=== PATIENT | female | born 1940 | race Caucasian/White ===

== ENCOUNTER 2016-09-08 15:48 | Outpatient (CLI) ==
[2016-09-08 16:13] LABS: BILIRUBIN,URINE Negative (NEGATIVE); KETONES,URINE Negative (NEGATIVE); LEUKOCYTE ESTERASE ,URINE Negative (NEGATIVE); NITRITE,URINE Negative (NEGATIVE); PH,URINE 6.5 (5-9); PROTEIN,URINE Negative (NEGATIVE); URINE, BLOOD Trace-intact (NEGATIVE)
[2016-09-08 16:16] LABS: ADD URINE MICROSCOPIC YES
== END 2016-09-08 15:49 | disposition home or self-care (01) ==
LOC: NONPT 15:48
PROVIDERS: ATTEND Family Medicine
DX: I10 Essential (primary) hypertension (principal); J15.9 Unspecified bacterial pneumonia; N39.0 Urinary tract infection, site not specified
CPT/HCPCS: 81001; 87086; 87186

== ENCOUNTER 2016-09-23 15:09 | Outpatient (CLI) ==
[2016-09-23 16:46] LABS: BILIRUBIN,URINE Negative (NEGATIVE); KETONES,URINE Negative (NEGATIVE); LEUKOCYTE ESTERASE ,URINE Negative (NEGATIVE); NITRITE,URINE Negative (NEGATIVE); PROTEIN,URINE Negative (NEGATIVE); URINE, BLOOD Negative (NEGATIVE)
[2016-09-23 16:47] LABS: ADD URINE MICROSCOPIC NO
== END 2016-09-23 15:10 | disposition home or self-care (01) ==
LOC: NONPT 15:09
PROVIDERS: ATTEND Family Medicine
DX: N39.0 Urinary tract infection, site not specified (principal)
CPT/HCPCS: 81001; 87086

== ENCOUNTER 2016-09-29 16:11 | Outpatient (CLI) ==
[2016-09-29 16:21] LABS: ADD URINE MICROSCOPIC NO; BILIRUBIN,URINE Negative (NEGATIVE); KETONES,URINE Negative (NEGATIVE); LEUKOCYTE ESTERASE ,URINE Negative (NEGATIVE); NITRITE,URINE Negative (NEGATIVE); PROTEIN,URINE Negative (NEGATIVE); URINE, BLOOD Negative (NEGATIVE)
== END 2016-09-29 16:12 | disposition home or self-care (01) ==
LOC: NONPT 16:11
PROVIDERS: ATTEND Family Medicine
DX: N39.0 Urinary tract infection, site not specified (principal); R41.0 Disorientation, unspecified
CPT/HCPCS: 81001; 87086

== ENCOUNTER 2017-10-26 10:10 | Outpatient (CLI) | END 2017-10-26 10:11 | disposition home or self-care (01) | LOC: NONPT 10:10 | PROVIDERS: ATTEND Family Medicine | DX: J18.9 Pneumonia, unspecified organism (principal); N39.0 Urinary tract infection, site not specified; I10 Essential (primary) hypertension | CPT/HCPCS: 80048; 85025 ==

== ENCOUNTER 2018-01-28 19:12 | Inpatient (IN) ==
[2018-01-28] MEDS ORDERED: SODIUM CHLORIDE 1,000 ML IV STA ×2 (19:20→20:33)
--- NOTE | 2018-01-28 19:53 | ED.PDOC ---
General ED Provider: Dr. MAYANK HARVEY-ER Chief Complaint: Fever Stated Complaint: she is running a fever and not eating Time Seen by Physician: 19:20 Mode of Arrival: Wheelchair Information Source: Patient, Family Exam Limitations: No limitations Nursing and Triage Documentation Reviewed and Agree: Yes Does patient meet sepsis criteria?: No System Inflammatory Response Syndrome: Not Applicable Sepsis Protocol: For patient's 13 years and over: Temp is 96.8 and below OR 101 and greater Pulse >90 BPM Resp >20/minute Acutely Altered Mental Status Are patient's symptoms suggestive of a new infection, such as: -Pneumonia -Skin, Soft Tissue -Endocarditis -UTI -Bone, Joint Infection -Implantable Device -Acute Abdominal Infection -Wound Infection -Meningitis -Blood Stream Catheter Infection -Unknown Miscellaneous Complaint Exam - Febrile Illness/Adult Complaint/Exam Onset/Duration: 2 days Symptoms Are: Still present Timing: Intermittent Highest Temperature Recorded: 102 Initial Severity: Mild Current Severity: Moderate Aggravating: Reports: None Alleviating: Reports: None Associated Signs and Symptoms: Reports: Chills. Denies: Headache, Fluid intake , Short of air, Cough, Sore throat, Nausea, Vomiting Related History: Reports: Similar episode Current Antibiotic Use: No Related Surgical History: None Specific Findings: Absent: Meningeal signs, Diaphoresis, Joint swelling, Erythema, Cellulitis, Lymphadenopathy, Petechiae, CVA tenderness Differential Diagnoses: Bacteremia, Pyelonephritis Quality Indicator For Non-Traumatic Chest Pain/Syncope: EKG Performed Review of Systems - Review Of Systems Constitutional: Reports: Chills, Fever, Weakness Eyes: Reports: No symptoms Ears, Nose, Mouth, Throat: Reports: No symptoms Respiratory: Reports: No symptoms Cardiac: Reports: No symptoms GI: Reports: No symptoms : Reports: No symptoms Musculoskeletal: Reports: No symptoms Skin: Reports: No symptoms Neurological: Reports: No symptoms Endocrine: Reports: No symptoms Hematologic/Lymphatic: Reports: No symptoms All Other Systems: Reviewed and Negative Past Medical History - Past Medical History Previously Healthy: No Endocrine: Reports: Unknown Cardiovascular: Reports: Unknown Respiratory: Reports: Unknown Hematological: Reports: Unknown Gastrointestinal: Reports: Unknown Genitourinary: Reports: Unknown Neuro/Psych: Reports: Unknown Musculoskeletal: Reports: Unknown Cancer: Reports: Unknown Last Menstrual Period: na - Surgical History General Surgical History: Reports: Unknown - Family History Family History: Reports: Unknown - Social History Smoking Status: Former smoker Hx Substance Use: No Alcohol Screening: None - Immunizations Tetanus Shot up to Date: No (unknown) Physical Exam - Physical Exam Appearance: Well-appearing Eyes: RALPH ENT: Ears normal, Nose normal, Oropharynx normal Neck: Supple Respiratory: Airway patent, Breath sounds clear, Breath sounds equal, Respirations nonlabored Cardiovascular: RRR, Pulses normal, No rub, No murmur GI/: Soft, Nontender, No masses, Bowel sounds normal, No Organomegaly Musculoskeletal: Normal strength, ROM intact, No edema, No calf tenderness Skin: Warm, Dry, Normal color Neurological: Sensation intact, Motor intact, Reflexes intact, Cranial nerves intact, Alert, Oriented Psychiatric: Affect appropriate, Mood appropriate Interpretation - Radiology Interpretation Radiology Interpretation By: Radiologist Radiology Results: Positive Exam Interpreted: CT Scan - EKG Interpretation Time of EKG #1: 20:40 Rate: Tachy Rhythm: Sinus Ectopy: None [place]: NL ST Segment: Normal Physician Notification - Case Discussed Physician Notified: dr cerda Time of Notification: 20:40 Critical Care Note - Critical Care Note Total Time (mins): 0 Course - Course Hematology/Chemistry: 01/28/18 19:41 01/28/18 19:41 Orders, Labs, Meds: Lab Review 01/28/18 01/28/18 01/28/18 19:19 19:40 19:41 WBC 16.75 H RBC 4.51 Hgb 12.7 Hct 40.0 MCV 88.7 MCH 28.2 MCHC 31.8 RDW Coeff of Yosvany 18.8 H Plt Count 177 Immature Gran % (Auto) 0.5 Neut % (Auto) 89.1 Lymph % (Auto) 2.7 L [place] % (Auto) 7.5 Eos % (Auto) 0.0 Baso % (Auto) 0.2 Immature Gran # (Auto) 0.1 Neut # (Auto) 14.9 H Lymph # (Auto) 0.5 L [place] # (Auto) 1.3 Eos # (Auto) 0.0 Baso # (Auto) 0.0 Puncture Site Right radial O2 Saturation 89.0 L ABG pH 7.503 H* ABG pCO2 26.8 L ABG pO2 50.0 L* ABG HCO3 21.0 L ABG Total CO2 22 ABG Base Excess -2 Russell Test + FiO2 % 21.0 Sodium Potassium Chloride Carbon Dioxide Anion Gap BUN Creatinine Estimated GFR (MDRD) BUN/Creatinine Ratio Glucose Lactic Acid Calcium Total Bilirubin AST ALT Alkaline Phosphatase Total Protein Albumin Globulin Albumin/Globulin Ratio Procalcitonin Urine Color Yellow Urine Clarity Clear Urine pH 5.5 Ur Specific [place] 1.025 Urine Protein 2+ Urine Glucose (UA) Negative Urine Ketones 1+ Urine Blood Trace-lysed Urine Nitrite Negative Urine Bilirubin 1+ Urine Urobilinogen 0.2 Ur Leukocyte Esterase Negative Urine Microscopic WBC 0-2 Ur Squamous Epith Cells 2-5 Amorphous Sediment 2+ Urine Bacteria 2+ 01/28/18 01/28/18 01/28/18 19:41 19:41 19:41 WBC RBC Hgb Hct MCV MCH MCHC RDW Coeff of Yosvany Plt Count Immature Gran % (Auto) Neut % (Auto) Lymph % (Auto) [place] % (Auto) Eos % (Auto) Baso % (Auto) Immature Gran # (Auto) Neut # (Auto) Lymph # (Auto) [place] # (Auto) Eos # (Auto) Baso # (Auto) Puncture Site O2 Saturation ABG pH ABG pCO2 ABG pO2 ABG HCO3 ABG Total CO2 ABG Base Excess Russell Test FiO2 % Sodium 137 Potassium 3.6 Chloride 102 Carbon Dioxide 21 L Anion Gap 17.6 BUN 14 Creatinine 0.74 Estimated GFR (MDRD) 76.00 BUN/Creatinine Ratio 18.91 Glucose 135 H Lactic Acid 18.5 Calcium 9.3 Total Bilirubin 0.8 AST 21 ALT 14 Alkaline Phosphatase 98 Total Protein 7.4 Albumin 2.9 L Globulin 4.5 Albumin/Globulin Ratio 0.64 Procalcitonin 0.90 Urine Color Urine Clarity Urine pH Ur Specific [place] Urine Protein Urine Glucose (UA) Urine Ketones Urine Blood Urine Nitrite Urine Bilirubin Urine Urobilinogen Ur Leukocyte Esterase Urine Microscopic WBC Ur Squamous Epith Cells Amorphous Sediment Urine Bacteria Orders Category Date Time Status ABG DRAW REQUEST Stat CARDIO 01/28/18 19:19 Completed EKG-(ED ONLY) Stat CARDIO 01/28/18 19:19 Completed IV [ED IV/MEDIPORT/POWERPORT] .ONCE EMERGENCY 01/28/18 19:20 Active ABG Stat LAB 01/28/18 19:19 Completed BLOOD CULTURE (ED ONLY) Stat LAB 01/28/18 19:41 Received CBC W/ AUTO DIFF Stat LAB 01/28/18 19:41 Completed COMPREHENSIVE METABOLIC PANEL Stat LAB 01/28/18 19:41 Completed LACTIC ACID Stat LAB 01/28/18 19:41 Completed PROCALCITONIN Stat LAB 01/28/18 19:41 Completed URINALYSIS C & S IF INDICATED Stat LAB 01/28/18 19:40 Completed URINE CULTURE Stat LAB 01/28/18 19:40 Received 0.9 % Sodium Chloride [Saline Flush] MEDS 01/28/18 19:20 Ordered 1 syr IVF PRN PRN Ceftriaxone Sodium [Rocephin] 1 gm MEDS 01/28/18 20:33 Active 0.9 % Sodium Chloride [Sodium Chloride] 50 ml IV ONCE Sodium Chloride 0.9% [Sodium Chloride] 1,000 ml MEDS 01/28/18 20:[address] ABD/PEL WO RENAL STONE PROT Stat RADS 01/28/18 19:[address] CHEST W/O CONTRAST Stat RADS 01/28/18 19:20 Completed Medications Generic Name Dose Route Start Last Admin Trade Name Freq PRN Reason Stop Dose Admin Sodium Chloride 1,000 mls @ 1,000 mls/hr 01/28/18 20:33 Sodium Chloride IV 01/28/18 21:32 BOLUS STA Ceftriaxone Sodium 1 gm/ 50 mls @ 75 mls/hr 01/28/18 20:33 Sodium Chloride IV 01/28/18 21:12 ONCE STA Sodium Chloride 1 syr 01/28/18 19:20 Saline Flush IVF PRN PRN To flush IV Vital Signs: Temp Pulse Resp BP Pulse Ox 01/28/18 20:31 117 H 26 H 126/76 96 01/28/18 19:51 129 H 17 118/71 96 01/28/18 19:17 102.6 F H 140 H 32 H 132/90 90 L Departure - Departure Time of Disposition: 20:40 Disposition: ADMITTED INPATIENT Discharge Problem: Acute respiratory failure Qualifiers: Respiratory failure complication: hypoxia Qualified Code(s): J96.01 - Acute respiratory failure with hypoxia Pneumonia Qualifiers: Pneumonia type: due to unspecified organism Laterality: right Lung location: lower lobe of lung Qualified Code(s): J18.1 - Lobar pneumonia, unspecified organism Instructions: Community Acquired Pneumonia (ED) Condition: Good Pt referred to PMD for follow-up: Yes IPMP verified?: No Allergies/Adverse Reactions: Allergies apraclonidine [From Iopidine] Adverse Reaction (Verified 01/28/18 19:27) Disposition Discussed With: Patient, Family
[2018-01-28] MEDS ORDERED: ROCEPHIN 1 GM in SODIUM CHLORIDE 50 ML IV STA (20:33)
--- NOTE | 2018-01-28 20:33 | CT ---
EXAM: CT abdomen and pelvis without contrast HISTORY: Diagnosed with urinary tract infection and rectal bleeding on Thursday, given antibiotics bu t hasn't been ingested. Increased weakness weakness, no appetite, fever, hallucinations TECHNIQUE: Multi-slice transaxial helical with coronal and sagittal reformed images COMPARISON: None FINDINGS: There is consolidation in the right lower lobe and right middle lobe. The heart size is no rmal. A trace right pleural effusion is suggested. The left pleural fluid is detected. No pericardi al effusion. The hepatic attenuation is normal relative to the spleen. The gallbladder is present without biliary dilatation. The pancreas and adrenal glands are grossly normal. Calcified granulomas are detected otherwise normal spleen. The kidneys have normal size attenuation. The ureters have normal caliber. The nonopacified bladder is normal. There are no adnexal lesions. The intestines have normal caliber without evidence of ob struction or acute inflammation. The bony aorta is atherosclerotic. No lymphadenopathy or ascites a re appreciated. The bones are free of suspicious osteolytic or osteoblastic lesions. A mild chronic compression fract ure is noted at the anterior aspect of L2. IMPRESSION: 1. Pneumonia, right middle lobe and right lower lobe a trace right pleural effusion. 2. Nonobstructive intestinal gas pattern. 3. Normal renal collecting systems. 4. No biliary dilatation.
--- NOTE | 2018-01-28 20:37 | CT ---
Exam: CT of the chest without intravenous contrast. Comparison: None available. Reason for exam: Fever. FINDINGS: Patchy airspace opacities with ground-glass are seen throughout the right lung with a deve loping consolidations in the left hilar region and right lower lobe. No pneumothorax or pleural effusion. The heart is not enlarged. Atherosclerotic disease is seen wit hin the aorta and distal arterial vasculature. There are prominent appearing mediastinal lymph nodes. Image interpretation is limited by the lack o f intravenous contrast administration. Degenerative disease is seen in the thoracic spine. Atherosclerotic disease is seen within the aorta and distal arterial vasculature. Impression: 1. Patchy airspace opacities with ground-glass likely multi focal pneumonia. Cannot rule out underly ing neoplasia. Follow-up imaging is recommended to document resolution. 2. Prominent appearing mediastinal lymph nodes can be seen with reactivity, infection, and neoplasia . Follow-up imaging is recommended.
[2018-01-28] MEDS ORDERED: SOLU-MEDROL 40 MG IVP SCH (21:00)
[2018-01-28] MEDS ORDERED: ROCEPHIN ONE (21:18)
[2018-01-28 22:07] VITALS: BMI 22.7
[2018-01-28] MEDS: XOPENEX 1.25 MG NEB SCH (23:06)
[2018-01-28] MEDS: DOXY-100 100 MG in SODIUM CHLORIDE 100 ML IV SCH (23:35)
[2018-01-29] MEDS: XOPENEX 1.25 MG NEB SCH ×3 (04:54→18:07)
[2018-01-29] MEDS ORDERED: ANTIVERT PO PRN ×2 (08:04→14:33)
[2018-01-29] MEDS ORDERED: ULTRAM PO PRN ×3 (08:04→15:00)
[2018-01-29] MEDS ORDERED: TYLENOL PO PRN (08:07)
[2018-01-29] MEDS ORDERED: NON-FORMULARY MEDICATION (Methocarbamol [Methocarbamol] 750 MG) PO SCH (09:00)
[2018-01-29] MEDS: DOXY-100 100 MG in SODIUM CHLORIDE 100 ML IV SCH ×2 (09:14→20:14)
[2018-01-29] MEDS: NYSTOP POWDER TP SCH ×2 (09:14→20:14)
[2018-01-29] MEDS: SODIUM CHLORIDE 1,000 ML IV SCH (09:14)
[2018-01-29] MEDS: XANAX PO SCH ×2 (09:15→20:17)
[2018-01-29] MEDS: SOLU-MEDROL 125 MG IVP SCH ×2 (09:15→20:27)
[2018-01-29] MEDS: LOVENOX SUBCUT SCH (09:16)
[2018-01-29] MEDS: ROBAXIN PO SCH ×2 (14:48→20:15)
--- NOTE | 2018-01-29 14:52 | RS.PTINEVL ---
Subjective - Patient information Date of Evaluation: 01/29/18 Date of Arrival on Unit: 01/28/18 Admitted From:: Home Diagnosis: acute resp failure, pneumonia Usual Living Arrangement: with , son and daughter in law Home Environment: House, Stairs (few), Rail Medical History: Hypertension, COPD, Arthritis Medical History Comments:: anemia, poor vision(legally blind), scoliosis, rectal bleeding, h/o L sciatica LATEX ALLERGY?: No Medications: see chart Subjective Information/ Patient Comments:: pt states that she is anxious to get marika. - Level of function Abilities prior to this admission: pt had assist with bathing prior to admit, pt amb with rwx in home independently Current Level of Function: Dependent Current Equipment Used at Home: walker, bedside commode Interventions - Objective Patient Orientation: Person, Place, Time Current Interventions: IV's, Oxygen, Telemetry Range of Motion - ROM Right Upper Extremity AROM: WFL's Left Upper Extremity AROM: WFL's Right Lower Extremity AROM: WFL's Left Lower Extremity AROM: WFL's Muscle Strength - Muscle Strength Right Upper Extremity Strength: Mild Weakness (BUE grossly 4-/5) Left Upper Extremity Strength: Mild Weakness Right Lower Extremity Strength: Mild Weakness (hip flex 3+/5, knee flex/ext 4-/5 , ankle DF/PF 4-/5) Left Lower Extremity Strength: Mild Weakness (hip flex 3+/5, knee flex/ext 4-/5 , ankle DF/PF 4-/5) Sensation - Sensation Right Upper Extremity Sensation: Intact/Normal Left Upper Extremity Sensation: Intact/Normal Right Lower Extremity Sensation: Intact/Normal Left Lower Extremity Sensation: Intact/Normal Palpation Palpation Findings: None/Normal Balance - Sitting Balance and Reactions Static Sitting Balance: Fair Dynamic Sitting Balance: Poor Sitting Equilibrium Reactions: Delayed Left, Delayed Right Sitting Protective Reactions: Delayed Left, Delayed Right - Standing Balance and Reactions Static Standing Balance: Poor Dynamic Standing Balance: Poor Standing Equilibrium Reactions: Delayed Left, Delayed Right Standing Protective Reactions: Delayed Left, Delayed Right Functional Mobility - Bed Mobility Rolling R/L: Mod Assist, 2 person assist Scooting: Mod Assist, 2 person assist Supine to Sit: Mod Assist, 2 person assist Sit to Supine: Mod Assist, 2 person assist - Transfers Sit to Stand: Mod Assist, 2 person assist Stand Pivot Transfers: Mod Assist, 2 person assist Comments:: stand pivot bed to [facility] - Safety Awareness Safety Awareness: Fair (pt with poor vision) EMA INDEX SCORE: n/a Ambulation - Ambulation Assistive Device Used: Rolling Walker Orthotic/Prosthetic Device: No Distance: 2 steps Assistance needed with Ambulation: Mod Assist, 2 person assist Gait Deviations: Forward posture, Short stride Factors Affecting Ambulation: Decreased Balance, Weakness, Decreased Safety Treatment time - Time with patient Length of Evaluation: 26 Total treatment time: 26 Patient Education - Education Patient Education: Activity Modification, Education of Plan of Care Teaching Recipient: Patient Teaching Methods: Discussion (discussion regarding POC as well as safety with transfers) Assessment - Assessment Problem List:: Decreased level of function, Requires training/education, Decreased safety/Risk of falls, Weakness Rehab Potential: Good Further Therapy Indicated?: Yes Candidate for Swing Bed for Therapy Services?: Will reassess pt candidate for swing bed at a later time depending upon pt ability to tolerate PT. Evaluation Complexity: HISTORY: Medium (acute resp failure, htn, copd, ddd), EXAM OF BODY SYSTEMS: Medium (pain, strength, gait ,transfers), CLINICAL PRESENTATION: Medium (evolving), CLINICAL DECISION MAKING: Medium Short Term Goals GOAL #1: pt demonstrate rolling with bedrails independently, scooting in bed CGA Goal to be met by: 02/02/18 GOAL #2: pt transfer sup to/from sit to/from stand min to CGA Goal to be met by: 02/02/18 GOAL #3: pt amb 25ft with rwx with min x 1 with improved posture Goal to be met by: 02/02/18 GOAL #4: Improved BLE strength 4 to 4+/5 Goal to be met by: 02/02/18 Endoscope Technician Goals GOAL #1: pt demonstrate independence with positioning in bed Goal to be met by: 02/04/18 GOAL #2: pt transfer sup to/from sit to/from stand CGA Goal to be met by: 02/04/18 GOAL #3: pt amb with rwx 50ft with no LOB with improved posture Goal to be met by: 02/04/18 Plan Plan of Care: Therapeutic EX, Therapeutic Activity Other:: gait training Frequency of Treatment: 1-2 X day, as tolerated Duration of Treatment: 6 days Anticipated Discharge Destination: Home Treatment Diagnosis (ICD 10 Codes): R26.2 difficulty walking. R26.81 balance impaired. M62.81 general weakness Has the Physician been added for Co-signature?: Yes
--- NOTE | 2018-01-29 15:05 | PN ---
DATE OF SERVICE: 01/28/18 SUBJECTIVE: The patient hospital through the emergency room by Dr. Charan Vega with complaint of cough, congestion. The patient was treated through the office a few days ago with antibiotics. Her condition didn't improve. The patient's chest x-ray show pneumonia. WBC is 16,000. The patient has bilateral wheeze and evidence of CHF. ASSESSMENT: 1. Pneumonia PLAN: 1. The patient is going to be treated with IV antibiotics, steroids and NEBS treatment CONDITION: Stable. TIME SPENT: More than 30 minutes. Plan and coordination of the patient's care discussed in the presence of nurse. JUN
--- NOTE | 2018-01-29 15:07 | PN ---
DATE OF SERVICE: 01/29/18 SUBJECTIVE: The patient was hospitalized with pneumonia. The patient's condition has improved. She is on antibiotics and steroids. She was drowsy this morning. The patient was seen and examined with Nurse Practitioner. PLAN: 1. Continue antibiotics and steroids and NEBS CONDITION: Stable TIME SPENT: More than 30 minutes. Plan and coordination of the patient's care discussed in the presence of nurse. JUN
--- NOTE | 2018-01-29 16:16 | RS.OTINEVL ---
Subjective - Patient information Date of Evaluation: 01/29/18 Date of Arrival on Unit: 01/28/18 Admitted From:: Home Usual Living Arrangement: with , son and daughter in law Living Arrangement Comments: Pt lives at home with her and her son and [id number]. The [id number] helps her. 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 Pt is legally blind. Pt does not go up or down stairs unless assisted. Pt requires assistance with bathing, dressing, and ambulation. Current Level of Function: Partially Dependent Current Equipment Used at Home: walker, bedside commode Pain Assessment - Pain Pain Score: 0 Interventions - Objective Patient Orientation: Person, Place Current Interventions: IV's, Oxygen, Telemetry Observation: Pt is wearing her glasses and is legally blind. Pt uses a rolling walker for transfers. Pt is moderate assistance of 2 to transfer to [facility]. Interventions - ROM Right Upper Extremity AROM: WFL's Left Upper Extremity AROM: WFL's - Strength Right Upper Extremity Strength: Mild Weakness Left Upper Extremity Strength: Mild Weakness - Sensation Right Upper Extremity Sensation: Intact/Normal Left Upper Extremity Sensation: Intact/Normal Balance - Sitting Balance Static Sitting Balance: Fair Dynamic Sitting Balance: Fair - Standing Balance Static Standing Balance: Poor Dynamic Standing Balance: Poor - Comments Balance Assessment Comments: Poor ADL Skills - Self Feeding Self Feeding: Min Assist - Grooming Grooming: Mod Assist - Dressing Dressing UE: Mod Assist Dressing LE: Mod Assist - Toilet Management Toileting Management: Mod Assist Functional Mobility - Bed Mobility Rolling R/L: Independent Scooting: Independent Supine to Sit: Independent, CGA Sit to Supine: CGA - Transfers Sit to Stand: Mod Assist Stand to Sit: Mod Assist Stand Pivot Transfers: Mod Assist, 2 person assist - Ambulation Weight Bearing Status: FWB Assistive Device Used: Rolling Walker Assistance needed with Ambulation: Mod Assist, 2 person assist - Safety Awareness Safety Awareness: Fair EMA INDEX SCORE: . Additional Treatment Performed - Time with patient Length of Evaluation: 19 Total treatment time: 19 Activities Patient Interests:: Visiting/Socializing, Listening to Music Patient Education Patient Education: Education of diagnosis, Home Exercise Program, Activity Modification, Education of Plan of Care Teaching Recipient: Patient, Family Teaching Methods: Discussion, Demonstration Assessment Problem List:: Decreased level of function, Requires training/education, Decreased safety/Risk of falls, Weakness Rehab Potential: Good Further Therapy Indicated?: Yes Evaluation Complexity: HISTORY: Medium, EXAM OF BODY SYSTEMS: Medium, CLINICAL DECISION MAKING: Medium Short Term Goals - Goals GOAL 1: Pt to tolerate dyn. std. bal. for 10 minutes to increase safety. Goal to be met by: 02/04/18 GOAL 2: Pt to increase strength of the RUE to 4-/5/ Goal to be met by: 02/03/18 GOAL 3: Pt to complete toilet transfer with RW to minimal assistance. Goal to be met by: 02/05/18 Security Patrol Driver Goals GOAL 1: Pt to tolerate dyn. std. bal. for 15 minutes to increase safety. Goal to be met by: 02/08/18 GOAL 2: Pt to increase strength of the RUE to 4+/5/ Goal to be met by: 02/08/18 GOAL 3: Pt to complete toilet transfer with RW to CG assistance. Goal to be met by: 02/08/18 Plan Plan of Care: Therapeutic EX, Neuromuscular Re-Educ, Therapeutic Activity, Self- Care/Home Management Frequency of Treatment: 1-2 X day, as tolerated Duration of Treatment: 2 Weeks Anticipated Discharge Destination: Home Treatment Diagnosis (ICD 10 Codes): M62.81 muscle weakness, Z74.0 Reduced mobility, Z74.1 Need for assistance with personal care. Has the Physician been added for Co-signature?: Yes
[2018-01-29] MEDS: PROTONIX PO SCH (17:10)
[2018-01-29] MEDS ORDERED: SEROQUEL ONE (20:08)
[2018-01-29] MEDS: NAMENDA PO SCH (20:17)
[2018-01-29] MEDS: LEXAPRO PO SCH (20:17)
[2018-01-29] MEDS: SEROQUEL PO SCH (20:17)
[2018-01-29] MEDS ORDERED: HALDOL IM STA (20:45)
[2018-01-29] MEDS ORDERED: HALDOL ONE (20:47)
[2018-01-29] MEDS ORDERED: LEXAPRO PO SCH (21:00)
[2018-01-29] MEDS ORDERED: ROCEPHIN 1 GM in SODIUM CHLORIDE 50 ML IV SCH (21:00)
[2018-01-30] MEDS: XOPENEX 1.25 MG NEB SCH ×5 (00:23→23:50)
[2018-01-30] MEDS: LEXAPRO PO SCH ×2 (00:47→20:15)
[2018-01-30] MEDS: XANAX PO SCH ×3 (00:50→20:15)
[2018-01-30] MEDS: ROBAXIN PO SCH ×3 (00:56→20:15)
[2018-01-30] MEDS: NAMENDA PO SCH ×3 (00:56→20:15)
[2018-01-30] MEDS: SEROQUEL PO SCH ×2 (00:57→20:16)
[2018-01-30] MEDS: PROTONIX PO SCH ×2 (05:44→16:56)
[2018-01-30] MEDS ORDERED: HALDOL IM PRN (08:03)
[2018-01-30] MEDS: NYSTOP POWDER TP SCH ×2 (09:22→20:12)
[2018-01-30] MEDS: DOXYCYCLINE HYCLATE PO SCH ×2 (09:22→20:16)
[2018-01-30] MEDS: K-DUR PO SCH ×4 (09:22→20:16)
[2018-01-30] MEDS: DECADRON 4 MG/ML SDV IM SCH (09:22)
[2018-01-30] MEDS: LOVENOX SUBCUT SCH (09:24)
[2018-01-30] MEDS ORDERED: HALDOL ONE (09:25)
[2018-01-30] MEDS: SODIUM CHLORIDE 1,000 ML IV SCH (09:30)
[2018-01-30] MEDS: LIDOCAINE HCL 1% SDV IM SCH (20:13)
[2018-01-30] MEDS: ROCEPHIN IM SCH (20:14)
[2018-01-31] MEDS: XOPENEX 1.25 MG NEB SCH ×3 (05:05→17:52)
[2018-01-31] MEDS: PROTONIX PO SCH ×2 (06:09→16:25)
[2018-01-31] MEDS: K-DUR PO SCH ×4 (08:50→20:53)
[2018-01-31] MEDS: ROBAXIN PO SCH ×2 (08:51→20:53)
[2018-01-31] MEDS: NAMENDA PO SCH ×2 (08:51→20:53)
[2018-01-31] MEDS: XANAX PO SCH ×2 (08:51→20:56)
[2018-01-31] MEDS: DOXYCYCLINE HYCLATE PO SCH ×2 (08:51→20:53)
[2018-01-31] MEDS: NYSTOP POWDER TP SCH ×2 (08:52→20:54)
[2018-01-31] MEDS: DECADRON 4 MG/ML SDV IM SCH ×2 (08:52→08:53)
[2018-01-31] MEDS: LOVENOX SUBCUT SCH (08:53)
[2018-01-31] MEDS: COZAAR PO SCH (15:30)
[2018-01-31] MEDS: ROCEPHIN IM SCH (20:52)
[2018-01-31] MEDS: LIDOCAINE HCL 1% SDV IM SCH (20:52)
[2018-01-31] MEDS: LEXAPRO PO SCH (20:53)
[2018-01-31] MEDS: SEROQUEL PO SCH (20:56)
[2018-02-01] MEDS: XOPENEX 1.25 MG NEB SCH ×5 (00:03→23:44)
[2018-02-01] MEDS: PROTONIX PO SCH ×2 (06:17→17:57)
[2018-02-01] MEDS ORDERED: ROBAXIN PO PRN (08:03)
--- NOTE | 2018-02-01 08:40 | PCM.PROG ---
Attending Provider: ATTENDING PROVIDER: Dr. MADELIN SOTELO This patient is seen with Elsa Bee, Nurse Practitioner. DATE OF SERVICE: 02/01/18 SUBJECTIVE: This 77 year old WHITE/ F was hospitalized 01/28/18. The patient is lying in bed resting comfortably. The patient has had some confusion which is normal for her; however, she has apparently refused labs for the past two days. I have asked this morning and she has agreed. We need to reevaluate her potassium level. She is otherwise doing fairly well eating 25 to 50% of her meals. REVIEW OF SYSTEMS: CONSTITUTIONAL: Positive for weakness. No night sweats. No malaise, lethargy. No fever or chills. HEENT: Eyes: No visual changes. No eye pain. No eye discharge. ENT: No runny nose. No epistaxis. No sinus pain. No odynophagia. No congestion. RESPIRATORY: Cough. No congestion. No hemoptysis. No shortness of breath. CARDIOVASCULAR: No angina symptoms. No CHF symptoms. No atypical chest pain for CAD. No palpitations. No orthopnea.. GASTROINTESTINAL: No abdominal pain. No nausea or vomiting. No diarrhea or constipation. No hematemesis. No hematochezia. GENITOURINARY: No urgency. No frequency. No dysuria. No hematuria. No obstructive symptoms. No discharge. No pain. No significant abnormal bleeding. MUSCULOSKELETAL: No musculoskeletal pain; no joint swelling. NEUROLOGICAL: Awake, alert, confused. No headache. No neck pain. No syncope. No seizures. No dizziness. PSYCHIATRIC: Not anxious. No depression. No suicidal thoughts. No homicidal thoughts. SKIN: No rash. No lesions. No wounds. ENDOCRINE: No unexplained weight loss. No weight gain. HEMATOLOGIC/LYMPHATIC: No anemia. No purpura. No petechiae. No prolonged or excessive bleeding. No palpable lymph nodes. PHYSICAL EXAMINATION: GENERAL: The patient is awake, alert and oriented to person only, lying in bed in no distress. VITAL SIGNS: Temperature 97.8 F, Pulse 86, Respiratory Rate 16, BP 134/72, Pulse Ox 93% HEENT: Head normocephalic, atraumatic. Eyes: Extraocular muscles are intact. Pupils are equal, round and reactive to light and accommodation. Ears: No lesions. Nose appeared normal. Throat: No exudate or erythema. NECK: Supple. No JVD, no carotid bruit. No lymphadenopathy or thyromegaly. LUNGS: Diminished breath sounds bilaterally. Clear to auscultation. Percussion note normal. Chest symmetrical. HEART: S1, S2, no S3. No murmurs. No cyanosis or clubbing. No ascites. Pulses: Dorsalis pedis and posterior tibial pulses +1 to +2 both sides. ABDOMEN: Soft. Non-tender. Bowel sounds active. No CVA tenderness. No mass felt. EXTREMITIES: No edema. Full range of motion of all extremities, equal. NEUROLOGIC: No focal deficit. Cranial nerves II through XII are grossly intact. No headache, no double vision or headache. SKIN: Not dry. Intact. Turgor-normal. LYMPHATIC: No palpable lymph nodes/no lymphedema. MUSCULOSKELETAL: Normal joints with no swelling. Muscle tone is normal. LAB REVIEW: 01/30/18 08:00 01/30/18 08:00 ASSESSMENT: 1. Right middle and lower lobe pneumonia 2. Acute respiratory failure resolved 3. Hypokalemia 4. Dementia with hallucinations 5. Anxiety 6. History of anemia 7. History of GI bleed 8. Legally blind 9. Hypertension PLAN: 1. Repeat chest x-ray 2. CBC, CMP today 3. D.C Decadron 4, Prednisone 10 mg b.i.d. 5. Robaxin p.r.n. Plan and coordination of the patient's care discussed in the presence of Vacuum Applicator Operator and nurse. CONDITION: Stable SCRIBED BY: ROSSY MARTIN Straddle Bug scribed while in presence of service performed by Dr. Sotelo/Elsa Bee APRN on 02/01/18 ([id number])
--- NOTE | 2018-02-01 08:58 | PCM.PROG ---
Attending Provider: ATTENDING PROVIDER: Dr. MADELIN SOTELO This patient is seen with Elsa Bee, Nurse Practitioner. DATE OF SERVICE: 01/29/18 SUBJECTIVE: This 77 year old WHITE/ F was hospitalized 01/28/18. The patient is lying in bed resting comfortably. She came to ER with acute respiratory failure. CT shows right middle lobe pneumonia. Fever up to 102 through the night. REVIEW OF SYSTEMS: CONSTITUTIONAL: Positive for fever and fatigue. No night sweats. No malaise, lethargy. HEENT: Eyes: No visual changes. No eye pain. No eye discharge. ENT: No runny nose. No epistaxis. No sinus pain. No odynophagia. No congestion. RESPIRATORY: No cough, no congestion. No hemoptysis. No shortness of breath. CARDIOVASCULAR: No angina symptoms. No CHF symptoms. No atypical chest pain for CAD. No palpitations. No orthopnea.. GASTROINTESTINAL: No abdominal pain. No nausea or vomiting. No diarrhea or constipation. No hematemesis. No hematochezia. GENITOURINARY: No urgency. No frequency. No dysuria. No hematuria. No obstructive symptoms. No discharge. No pain. No significant abnormal bleeding. MUSCULOSKELETAL: No musculoskeletal pain; no joint swelling. NEUROLOGICAL: Awake, alert, oriented to time, place and person. No headache. No neck pain. No syncope. No seizures. No dizziness. PSYCHIATRIC: Not anxious. No depression. No suicidal thoughts. No homicidal thoughts. SKIN: No rash. No lesions. No wounds. ENDOCRINE: No unexplained weight loss. No weight gain. HEMATOLOGIC/LYMPHATIC: No anemia. No purpura. No petechiae. No prolonged or excessive bleeding. No palpable lymph nodes. PHYSICAL EXAMINATION: GENERAL: The patient is awake, alert and oriented, lying in bed in no distress. VITAL SIGNS: Temperature 98.0 F, Pulse 97, Respiratory Rate 16, BP 117/65, Pulse Ox 95% HEENT: Head normocephalic, atraumatic. Eyes: Extraocular muscles are intact. Pupils are equal, round and reactive to light and accommodation. Ears: No lesions. Nose appeared normal. Throat: No exudate or erythema. NECK: Supple. No JVD, no carotid bruit. No lymphadenopathy or thyromegaly. LUNGS: Severely diminished breath sounds on the right. Clear to auscultation. Percussion note normal. Chest symmetrical. HEART: S1, S2, no S3. No murmurs. No cyanosis or clubbing. No ascites. Pulses: Dorsalis pedis and posterior tibial pulses +1 to +2 both sides. ABDOMEN: Soft. Non-tender. Bowel sounds active. No CVA tenderness. No mass felt. EXTREMITIES: No edema. Full range of motion of all extremities, equal. NEUROLOGIC: No focal deficit. Cranial nerves II through XII are grossly intact. No headache, no double vision or headache. SKIN: Not dry. Intact. Turgor-normal. LYMPHATIC: No palpable lymph nodes/no lymphedema. MUSCULOSKELETAL: Normal joints with no swelling. Muscle tone is normal. LAB REVIEW: 01/29/18 05:00 01/29/18 05:00 01/29/18 05:00: Sodium 141, Potassium 3.8, Chloride 108 H, Carbon Dioxide 23, Anion Gap 13.8, BUN 12, Creatinine 0.69, Estimated GFR (MDRD) 82.00, BUN/ Creatinine Ratio 17.39, Glucose 184 H, Calcium 8.9, Total Bilirubin 0.4, AST 18 , ALT 11 L, Alkaline Phosphatase 94, Total Protein 6.6, Albumin 2.6 L, Globulin 4.0, Albumin/Globulin Ratio 0.65 01/29/18 05:00: WBC 13.65 H, RBC 4.24, Hgb 11.7 L, Hct 37.8, MCV 89.2, MCH 27.6 , MCHC 31.0 L, RDW Coeff of Yosvany 19.1 H, Plt Count 176, Immature Gran % (Auto) 0.8, Neut % (Auto) 86.6, Lymph % (Auto) 8.4 L, Holmes % (Auto) 4.0, Eos % (Auto) 0.0, Baso % (Auto) 0.2, Immature Gran # (Auto) 0.1, Neut # (Auto) 11.8 H, Lymph # (Auto) 1.1, Holmes # (Auto) 0.5, Eos # (Auto) 0.0, Baso # (Auto) 0.0 01/28/18 19:41: Procalcitonin 0.90 01/28/18 19:41: Lactic Acid 18.5 01/28/18 19:41: Sodium 137, Potassium 3.6, Chloride 102, Carbon Dioxide 21 L, Anion Gap 17.6, BUN 14, Creatinine 0.74, Estimated GFR (MDRD) 76.00, BUN/ Creatinine Ratio 18.91, Glucose 135 H, Calcium 9.3, Total Bilirubin 0.8, AST 21 , ALT 14, Alkaline Phosphatase 98, Total Protein 7.4, Albumin 2.9 L, Globulin 4.5, Albumin/Globulin Ratio 0.64 01/28/18 19:41: WBC 16.75 H, RBC 4.51, Hgb 12.7, Hct 40.0, MCV 88.7, MCH 28.2, MCHC 31.8, RDW Coeff of Yosvany 18.8 H, Plt Count 177, Immature Gran % (Auto) 0.5, Neut % (Auto) 89.1, Lymph % (Auto) 2.7 L, Holmes % (Auto) 7.5, Eos % (Auto) 0.0, Baso % (Auto) 0.2, Immature Gran # (Auto) 0.1, Neut # (Auto) 14.9 H, Lymph # ( Auto) 0.5 L, Holmes # (Auto) 1.3, Eos # (Auto) 0.0, Baso # (Auto) 0.0 01/28/18 19:40: Urine Color Yellow, Urine Clarity Clear, Urine pH 5.5, Ur Specific [place] 1.025, Urine Protein 2+, Urine Glucose (UA) Negative, Urine Ketones 1+, Urine Blood Trace-lysed, Urine Nitrite Negative, Urine Bilirubin 1+ , Urine Urobilinogen 0.2, Ur Leukocyte Esterase Negative, Urine Microscopic WBC 0-2, Ur Squamous Epith Cells 2-5, Amorphous Sediment 2+, Urine Bacteria 2+ 01/28/18 19:19: Puncture Site Right radial, O2 Saturation 89.0 L, ABG pH 7.503 H *, ABG pCO2 26.8 L, ABG pO2 50.0 L*, ABG HCO3 21.0 L, ABG Total CO2 22, ABG Base Excess -2, Russell Test +, FiO2 % 21.0 ASSESSMENT: 1. Right middle and lower lobe pneumonia 2. Acute respiratory failure improving 3. Dementia with hallucinations 4. Anxiety 5. History of anemia 6. History of GI bleed 7. Legally blind 8. Hypertension PLAN: 1. Resume all home meds except Norvasc and Zestril 2. Xanax 0.25 mg b.i.d. p.r.n. 3. Tylenol p.r.n for fever 4. Continue IV antibiotics and fluids 5. Increase Solu-Medrol 100 mg IV q.12hr Plan and coordination of the patient's care discussed in the presence of Statistical Assistant and nurse. CONDITION: Stable SCRIBED BY: ROSSY MARTIN Sales Development Manager scribed while in presence of service performed by Dr. Sotelo/Elsa Bee APRN on 01/29/18 ([id number])
[2018-02-01] MEDS: DOXYCYCLINE HYCLATE PO SCH ×2 (09:48→20:25)
[2018-02-01] MEDS: COZAAR PO SCH (09:48)
[2018-02-01] MEDS: PREDNISONE PO SCH ×2 (09:48→17:57)
[2018-02-01] MEDS: K-DUR PO SCH ×4 (09:48→20:26)
[2018-02-01] MEDS: NAMENDA PO SCH ×2 (09:48→20:26)
--- NOTE | 2018-02-01 09:51 | HP ---
DATE OF SERVICE: 01/29/18 HISTORY OF PRESENT ILLNESS: This is a 77-year-old white female who was brought to the emergency room last night with cough and shortness of breath. She had been seen in our office earlier in the week on the , was having no respiratory problems. This was for rectal bleeding due to hemorrhoids. PAST MEDICAL HISTORY: Anemia Hypertension Generalized muscle weakness Anxiety Depression History of GI bleed External hemorrhoids Dementia with history of hallucinations Osteoarthritis Legally blind PAST SURGICAL HISTORY: No surgical history to speak of. REVIEW OF SYSTEMS: CONSTITUTIONAL: No night sweats. No fatigue, malaise, lethargy. No fever or chills. HEENT: Eyes: No visual changes. No eye pain. No eye discharge. ENT: No runny nose. No epistaxis. No sinus pain. No sore throat. No odynophagia. No ear pain. No congestion. RESPIRATORY: Positive for cough and shortness of breath. No hemoptysis. CARDIOVASCULAR: No angina symptoms. No CHF symptoms. No atypical chest pain for CAD. No palpitations. No PND. No orthopnea. GASTROINTESTINAL: No abdominal pain. No nausea or vomiting. No diarrhea or constipation. No hematemesis. No hematochezia. GENITOURINARY: No urgency. No frequency. No dysuria. No hematuria. No obstructive symptoms. No discharge. No pain. No significant abnormal bleeding. MUSCULOSKELETAL: No musculoskeletal pain. No joint swelling. No arthritis. NEUROLOGICAL: No headache. No neck pain. No syncope. No seizures. No dizziness. PSYCHIATRIC: Not anxious. No depression. No suicidal thoughts. No homicidal thoughts. SKIN: No rash. No lesions. No wounds. ENDOCRINE: No unexplained weight loss. No weight gain. HEMATOLOGIC/LYMPHATIC: No anemia. No purpura. No petechiae. No prolonged or excessive bleeding. No palpable lymph nodes. PERSONAL/FAMILY/SOCIAL HISTORY: She lives with son and [id number] as well as her . MEDICATIONS: Tramadol 50 mg p.o. b.i.d. p.r.n. Methocarbamol 750 mg p.o. b.i.d. Meclizine 25 mg p.o. t.i.d. p.r.n. Zestril 20 mg p.o. b.i.d. Norvasc 5 mg p.o. daily Lexapro 10 mg p.o. bedtime Quetiapine Fumarate 25 mg p.o. bedtime Protonix 40 mg p.o. b.i.d. Namenda 10 mg p.o. b.i.d. Cyanocobalamin (Vitamin B12) 1000 mcg IM monthly ALLERGIES: APRACLONIDINE PHYSICAL EXAMINATION: VITAL SIGNS: Temperature 99, heart rate 97, respirations 16, BP 117/65, pulse ox 95% on 2L. HEENT: Head normocephalic, atraumatic. Eyes: Extraocular muscles are intact. Pupils are equal, round and reactive to light and accommodation. Ears: No lesions. Nose appeared normal. Throat: No exudate or erythema. NECK: Supple. No JVD, no carotid bruit. No lymphadenopathy or thyromegaly. LUNGS: Diminished breath sounds, more diminished on the right. No respiratory distress. Percussion note normal. Chest symmetrical. HEART: S1, S2, no S3. No murmurs. No cyanosis or clubbing. No ascites. Pulses: Dorsalis pedis and posterior tibial pulses +1 to +2 bilaterally. ABDOMEN: Soft. Nontender. Bowel sounds active. No CVA tenderness. No mass felt. EXTREMITIES: No edema. Full range of motion of all extremities, equal. NEUROLOGIC: No focal deficit. Cranial nerves II through XII are grossly intact. No headache, no double vision or headache. SKIN: Not dry. Intact. Turgor - normal. LYMPHATIC: No palpable lymph nodes/no lymphedema. MUSCULOSKELETAL: Normal joints with no swelling. Muscle tone is normal. Initial ABGs on room air: pH 7.503, pc02 26.8, p02 50, base excess negative 2, bicarb 21, TC02 22, 02 sat 89%. Sodium 137, potassium 3.6, c02 21, BUN 14, creatinine 0.74, total protein 7.4. Lactic acid 18.5. Urine trace blood, 1+ ketones, 1+ bili, nitrite negative, 2+ bacteria. Chest x-ray shows right middle and lower lobe pneumonia. ASSESSMENT: 1. RIGHT MIDDLE AND LOWER LOBE PNEUMONIA 2. SHORTNESS OF BREATH 3. ANEMIA 4. DEMENTIA WITH HALLUCINATIONS 5. HYPERTENSION 6. GENERALIZED MUSCLE WEAKNESS 7. ANXIETY/DEPRESSION 8. HISTORY OF GI BLEED 9. EXTERNAL HEMORRHOIDS 10. OSTEOARTHRITIS PLAN: 1. We will admit the patient. 2. Routine telemetry orders. 3. CBC, CMP daily. 4. Tylenol every four hours as needed for fever. 5. 02 at 1 to 2L as needed. 6. NS at 75 cc/hr. 7. Xopenex q.6hr scheduled. 8. She is on Rocephin 1 gm IV daily along with Doxycycline 100 mg IV q.12hr. 9. Solu-Medrol 80 mg IV q.8hr. 10. Xanax 0.25 mg b.i.d. p.r.n. 11. Continue all home medications including Seroquel. 12. Again, she does have a history of hallucinations. Fall precautions to continue. 13. Will follow closely. TIME SPENT: More than 70 minutes. MTDD
[2018-02-01] MEDS: LOVENOX SUBCUT SCH (09:52)
[2018-02-01] MEDS: NYSTOP POWDER TP SCH ×2 (09:53→20:26)
--- NOTE | 2018-02-01 09:53 | DI ---
EXAM: Chest one view, frontal view only. HISTORY: Pneumonia. COMPARISON: 01/28/2018. FINDINGS: Patchy bilateral consolidation, greater on the right, again noted. No new opacities are s een. No pleural effusion or pneumothorax detected. Heart is enlarged. Degenerative changes seen in the spine and shoulders. IMPRESSION: Stable right greater than left pneumonia. Continued follow-up is recommended to ensure resolution.
[2018-02-01] MEDS: XANAX PO SCH ×2 (09:54→20:26)
--- NOTE | 2018-02-01 09:59 | PN ---
DATE OF SERVICE: 01/30/18 SUBJECTIVE: The patient was hospitalized with acute respiratory failure. The patient's condition seems to be improving respiratory gonzalez but she has dementia. She is very restless. The patient will be given Haldol 1 mg q.8 as needed. The patient' s respiratory status is improved. His oxygen saturation is 99% on 2L. PHYSICAL EXAMINATION: VITAL SIGNS: Temperature 97.5, pulse 90/min, respiratory rate 20, BP 158/88. HEENT: Head normocephalic, atraumatic. Eyes: Extraocular muscles are intact. Pupils are equal, round and reactive to light and accommodation. Ears: No lesions. Nose appeared normal. Throat: No exudate or erythema. NECK: Supple. No JVD, no carotid bruit. No lymphadenopathy or thyromegaly. LUNGS: Decreased breath sounds with mild wheeze. Good air entry. Percussion note normal. Chest symmetrical. HEART: S1, S2, no S3. No murmurs. No cyanosis or clubbing. No ascites. Pulses: Dorsalis pedis and posterior tibial pulses +1 to +2 both sides. ABDOMEN: Soft. Nontender. Bowel sounds active. No CVA tenderness. No mass felt. EXTREMITIES: No edema. Full range of motion of all extremities, equal. NEUROLOGIC: No focal deficit. Cranial nerves II through XII are grossly intact. No headache, no double vision or headache. SKIN: Not dry. Intact. Turgor - normal. LYMPHATIC: No palpable lymph nodes/no lymphedema. MUSCULOSKELETAL: Normal joints with no swelling. Muscle tone is normal. LABS: Hemoglobin 11, hematocrit 37, WBC 13,000, normal differential. Creatinine 0.6, BUN 12, potassium 3.8. ASSESSMENT: 1. ACUTE RESPIRATORY FAILURE 2. ACUTE BRONCHITIS WITH PNEUMONITIS 3. DEMENTIA 4. ANEMIA PLAN: 1. Continue antibiotics, steroids, nebs. 2. Haldol to be given for dementia. CONDITION: Stable. PROGNOSIS: Guarded. TIME SPENT: More than 30 minutes. Plan and coordination of the patient's care discussed in the presence of nurse. JUN
--- NOTE | 2018-02-01 13:52 | PN ---
DATE OF SERVICE: 01/31/18 SUBJECTIVE: The patient was hospitalized with pneumonia. The patient's mental status has improved. She is oriented to person and place, she recognized me. REVIEW OF SYSTEMS: CONSTITUTIONAL: No night sweats. No fatigue, malaise, lethargy. No fever or chills. HEENT: Eyes: No visual changes. No eye pain. No eye discharge. ENT: No runny nose. No epistaxis. No sinus pain. No sore throat. No odynophagia. No congestion. RESPIRATORY: No cough, no congestion. No hemoptysis. No shortness of breath. CARDIOVASCULAR: No angina symptoms. No CHF symptoms. No atypical chest pain for CAD. No palpitations. No orthopnea. GASTROINTESTINAL: No abdominal pain. No nausea or vomiting. No diarrhea or constipation. No hematemesis. No hematochezia. Poor appetite. GENITOURINARY: No urgency. No frequency. No dysuria. No hematuria. No obstructive symptoms. No discharge. No pain. No significant abnormal bleeding. MUSCULOSKELETAL: No musculoskeletal pain; no joint swelling. NEUROLOGICAL: No headache. No neck pain. No syncope. No seizures. No dizziness. PSYCHIATRIC: Not anxious. No depression. No suicidal thoughts. No homicidal thoughts. SKIN: No rash. No lesions. No wounds. ENDOCRINE: No unexplained weight loss. No weight gain. HEMATOLOGIC/LYMPHATIC: No anemia. No purpura. No petechiae. No prolonged or excessive bleeding. No palpable lymph nodes. PHYSICAL EXAMINATION: GENERAL: The patient is oriented to person. HEENT: Head normocephalic, atraumatic. Eyes: Extraocular muscles are intact. Pupils are equal, round and reactive to light and accommodation. Ears: No lesions. Nose appeared normal. Throat: No exudate or erythema. NECK: Supple. No JVD, no carotid bruit. No lymphadenopathy or thyromegaly. LUNGS: Decreased breath sounds with mild wheeze. Clear to auscultation. Percussion note normal. Chest symmetrical. HEART: S1, S2, no S3. No murmurs. No cyanosis or clubbing. No ascites. Pulses: Dorsalis pedis and posterior tibial pulses +1 to +2 both sides. ABDOMEN: Soft. Nontender. Bowel sounds active. No CVA tenderness. No mass felt. EXTREMITIES: No edema. Full range of motion of all extremities, equal. NEUROLOGIC: No focal deficit. Cranial nerves II through XII are grossly intact. No headache, no double vision or headache. SKIN: Not dry. Intact. Turgor - normal. LYMPHATIC: No palpable lymph nodes/no lymphedema. MUSCULOSKELETAL: Normal joints with no swelling. Muscle tone is normal. ASSESSMENT: 1. The patient had mild hypertension, will start Cozaar 2. The patient had Hypokalemia, refused blood draw. Explained to her that we need to have blood checked. Potassium was 2.9. Yesterday she was given K-Dur 20meq four times a day 3. Hydration status has improved PLAN: 1. Continue antibiotics and steroids. CONDITION: Stable. TIME SPENT: More than 30 minutes. Plan and coordination of the patient's care discussed in the presence of nurse. JUN
[2018-02-01] MEDS: ROCEPHIN IM SCH (20:25)
[2018-02-01] MEDS: LIDOCAINE HCL 1% SDV IM SCH (20:25)
[2018-02-01] MEDS: SEROQUEL PO SCH (20:26)
[2018-02-01] MEDS: LEXAPRO PO SCH (20:26)
[2018-02-02] MEDS: XOPENEX 1.25 MG NEB SCH ×4 (05:07→23:07)
[2018-02-02] MEDS: PROTONIX PO SCH ×2 (05:33→17:46)
[2018-02-02] MEDS: PREDNISONE PO SCH ×2 (08:55→17:46)
[2018-02-02] MEDS: NAMENDA PO SCH ×2 (08:56→20:07)
[2018-02-02] MEDS: XANAX PO SCH ×2 (08:56→20:08)
[2018-02-02] MEDS: ZITHROMAX PO SCH (08:56)
[2018-02-02] MEDS: NYSTOP POWDER TP SCH ×2 (08:57→20:08)
[2018-02-02] MEDS: COZAAR PO SCH (08:57)
--- NOTE | 2018-02-02 08:59 | PCM.PROG ---
Attending Provider: ATTENDING PROVIDER: Dr. MADELIN SOTELO This patient is seen with Elsa Bee, Nurse Practitioner. DATE OF SERVICE: 02/02/18 SUBJECTIVE: This 77 year old WHITE/ F was hospitalized 01/28/18. The patient is lying in bed, resting comfortably. Repeat chest x-ray yesterday showed stable pneumonia with not much improvement. Will add Zithromax today. The patient is not walking very well alone, now two person assist and is working with PT. REVIEW OF SYSTEMS: CONSTITUTIONAL: Weakness. No night sweats. No fatigue, malaise, lethargy. No fever or chills. HEENT: Eyes: No visual changes. No eye pain. No eye discharge. ENT: No runny nose. No epistaxis. No sinus pain. No odynophagia. No congestion. RESPIRATORY: Cough. No congestion. No hemoptysis. No shortness of breath. CARDIOVASCULAR: No angina symptoms. No CHF symptoms. No atypical chest pain for CAD. No palpitations. No orthopnea.. GASTROINTESTINAL: No abdominal pain. No nausea or vomiting. No diarrhea or constipation. No hematemesis. No hematochezia. GENITOURINARY: No urgency. No frequency. No dysuria. No hematuria. No obstructive symptoms. No discharge. No pain. No significant abnormal bleeding. MUSCULOSKELETAL: No musculoskeletal pain; no joint swelling. NEUROLOGICAL: Confusion. No headache. No neck pain. No syncope. No seizures. No dizziness. PSYCHIATRIC: Not anxious. No depression. No suicidal thoughts. No homicidal thoughts. SKIN: No rash. No lesions. No wounds. ENDOCRINE: No unexplained weight loss. No weight gain. HEMATOLOGIC/LYMPHATIC: No anemia. No purpura. No petechiae. No prolonged or excessive bleeding. No palpable lymph nodes. PHYSICAL EXAMINATION: GENERAL: The patient is oriented to person only, lying in bed in no distress. VITAL SIGNS: Temperature 97.8 F, Pulse 81, Respiratory Rate 12, BP 134/79, Pulse Ox 96% HEENT: Head normocephalic, atraumatic. Eyes: Extraocular muscles are intact. Pupils are equal, round and reactive to light and accommodation. Ears: No lesions. Nose appeared normal. Throat: No exudate or erythema. NECK: Supple. No JVD, no carotid bruit. No lymphadenopathy or thyromegaly. LUNGS: Diminished breath sounds. Clear to auscultation. Percussion note normal. Chest symmetrical. HEART: S1, S2, no S3. No murmurs. No cyanosis or clubbing. No ascites. Pulses: Dorsalis pedis and posterior tibial pulses +1 to +2 both sides. ABDOMEN: Soft. Non-tender. Bowel sounds active. No CVA tenderness. No mass felt. EXTREMITIES: No edema. Full range of motion of all extremities, equal. NEUROLOGIC: No focal deficit. Cranial nerves II through XII are grossly intact. No headache, no double vision or headache. SKIN: Not dry. Intact. Turgor-normal. LYMPHATIC: No palpable lymph nodes/no lymphedema. MUSCULOSKELETAL: Normal joints with no swelling. Muscle tone is normal. LAB REVIEW: 02/01/18 08:10 02/01/18 08:10 02/01/18 08:10: Sodium 144, Potassium 4.7, Chloride 109 H, Carbon Dioxide 27, Anion Gap 12.7, BUN 16, Creatinine 0.72, Estimated GFR (MDRD) 78.00, BUN/ Creatinine Ratio 22.22, Glucose 128 H, Calcium 8.9, Total Bilirubin 0.3, AST 20 , ALT 14, Alkaline Phosphatase 77, Total Protein 6.1, Albumin 2.5 L, Globulin 3.6, Albumin/Globulin Ratio 0.69 02/01/18 08:10: WBC 10.32 H, RBC 4.43, Hgb 12.3, Hct 39.7, MCV 89.6, MCH 27.8, MCHC 31.0 L, RDW Coeff of Yosvany 19.0 H, Plt Count 258, Neutrophils % (Manual) 85.0 H, Band Neutrophils % 1.0, Lymphocytes % (Manual) 2.0 L, Monocytes % ( Manual) 8.0, Reactive Lymphocytes 4.0, Anisocytosis Not present ASSESSMENT: 1. Right middle and lower lobe pneumonia 2. Acute respiratory failure resolved 3. Hypokalemia, resolved 4. Dementia with hallucinations 5. Anxiety 6. History of anemia 7. History of GI bleed 8. Legally blind 9. Hypertension PLAN: 1. Decrease Potassium 20 mEq daily 2. Zithromax 500 mg p.o. times three days 3. Repeat UA 4. Chest x-ray tomorrow Plan and coordination of the patient's care discussed in the presence of Director Of Business Services and nurse. CONDITION: Stable SCRIBED BY: ROSSY MARTIN Concrete Paving Supervisor scribed while in presence of service performed by Dr. Sotelo/Elsa Bee APRN on 02/02/18 ([id number])
[2018-02-02] MEDS: LOVENOX SUBCUT SCH (09:02)
--- NOTE | 2018-02-02 14:25 | PN ---
DATE OF SERVICE: 02/01/18 SUBJECTIVE: The patient was seen and examined with Nurse Practitioner. The patient's condition has improved and strongly advised have the patient's electrolytes done. Yesterday ordered the electrolytes but nobody informed me that they were not done. The patient has been on 80meq Potassium daily but dementia seems to be under control. Her bronchitis seems to be under control. CONDITION: Stable. TIME SPENT: More than 30 minutes. Plan and coordination of the patient's care discussed in the presence of nurse. JUN
--- NOTE | 2018-02-02 14:52 | PN ---
DATE OF SERVICE: 02/02/18 SUBJECTIVE: The patient is walking with the help on physical therapy, she is getting strength back. Appetite has been improving. Pneumonia seems to be better. The patient was seen and examined with Nurse Practitioner. Continue with the same treatment. CONDITION: Stable. TIME SPENT: More than 30 minutes. Plan and coordination of the patient's care discussed in the presence of nurse. JUN
[2018-02-02] MEDS: SEROQUEL PO SCH (20:07)
[2018-02-02] MEDS: LIDOCAINE HCL 1% SDV IM SCH (20:08)
[2018-02-02] MEDS: ROCEPHIN IM SCH (20:08)
[2018-02-02] MEDS: LEXAPRO PO SCH (20:08)
[2018-02-03] MEDS: XOPENEX 1.25 MG NEB SCH ×2 (05:32→11:11)
[2018-02-03] MEDS: PROTONIX PO SCH (05:37)
[2018-02-03] MEDS ORDERED: K-DUR PO SCH (08:00)
[2018-02-03] MEDS ORDERED: COREG PO SCH (08:30)
--- NOTE | 2018-02-03 08:53 | PCM.PROG ---
Attending Provider: ATTENDING PROVIDER: Dr. MADELIN SOTELO DATE OF SERVICE: 02/03/18 SUBJECTIVE: This 77 year old WHITE/ F was hospitalized 01/28/18 with acute respiratory failure. The patient's condition improved. She seems to be oriented times three. The patient's daughter is unable to take care of her at home so the patient has agreed to go to custodial. She has been to custodial before. REVIEW OF SYSTEMS: CONSTITUTIONAL: No night sweats. No fatigue, malaise, lethargy. No fever or chills. HEENT: Eyes: No visual changes. No eye pain. No eye discharge. ENT: No runny nose. No epistaxis. No sinus pain. No odynophagia. No congestion. RESPIRATORY: No cough, no congestion. No hemoptysis. No shortness of breath. CARDIOVASCULAR: No angina symptoms. No CHF symptoms. No atypical chest pain for CAD. No palpitations. No orthopnea.. GASTROINTESTINAL: No abdominal pain. No nausea or vomiting. No diarrhea or constipation. No hematemesis. No hematochezia. GENITOURINARY: No urgency. No frequency. No dysuria. No hematuria. No obstructive symptoms. No discharge. No pain. No significant abnormal bleeding. MUSCULOSKELETAL: No musculoskeletal pain; no joint swelling. NEUROLOGICAL: Awake, alert, oriented to time, place and person. No headache. No neck pain. No syncope. No seizures. No dizziness. PSYCHIATRIC: Not anxious. No depression. No suicidal thoughts. No homicidal thoughts. SKIN: No rash. No lesions. No wounds. ENDOCRINE: No unexplained weight loss. No weight gain. HEMATOLOGIC/LYMPHATIC: No anemia. No purpura. No petechiae. No prolonged or excessive bleeding. No palpable lymph nodes. PHYSICAL EXAMINATION: GENERAL: The patient is awake, alert and oriented, lying in bed in no distress. VITAL SIGNS: Temperature 98.1 F, Pulse 81, Respiratory Rate 12, BP 128/76, Pulse Ox 94% HEENT: Head normocephalic, atraumatic. Eyes: Extraocular muscles are intact. Pupils are equal, round and reactive to light and accommodation. Ears: No lesions. Nose appeared normal. Throat: No exudate or erythema. NECK: Supple. No JVD, no carotid bruit. No lymphadenopathy or thyromegaly. LUNGS: Decreased breath sounds. Clear to auscultation. Percussion note normal. Chest symmetrical. HEART: S1, S2, no S3. No murmurs. No cyanosis or clubbing. No ascites. Pulses: Dorsalis pedis and posterior tibial pulses +1 to +2 both sides. ABDOMEN: Soft. Non-tender. Bowel sounds active. No CVA tenderness. No mass felt. EXTREMITIES: No edema. Full range of motion of all extremities, equal. NEUROLOGIC: No focal deficit. Cranial nerves II through XII are grossly intact. No headache, no double vision or headache. SKIN: Warm and dry. Intact. Turgor-normal. LYMPHATIC: No palpable lymph nodes/no lymphedema. MUSCULOSKELETAL: Normal joints with no swelling. Muscle tone is normal. LAB REVIEW: 02/03/18 06:25 02/03/18 06:25 02/03/18 06:25: Sodium 140, Potassium 4.8, Chloride 105, Carbon Dioxide 26, Anion Gap 13.8, BUN 16, Creatinine 0.72, Estimated GFR (MDRD) 78.00, BUN/ Creatinine Ratio 22.22, Glucose 135 H, Calcium 8.6, Total Bilirubin 0.2, AST 15 , ALT 13, Alkaline Phosphatase 75, Total Protein 6.0, Albumin 2.4 L, Globulin 3.6, Albumin/Globulin Ratio 0.67 02/03/18 06:25: WBC 9.26, RBC 4.35, Hgb 12.2, Hct 39.1, MCV 89.9, MCH 28.0, MCHC 31.2 L, RDW Coeff of Yosvany 19.4 H, Plt Count 291, Neutrophils % (Manual) 84.0 H, Lymphocytes % (Manual) 10.0, Monocytes % (Manual) 5.0, Reactive Lymphocytes 1.0, Plt Morphology Comment Normal, Anisocytosis Not present, RBC Morph Comment Normal 02/02/18 15:35: Sodium 140, Potassium 4.9, Chloride 104, Carbon Dioxide 27, Anion Gap 13.9, BUN 14, Creatinine 0.82, Estimated GFR (MDRD) 67.00, BUN/ Creatinine Ratio 17.07, Glucose 178 H, Calcium 8.9, Total Bilirubin 0.3, AST 18 , ALT 15, Alkaline Phosphatase 89, Total Protein 6.5, Albumin 2.6 L, Globulin 3.9, Albumin/Globulin Ratio 0.67 02/02/18 15:35: WBC 13.33 H, RBC 4.62, Hgb 13.1, Hct 41.3, MCV 89.4, MCH 28.4, MCHC 31.7 L, RDW Coeff of Yosvany 19.6 H, Plt Count 296, Immature Gran % (Auto) 1.6 , Neut % (Auto) 85.6, Lymph % (Auto) 8.3 L, Archuleta % (Auto) 4.2, Eos % (Auto) 0.0 , Baso % (Auto) 0.3, Immature Gran # (Auto) 0.2, Neut # (Auto) 11.4 H, Lymph # ( Auto) 1.1, Archuleta # (Auto) 0.6, Eos # (Auto) 0.0, Baso # (Auto) 0.0 ASSESSMENT: 1. RESPIRATORY FAILURE, RESOLVED 2. PNEUMONIA, CLINICALLY RESOLVED 3. HYPERTENSION, UNDER CONTROL 4. DEMENTIA, THE PATIENT REQUIRED HALDOL 1 MG Q.8 P.R.N. ON SEROQUEL AND SEVERAL OTHER MEDICATIONS. PLAN: 1. Discharge to the custodial today. 2. Continue PT/OT. 3. Discharged on Zithromax, Keflex and steroids. 4. D/C Amlodipine and put on Coreg. 5. Echo showed LV contractility. Plan and coordination of the patient's care discussed in the presence of Load Manager and nurse. CONDITION: Stable SCRIBED BY: Sola HECTORist scribed while in presence of service performed by Dr. MADELIN SOTELO on 02/03/18 ([id number])
[2018-02-03] MEDS: XANAX PO SCH (08:56)
[2018-02-03] MEDS: PREDNISONE PO SCH (08:57)
[2018-02-03] MEDS: ZITHROMAX PO SCH (08:57)
[2018-02-03] MEDS: NAMENDA PO SCH (08:58)
[2018-02-03] MEDS: NYSTOP POWDER TP SCH (08:59)
[2018-02-03] MEDS: LOVENOX SUBCUT SCH (09:00)
[2018-02-03] MEDS ORDERED: COZAAR PO SCH (09:00)
[2018-02-03 09:37] VITALS: BP 108/61; TEMP 97.9
--- NOTE | 2018-02-03 10:12 | CM.DICTOOL ---
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 ANXIETY HALLUCINATIONS DEMENTIA BLINDNESS EYE SURGERY FORMER SMOKER LAST VITALS Temp Pulse Resp BP Pulse Ox 98.1 F 81 12 128/76 94 L 02/03/18 05:17 02/03/18 05:17 02/03/18 05:17 02/03/18 05:17 02/03/18 05:17 TAKE THESE MEDICATIONS AT THE SENIOR CARE Acetaminophen (Tylenol) 650 mg PO Q4H PRN PRN Reason: Fever > 102 Alprazolam (Xanax) 0.25 mg PO BID PRN ANXIETY/AGITATION Last Admin: 02/02/18 20:08 Dose: 0.25 mg Azithromycin (Zithromax) 250 mg PO DAILY [facility] X 3 DAYS Begin: 02/04/18 09:01 Last Admin: 02/02/18 08:56 Dose: 500 mg Carvedilol (Coreg) 6.25 mg PO BIDWM [facility] Cephalexin (Keflex) 500 mg PO BID x3 DAYS Escitalopram Oxalate (Lexapro) 10 mg PO BEDTIME [facility] Last Admin: 02/02/18 20:08 Dose: 10 mg Losartan Potassium (Cozaar) 25 mg PO DAILY AZUCENA Meclizine HCl (Antivert) 25 mg PO TID PRN PRN Reason: DIZZINESS Memantine (Namenda) 10 mg PO BID [facility] Last Admin: 02/02/18 20:07 Dose: 10 mg Methocarbamol (Robaxin) 750 mg PO BID PRN PRN Reason: Analgesia Nystatin (Nystop Powder) 1 applic TP BID [facility] Last Admin: 02/02/18 20:08 Dose: 1 applic Pantoprazole Sodium (Protonix) 40 mg PO BIDAC [facility] Last Admin: 02/03/18 05:37 Dose: Not Given Prednisone (Prednisone) 10 mg PO BIDWM x3 DAYS [facility] Last Admin: 02/02/18 17:46 Dose: 10 mg Quetiapine Fumarate (Seroquel) 25 mg PO BEDTIME [facility] Last Admin: 02/02/18 20:07 Dose: 25 mg Tramadol HCl (Ultram) 50 mg PO BID PRN PRN Reason: Pain ALLERGIES apraclonidine [From Iopidine] Adverse Reaction (Verified 01/28/18 19:27) NEW PRESCRIPTIONS: NEW MEDICATIONS AND CHANGES Alprazolam [Xanax] 0.25 mg PO BID PRN #60 tablet 02/03/18 Azithromycin [Zithromax] 250 mg PO DAILY #3 tablet 02/03/18 Cephalexin [Keflex] 500 mg PO BID #6 capsule 02/03/18 Losartan Potassium [Cozaar] 25 mg PO DAILY #30 tablet 02/03/18 Methocarbamol [Robaxin-750] 750 mg PO BID PRN #60 tablet 02/03/18 Prednisone 10 mg PO BIDWM #6 tablet 02/03/18 Nystatin Powder Topically BID to affected areas SMOKING: FORMER SMOKER NONE NOW LAB REVIEW: 02/03/18 06:25 02/03/18 06:25 02/03/18 08:10: Urine Color Yellow, Urine Clarity Clear, Urine pH 6.0, Ur Specific Harwood 1.020, Urine Protein Negative, Urine Glucose (UA) Negative, Urine Ketones Negative, Urine Blood Negative, Urine Nitrite Negative, Urine Bilirubin Negative, Urine Urobilinogen 0.2, Ur Leukocyte Esterase Negative 02/03/18 07:55: Hemoglobin A1c 5.5 02/03/18 06:25: Sodium 140, Potassium 4.8, Chloride 105, Carbon Dioxide 26, Anion Gap 13.8, BUN 16, Creatinine 0.72, Estimated GFR (MDRD) 78.00, BUN/ Creatinine Ratio 22.22, Glucose 135 H, Calcium 8.6, Total Bilirubin 0.2, AST 15 , ALT 13, Alkaline Phosphatase 75, Total Protein 6.0, Albumin 2.4 L, Globulin 3.6, Albumin/Globulin Ratio 0.67 02/03/18 06:25: WBC 9.26, RBC 4.35, Hgb 12.2, Hct 39.1, MCV 89.9, MCH 28.0, MCHC 31.2 L, RDW Coeff of Yosvany 19.4 H, Plt Count 291, Neutrophils % (Manual) 84.0 H, Lymphocytes % (Manual) 10.0, Monocytes % (Manual) 5.0, Reactive Lymphocytes 1.0, Plt Morphology Comment Normal, Anisocytosis Not present, RBC Morph Comment Normal 02/02/18 15:35: Sodium 140, Potassium 4.9, Chloride 104, Carbon Dioxide 27, Anion Gap 13.9, BUN 14, Creatinine 0.82, Estimated GFR (MDRD) 67.00, BUN/ Creatinine Ratio 17.07, Glucose 178 H, Calcium 8.9, Total Bilirubin 0.3, AST 18 , ALT 15, Alkaline Phosphatase 89, Total Protein 6.5, Albumin 2.6 L, Globulin 3.9, Albumin/Globulin Ratio 0.67 02/02/18 15:35: WBC 13.33 H, RBC 4.62, Hgb 13.1, Hct 41.3, MCV 89.4, MCH 28.4, MCHC 31.7 L, RDW Coeff of Yosvany 19.6 H, Plt Count 296, Immature Gran % (Auto) 1.6 , Neut % (Auto) 85.6, Lymph % (Auto) 8.3 L, Hutchinson % (Auto) 4.2, Eos % (Auto) 0.0 , Baso % (Auto) 0.3, Immature Gran # (Auto) 0.2, Neut # (Auto) 11.4 H, Lymph # ( Auto) 1.1, Hutchinson # (Auto) 0.6, Eos # (Auto) 0.0, Baso # (Auto) 0.0 PLAN: DISCHARGE TO [facility] TODAY, 02/03/18 DR. SOTELO/MAYO GUNN, MITA, WILL FOLLOW THE PATIENT IN APPROX 1 WEEK DURING USUAL SENIOR CARE ROUNDS RESUME YOUR HOME MEDICATIONS AT THE SENIOR CARE PER LIST PROVIDED BY THE NURSING STAFF DO NOT RESUME THE AMLODIPINE BESYLATE (NORVASC) DO NOT RESUME THE LISINOPRIL (ZESTRIL) METHOCARBAMOL (ROBAXIN) HAS BEEN CHANGED TO 750 MG PO BID PRN NEW MEDICATIONS ZITHROMAX 250 MG PO DAILY X3 DAYS ONLY, BEGIN 02/04/18 KELFEX 500 MG PO BID X3 DAYS ONLY PREDNISONE 10 MG PO BID WITH FOOD X3 DAYS ONLY ALPRAZOLAM (XANAX) 0.25 MG PO BID PRN ANXIETY/AGITATION COZAAR 25 MG PO DAILY COREG 5.25 MG PO BID NYSTATIN POWDER TOPICALLY BID BENEATH BILATERAL BREASTS ACTIVITY PATIENT MAY PARTICIPATE IN SENIOR CARE ACTIVITY PROGRAM TOLERATED PT/OT/SPEECH PLEASE EVALUATE AND TREAT INDICATED LABS CBC WITH DIFF AND CMP IN ONE WEEK VS DAILY (MEDICATION CHANGES, HISTORY OF HYPERTENSION) SUMMARY THE PATIENT IS ALERT AND ORIENTED TO PERSON. SHE IS ABLE TO COMMUNICATE HER WANTS AND NEEDS WITHOUT DIFFICULTY. SHE REQUIRES HEAVY ASSISTANCE X2 PERSONS FOR TRANSFERRING AND WALKING. SHE HAS BEEN ABLE TO AMBULATE ONLY A FEW STEPS DURING THIS HOSPITALIZATION AND WOULD BENEFIT FROM PHYSICAL AND OCCUPATIONAL SERVICES AT THE SENIOR CARE. SHE CURRENTLY RESIDES AT HOME WITH HER SON AND [id number]. HER DAUGHTER RESIDES VERY CLOSE BY AND ASSISTS WITH NEEDS SHE IS ABLE. MS. LINCOLN HAS A ROLLING WALKER AND BEDSIDE COMMODE AT HOME. SHE HAS NOT BEEN UTILIZING HOME HEALTH OR HOMEMAKING SERVICES RECENTLY. SHE AND HER FAMILY HAVE DECIDED ON SENIOR CARE PLACEMENT FOLLOWING DISCHARGE HERE. THE FAMILY FEELS THEY ARE NO LONGER ABLE TO PROVIDE THE LEVEL OF CARE IN THE HOME THE PATIENT NOW REQUIRES. [facility] REPOR[facility] MS. LINCOLN'S DON SCORE IS STILL ACTIVE THROUGH 02/04/18, AND REPEAT SENIOR CARE SCREENING WILL NOT BE NECESSARY AT THIS TIME. [facility] HAS ACCEPTED THIS PATIENT FOR ADMISSION. THE SKIN TURGOR IS DRY AND WITH REDUCED ELASTICITY. HOWEVER, THERE ARE NO DECUBITUS ULCERS PRESENT AT DISCHARGE. SHE HAS EXCORIATION BENEATH BOTH BREASTS THAT HAVE BEEN TREATED WITH NYSTATIN TOPICAL POWDER. THIS TREATMENT WILL BE CARRIED ON AT THE SENIOR CARE UNTIL HEALED. HYDRATION AND NUTRITIONAL STATUS ARE GOOD. THE PATIENT IS ABLE TO FEED HERSELF BUT REQUIRES SET-UP ASSISTANCE DUE TO HER POOR VISION. WE WILL FOLLOW THIS PATIENT AT THE SENIOR CARE IN ONE WEEK DURING USUAL SENIOR CARE ROUNDS. CURRENT CODE STATUS FULL CODE MADELIN SOTELO M.D.
--- NOTE | 2018-02-04 08:25 | DI ---
EXAM: Chest one view, frontal view only. HISTORY: Chest congestion. COMPARISON: 02/01/2018. FINDINGS: Heart size is normal. There is no vascular congestion. Patchy consolidation in the right mid to lower lung which is stable. Focal left perihilar opacity is suggested as well. Left diaphra gm is elevated. No pleural effusion or pneumothorax seen. Degenerative changes present in the spine and shoulders. Since the previous examination, there has been no significant interval change. IMPRESSION: Stable bilateral consolidation, greater on the right. Continued follow-up is recommended.
--- NOTE | 2018-02-04 09:00 | DS ---
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 ANXIETY HALLUCINATIONS DEMENTIA BLINDNESS EYE SURGERY FORMER SMOKER LAST VITALS: Temp Pulse Resp BP Pulse Ox 98.1 F 81 12 128/76 94 L TAKE THESE MEDICATIONS AT THE SNF: Acetaminophen (Tylenol) 650 mg PO Q4H PRN Alprazolam (Xanax) 0.25 mg PO BID PRN ANXIETY/AGITATION Azithromycin (Zithromax) 250 mg PO DAILY AZUCENA X 3 DAYS Carvedilol (Coreg) 6.25 mg PO BIDWM AZUCENA Cephalexin (Keflex) 500 mg PO BID x3 DAYS Escitalopram Oxalate (Lexapro) 10 mg PO BEDTIME AZUCENA Losartan Potassium (Cozaar) 25 mg PO DAILY AZUCENA Meclizine HCl (Antivert) 25 mg PO TID PRN Memantine (Namenda) 10 mg PO BID AZUCENA Methocarbamol (Robaxin) 750 mg PO BID PRN Nystatin (Nystop Powder) 1 applic TP BID AZUCENA Pantoprazole Sodium (Protonix) 40 mg PO BIDAC AZUCENA Prednisone (Prednisone) 10 mg PO BIDWM x3 DAYS AZUCENA Quetiapine Fumarate (Seroquel) 25 mg PO BEDTIME AZUCENA Tramadol HCl (Ultram) 50 mg PO BID PRN ALLERGIES: apraclonidine [From Iopidine] Adverse Reaction (Verified 01/28/18 19:27) NEW PRESCRIPTIONS: NEW MEDICATIONS AND CHANGES Alprazolam [Xanax] 0.25 mg PO BID PRN #60 tablet 02/03/18 Azithromycin [Zithromax] 250 mg PO DAILY #3 tablet 02/03/18 Cephalexin [Keflex] 500 mg PO BID #6 capsule 02/03/18 Losartan Potassium [Cozaar] 25 mg PO DAILY #30 tablet 02/03/18 Methocarbamol [Robaxin-750] 750 mg PO BID PRN #60 tablet 02/03/18 Prednisone 10 mg PO BIDWM #6 tablet 02/03/18 Nystatin Powder Topically BID to affected areas SMOKING: FORMER SMOKER NONE NOW PLAN: DISCHARGE TO [facility] TODAY, 02/03/18 DR. SOTELO/MAYO GUNN, TECHNICAL TESTING ENGINEER, WILL FOLLOW THE PATIENT IN APPROX 1 WEEK DURING USUAL SNF ROUNDS RESUME YOUR HOME MEDICATIONS AT THE SNF PER LIST PROVIDED BY THE NURSING STAFF DO NOT RESUME THE AMLODIPINE BESYLATE (NORVASC) DO NOT RESUME THE LISINOPRIL (ZESTRIL) METHOCARBAMOL (ROBAXIN) HAS BEEN CHANGED TO 750 MG PO BID PRN ACTIVITY: PATIENT MAY PARTICIPATE IN SNF ACTIVITY PROGRAM TOLERATED PT/OT/SPEECH PLEASE EVALUATE AND TREAT INDICATED LABS: CBC WITH DIFF AND CMP IN ONE WEEK VS: DAILY (MEDICATION CHANGES, HISTORY OF HYPERTENSION) HOSPITAL COURSE: 77 year old white female was hospitalized with acute respiratory failure and pneumonitis. The patient during the stay in the hospital was treated with Zithromax and Rocephin. The patient's condition improved slowly but remarkably. The patient underwent dementia which is more like a hospital psychosis along with her history of dementia made it worse with the change in place, surroundings and her sickness. The patient improved remarkably. She was able to walk with help with the walker. Also she was oriented to time, place and person at the time of discharged. Her medication changes were made. Her blood pressure she was discharged on Cozaar 25mg along with Coreg 6.25 twice a day. She was also given Zithromax and Keflex for three days along with steroids. The patient' s daughter expressed concerns because daughter is not able to take care of herself and not able to take care of the patient who is her mother. Recommended the patient go to the correction. The patient accepted it. The patient has been to the correction. The patient was discharged to the correction in stable condition. Vitals were stable. Creatinine 0.8, BUN 14, potassium 4.9, hgb 13, hct 41 and A1c pending. The patient had undergone echocardiogram which showed LV contractility was normal, normal LV ejection fraction and in fact hyperdynamic heart. CONDITION: Stable. TIME SPENT: More than 60 minutes. MTDD
--- NOTE | 2018-02-04 09:05 | PN ---
01/28/18: Level 5 01/29/18: Intermediate 01/30/18: Intermediate 01/31/18: Intermediate 02/01/18: Intermediate 02/02/18: Intermediate 02/03/18: D as in discharge MTDD
--- NOTE | 2018-02-05 12:29 | ECHO2D ---
Date of Exam: 02/02/18 Ordering Physician: DR. MADELIN SOTELO Room #: 112 Reason for Echo: ENLARGED HEART PER CHEST XRAY, WEAKNESS M-Mode Normal Adult Results LV Dimensions Normal Adult Results AoV Opening excursions >1.6 >1.6 LVEDD-base- 3.5-5.8 NORMAL Ao root dimensions 2.0-3.7 3.2 LVESD-base- 3.1-4.6 L. Atrium dimensions 1.9-3.8 4.0 Post. Wall thickness 0.8-1.1 1.0 IV septum (thickness) 0.7-1.2 1.0 Post. Wall excursion 0.72-1.3 NORMAL Septal motion NORMAL Systolic motion R. Ventricular cavity 1.5-2.0 NORMAL LVEF 60% >60% Paradoxical septal wall motion NORMAL 2-D : 2-D M Mode Echocardiogram was performed using apical four chamber and left parasternal long and short axis views. Mitral, tricuspid and aortic valves appear to be normal. Contractility of the left ventricle seems to be normal, so is the cavity size. Left atrial cavity size and aortic root appear to be normal. There is no pericardial effusion. There is no thrombus noted in the left ventricular or left aortic cavity. No mitral valve prolapse noted. M-MODE: MV: NORMAL AV: NORMAL TV: NORMAL PV: CHAMBER SIZE: NORMAL WALL MOTION: NORMAL PERICARDIUM: NORMAL INTERPRETATION: 1. NORMAL 2 "D" "M" MODE ECHO MTDD
== END 2018-02-03 10:13 | disposition home or self-care (01) | DRG 195 ==
LOC: ED 19:12 → MEDSURG B 20:43 → OBSVTOIN 20:43
PROVIDERS: ADMIT Internal Medicine; ATTEND Internal Medicine
DX: J18.1 Lobar pneumonia, unspecified organism (principal); J44.9 Chronic obstructive pulmonary disease, unspecified; R53.1 Weakness; R06.02 Shortness of breath; I10 Essential (primary) hypertension; D64.9 Anemia, unspecified; K21.9 Gastro-esophageal reflux disease without esophagitis; M19.90 Unspecified osteoarthritis, unspecified site; M51.36 Other intervertebral disc degeneration, lumbar region; M41.9 Scoliosis, unspecified; F03.90 Unspecified dementia, unspecified severity, without behavioral disturbance, psychotic disturbance, mood disturbance, and anxiety; F41.8 Other specified anxiety disorders
CPT/HCPCS: 36415; 74176; 80053; 81001; 82803; 83036; 83605; 84145; 85007; 85025; 87040; 87086; 93005; 93010; 94640; 96360; 99284

== ENCOUNTER 2018-03-09 06:55 | Day surgery (SDC) ==
[2018-03-09] MEDS ORDERED: LIDOCAINE 1% 20 ML MDV ID STA (07:36)
[2018-03-09] MEDS ORDERED: DIPRIVAN 20 ML VIAL IVP ONE (08:24)
[2018-03-09] MEDS ORDERED: EPHEDRINE SULFATE ONE (08:24)
[2018-03-09 16:02] VITALS: BP 127/78; TEMP 98.6
--- NOTE | 2018-03-10 09:23 | OP ---
INDICATIONS FOR PROCEDURE: 77-year-old female presents for colonoscopy investigation and bright red blood per rectum. She has not had a colonoscopy in over 10 years. MEDICATIONS: SEE ANESTHESIA NOTES. PROCEDURE: COLONOSCOPY, SNARE POLYPECTOMY, HONG INK INJECTION, SALINE INJECTION, ENDOCLIP THERAPY. REPORT: The risks, benefits, alternatives and limitations were discussed in detail with the patient. Informed consent was obtained. After adequate sedation was achieved, a digital rectal exam revealed good tone, no masses. The colonoscope was introduced into the rectum and advanced under direct visual guidance to the cecum. The cecum was identified by the appendiceal orifice and IC valve. I then slowly withdrew the scope in a circumferential manner examining the mucosa quite carefully. I looked on the proximal and distal side of folds and flexures as best as possible. I was able to retroflex the scope in the right colon and left colon to increase visualization. In the proximal ascending colon there was a large sessile polyp with a raised center. This was close to 2 cm in size. It was just outside the cecum. I performed a saline lift then I performed piecemeal polypectomy of the polyp. All polyp tissue was retrieved and removed that could be visualized. I then closed the polypectomy site using four endoclips. In the distal ascending colon there were two polyps, one was about 7 mm in size and appeared to be slightly different tissue specimen than the one next to it. The one next to it was about 1.5 cm in size. I removed the first smaller polyp and this was labeled distal ascending colon polyp. It was removed by snare technique. I then removed the larger 1.5 semi sessile polyp. This polypectomy site was closed using two endoclips. It was removed by snare technique. Withdrawing the scope further in the mid proximal transverse colon I encountered two polyps. One was about 12 mm in size. It was labeled transverse colon polyp #1. It was removed by piecemeal technique using a snare. This polyp was successfully completely removed and retrieved. The second polyp in the mid proximal transverse colon area was close to 2.5 cm in size. With the scope as straight as possible, I had this at 65 cm. I injected saline underneath the polyp and I was able to get a good saline lift. I then used a hexagonal snare. I was able to remove 1/3 of the polyp posteriorly. After removing this polyp, the polyp did roll to where it is now facing away from the colonoscope, i.e. I could no longer see it. The motility of the colon moved it out of visualization's way. At this point, I did not feel comfortable attempting to remove any more of the polyp. I therefore elected to inject Hong Ink to bi the area. The area is about 2 cm proximal and through the polyp site and two areas approximately 1.5 to 2 cm distal to the polyp site were successfully marked with Hong Ink injection. Withdrawing the scope further revealed a polyp in the mid sigmoid. This was about 6 mm semi sessile in size. This was removed by snare technique. It was not retrieved. There was multiple small mouth diverticula scattered throughout the sigmoid. On retroflex view of the anal canal there was 1+ internal hemorrhoids. The prep was good. The withdrawal time as 44 minutes. The patient tolerated the procedure well with stable vital signs and pulse oximetry throughout. IMPRESSION: 1. FIVE (5) POLYPS REMOVED FROM THE COLON ABOVE. 2. ONE (1) POLYP ONLY PARTIALLY REMOVED IN THE TRANSVERSE COLON ABOVE. 3. SIGMOID DIVERTICULOSIS. 4. 1+ INTERNAL HEMORRHOIDS. RECOMMENDATIONS: 1. Await colon polyp pathology. 2. I am going to have her followup in the office with me in about two weeks to discuss pathology and the findings again. Will talk about the option of surgical resection of the larger polyp which is repeat colonoscopy as additional attempt of polypectomy vs no further intervention given her advanced age and health. 3. She will be instructed of what symptoms and signs to watch for post polypectomy complications and she will be given phone numbers and instructions what to do if she should develop such. ADDENDUM: Not mentioned in the report, she did have two small cecal AVMs. CC: DR. ASHLEIGH BARAHONA
== END 2018-03-09 10:15 | disposition home or self-care (01) ==
LOC: SURG 06:55
PROVIDERS: ATTEND Internal Medicine Gastroenterology
DX: K62.5 Hemorrhage of anus and rectum (principal); D12.2 Benign neoplasm of ascending colon; D12.3 Benign neoplasm of transverse colon; K57.90 Diverticulosis of intestine, part unspecified, without perforation or abscess without bleeding; K64.0 First degree hemorrhoids

== ENCOUNTER 2019-12-27 15:21 | Inpatient (IN) ==
[2019-12-27 15:57] VITALS: BMI 22.4
[2019-12-27] MEDS ORDERED: ATROPINE SULFATE PFS IVP PRN (16:16)
[2019-12-27] MEDS ORDERED: TYLENOL PO PRN (16:16)
[2019-12-27] MEDS ORDERED: NITROSTAT SL PRN (16:16)
[2019-12-27 17:15] LABS: HEMATOCRIT 46.9 % (37.0-47.0)
[2019-12-27] MEDS: XANAX PO PRN (18:33)
[2019-12-27] MEDS: ROCEPHIN 1 GM/50 ML D5W 1 GM/50 ML BAG IV SCH (18:39)
[2019-12-27] MEDS: SODIUM CHLORIDE 1,000 ML IV SCH (18:40)
--- NOTE | 2019-12-27 19:09 | CT ---
EXAM: CT chest, abdomen, and pelvis before and after administration of IV contrast. Delayed phase pamela ging was also performed. HISTORY: Shortness of breath, abdominal pain, appendectomy, pneumonia COMPARISON: 01/28/2018. FINDINGS: Chest: The heart is normal in size. Moderate calcified plaques are seen within the thoracic aorta as well a s the coronary arteries. Small amount of fluid in the superior pericardial recess is seen. Small sc attered mediastinal lymph nodes are seen measuring less than 10 millimeters in short axis. The thyro id appears small in size. No axillary adenopathy is seen. The bones are diffusely demineralized. A dvanced degenerative changes of the bilateral shoulder girdles are seen. Advanced multilevel thoraci c disc disease is seen. There is grade 1 anterior listhesis of T11 on T12. Moderate emphysematous c hanges of the lungs are seen. Multi focal bilateral patchy airspace opacities and small consolidatio ns are seen, worst in the right upper lobe, left upper lobe, and the right middle lobe. No evidence of pleural effusion is seen. Airway thickening is seen. Enhancing nodule in the lateral left breast is seen measuring 13 x 12 mm in size as seen on axial image 39. Abdomen/Pelvis: The gallbladder and the spleen are normal in size. The pancreas is atrophic. The bilateral adrenal glands appear grossly unremarkable. No hydronephrosis or renal calculus is seen. No intrahepatic bi liary ductal dilation is seen. The bowel is not dilated. Urinary bladder appears unremarkable. The uterus appears grossly unremarkable. No pelvic free fluid is seen. Multiple diverticuli are seen w ithin the colon. Prominent stool throughout the colon is seen. The appendix is not identified. Hea vy atherosclerosis of the abdominal aorta is seen. A high-grade stenosis of the abdominal aorta is s een at the level of the renal arteries as seen on axial image 114. Moderate to high-grade stenosis i s suggested at the superior mesenteric artery origin. The celiac axis appears grossly patent without flow-limiting stenosis. No retroperitoneal adenopathy is seen. Compression deformity of L3 appears unchanged. Severe lumbar spondylosis is seen. Grade 1 retrolisthesis of L3-L4 and L4-L5 is again s een. IMPRESSION: 1. Multi focal bilateral patchy airspace opacities and consolidation compatible with pneumonia. Rec ommend follow-up CT chest in two - 3 months to demonstrate resolution. 2. Moderate pulmonary emphysema. 3. No acute intra-abdominal findings. 4. Colonic diverticulosis. 5. High-grade stenosis of the abdominal aorta at the level of the renal arteries. 6. Atherosclerosis including coronary disease. 7. 13 mm enhancing nodule in the left breast concerning for malignancy. Recommend diagnostic mammog brooke. Unexpected finding. 8. Moderate to high-grade stenosis suggested at the superior mesenteric artery origin. 9. Prominent colonic stool. Correlate with constipation. 10. Numerous additional chronic/senescent findings as detailed above.
[2019-12-27] MEDS: VISTARIL INJ IM PRN (20:52)
[2019-12-28 05:15] LABS: HEMATOCRIT 45.2 % (37.0-47.0)
[2019-12-28] MEDS: VISTARIL INJ IM PRN ×3 (05:46→21:31)
[2019-12-28] MEDS: ROCEPHIN 1 GM/50 ML D5W 1 GM/50 ML BAG IV SCH (08:39)
[2019-12-28] MEDS: SOLU-CORTEF 100 MG IVP SCH ×2 (08:39→21:30)
[2019-12-28] MEDS: ASPIRIN EC PO SCH (08:40)
[2019-12-28] MEDS: MULTIVITAMIN TABLET PO SCH (08:40)
[2019-12-28] MEDS ORDERED: COZAAR PO SCH (09:00)
[2019-12-28] MEDS: SODIUM CHLORIDE 1,000 ML IV SCH (10:13)
[2019-12-28] MEDS: RIVASTIGMINE TP SCH (10:58)
--- NOTE | 2019-12-28 10:58 | HP ---
DATE OF SERVICE: 12/27/2019 REASON FOR HOSPITALIZATION/HISTORY OF PRESENT ILLNESS: [facility] ER on 12/18- diagnosis fatigue, weakness and pneumonia. She was given Augmentin and Azithromycin. Also complains abdominal pain, intermittent diarrhea. No signs or symptoms CHF/CAD. PAST MEDICAL HISTORY/PAST SURGICAL HISTORY: Anemia Hypertension Generalized muscle weakness Anxiety Depression History of GI bleed External hemorrhoids Dementia with history of hallucinations Osteoarthritis Legally blind REVIEW OF SYSTEMS: CONSTITUTIONAL: No fever, Fatigue. HEENT: No sinus drainage, no sore throat. RESPIRATORY: Cough Yellow sputum, no congestion. CARDIOVASCULAR: No atypical chest pain for coronary artery disease. No angina, CHF symptoms, palpitations. Shortness of breath. GASTROINTESTINAL: Abdominal pain, diarrhea. No GERD. GENITOURINARY: No hematuria, no prostatism, no polyuria. ACCOUNT DEVELOPMENT EXECUTIVE: No blackout, no dizziness, no headache, no double vision. GAIT: Wheelchair. MUSCULOSKELETAL: Osteoarthritis pain, no joint swelling. ENDOCRINE: No weight loss, no weight gain. SKIN: Not dry, no rash. PSYCHIATRIC: Not anxious, no depression, no suicidal thoughts, no homicidal thoughts. Insomnia. SOCIAL HISTORY: Marital Status: . Alcohol Usage: No. Tobacco Usage: Quit. MEDICATIONS: Amlodipine 5mg daily Esatalopran 10mg PO daily Lisinopril 20mg PO daily Meclizine 25mg TID PRN Memantine 10mg BID Methocarbamol 750mg BID Protonix 40mg BID Seroquel 25mg HS Tramadol 50mg BID Vitamin B12 monthly Losartan 25mg PO daily Coreg 6.25mg BID Xanax 0.25mg PRN daily BID Pravachol 20mg PO daily MVT one daily Exelon 4.6 times 30 days then 9.5mg ALLERGIES: NSAIDS-Hemorrhage 06/30 Eye GTT (Iovadine) PHYSICAL EXAMINATION: V/S: Pulse 88, Blood pressure 138/70, temperature 97.5, Oxygen saturation 95%. GENERAL APPEARANCE: Oriented to person. HEENT: Normal. NECK: No JVP, no bruits. RESPIRATORY: Coarse with bill expiratory wheezing right worse than left. CARDIOVASCULAR: S1, S2, no S3, no murmur. No cyanosis, clubbing. No ascites. GI/ABDOMEN: No tenderness. Bowel sounds are active. EXTREMITIES: edema, pulses +1, equal. ACCOUNT DEVELOPMENT EXECUTIVE: Deep tendon reflexes, sensory, motor and gait all normal. RECTAL: 08/18 Dr. Torres /PELVIC: Refused all. ASSESSMENT: 1. Shortness of breath 2. Generalized weakness 3. Abdominal pain 4. [facility]-12/18 Fatigue, weakness, Pneumonia. 5. Dementia 6. Skin tags 7. Recurrent pneumonia 8. Internal hemorrhoids 9. 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 Admit PUI- STAT COVID-19 swab 2. Routine telemetry- no Cardiac markers 3. CBC, CMP now and daily 4. ABG on Room air x1 5. U/A 6. CT chest, Abdomen and pelvis with and without 7. Regular diet 8. Normal saline IV at 75ml/hr 9. O2 at 1-2 liters nasal cannula PRN 10.Continue home medications 11.Rocephin 1 gram IV daily 12.Solu-Cortef 100mg IV Q 12- start tomorrow 12/27 TIME SPENT: More than 70 minutes. MTDD
[2019-12-28] MEDS: XANAX PO PRN ×2 (13:15→21:30)
[2019-12-29 05:57] LABS: HEMATOCRIT 45.7 % (37.0-47.0)
[2019-12-29] MEDS: COZAAR PO SCH ×2 (08:39→20:33)
[2019-12-29] MEDS: MULTIVITAMIN TABLET PO SCH (08:40)
[2019-12-29] MEDS: ASPIRIN EC PO SCH (08:40)
[2019-12-29] MEDS: XANAX PO PRN (08:40)
[2019-12-29] MEDS: ZITHROMAX PO SCH (08:40)
--- NOTE | 2019-12-29 09:22 | PCM.PROG ---
Attending Provider: ATTENDING PROVIDER: Dr. MADELIN SOTELO This patient is seen with Elba Jones, Nurse Practitioner. DATE OF SERVICE: 12/29/19 SUBJECTIVE: This 79 year old /WHITE F was hospitalized 12/27/19. The patient has been somewhat anxious. Appetite is fairly well. COVID-[address] of chest had numerous findings. REVIEW OF SYSTEMS: CONSTITUTIONAL: No night sweats. No fatigue, malaise, lethargy. No fever or chills. HEENT: Eyes: No visual changes. No eye pain. No eye discharge. ENT: No runny nose. No epistaxis. No sinus pain. No odynophagia. No congestion. RESPIRATORY: Cough. No congestion. No hemoptysis. No shortness of breath. CARDIOVASCULAR: No angina symptoms. No CHF symptoms. No atypical chest pain for CAD. No palpitations. No orthopnea.. GASTROINTESTINAL: No abdominal pain. No nausea or vomiting. No diarrhea or constipation. No hematemesis. No hematochezia. GENITOURINARY: No urgency. No frequency. No dysuria. No hematuria. No ob structive symptoms. No discharge. No pain. No significant abnormal bleeding. MUSCULOSKELETAL: No musculoskeletal pain; no joint swelling. NEUROLOGICAL: Confusion. No headache. No neck pain. No syncope. No seizures. No dizziness. PSYCHIATRIC: Anxiety. No depression. No suicidal thoughts. No homicidal thoughts. SKIN: No rash. No lesions. No wounds. ENDOCRINE: No unexplained weight loss. No weight gain. HEMATOLOGIC/LYMPHATIC: No anemia. No purpura. No petechiae. No prolonged or excessive bleeding. No palpable lymph nodes. PHYSICAL EXAMINATION: GENERAL: The patient is awake, oriented to person only, lying/sitting in bed in no distress. VITAL SIGNS: Temperature 97.8 F, Pulse 86, Respiratory Rate 19, BP 168/84, Pulse Ox 97% HEENT: Head normocephalic, atraumatic. Eyes: Extraocular muscles are intact. Pupils are equal, round and reactive to light and accommodation. Ears: No lesions. Nose appeared normal. Throat: No exudate or erythema. NECK: Supple. No JVD, no carotid bruit. No lymphadenopathy or thyromegaly. LUNGS: Diminished breath sounds. Bilateral expiratory wheeze. Percussion note normal. Chest symmetrical. HEART: S1, S2, no S3. No murmurs. No cyanosis or clubbing. No ascites. Pulses: Dorsalis pedis and posterior tibial pulses +1 to +2 both sides. ABDOMEN: Soft. Non-tender. Bowel sounds active. No CVA tenderness. No mass felt. EXTREMITIES: No edema. Full range of motion of all extremities, equal. NEUROLOGIC: No focal deficit. Cranial nerves II through XII are grossly intact. No headache, no double vision or headache. SKIN: Not dry. Intact. Turgor-normal. LYMPHATIC: No palpable lymph nodes/no lymphedema. MUSCULOSKELETAL: Normal joints with no swelling. Muscle tone is normal. LAB REVIEW: 12/29/19 05:43 12/29/19 05:43 12/29/19 05:43: Sodium 143.8, Potassium 3.68, Chloride 106.2, Carbon Dioxide 30.0, Anion Gap 11.28, BUN 16.7, Creatinine 0.65, Estimated GFR (MDRD) 87.00, BUN/Creatinine Ratio 25.69, Glucose 119.1 H, Calcium 9.24, Total Bilirubin 0.48, AST 32.6, ALT 21.6, Alkaline Phosphatase 82.3, Total Protein 7.16, Albumin 4.10, Globulin 3.06, Albumin/Globulin Ratio 1.33 12/29/19 05:43: WBC 8.56, RBC 4.63, Hgb 15.4, Hct 45.7, MCV 98.7, MCH 33.3 H, MCHC 33.7, RDW Coeff of Yosvany 13.0, Plt Count 183, Immature Gran % (Auto) 0.4, Neut % (Auto) 86.0 H, Lymph % (Auto) 9.1 L, Starke % (Auto) 4.4, Eos % (Auto) 0.0, Baso % (Auto) 0.1, Neut # (Auto) 7.4 H, Lymph # (Auto) 0.8, Starke # (Auto) 0.4, Eos # (Auto) 0.0, Baso # (Auto) 0.0, Immature Gran # (Auto) 0.0 ASSESSMENT: Please see below. 1. Bilateral pneumonia. 2. COPD. 3. Left breast nodule, new finding. 4. Stenosis of the mesenteric artery. 5. Anxiety. 6. Dementia. PLAN: 1. Covid 19 test pending. 2. Will discuss with Radiology diagnostic mammogram. 3. Increase Losartan 50 mg b.i.d. 4. Increase Losartan to b.i.d. 5. Zithromax 500 mg p.o. daily times three days. 6. Xanax 0.25 b.i.d. Plan and coordination of the patient's care discussed in the presence of Tube Roller and nurse. CONDITION: Stable SCRIBED BY: ROSSY MARTIN Supervisor Coffee scribed while in presence of service performed by Dr. Sotelo/Elba Jones APRN on 12/29/19 (1931)
[2019-12-29] MEDS: ROCEPHIN 1 GM/50 ML D5W 1 GM/50 ML BAG IV SCH (10:00)
[2019-12-29] MEDS: RIVASTIGMINE TP SCH (10:00)
[2019-12-29] MEDS: SODIUM CHLORIDE 1,000 ML IV SCH ×2 (10:59→11:01)
[2019-12-29] MEDS: SOLU-CORTEF 100 MG IVP SCH ×2 (11:28→20:44)
[2019-12-29] MEDS: XANAX PO SCH (20:33)
[2019-12-29] MEDS ORDERED: PRAVACHOL PO SCH (21:00)
[2019-12-30 05:28] VITALS: TEMP 97.9
[2019-12-30 05:45] LABS: HEMATOCRIT 44.3 % (37.0-47.0)
[2019-12-30] MEDS: ASPIRIN EC PO SCH (09:14)
[2019-12-30] MEDS: XANAX PO SCH (09:14)
[2019-12-30] MEDS: ZITHROMAX PO SCH (09:14)
[2019-12-30] MEDS: COZAAR PO SCH (09:14)
[2019-12-30] MEDS: MULTIVITAMIN TABLET PO SCH (09:14)
[2019-12-30] MEDS: ROCEPHIN 1 GM/50 ML D5W 1 GM/50 ML BAG IV SCH (09:38)
[2019-12-30] MEDS: SOLU-CORTEF 100 MG IVP SCH (09:38)
[2019-12-30 10:49] VITALS: BP 120/65
--- NOTE | 2019-12-30 11:11 | US ---
EXAM: Carotid ultrasound HISTORY: Weakness, hypertension COMPARISON: None TECHNIQUE: Carotid ultrasound was performed using Duplex imaging with wheat scale, color, and Doppler imaging performed. FINDINGS: Right carotid: There is atherosclerotic plaque in the common carotid and bulb/internal carotid arter y with the visual estimate of narrowing in the proximal internal carotid artery moderate or severe.. Peak systolic velocity measurement in the right internal carotid artery is 1.16 meters per second. End-diastolic velocity measurement in the right internal carotid artery is 0.17 meters per second. R ight internal to common carotid artery peak systolic velocity ratio is 1.5. Flow in the right verteb ral artery is antegrade. Left carotid: There is atherosclerotic plaque in the common carotid and bulb/internal carotid artery . Peak systolic velocity measurement in the left internal carotid artery is 0.75 meters per second. End-diastolic velocity measurement in the left internal carotid artery is 0.24 meters per second. L eft internal to common carotid artery peak systolic velocity ratio measures 1.6. Flow in the left ve rtebral artery is antegrade. IMPRESSION: 1. Right internal carotid: Peak systolic velocity corresponds with mild (less than 50%) stenosis; ho wever, the visual estimate of narrowing may be moderate or severe. Recommend correlation with CT ang iography neck 2. Left internal carotid: Peak systolic velocity corresponds with mild (less than 50%) stenosis.
[2019-12-30] MEDS: RIVASTIGMINE TP SCH (11:49)
--- NOTE | 2019-12-30 13:38 | PN ---
DATE OF SERVICE: 12/28/19 SUBJECTIVE: 79-year-old white female hospitalized with shortness of breath, generalized weakness, abdominal pain. The patient practically has no abdominal pain. She is still feeling weak but no shortness of breath. REVIEW OF SYSTEMS: CONSTITUTIONAL: Weakness. No night sweats. No fatigue, malaise, lethargy. No fever or chills. HEENT: Eyes: No visual changes. No eye pain. No eye discharge. ENT: No runny nose. No epistaxis. No sinus pain. No sore throat. No odynophagia. No congestion. RESPIRATORY: No cough, no congestion. No hemoptysis. No shortness of breath. CARDIOVASCULAR: No angina symptoms. No CHF symptoms. No atypical chest pain for CAD. No palpitations. No PND. No orthopnea. GASTROINTESTINAL: Appetite seems to have improved. No abdominal pain. No nausea or vomiting. No diarrhea or constipation. No hematemesis. No hematochezia. GENITOURINARY: No urgency. No frequency. No dysuria. No hematuria. No obstructive symptoms. No discharge. No pain. No significant abnormal bleeding. MUSCULOSKELETAL: No musculoskeletal pain; no joint swelling. NEUROLOGICAL: No headache. No neck pain. No syncope. No seizures. No dizziness. PSYCHIATRIC: Not anxious. No depression. No suicidal thoughts. No homicidal thoughts. SKIN: No rash. No lesions. No wounds. ENDOCRINE: No unexplained weight loss. No weight gain. HEMATOLOGIC/LYMPHATIC: No anemia. No purpura. No petechiae. No prolonged or excessive bleeding. No palpable lymph nodes. PHYSICAL EXAMINATION: VITAL SIGNS: Temperature 97, pulse 70, respiratory rate 20, BP 166/84, pulse ox 97%. HEENT: Head normocephalic, atraumatic. Eyes: Extraocular muscles are intact. Pupils are equal, round and reactive to light and accommodation. Ears: No lesions. Nose appeared normal. Throat: No exudate or erythema. NECK: Supple. No JVD, no carotid bruit. No lymphadenopathy or thyromegaly. LUNGS: Decreased breath sounds but clear to auscultation. Percussion note normal. Chest symmetrical. HEART: S1, S2, no S3. No murmurs. No cyanosis or clubbing. No ascites. Pulses: Dorsalis pedis and posterior tibial pulses +1 to +2 bilaterally. ABDOMEN: Soft. Nontender. Bowel sounds active. No CVA tenderness. No mass felt. EXTREMITIES: No edema. Full range of motion of all extremities, equal. NEUROLOGIC: No focal deficit. Cranial nerves II through XII are grossly intact. No headache, no double vision or headache. SKIN: Not dry. Intact. Turgor - normal. LYMPHATIC: No palpable lymph nodes/no lymphedema. MUSCULOSKELETAL: Normal joints with no swelling. Muscle tone is normal. LABS: The patient's Covid test is pending. Hemoglobin 15, hematocrit 45, WBC 8,800, normal differential. Creatinine 0.6, BUN 11, potassium 4. ASSESSMENT/PLAN: 1. Continue Covid precautions. 2. 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 Discussed all of this with the daughter. 3. The patient's present condition is stable with generalized severe atherosclerosis with multiple other medical problems with dementia. The patient's chest x-ray shows infiltrate, possibility of pneumonia but the patient clinically doesn't have it. She has the same type of finding for the x- ray that was done at [facility]. TIME SPENT: More than 30 minutes. Plan and coordination of the patient's care discussed in the presence of nurse. JUN
--- NOTE | 2019-12-30 13:42 | PN ---
DATE OF SERVICE: 12/29/19 SUBJECTIVE: The patient's Covid is still pending. The patient's other conditions are stable. The patient's abdominal pain could be from abdominal angina from having moderate to severe mesenteric artery stenosis. The patient has aortic stenosis just above the bifurcation of renal arteries. The patient's blood pressure is high. She is being put on Losartan. The patient was seen and examined with the nurse practitioner. Condition is otherwise stable. TIME SPENT: More than 30 minutes. Plan and coordination of the patient's care discussed in the presence of nurse. JUN
--- NOTE | 2019-12-30 14:44 | CM.DICTOOL ---
ADMISSION: 12/27/19 15:21 FINAL DIAGNOSIS: BILATERAL PNEUMONIA COPD LEFT BREAST NODULE, NEW FINDING STENOSIS OF MESENTERIC ARTERY, ABDOMINAL PAIN FROM ABDOMINAL ANEURYSM ( HIGH GRADE MESENTERIC ARTERY STENOSIS) HIGH GRADE ABDOMINAL AORTIC OCCLUSION ABOVE ORIGIN OF RENAL ARTERY DEMENTIA WITH BEHAVIORAL DISORDER CAD - BY CT OF CHEST HX: [facility]- 12/19/2019 FATIGUE,WEAKNESS,PNEUMONIA LEGALLY BLIND ANEMIA DEMENTIA SKIN TAGS RECURRENT PNEUMONIA HYPERTENSION INTERNAL HEMORRHOIDS GENERALIZED MUSCLE WEAKNESS ANXIETY/DEPRESSION OSTEOARTHRITIS LEGALLY BLIND GLAUCOMA CONGENITAL CATARACTS GI HEMORRHAGE 2011, TOO MANY ASA HALLUCINATIONS LAST VITALS Temp Pulse Resp BP Pulse Ox 97.9 F 78 16 120/65 97 12/30/19 05:27 12/30/19 10:00 12/30/19 10:00 12/30/19 10:00 12/30/19 10:00 TAKE THESE MEDICATIONS AT HOME Alprazolam (Xanax) 0.25 mg PO BID [facility] -- ( CHANGE) Last Admin: 12/30/19 09:14 Dose: 0.25 mg Documented by: Azithromycin (Zithromax) 500 mg PO DAILY [facility] - ( NEW) LAST DOSE 12/31/2019 Stop: 01/01/20 08:59 Last Admin: 12/30/19 09:14 Dose: 500 mg Documented by: Multivitamins (Multivitamin Tablet) 1 tab PO DAILY [facility] Last Admin: 12/30/19 09:14 Dose: 1 tab Documented by: Non-Formulary Medication (Rivastigmine [Exelon]) 1 patch TP 1100 [facility] Last Admin: 12/30/19 11:49 Dose: 1 patch Documented by: Pravastatin Sodium (Pravachol) 40 mg PO BEDTIME [facility] Last Admin: 12/29/19 20:33 Dose: 40 mg Documented by: LOSARTAN 50 MG PO BID CYANOCOBALAMIN ( VITAMIN B - 12 ) 1000 MCG IM MONTHLY NORVASC 5 MG PO AT BEDTIME -- (NEW) ALLERGIES apraclonidine [From Iopidine] Adverse Reaction (Verified 03/09/18 07:38) Discontinued Medications NONE NEW PRESCRIPTIONS: AZITHROMYCIN 500 MG PO DAILY X 1 DAY ON 12/31/2019 NORVASC 5 MG PO AT BEDTIME PRAVACHOL 40 MG PO DAILY LORSARTAN 50 MG PO BID -( CHANGED ) SMOKING: NON- APPLICABLE DISEASE SPECIFIC EDUCATION: BREAST NODULE PNEUMONIA ARTERY STENOSIS ANXIETY DEMENTIA COVID - 19 LAB REVIEW: 12/30/19 05:30 12/30/19 05:30 12/30/19 05:30: WBC 6.13, RBC 4.40, Hgb 14.4, Hct 44.3, MCV 100.7 H, MCH 32.7 H, MCHC 32.5, RDW Coeff of Yosvany 13.2, Plt Count 175, Immature Gran % (Auto) 0.2, Neut % (Auto) 63.9, Lymph % (Auto) 24.1, Rice % (Auto) 9.1, Eos % (Auto) 2.0, Baso % (Auto) 0.7, Neut # (Auto) 3.9, Lymph # (Auto) 1.5, Rice # (Auto) 0.6, Eos # (Auto) 0.1, Baso # (Auto) 0.0, Immature Gran # (Auto) 0.0 12/30/19 05:30: Sodium 140.0, Potassium 3.93, Chloride 105.0, Carbon Dioxide 34.3 H, Anion Gap 4.63, BUN 21.0 H, Creatinine 0.74, Estimated GFR (MDRD) 75.00, BUN/Creatinine Ratio 28.37, Glucose 85.5, Calcium 8.97, Total Bilirubin 0.63, AST 30.3, ALT 18.8, Alkaline Phosphatase 67.3, Total Protein 6.23 L, Albumin 3.54, Globulin 2.69, Albumin/Globulin Ratio 1.31, Triglycerides 100.8, Lisset sterol 166.0, LDL Cholesterol, Calc 82, VLDL Cholesterol 20, HDL Cholesterol 63.9, Cholesterol/HDL Ratio 2.6 L 12/30/19 05:30: Hemoglobin A1c 5.58 PLAN: DISCHARGE TO [facility] TODAY, THURSDAY, JANUARY 02, 2020 ACTIVITY : USED A ROLLING WALKER AT HOME. UP ASSIST OF ONE. LEGALLY BLIND. PT AND OT EVAL AND TREAT DIET: REGULAR LABS : TAKE TO [facility]; THURSDAY CBC AND CMP AND THEN EVERY 3 MONTHS TSH, FREE T4 , A1C AND LIPID PANEL EVERY 6 MONTHS MD FOLLOW UP : DR SOTELO/ERWIN JONES APRN/MAYO GUNN APRN WILL SEE ON ROUNDS. MONITORING: V/S PER FACILITY PROTICAL OXYGEN 2 L/M PER N/C PRN TO KEEP PULSE OX > 92 DECREASED VISUAL ACUITY AND CONFUSION PRECAUTIONS CODE STATUS: DO NOT INTUBATE MRS [facility] BEEN ALERT AND ORIENTED TO SELF ONLY WITH INTERMITTENT UNDERSTANDING AND VERBALIZATIONS RELATED TO OTHER DETAILS. NO REPORTS OF SOA. FORGETFUL AND TRIES TO GET UP ON OWN WITHOUT ASSISTANCE AT TIMES. ANXIOUS AT TIMES. NO COUGH OR SOA REPORTED OR NOTED. SKIN INTACT. CONTINENT OF BOWEL AND BLADDER. LAST BM 12/29. USES A PAD/BRIEFS FOR SOME LEAKAGE. IS UP WITH ASSIST OF ONE. USES A ROLLING WALKER AT HOME. NUTRITIONAL AND FLUID INTAKE GOOD. FEEDS SELF WITH MEAL SET UP. REFUSED DIAGNOSTIC MAMMOGRAM TODAY. SHE VERBALIZES UNDERSTANDING OF DISCHARGING TO [facility]. MD MAYO TONG,MITA JONES APRN
--- NOTE | 2020-01-04 10:09 | DS ---
DATE OF SERVICE: 12/30/19 FINAL DIAGNOSIS: 1. BILATERAL PNEUMONIA 2. COPD 3. LEFT BREAST NODULE, NEW FINDING 4. 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 HIGH GRADE ABDOMINAL AORTIC OCCLUSION ABOVE ORIGIN OF RENAL ARTERY 6. DEMENTIA WITH BEHAVIORAL DISORDER 7. CAD - BY CT OF CHEST HX: 8. [facility] ER- 12/19/2019 FATIGUE,WEAKNESS,PNEUMONIA 9. LEGALLY BLIND 10. ANEMIA 11. DEMENTIA 12. SKIN TAGS 13. RECURRENT PNEUMONIA 14. HYPERTENSION 15. INTERNAL HEMORRHOIDS 16. GENERALIZED MUSCLE WEAKNESS 17. ANXIETY/DEPRESSION 18. OSTEOARTHRITIS 19. LEGALLY BLIND 20. 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 GI HEMORRHAGE 2011, TOO MANY ASA 23. HALLUCINATIONS LAST VITALS Temp Pulse Resp BP Pulse Ox 97.9 F 78 16 120/65 97 12/30/19 05:27 12/30/19 10:00 12/30/19 10:00 12/30/19 10:00 12/30/19 10:00 DISCHARGE INSTRUCTIONS: 1. DISCHARGE TO [facility] TODAY, THURSDAY, JANUARY 02, 2020. 2. MD FOLLOW UP: DR SOTELO/ERWIN JONES,SORTING LIVESTOCK WORKER/[employer]O GUNN APRN WILL SEE ON ROUNDS. 3. LABS: TAKE TO [facility]; THURSDAY CBC AND CMP AND THEN EVERY 3 MONTHS TSH, FREE T4, A1C AND LIPID PANEL EVERY 6 MONTHS 4. MONITORING: V/S PER FACILITY PROTICAL,OXYGEN 2 L/M PER N/C PRN TO KEEP PULSE OX > 92, DECREASED VISUAL ACUITY AND CONFUSION PRECAUTIONS 5. CODE STATUS: DO NOT INTUBATE MEDICATIONS AT DISCHARGE: Alprazolam (Xanax) 0.25 mg PO BID [facility] -- (CHANGE) Last Admin: 12/30/19 09:14 Dose: 0.25 mg Documented by: Azithromycin (Zithromax) 500 mg PO DAILY [facility] - ( NEW) LAST DOSE 12/31/2019 Stop: 01/01/20 08:59 Last Admin: 12/30/19 09:14 Dose: 500 mg Documented by: Multivitamins (Multivitamin Tablet) 1 tab PO DAILY AZUCENA Last Admin: 12/30/19 09:14 Dose: 1 tab Documented by: Non-Formulary Medication (Rivastigmine ) 1 patch TP 1100 AZUCENA Last Admin: 12/30/19 11:49 Dose: 1 patch Documented by: Pravastatin Sodium (Pravachol) 40 mg PO BEDTIME AZUCENA Last Admin: 12/29/19 20:33 Dose: 40 mg Documented by: LOSARTAN 50 MG PO BID CYANOCOBALAMIN ( VITAMIN B - 12 ) 1000 MCG IM MONTHLY NORVASC 5 MG PO AT BEDTIME -- (NEW) NEW PRESCRIPTIONS: AZITHROMYCIN 500 MG PO DAILY X 1 DAY ON 12/31/2019 NORVASC 5 MG PO AT BEDTIME PRAVACHOL 40 MG PO DAILY LOSARTAN 50 MG PO BID -( CHANGED ) DISCONTINUED MEDICATIONS: NONE DIET INSTRUCTIONS: REGULAR ACTIVITY: USED A ROLLING WALKER AT HOME. UP ASSIST OF ONE. LEGALLY BLIND. PT AND OT EVAL AND TREAT SMOKING: NON- APPLICABLE DISEASE SPECIFIC EDUCATION: BREAST NODULE PNEUMONIA ARTERY STENOSIS ANXIETY DEMENTIA COVID - 19 HOSPITAL COURSE: The patient was seen on 12/27/19 in the office with complaints of being weak. She also was diagnosed to have pneumonia on 12/19/19 at [facility]. She was given antibiotics. Daughter was with the patient. She was given Augmentin and Azithromycin. Azithromycin was continued. She also had abdominal pain for which she underwent workup with CT scan which showed moderate to severe mesenteric artery stenosis with high grade stenosis abdominal aorta at the level of renal arteries. Coronary artery disease was also noted. There was generalized atherosclerosis, moderate pulmonary emphysema was seen. The patient incidental finding was 13 mm enhancing nodule on the left concerning malignancy for which she underwent diagnostic mammogram. All these findings were explained to the patient. Today she was oriented to time, place and person. She has history of dementia. She is legally blind. She agreed to go to the senior living. Her cardiovascular status was stable. The patient's blood pressure was borderline high throughout the stay in the hospital. Her Cozaar was increased to 50 twice a day. At time of discharge, the patient's hemoglobin was 14.4 with hematocrit 44, WBC 6,000 with normal differential. Creatinine 0.7, BUN 21, potassium 3.9. The patient doesn't want any further studies done as far as vascular problems are concerned with abdominal aortic area high grade lesion in the mesenteric area. Carotid scan showed less than 50% carotid artery stenosis. The patient had hospitalization at [facility] on 05/31/19. At that time she was hospitalized with altered mental status with acute encephalopathy with pneumonia and later on Alzheimer's with behavioral disturbances with small vessel cerebrovascular disease. The patient's daughter has been made aware of all these findings. Further workup on breast finding will be done as an outpatient. She will get Azithromycin 500 mg daily for three doses. Her abdominal pain likely is from abdominal angina from high grade lesion of the mesenteric artery. The patient is DNR. Considering the patient's history of dementia and multiple comorbidities, her prognosis is poor. She is not a surgical candidate for any procedures. TIME SPENT: More than 60 minutes. MTDD
--- NOTE | 2020-01-04 10:12 | PN ---
BILLING 12/27/19 ADMISSION DAY LEVEL 5 12/28/19 INTERMEDIATE 12/29/19 INTERMEDIATE 12/30/19 DISCHARGE MTDD
--- NOTE | 2020-01-04 10:21 | PN ---
DATE OF SERVICE: 12/30/19 DISCHARGE NOTE SUBJECTIVE: The patient is doing well. She is willing to go to the detention. She understands that the daughter hasn't been able to take care of her because she is working. The patient says she has poor vision, makes it very difficult for her to take care of herself. Abdominal pain is under control. I explained to her that it is very likely that it is from blocked arteries in the abdomen. That is the mesenteric artery. She doesn't want any further workup for peripheral arterial disease, abdominal aortic blockage. The patient is going to have a diagnostic mammogram before discharge. TIME SPENT: More than 30 minutes. Plan and coordination of the patient's care discussed in the presence of nurse. JUN
== END 2019-12-30 15:00 | DRG 204 ==
LOC: SCU 15:21
PROVIDERS: ADMIT Internal Medicine; ATTEND Internal Medicine

== ENCOUNTER 2020-10-08 17:27 | Inpatient (IN) ==
[2020-10-08] MEDS ORDERED: ATROPINE SULFATE PFS IVP PRN (18:11)
[2020-10-08] MEDS ORDERED: NITROSTAT SL PRN (18:11)
[2020-10-08 18:17] VITALS: BMI 23.2
[2020-10-08 18:26] LABS: BASOPHILS % (AUTO) 0.5 % (0.0-3.0); EOSINOPHILS # (AUTO) 0.2 K/ul (0.0-0.7); EOSINOPHILS % (AUTO) 3.6 % (0.0-7.0); HEMATOCRIT 42.3 % (37.0-47.0); HEMOGLOBIN 14.6 g/dl (12.0-16.0); IMMATURE GRANULOCYTE % (AUTO) 0.2 % (0.0-5.0); LYMPHOCYTES # (AUTO) 1.2 K/uL (0.60-3.4); LYMPHOCYTES % (AUTO) 20.4 (10.0-50.0); MEAN CORPUSCULAR HEMOGLOBIN 34.2 pg (27.0-31.0); MEAN CORPUSCULAR HGB CONC 34.5 (31.8-35.4); MEAN CORPUSCULAR VOLUME 99.1 fl (81.0-99.0); MONOCYTES # (AUTO) 0.6 K/uL (0.4-2.0); MONOCYTES % (AUTO) 9.8 (0-10); NEUTROPHILS # (AUTO) 3.8 K/ul (2.0-6.9); NEUTROPHILS % (AUTO) 65.5 % (42.2-75.2); PLATELET COUNT 172 10^3/uL (140-440); RED BLOOD COUNT 4.27 10^6/ul (4.20-5.40); WHITE BLOOD COUNT 5.79 K/ul (4.6-10.2)
[2020-10-08] MEDS ORDERED: IMODIUM PO PRN (18:26)
[2020-10-08 18:39] LABS: ALANINE AMINOTRANSFERASE 15.3 U/L (0-35); ALBUMIN 3.72 g/dL (3.5-5.0); ALKALINE PHOSPHATASE 62.7 U/L (53-141); ASPARTATE AMINO TRANSFERASE 27.4 U/L (14-36); BILIRUBIN,TOTAL 0.55 mg/dL (0.2-1.3); BLOOD UREA NITROGEN 13.9 mg/dL (7-17); CALCIUM 9.04 mg/dL (8.4-10.2); CARBON DIOXIDE 30.9 mmol/L (22-30.0); CHLORIDE 102.8 mmol/L (98-107); CREATININE 0.88 mg/dL (0.60-1.30); GLUCOSE 99.2 mg/dL (74-106); POTASSIUM 3.92 mmol/L (3.5-5.1); SODIUM 138.8 mmol/L (134.5-145); TOTAL PROTEIN 6.65 g/dL (6.3-8.2)
--- NOTE | 2020-10-08 19:01 | DI ---
Exam: Chest one-view History: Chronic obstructive pulmonary disease FINDINGS: Normal cardiomediastinal contours. Normal pulmonary vasculature. The lungs are hyperexpa nded. Elevated left hemidiaphragm. Left upper lobe nodule stable from 07/17/2020. There is a focal reticular infiltrate in the right upper lobe likely present on CT 07/17/2020. Focal reticular opaci ty in the right lung base possibly new. Senescent changes of the chest wall. Impression: Bilateral upper lobe reticular scar like opacities stable from 07/17/2020. New focal reticular opaci ty in the right base. Correlate for pneumonitis. Follow-up recommended.
[2020-10-08 19:37] LABS: BILIRUBIN,URINE Negative (NEGATIVE); CLARITY,URINE Clear (CLEAR); COLOR,URINE Yellow (YELLOW); GLUCOSE, URINE (UA) Negative (NEGATIVE); KETONES,URINE Negative (NEGATIVE); LEUKOCYTE ESTERASE ,URINE Negative (NEGATIVE); NITRITE,URINE Negative (NEGATIVE); PROTEIN,URINE Negative (NEGATIVE); URINE, BLOOD Negative (NEGATIVE); UROBILINOGEN,URINE 0.2 (0.2)
[2020-10-08] MEDS: XANAX PO SCH (20:29)
[2020-10-08] MEDS: SODIUM CHLORIDE 1,000 ML IV SCH (20:30)
[2020-10-08] MEDS ORDERED: SEROQUEL PO SCH (21:00)
[2020-10-09] MEDS: TYLENOL PO PRN (04:08)
[2020-10-09 06:12] LABS: BASOPHILS % (AUTO) 0.7 % (0.0-3.0); EOSINOPHILS # (AUTO) 0.3 K/ul (0.0-0.7); EOSINOPHILS % (AUTO) 5.9 % (0.0-7.0); HEMATOCRIT 43.3 % (37.0-47.0); HEMOGLOBIN 14.7 g/dl (12.0-16.0); IMMATURE GRANULOCYTE % (AUTO) 0.2 % (0.0-5.0); LYMPHOCYTES # (AUTO) 0.9 K/uL (0.60-3.4); LYMPHOCYTES % (AUTO) 21.7 (10.0-50.0); MEAN CORPUSCULAR HEMOGLOBIN 33.9 pg (27.0-31.0); MEAN CORPUSCULAR HGB CONC 33.9 (31.8-35.4); MONOCYTES # (AUTO) 0.5 K/uL (0.4-2.0); MONOCYTES % (AUTO) 10.6 (0-10); NEUTROPHILS # (AUTO) 2.6 K/ul (2.0-6.9); NEUTROPHILS % (AUTO) 60.9 % (42.2-75.2); PLATELET COUNT 163 10^3/uL (140-440); RDW COEFFICIENT OF VARIATION 12.9 % (11.6-14.8); RED BLOOD COUNT 4.33 10^6/ul (4.20-5.40); WHITE BLOOD COUNT 4.23 K/ul (4.6-10.2)
[2020-10-09 06:24] LABS: ALANINE AMINOTRANSFERASE 15.9 U/L (0-35); ALBUMIN 3.53 g/dL (3.5-5.0); ALKALINE PHOSPHATASE 61.4 U/L (53-141); BILIRUBIN,TOTAL 0.7 mg/dL (0.2-1.3); BLOOD UREA NITROGEN 16.2 mg/dL (7-17); CALCIUM 8.67 mg/dL (8.4-10.2); CARBON DIOXIDE 32.2 mmol/L (22-30.0); CHLORIDE 104.9 mmol/L (98-107); CREATININE 0.68 mg/dL (0.60-1.30); GLUCOSE 87.6 mg/dL (74-106); POTASSIUM 4.25 mmol/L (3.5-5.1); SODIUM 140.1 mmol/L (134.5-145); TOTAL PROTEIN 6.42 g/dL (6.3-8.2)
[2020-10-09] MEDS ORDERED: SYMBICORT 80-4.5 MCG INHALER IH SCH (09:00)
--- NOTE | 2020-10-09 09:04 | PCM.PROG ---
Attending Provider: ATTENDING PROVIDER: Dr. MADELIN SOTELO This patient is seen with Elsa Bee, Nurse Practitioner. DATE OF SERVICE: 10/09/20 SUBJECTIVE: This 80 year old /WHITE F was hospitalized 10/08/20. The patient is resting comfortably. The patient had increase in confusion in the night and pulled out IV and took off clothes. She is more alert this morning and has slight cough. REVIEW OF SYSTEMS: CONSTITUTIONAL: No night sweats. No fatigue, malaise, lethargy. No fever or chills. Weakness. HEENT: Eyes: No visual changes. No eye pain. No eye discharge. ENT: No runny nose. No epistaxis. No sinus pain. No odynophagia. No congestion. RESPIRATORY: Cough, no congestion. No hemoptysis. No shortness of breath. CARDIOVASCULAR: No angina symptoms. No CHF symptoms. No atypical chest pain for CAD. No palpitations. No orthopnea.. GASTROINTESTINAL: No abdominal pain. No nausea or vomiting. No diarrhea or constipation. No hematemesis. No hematochezia. GENITOURINARY: No urgency. No frequency. No dysuria. No hematuria. No obstructive symptoms. No discharge. No pain. No significant abnormal bleeding. MUSCULOSKELETAL: No musculoskeletal pain; no joint swelling. NEUROLOGICAL: Awake, alert, with intermittent confusion. No headache. No neck pain. No syncope. No seizures. No dizziness. PSYCHIATRIC: Not anxious. No depression. No suicidal thoughts. No homicidal thoughts. SKIN: No rash. No lesions. No wounds. ENDOCRINE: No unexplained weight loss. No weight gain. HEMATOLOGIC/LYMPHATIC: No anemia. No purpura. No petechiae. No prolonged or excessive bleeding. No palpable lymph nodes. PHYSICAL EXAMINATION: GENERAL: The patient is awake, alert and oriented, lying in bed in no distress. VITAL SIGNS: Temperature 97.5 F, Pulse 65, Respiratory Rate 18, BP 159/82, Pulse Ox 97% HEENT: Head normocephalic, atraumatic. Eyes: Extraocular muscles are intact. Pupils are equal, round and reactive to light and accommodation. Ears: No lesions. Nose appeared normal. Throat: No exudate or erythema. NECK: Supple. No JVD, no carotid bruit. No lymphadenopathy or thyromegaly. LUNGS: Diminished breath sounds with rhonchi on right. Clear to auscultation. Percussion note normal. Chest symmetrical. HEART: S1, S2, no S3. No murmurs. No cyanosis or clubbing. No ascites. Pulses: Dorsalis pedis and posterior tibial pulses +1 to +2 both sides. ABDOMEN: Soft. Non-tender. Bowel sounds active. No CVA tenderness. No mass felt. EXTREMITIES: No edema. Full range of motion of all extremities, equal. NEUROLOGIC: No focal deficit. Cranial nerves II through XII are grossly intact. No headache. No double vision. SKIN: Not dry. Intact. Turgor-normal. LYMPHATIC: No palpable lymph nodes/no lymphedema. MUSCULOSKELETAL: Normal joints with no swelling. Muscle tone is normal. LAB REVIEW: 10/09/20 05:21 10/09/20 05:21 10/09/20 05:21: Sodium 140.1, Potassium 4.25, Chloride 104.9, Carbon Dioxide 32.2 H, Anion Gap 7.25, BUN 16.2, Creatinine 0.68, Estimated GFR (MDRD) 83.00, BUN/Creatinine Ratio 23.82, Glucose 87.6, Calcium 8.67, Total Bilirubin 0.70, AST 31.0, ALT 15.9, Alkaline Phosphatase 61.4, Total Protein 6.42, Albumin 3.53, Globulin 2.89, Albumin/Globulin Ratio 1.22 10/09/20 05:21: WBC 4.23 L, RBC 4.33, Hgb 14.7, Hct 43.3, MCV 100.0 H, MCH 33.9 H, MCHC 33.9, RDW Coeff of Yosvany 12.9, Plt Count 163, Immature Gran % (Auto) 0.2, Neut % (Auto) 60.9, Lymph % (Auto) 21.7, Talbot % (Auto) 10.6 H, Eos % (Auto) 5.9, Baso % (Auto) 0.7, Neut # (Auto) 2.6, Lymph # (Auto) 0.9, Talbot # (Auto) 0.5, Eos # (Auto) 0.3, Baso # (Auto) 0.0, Immature Gran # (Auto) 0.0 10/08/20 19:20: Urine Color Yellow, Urine Clarity Clear, Urine pH 7.0, Ur Specific Mode 1.020, Urine Protein Negative, Urine Glucose (UA) Negative, Urine Ketones Negative, Urine Blood Negative, Urine Nitrite Negative, Urine Bilirubin Negative, Urine Urobilinogen 0.2, Ur Leukocyte Esterase Negative 10/08/20 18:20: Sodium 138.8, Potassium 3.92, Chloride 102.8, Carbon Dioxide 30.9 H, Anion Gap 9.02, BUN 13.9, Creatinine 0.88, Estimated GFR (MDRD) 62.00, BUN/Creatinine Ratio 15.79, Glucose 99.2, Calcium 9.04, Total Bilirubin 0.55, AST 27.4, ALT 15.3, Alkaline Phosphatase 62.7, Total Protein 6.65, Albumin 3.72, Globulin 2.93, Albumin/Globulin Ratio 1.26 10/08/20 18:20: WBC 5.79, RBC 4.27, Hgb 14.6, Hct 42.3, MCV 99.1 H, MCH 34.2 H, MCHC 34.5, RDW Coeff of Yosvany 13.0, Plt Count 172, Immature Gran % (Auto) 0.2, Neut % (Auto) 65.5, Lymph % (Auto) 20.4, Talbot % (Auto) 9.8, Eos % (Auto) 3.6, Baso % (Auto) 0.5, Neut # (Auto) 3.8, Lymph # (Auto) 1.2, Talbot # (Auto) 0.6, Eos # (Auto) 0.2, Baso # (Auto) 0.0, Immature Gran # (Auto) 0.0 ASSESSMENT: Please see below. 1. Acute pneumonitis 2. COPD 3. Worsening confusion 4. Underlined dementia PLAN: 1. Rocephin IV 1 gram 2. Zithromax 500mg PO daily for 3 days 3. Seroquel 50mg at night 4. 1cc Decadron IM daily 5. Albuterol two puffs TID with spacer 6. Symbicort two puffs BID with spacer. Plan and coordination of the patient's care discussed in the presence of Manager Assessment and nurse. SCRIBED BY: LOBITO DWYER Autopsy Assistant scribed while in presence of service performed by Dr. Sotelo/Elsa Bee APRN on 10/09/20 (0029)
[2020-10-09] MEDS: SYMBICORT 160-4.5 MCG INHALER IH SCH ×4 (09:27→19:55)
[2020-10-09] MEDS: ROCEPHIN 1 GM/50 ML D5W 1 GM/50 ML BAG IV SCH (09:28)
[2020-10-09] MEDS: ZITHROMAX PO SCH (09:28)
[2020-10-09] MEDS: XANAX PO SCH ×3 (09:28→20:30)
[2020-10-09] MEDS: MULTIVITAMIN TABLET PO SCH (09:28)
[2020-10-09] MEDS: SODIUM CHLORIDE 1,000 ML IV SCH (09:29)
[2020-10-09] MEDS: DECADRON IM SCH (09:29)
[2020-10-09] MEDS: COZAAR PO SCH (09:29)
[2020-10-09] MEDS: VENTOLIN HFA (PER PUFF-WITH SPACER) IH SCH ×3 (10:05→20:07)
--- NOTE | 2020-10-09 10:30 | HP ---
DATE OF SERVICE: 10/08/2020 REASON FOR HOSPITALIZATION/HISTORY OF PRESENT ILLNESS: Increased confusion with decreased urinary output. She is more forgetful and hallucinations at night. No signs or symptoms of CHF or CAD. PAST MEDICAL HISTORY: Legally blind ALBERTO IBS Depression Glaucoma COPD Osteoarthritis Confusion History of GI Bleed Anxiety PAST SURGICAL HISTORY: Cataract Appendix REVIEW OF SYSTEMS: CONSTITUTIONAL: No fever, Fatigue. HEENT: No sinus drainage, no sore throat. RESPIRATORY: No cough, no congestion. CARDIOVASCULAR: No atypical chest pain for coronary artery disease. No angina, CHF symptoms, palpitations or shortness of breath. GASTROINTESTINAL: No melena or abdominal pain. No GERD. GENITOURINARY: No hematuria, no prostatism, no polyuria. Decrease in output NUTRITION SPECIALIST: No blackout, no dizziness, no headache, no double vision. GAIT: Wheelchair. MUSCULOSKELETAL: Osteoarthritis pain, no joint swelling. ENDOCRINE: No weight loss, no weight gain. SKIN: Not dry, no rash. PSYCHIATRIC: Not anxious, no depression, no suicidal thoughts, no homicidal thoughts. SOCIAL HISTORY: Marital Status: . Alcohol Usage: No. Tobacco Usage: Quit. FAMILY HISTORY: Father Mother Brother 8 Sister 5 MEDICATIONS: Losartan 50mg Q daily Xanax 0.25mg TID MVI Q daily Exelon Patch 9.5mg discontinued Immodium BID PRN Seroquel 25mg QHS Namenda 10mg Q HS ALLERGIES: Lovadine PHYSICAL EXAMINATION: V/S: Pulse 81, blood pressure 140/80, temperature 97.1, oxygen saturation 97% GENERAL APPEARANCE: Oriented to person and place only. HEENT: Normal. NECK: No JVP, no bruits. RESPIRATORY: Decreased breath sounds. CARDIOVASCULAR: S1, S2, no S3, no murmur. No cyanosis, clubbing. No ascites. GI/ABDOMEN: No tenderness. Bowel sounds are active. EXTREMITIES: edema, pulses +1, equal. NUTRITION SPECIALIST: Deep tendon reflexes, sensory, motor and gait all normal. RECTAL: 02/27 Dr. Torres/PELVIC: Advised yearly, the patient refused all. ASSESSMENT: 1. Increased confusion 2. Dehydration 3. Generalized weakness. 4. History of lung nodule-Refuses further evaluation 5. Generalized weakness 6. Increased confusion 7. Diarrhea 8. Night terrors 9. 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 Admit 2. Routine telemetry orders- NO cardiac markers 3. CBC and CMP now and daily 4. Urine culture/U/A 5. Chest x-ray 6. Continue home medications 7. Normal saline IV at 75cc an hour 8. Regular diet 9. Fall precautions 10. Refuses chest CT or further evaluation for abnormality or possible malignancy of chest/breast TIME SPENT: More than 70 minutes. MTDD
--- NOTE | 2020-10-09 11:25 | RS.PTINEVL ---
Subjective - Patient information Date of Evaluation: 10/09/20 Date of Arrival on Unit: 10/08/20 Admitted From:: Home Diagnosis: dehydration, weakness, confusion Usual Living Arrangement: lives with son Home Environment: House, Ramp Medical History Comments:: hypotension, scoliosis, legally blind LATEX ALLERGY?: No Medications: see chart Subjective Information/ Patient Comments:: pt states that she walks short distances in her home with RWX. pt states she is legally blind. - Level of function Prior to this admission, the patient could do the following:: Partially Dependent Ambulation Current Level of Function: Partially Dependent Current Equipment Used at Home: Wheelchair, rolling walker Pain Assessement - Location "back" Description: Throbbing, Aching Pain Behavior: Guarding, Facial Grimacing Pain Aggravating Factors: Standing, Walking Pain Alleviating Factors: Medication Interventions - Objective Patient Orientation: Person, Place, Situation Current Interventions: IV's, Telemetry Observation: pt with scoliosis, increased thoracic kyphosis, rounded shlds. Range of Motion - ROM Right Upper Extremity AROM: WFL's Left Upper Extremity AROM: WFL's Right Lower Extremity AROM: WFL's Left Lower Extremity AROM: WFL's Muscle Strength - Muscle Strength Right Upper Extremity Strength: Mild Weakness Left Upper Extremity Strength: Mild Weakness (grossly 4-/5) Right Lower Extremity Strength: Mild Weakness (hip flex 3+/5, knee flex/ext 4- /5, ankle DF/PF 4-/5) Left Lower Extremity Strength: Mild Weakness (hip flex 3+/5, knee flex/ext 4-/5, ankle DF/PF 4-/5) Sensation - Sensation Right Upper Extremity Sensation: Intact/Normal Left Upper Extremity Sensation: Intact/Normal Right Lower Extremity Sensation: Intact/Normal Left Lower Extremity Sensation: Intact/Normal Palpation Palpation Findings: Tenderness (tenderness to palpation of the spine) Balance - Sitting Balance and Reactions Static Sitting Balance: Fair Dynamic Sitting Balance: Poor Sitting Equilibrium Reactions: Delayed Left, Delayed Right Sitting Protective Reactions: Delayed Left, Delayed Right - Standing Balance and Reactions Static Standing Balance: Poor Dynamic Standing Balance: Poor Standing Equilibrium Reactions: Delayed Right Standing Protective Reactions: Delayed Left, Delayed Right Functional Mobility - Bed Mobility Sit to Supine: Mod Assist, 1 person assist - Transfers Sit to Stand: Min Assist, 2 person assist Stand to Sit: Min Assist, 2 person assist - Safety Awareness Safety Awareness: Fair EMA INDEX SCORE: n/a Ambulation - Ambulation Assistive Device Used: Rolling Walker Orthotic/Prosthetic Device: No Distance: 40ft Assistance needed with Ambulation: Min Assist, 2 person assist Gait Deviations: Forward posture, Short stride, Deviates from path Ambulation Comments: Due to vision deficits pt requires assist to guide rwx. Factors Affecting Ambulation: Decreased Balance, Pain, Weakness, Decreased Safety, Cognitive Status, Limited Endurance Treatment time - Time with patient Length of Evaluation: 21 Total treatment time: 29 Patient Education - Education Patient Education: Activity Modification, Education of Plan of Care Teaching Recipient: Patient Teaching Methods: Discussion Assessment - Assessment Problem List:: Decreased level of function, Requires training/education, Decreased safety/Risk of falls, Weakness, Pain limits previous level of function Rehab Potential: Good Further Therapy Indicated?: Yes Candidate for Swing Bed for Therapy Services?: pt plan is to go to [facility] after dc Evaluation Complexity: HISTORY: Medium, EXAM OF BODY SYSTEMS: Medium, CLINICAL PRESENTATION: Medium, CLINICAL DECISION MAKING: Medium Patient's Goal(s): pt goal is to go home. Short Term Goals GOAL #1: pt demonstrate rolling and scooting in bed with min x 1 Goal to be met by: 10/11/20 GOAL #2: pt transfer sup to/from sit min x 1 Goal to be met by: 10/11/20 GOAL #3: pt amb 50ft with rwx with min x 1 Goal to be met by: 10/11/20 GOAL #4: Improved BLE strength 4- to 4/5 Goal to be met by: 10/11/20 GOAL #5: Improve dyn sit balance fair + Goal to be met by: 10/11/20 Jail Goals GOAL #1: pt able to roll independently in bed and reposition self with bed rails Goal to be met by: 10/13/20 GOAL #2: pt transfer sup to/from sit to/from stand CGA Goal to be met by: 10/13/20 GOAL #3: pt amb with rwx 100ft with no LOB with improved posture CGA Goal to be met by: 10/13/20 Plan Plan of Care: Therapeutic EX, Therapeutic Activity Other:: gait training Frequency of Treatment: 1-2 X day, as tolerated Duration of Treatment: 5 days Anticipated Discharge Destination: [facility] Treatment Diagnosis (ICD 10 Codes): gait difficulty R 26.2. balance impaired R 26.81. weakness M 62.81. fall risk Has the Physician been added for Co-signature?: Yes
[2020-10-09] MEDS ORDERED: XANAX PO STA (17:03)
[2020-10-09] MEDS: NAMENDA PO SCH (17:25)
[2020-10-09] MEDS: SEROQUEL PO SCH (20:31)
[2020-10-10] MEDS: SYMBICORT 160-4.5 MCG INHALER IH SCH ×3 (04:40→21:14)
[2020-10-10] MEDS: VENTOLIN HFA (PER PUFF-WITH SPACER) IH SCH ×4 (04:45→21:01)
[2020-10-10 05:16] LABS: BASOPHILS % (AUTO) 0.4 % (0.0-3.0); EOSINOPHILS # (AUTO) 0.1 K/ul (0.0-0.7); EOSINOPHILS % (AUTO) 0.9 % (0.0-7.0); HEMATOCRIT 41.7 % (37.0-47.0); HEMOGLOBIN 14.1 g/dl (12.0-16.0); IMMATURE GRANULOCYTE % (AUTO) 0.3 % (0.0-5.0); LYMPHOCYTES # (AUTO) 1.1 K/uL (0.60-3.4); LYMPHOCYTES % (AUTO) 15.9 (10.0-50.0); MEAN CORPUSCULAR HEMOGLOBIN 33.1 pg (27.0-31.0); MEAN CORPUSCULAR HGB CONC 33.8 (31.8-35.4); MEAN CORPUSCULAR VOLUME 97.9 fl (81.0-99.0); MONOCYTES # (AUTO) 0.7 K/uL (0.4-2.0); MONOCYTES % (AUTO) 9.8 (0-10); NEUTROPHILS # (AUTO) 5.1 K/ul (2.0-6.9); NEUTROPHILS % (AUTO) 72.7 % (42.2-75.2); PLATELET COUNT 163 10^3/uL (140-440); RDW COEFFICIENT OF VARIATION 12.9 % (11.6-14.8); RED BLOOD COUNT 4.26 10^6/ul (4.20-5.40); WHITE BLOOD COUNT 6.94 K/ul (4.6-10.2)
[2020-10-10 05:29] LABS: ALANINE AMINOTRANSFERASE 16.6 U/L (0-35); ALBUMIN 3.67 g/dL (3.5-5.0); ALKALINE PHOSPHATASE 61.7 U/L (53-141); ASPARTATE AMINO TRANSFERASE 30.4 U/L (14-36); BILIRUBIN,TOTAL 0.54 mg/dL (0.2-1.3); BLOOD UREA NITROGEN 16.6 mg/dL (7-17); CALCIUM 9.06 mg/dL (8.4-10.2); CARBON DIOXIDE 28.6 mmol/L (22-30.0); CREATININE 0.68 mg/dL (0.60-1.30); GLUCOSE 98.3 mg/dL (74-106); POTASSIUM 4.08 mmol/L (3.5-5.1); SODIUM 139.2 mmol/L (134.5-145); TOTAL PROTEIN 6.46 g/dL (6.3-8.2)
[2020-10-10] MEDS: SODIUM CHLORIDE 1,000 ML IV SCH ×2 (07:14→13:17)
[2020-10-10] MEDS: COZAAR PO SCH (08:43)
[2020-10-10] MEDS: ROCEPHIN 1 GM/50 ML D5W 1 GM/50 ML BAG IV SCH (08:44)
[2020-10-10] MEDS: MULTIVITAMIN TABLET PO SCH (08:44)
[2020-10-10] MEDS: DECADRON IM SCH (08:44)
[2020-10-10] MEDS: XANAX PO SCH ×3 (08:44→20:39)
[2020-10-10] MEDS: ZITHROMAX PO SCH (08:44)
--- NOTE | 2020-10-10 13:31 | RS.OTINEVL ---
Subjective - Patient information Date of Evaluation: 10/10/20 Date of Arrival on Unit: 10/08/20 Admitted From:: Home Diagnosis: Increased confusion, dehydration, Gen. Weakness PRECAUTIONS: patient is legally blind Usual Living Arrangement: With Others Living Arrangement Comments: Pt lives at home with her son Home Environment: House, Ramp Medical History: Hypertension, COPD, Arthritis Medical History Comments:: hypotension, scoliosis, legally blind, confusion, glaucoma, hallucinations, behavioral disturbances, L3 compression deformity, CAD, Congenital cataracts LATEX ALLERGY?: No Medications: see chart Subjective Information/ Patient Comments:: "I have a hard time chasing my food when I eat." - Level of function Prior to this admission, the patient could do the following:: Partially Dependent Ambulation Abilities prior to this admission: Pt living with her son. Pt is able to eat with setup. Pt requires assist for dressing and ambulation. Current Level of Function: Partially Dependent Current Equipment Used at Home: Wheelchair, rolling walker Interventions - Objective Patient Orientation: Person, Place Current Interventions: IV's Observation: Telemetry was lying on the bed. Pt had an IV in her RUE. Pt sitting in a chair. Pt had the telephone reproduction technician laying on the bed beside the telephone. Pt moving BUE in all planes. OT discussing with patient how to make her self feeding easier for her. Interventions - ROM Right Upper Extremity AROM: Slight limitation Left Upper Extremity AROM: Slight limitation - Strength Right Upper Extremity Strength: Mild Weakness Left Upper Extremity Strength: Mild Weakness - Sensation Right Upper Extremity Sensation: Intact/Normal Left Upper Extremity Sensation: Intact/Normal Balance - Sitting Balance Static Sitting Balance: Fair Dynamic Sitting Balance: Fair - Standing Balance Static Standing Balance: Poor Dynamic Standing Balance: Poor ADL Skills - Self Feeding Self Feeding: Set Up Only - Grooming Grooming: Min Assist - Bathing Bathing UE: Min Assist Bathing LE: Min Assist - Dressing Dressing UE: Min Assist Dressing LE: Min Assist - Toilet Management Toileting Management: Mod Assist Functional Mobility EMA INDEX SCORE: . Additional Treatment Performed - Time with patient Length of Evaluation: 20 Total treatment time: 25 Activities Do you enjoy playing games?: No Would you be interested in leaving your room for activities?: No Would you enjoy group activities?: No Do you have difficulty with your vision?: Yes (legally blind) Patient Interests:: Watching Television, Visiting/Socializing Comments:: Pt listens to the television Patient Education Patient Education: Education of Plan of Care Teaching Recipient: Patient Teaching Methods: Discussion Assessment Problem List:: Decreased level of function, Requires training/education, Decreased safety/Risk of falls Rehab Potential: Fair Further Therapy Indicated?: Yes Candidate for Swing Bed for Therapy Services?: No. SNF is more appropriate. Evaluation Complexity: HISTORY: Medium, EXAM OF BODY SYSTEMS: Medium, CLINICAL DECISION MAKING: Medium Patient's Goal(s): To be able to feed herself better. Short Term Goals - Goals GOAL 1: No STG's at this time. Laboratory Engineer Goals GOAL 1: No goals at this time. Plan Other:: OT evaluation only to modify her plate and utensils for feed Duration of Treatment: Eval only Anticipated Discharge Destination: [facility] Facility Treatment Diagnosis (ICD 10 Codes): Z74.1 Need for assistance with personal care. Has the Physician been added for Co-signature?: Yes
[2020-10-10] MEDS: NAMENDA PO SCH (16:43)
[2020-10-10] MEDS: NORVASC PO SCH ×3 (20:39→22:24)
[2020-10-10] MEDS: SEROQUEL PO SCH ×2 (20:39→22:24)
[2020-10-11 05:10] LABS: BASOPHILS % (AUTO) 0.2 % (0.0-3.0); EOSINOPHILS % (AUTO) 0.3 % (0.0-7.0); HEMOGLOBIN 15.9 g/dl (12.0-16.0); IMMATURE GRANULOCYTE % (AUTO) 0.2 % (0.0-5.0); LYMPHOCYTES # (AUTO) 1.4 K/uL (0.60-3.4); LYMPHOCYTES % (AUTO) 15.9 (10.0-50.0); MEAN CORPUSCULAR HEMOGLOBIN 33.3 pg (27.0-31.0); MEAN CORPUSCULAR HGB CONC 33.8 (31.8-35.4); MEAN CORPUSCULAR VOLUME 98.5 fl (81.0-99.0); MONOCYTES # (AUTO) 0.7 K/uL (0.4-2.0); MONOCYTES % (AUTO) 7.8 (0-10); NEUTROPHILS # (AUTO) 6.6 K/ul (2.0-6.9); NEUTROPHILS % (AUTO) 75.6 % (42.2-75.2); PLATELET COUNT 201 10^3/uL (140-440); RDW COEFFICIENT OF VARIATION 12.7 % (11.6-14.8); RED BLOOD COUNT 4.77 10^6/ul (4.20-5.40)
[2020-10-11 05:19] LABS: ALANINE AMINOTRANSFERASE 21.1 U/L (0-35); ALBUMIN 4.34 g/dL (3.5-5.0); ALKALINE PHOSPHATASE 78.4 U/L (53-141); ASPARTATE AMINO TRANSFERASE 35.2 U/L (14-36); BILIRUBIN,TOTAL 0.52 mg/dL (0.2-1.3); BLOOD UREA NITROGEN 21.6 mg/dL (7-17); CALCIUM 9.53 mg/dL (8.4-10.2); CARBON DIOXIDE 29.7 mmol/L (22-30.0); CHLORIDE 104.5 mmol/L (98-107); CREATININE 0.64 mg/dL (0.60-1.30); GLUCOSE 97.7 mg/dL (74-106); POTASSIUM 4.23 mmol/L (3.5-5.1); SODIUM 140.8 mmol/L (134.5-145); TOTAL PROTEIN 7.6 g/dL (6.3-8.2)
[2020-10-11] MEDS: VENTOLIN HFA (PER PUFF-WITH SPACER) IH SCH ×2 (05:50→10:05)
[2020-10-11 06:12] VITALS: BP 167/81; TEMP 97.8
[2020-10-11] MEDS: TYLENOL PO PRN (07:21)
--- NOTE | 2020-10-11 08:18 | PCM.PROG ---
Attending Provider: ATTENDING PROVIDER: Dr. MADELIN SOTELO This patient is seen with Elsa Bee, Nurse Practitioner. DATE OF SERVICE: 10/11/20 SUBJECTIVE: This 80 year old /WHITE F was hospitalized 10/08/20. The patient is resting comfortably. She is ready for discharge today. The family and the patient had decided [facility] would be best. REVIEW OF SYSTEMS: CONSTITUTIONAL: No night sweats. No fatigue, malaise, lethargy. No fever or chills. Weakness. HEENT: Eyes: No visual changes. No eye pain. No eye discharge. ENT: No runny nose. No epistaxis. No sinus pain. No odynophagia. No congestion. RESPIRATORY: No cough, no congestion. No hemoptysis. No shortness of breath. CARDIOVASCULAR: No angina symptoms. No CHF symptoms. No atypical chest pain for CAD. No palpitations. No orthopnea.. GASTROINTESTINAL: No abdominal pain. No nausea or vomiting. No diarrhea or const ipation. No hematemesis. No hematochezia. GENITOURINARY: No urgency. No frequency. No dysuria. No hematuria. No obstructive symptoms. No discharge. No pain. No significant abnormal bleeding. MUSCULOSKELETAL: No musculoskeletal pain; no joint swelling. NEUROLOGICAL: Awake, alert, intermittent confusion. No headache. No neck pain. No syncope. No seizures. No dizziness. PSYCHIATRIC: Not anxious. No depression. No suicidal thoughts. No homicidal thoughts. SKIN: No rash. No lesions. No wounds. ENDOCRINE: No unexplained weight loss. No weight gain. HEMATOLOGIC/LYMPHATIC: No anemia. No purpura. No petechiae. No prolonged or excessive bleeding. No palpable lymph nodes. PHYSICAL EXAMINATION: GENERAL: The patient is awake, alert and oriented to person and place, lying in bed in no distress. VITAL SIGNS: Temperature 97.8 F, Pulse 74, Respiratory Rate 20, BP 167/81, P ulse Ox 98% HEENT: Head normocephalic, atraumatic. Eyes: Extraocular muscles are intact. Pupils are equal, round and reactive to light and accommodation. Ears: No lesions. Nose appeared normal. Throat: No exudate or erythema. NECK: Supple. No JVD, no carotid bruit. No lymphadenopathy or thyromegaly. LUNGS: Diminished breath sounds. Clear to auscultation. Percussion note normal. Chest symmetrical. HEART: S1, S2, no S3. No murmurs. No cyanosis or clubbing. No ascites. Pulses: Dorsalis pedis and posterior tibial pulses +1 to +2 both sides. ABDOMEN: Soft. Non-tender. Bowel sounds active. No CVA tenderness. No mass felt. EXTREMITIES: No edema. Full range of motion of all extremities, equal. NEUROLOGIC: No focal deficit. Cranial nerves II through XII are grossly intact. No headache. No double vision. SKIN: Not dry. Intact. Turgor-normal. LYMPHATIC: No palpable lymph nodes/no lymphedema. MUSCULOSKELETAL: Normal joints with no swelling. Muscle tone is normal. LAB REVIEW: 10/11/20 05:02 10/11/20 05:02 10/11/20 05:02: Sodium 140.8, Potassium 4.23, Chloride 104.5, Carbon Dioxide 29.7, Anion Gap 10.83, BUN 21.6 H, Creatinine 0.64, Estimated GFR (MDRD) 89.00, BUN/Creatinine Ratio 33.75, Glucose 97.7, Calcium 9.53, Total Bilirubin 0.52, AST 35.2, ALT 21.1, Alkaline Phosphatase 78.4, Total Protein 7.60, Albumin 4.34, Globulin 3.26, Albumin/Globulin Ratio 1.33 10/11/20 05:02: WBC 8.70, RBC 4.77, Hgb 15.9, Hct 47.0, MCV 98.5, MCH 33.3 H, MCHC 33.8, RDW Coeff of Yosvany 12.7, Plt Count 201, Immature Gran % (Auto) 0.2, Neut % (Auto) 75.6 H, Lymph % (Auto) 15.9, [place] % (Auto) 7.8, Eos % (Auto) 0.3, Baso % (Auto) 0.2, Neut # (Auto) 6.6, Lymph # (Auto) 1.4, [place] # (Auto) 0.7, Eos # (Auto) 0.0, Baso # (Auto) 0.0, Immature Gran # (Auto) 0.0 ASSESSMENT: Please see below. 1. Acute pneumonitis 2. Dementia with behavioral disturbances 3. Generalized weakness PLAN: 1. Discharge MN today 2. Keflex 500mg TID for 7 days 3. Prednisone 10mg BID for 5 days. Plan and coordination of the patient's care discussed in the presence of [employer] and nurse. SCRIBED BY: Armando KRISHNAN scribed while in presence of service performed by Dr. Sotelo/Elsa Bee APRN on 10/11/20 ([id number])
[2020-10-11] MEDS: ZITHROMAX PO SCH (08:49)
[2020-10-11] MEDS: XANAX PO SCH (08:49)
[2020-10-11] MEDS: DECADRON IM SCH (08:49)
[2020-10-11] MEDS: MULTIVITAMIN TABLET PO SCH (08:49)
[2020-10-11] MEDS: COZAAR PO SCH (08:49)
[2020-10-11] MEDS: ROCEPHIN 1 GM/50 ML D5W 1 GM/50 ML BAG IV SCH (08:50)
[2020-10-11] MEDS: SYMBICORT 160-4.5 MCG INHALER IH SCH (10:05)
--- NOTE | 2020-10-11 10:07 | PN ---
DATE OF SERVICE: 10/08/20 - ADMIT NOTE SUBJECTIVE: The patient was hospitalized directly because of the patient's overall feeling of general health with possibility of cough, congestion and pneumonitis. The patient is going to be on antibiotics. She also has dementia and very bad eyesight. The family, especially the daughter is thinking about putting her in the [facility]. The patient is going to have EKG and labs along with IV antibiotics. Condition is stable. History and Physical/planning was done by nurse practitioner. TIME SPENT: More than 30 minutes. Plan and coordination of the patient's care discussed in the presence of nurse. JUN
--- NOTE | 2020-10-11 10:20 | PN ---
DATE OF SERVICE: 10/09/20 SUBJECTIVE: The patient was seen today 10/09/20 with nurse practitioner. The patient's condition is stable. She recognizes my voice and said "doctor". She is confused, she was talking about her daughter, Paz somewhere around here and she would want to see her. The patient has less coughing, less crepitations at the base. The patient is practically afebrile. Appetite is not up to par. She looks emaciated and the eyesight is poor. The patient would be better served in the [facility]. TIME SPENT: More than 30 minutes. Plan and coordination of the patient's care discussed in the presence of nurse. JUN
--- NOTE | 2020-10-11 10:30 | PN ---
DATE OF SERVICE: 10/10/20 SUBJECTIVE: This 80-year-old white female was hospitalized with increased confusion, dehydration, cough and congestion, possible pneumonitis. The patient today looks a lot better. Her hydration status has improved. She is alert. She says that she of late has been feeling better. Appetite has improved tremendously. The patient is alert. REVIEW OF SYSTEMS: CONSTITUTIONAL: No night sweats. No fatigue, malaise, lethargy. No fever or chills. HEENT: Eyes: No visual changes. No eye pain. No eye discharge. ENT: No runny nose. No epistaxis. No sinus pain. No sore throat. No odynophagia. No congestion. RESPIRATORY: No cough, no congestion. No hemoptysis. No shortness of breath. CARDIOVASCULAR: No angina symptoms. No CHF symptoms. No atypical chest pain for CAD. No palpitations. No PND. No orthopnea. GASTROINTESTINAL: Appetite has improved. No abdominal pain. No nausea or vomiting. No diarrhea or constipation. No hematemesis. No hematochezia. GENITOURINARY: No urgency. No frequency. No dysuria. No hematuria. No obstructive symptoms. No discharge. No pain. No significant abnormal bleeding. MUSCULOSKELETAL: No musculoskeletal pain; no joint swelling. NEUROLOGICAL: No headache. No neck pain. No syncope. No seizures. No dizziness. PSYCHIATRIC: Not anxious. No depression. No suicidal thoughts. No homicidal thoughts. SKIN: No rash. No lesions. No wounds. ENDOCRINE: No unexplained weight loss. No weight gain. HEMATOLOGIC/LYMPHATIC: No anemia. No purpura. No petechiae. No prolonged or excessive bleeding. No palpable lymph nodes. PHYSICAL EXAMINATION: GENERAL: The patient is alert. VITAL SIGNS: Temperature 97.9, pulse 69, respiratory rate 16, BP 158/78, pulse ox 99%. HEENT: Head normocephalic, atraumatic. Eyes: Extraocular muscles are intact. PERRLA. Ears: No lesions. Nose appeared normal. Throat: No exudate or erythema. NECK: Supple. No JVD, no carotid bruit. No lymphadenopathy or thyromegaly. LUNGS: Decreased breath sounds. Clear to auscultation. Percussion note normal. Chest symmetrical. HEART: S1, S2, no S3. No murmurs. No cyanosis or clubbing. No ascites. Pulses: Dorsalis pedis and posterior tibial pulses +1 to +2 bilaterally. ABDOMEN: Soft. Nontender. Bowel sounds active. No CVA tenderness. No mass felt. EXTREMITIES: No edema. Full range of motion of all extremities, equal. NEUROLOGIC: No focal deficit. Cranial nerves II through XII are grossly intact. No headache. The patient has poor vision. SKIN: Not dry. Intact. Turgor - normal. LYMPHATIC: No palpable lymph nodes/no lymphedema. MUSCULOSKELETAL: Normal joints with no swelling. Muscle tone is normal. LABS: Hemoglobin 14, hematocrit 41, WBC 6,900, normal differential. Creatinine 0.6, BUN 16, potassium 4. ASSESSMENT/PLAN: 1. Dehydration seems to have resolved. 2. Confusion seems to be a lot better. The patient is more alert. 3. Bronchitis seems to be resolving with IV antibiotics and steroids. 4. Appetite has improved. She had eggs, machado and gravy which is what she ate this morning for her breakfast. 5. The patient had Amlodipine 5 mg at night for hypertension. CONDITION: Stable. TIME SPENT: More than 30 minutes. Plan and coordination of the patient's care discussed in the presence of nurse. JUN
--- NOTE | 2020-10-11 10:48 | CM.DICTOOL ---
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 DEMENTIA WITH BEHAVIORAL DISTURBANCES COPD WITH HISTORY OF STABLE LUNG NODULE 2018 COMPRESSION DEFORM L3 CONGENITAL CATARACTS GI HEMORRHAGE CAD - BY CT OF CHEST HAS HAD # 1 COVID VACCINE DUE FOR # 2 COVID VACCINE 10/28/2020 WITH S7HD MODERNA SURGICAL HISTORY: CATARACT APENDECTOMY LAST VITALS Temp Pulse Resp BP Pulse Ox 97.8 F 74 20 167/81 H 98 10/11/20 05:49 10/11/20 05:49 10/11/20 05:49 10/11/20 05:49 10/11/20 05:49 TAKE THESE MEDICATIONS AT HOME Acetaminophen (Acetaminophen 325 Mg Tablet) 650 mg PO Q4H PRN -- ( NEW) PRN Reason: Headache Last Admin: 10/11/20 07:21 Dose: 650 mg Documented by: Albuterol Sulfate (Albuterol Sulfate (Ventolin Hfa) 18 Gm 1 Puff With Spacer) 2 puff IH RTQID [facility] -- (NEW) Last Admin: 10/11/20 05:50 Dose: 2 puff Documented by: Alprazolam (Alprazolam 0.25 Mg Tablet) 0.25 mg PO TID [facility] Last Admin: 10/11/20 08:49 Dose: 0.25 mg Documented by: Amlodipine Besylate (Amlodipine Besylate 5 Mg Tablet) 5 mg PO BEDTIME [facility] -- (NEW) Last Admin: 10/10/20 22:24 Dose: Not Given Documented by: Budesonide/Formoterol Fumarate (Budesonide/Formoterol Fumarate 160/4.5 Mcg Inhaler) 2 puff IH 1000,2000 [facility] -- ( NEW) Last Admin: 10/10/20 21:14 Dose: Not Given Documented by: Loperamide HCl (Loperamide Hcl 2 Mg Tablet) 2 mg PO BID PRN PRN Reason: Diarrhea Losartan Potassium (Losartan Potassium 25 Mg Tablet) 100 mg PO DAILY [facility] Last Admin: 10/11/20 08:49 Dose: 100 mg Documented by: Memantine (Memantine Hcl 10 Mg Tablet) 10 mg PO QPM [facility] Last Admin: 10/10/20 16:43 Dose: 10 mg Documented by: Multivitamins (Multivitamin 1 Tab) 1 tab PO DAILY [facility] Last Admin: 10/11/20 08:49 Dose: 1 tab Documented by: Quetiapine Fumarate (Quetiapine Fumarate 25 Mg Tablet) 50 mg PO BEDTIME [facility] -- ( CHANGED) Last Admin: 10/10/20 22:24 Dose: Not Given Documented by: KEFLEX 500 MG PO TID X 7 DAYS, START 10/12/2020 -- ( NEW) PREDNISONE 10 MG PO BID X 5 DAYS, START 10/12/2020 -- (NEW) ALLERGIES apraclonidine [From Iopidine] Adverse Reaction (Verified 07/17/20 08:41) DISCONTINUED MEDICATIONS Quetiapine Fumarate( SEROQUEL) 25 mg PO BEDTIME [facility] ( CHANGED) NEW PRESCRIPTIONS: Acetaminophen( TYLENOL) 650 mg PO Q4H PRN Albuterol Sulfate( PRO-AIR) HFA 18 Gm 2 Puff (With Spacer) QID [facility] Amlodipine Besylate ( NORVASC ) 5 mg PO BEDTIME [facility] Budesonide/Formoterol Fumarate 160/4.5 ( SYMBICORT ) Mcg Inhaler 2 puff ( WITH SPACER) BID [facility] Quetiapine Fumarate ( SEROQUEL) 50 mg PO BEDTIME [facility] -- ( CHANGED) KEFLEX 500 MG PO TID X 7 DAYS, START 10/12/2020 PREDNISONE 10 MG PO BID X 5 DAYS, START 10/12/2020 SMOKING: N/A DISEASE SPECIFIC EDUCATION: PNEUMONITIS FALL RISK DECREASED VISUAL ACUITY PRECAUTIONS COVID 19 HYPERTENSION LAB REVIEW: 10/11/20 05:02 10/11/20 05:02 10/11/20 05:02: Sodium 140.8, Potassium 4.23, Chloride 104.5, Carbon Dioxide 29.7, Anion Gap 10.83, BUN 21.6 H, Creatinine 0.64, Estimated GFR (MDRD) 89.00, BUN/Creatinine Ratio 33.75, Glucose 97.7, Calcium 9.53, Total Bilirubin 0.52, AST 35.2, ALT 21.1, Alkaline Phosphatase 78.4, Total Protein 7.60, Albumin 4.34, Globulin 3.26, Albumin/Globulin Ratio 1.33 10/11/20 05:02: WBC 8.70, RBC 4.77, Hgb 15.9, Hct 47.0, MCV 98.5, MCH 33.3 H, MCHC 33.8, RDW Coeff of Yosvany 12.7, Plt Count 201, Immature Gran % (Auto) 0.2, Neut % (Auto) 75.6 H, Lymph % (Auto) 15.9, [place] % (Auto) 7.8, Eos % (Auto) 0.3, Baso % (Auto) 0.2, Neut # (Auto) 6.6, Lymph # (Auto) 1.4, [place] # (Auto) 0.7, Eos # (Auto) 0.0, Baso # (Auto) 0.0, Immature Gran # (Auto) 0.0 PLAN: DISCHARGE: 10/11/2020 TO [facility] ACTIVITY: UP WITH WALKER WITH ASSISTANCE. FALL PRECAUTIONS. DECREASED VISUAL A CUITY PRECAUTIONS PT AND OT EVAL AND TREAT ( SHE IS LEGALLY BLIND) DIET: REGULAR WITH A DIVIDED PLATE. BOOST PLUS OR COMPARABLE , 0900 AND 1500 ( BETWEEN MEALS) POLICE COMMISSIONER CONSULT MD FOLLOW UP: DR. SOTELO/ MAYO GUNN APRN/ ERWIN JONES APRN TO SEE ON FACILITY ROUNDS CODE STATUS: DO NOT RESUSCITATE LABS : CBC AND CMP ON THURSDAY. THEN EVERY 3 MONTHS. LIPIDS,TSH, FREE T4 AND A1C EVERY 6 MONTHS VITAL SIGNS: EVERY SHIFT X 3 DAYS THEN B/P DAILY. VITALS WEEKLY. WEIGH WEEKLY X 4 WEEKS THEN MONTHLY HAS HAD # 1 COVID VACCINE DUE FOR # 2 COVID VACCINE 10/28/2020 WITH S7HD MODERNA MRS LINCOLN IS ALERT AND ORIENTED X 4 WITH PERIODS OF FORGETFULNESS, CONFUSION AND HALLUCINATIONS. SHE HAS BEEN ABLE TO FUNCTION ON ROOM AIR. SKIN IS WARM AND DRY AND INTACT. SHE GETS UP WITH A WALKER AND ASSIST OF FOR SHORT WALKS. DUE TO BEING LEGALLY BLIND SHE CANNOT AMBULATE LONG DISTANCES ALONE. SHE HAS BEEN REFUSING THERAPY AT TIMES. SHE USES A DIVIDED PLATE, FEEDS SELF WITH SET UP. AVERAGE OF 75% WITH MEALS AND 1500 -2000 ML DAILY FLUID INTAKE. SHE HAS SOME DRIBBLING OF URINE AND IS CONTINENT OF BOWELS. SHE PREFERS TO US THE BS. LAST BM 10/09/2020. SHE HAS BEEN LIVING WITH A FAMILY MEMBER WITH INCREASING DIFFICU LTIES WITH FAMILY MANAGING DUE TO CONFUSION AND HALLUCINATIONS. WITH THIS EPISODE OF ILLNESS, THESE THINGS HAVE ESCALATED. DISCHARGING TO [facility] AND [facility]. MD MAYO TONG APRN ALYCE HANNAN, APRN
--- NOTE | 2020-10-12 08:26 | PN ---
DATE OF SERVICE: 10/11/2020 SUBJECTIVE: The patient was seen and examined with the Nurse Practitioner. The patient's condition is stable. Her bronchitis has resolved, blood pressure is under control. She is going to be discharged to [facility] Home. Daughter is agreeable. TIME SPENT: More than 30 minutes. Plan and coordination of the patient's care discussed in the presence of nurse. JUN
--- NOTE | 2020-10-12 09:23 | DS ---
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 MD FOLLOW UP: DR. SOTELO/ MAYO GUNN APRN/ ERWIN JONES APRN TO SEE ON FACILITY ROUNDS. CODE STATUS: DO NOT RESUSCITATE. LABS : CBC AND CMP ON THURSDAY. THEN EVERY 3 MONTHS. LIPIDS,TSH, FREE T4 AND A1C EVERY 6 MONTHS. VITAL SIGNS: EVERY SHIFT X 3 DAYS THEN B/P DAILY. VITALS WEEKLY. WEIGH WEEKLY X 4 WEEKS THEN MONTHLY. HAS HAD # 1 COVID VACCINE DUE FOR # 2 COVID VACCINE 10/28/2020 WITH S7HD MODERNA. TAKE THESE MEDICATIONS AT HOME: Acetaminophen (Acetaminophen 325 Mg Tablet) 650 mg PO Q4H PRN -- ( NEW) PRN Reason: Headache Last Admin: 10/11/20 07:21 Dose: 650 mg Documented by: Albuterol Sulfate (Albuterol Sulfate (Ventolin Hfa) 18 Gm 1 Puff With Spacer) 2 puff IH RTQID [facility] -- (NEW) Last Admin: 10/11/20 05:50 Dose: 2 puff Documented by: Alprazolam (Alprazolam 0.25 Mg Tablet) 0.25 mg PO TID [facility] Last Admin: 10/11/20 08:49 Dose: 0.25 mg Documented by: Amlodipine Besylate (Amlodipine Besylate 5 Mg Tablet) 5 mg PO BEDTIME [facility] -- (NEW) Last Admin: 03/31/21 22:24 Dose: Not Given Documented by: Budesonide/Formoterol Fumarate (Budesonide/Formoterol Fumarate 160/4.5 Mcg Inhaler) 2 puff IH 1000,1999 [facility] -- ( NEW) Last Admin: 10/10/20 21:14 Dose: Not Given Documented by: Loperamide HCl (Loperamide Hcl 2 Mg Tablet) 2 mg PO BID PRN PRN Reason: Diarrhea Losartan Potassium (Losartan Potassium 25 Mg Tablet) 100 mg PO DAILY [facility] Last Admin: 10/11/20 08:49 Dose: 100 mg Documented by: Memantine (Memantine Hcl 10 Mg Tablet) 10 mg PO QPM [facility] Last Admin: 10/10/20 16:43 Dose: 10 mg Documented by: Multivitamins (Multivitamin 1 Tab) 1 tab PO DAILY [facility] Last Admin: 10/11/20 08:49 Dose: 1 tab Documented by: Quetiapine Fumarate (Quetiapine Fumarate 25 Mg Tablet) 50 mg PO BEDTIME [facility] -- ( CHANGED) Last Admin: 10/10/20 22:24 Dose: Not Given Documented by: KEFLEX 500 MG PO TID X 7 DAYS, START 10/12/2020 -- ( NEW) PREDNISONE 10 MG PO BID X 5 DAYS, START 10/12/2020 -- (NEW) ALLERGIES: apraclonidine [From Iopidine] Adverse Reaction (Verified 07/17/20 08:41) DISCONTINUED MEDICATIONS: Quetiapine Fumarate( SEROQUEL) 25 mg PO BEDTIME [facility] ( CHANGED) NEW PRESCRIPTIONS: Acetaminophen( TYLENOL) 650 mg PO Q4H PRN Albuterol Sulfate( PRO-AIR) HFA 18 Gm 2 Puff (With Spacer) QID [facility] Amlodipine Besylate ( NORVASC ) 5 mg PO BEDTIME [facility] Budesonide/Formoterol Fumarate 160/4.5 ( SYMBICORT ) Mcg Inhaler 2 puff ( WITH SPACER) BID [facility] Quetiapine Fumarate ( SEROQUEL) 50 mg PO BEDTIME [facility] -- ( CHANGED) KEFLEX 500 MG PO TID X 7 DAYS, START 10/12/2020 PREDNISONE 10 MG PO BID X 5 DAYS, START 10/12/2020 SMOKING: N/A DISEASE SPECIFIC EDUCATION: PNEUMONITIS FALL RISK DECREASED VISUAL ACUITY PRECAUTIONS COVID 19 HYPERTENSION LAB REVIEW: 10/11/20 05:02 10/11/20 05:10/11/20 05:02: Sodium 140.8, Potassium 4.23, Chloride 104.5, Carbon Dioxide 29.7, Anion Gap 10.83, BUN 21.6 H, Creatinine 0.64, Estimated GFR (MDRD) 89.00, BUN/Creatinine Ratio 33.75, Glucose 97.7, Calcium 9.53, Total Bilirubin 0.52, AST 35.2, ALT 21.1, Alkaline Phosphatase 78.4, Total Protein 7.60, Albumin 4.34, Globulin 3.26, Albumin/Globulin Ratio 1.33 10/11/20 05:02: WBC 8.70, RBC 4.77, Hgb 15.9, Hct 47.0, MCV 98.5, MCH 33.3 H, MCHC 33.8, RDW Coeff of Yosvany 12.7, Plt Count 201, Immature Gran % (Auto) 0.2, Neut % (Auto) 75.6 H, Lymph % (Auto) 15.9, [place] % (Auto) 7.8, Eos % (Auto) 0.3, Baso % (Auto) 0.2, Neut # (Auto) 6.6, Lymph # (Auto) 1.4, [place] # (Auto) 0.7, Eos # (Auto) 0.0, Baso # (Auto) 0.0, Immature Gran # (Auto) 0.0 ACTIVITY: UP WITH WALKER WITH ASSISTANCE. FALL PRECAUTIONS. DECREASED VISUAL ACUITY PRECAUTIONS PT AND OT EVAL AND TREAT ( SHE IS LEGALLY BLIND) DIET: REGULAR WITH A DIVIDED PLATE. BOOST PLUS OR COMPARABLE , 0900 AND 1500 ( BETWEEN MEALS) SOCIAL MEDIA CONTENT MANAGER CONSULT HOSPITAL COURSE: This is an 80 year old white female who presented to our office with increasing confusion. Daughter stated that she had not been drinking as much. She also had some cough with mild shortness of breath. She has an underline history of dementia with some hallucinations but the daughter felt like this had been worsening over the past several days. She was admitted and placed on IV fluids normal saline at 75cc an hour. U/A was normal. Chest x-ray showed acute pneumonitis. She was started on Rocephin 1 gram IV daily along with Zithromax 500mg PO daily for 3 days. She did have some hallucinations while she was here, pulled out her IV, took off her night gown and was very suspicious of staff. This occurred mostly in the evening. We did increase her Seroquel. She was taking 25mg at bedtime and we increased to 50mg at bedtime. We also placed her on Decadron 4mg IV daily. Blood pressure was a little bit elevated during hospitalization. Dr. Sotelo added Norvasc 5mg to be given at night. Today on day of discharge kidney function is back to normal. WBC is normal at 8.7, BUN 21, creatinine 0.6. She is not short of breath. Last night did tell and took her medications. She did not have any hallucinations only slight confusion. Cough seems to have improved. She is planning to be discharged to [facility]. The daughter feels that she is unable to care for her at home at this time. She will go for generalized weakness, PT/OT. We will send her on Keflex 500mg TID for the next 5 days along with Prednisone 10mg BID for the next 5 days. She is to have a repeat CBC and CMP in Thursday along with CBC and CMP, TSH, T4 every 3 months. Lipids every 6 months. We also added Symbicort and Albuterol inhalers during hospital stay. We will continue these at the intermediate. Her other medications will be continued as well.We will followup at the intermediate. She is discharged in stable condition. TIME SPENT: More than 60 minutes. MTDD
== END 2020-10-11 13:40 | DRG 641 ==
LOC: MEDSURG A 17:27
PROVIDERS: ADMIT Internal Medicine; ATTEND Internal Medicine

== ENCOUNTER 2021-10-24 14:38 | Inpatient (IN) ==
--- NOTE | 2021-10-24 15:49 | ED.PDOC ---
General ED Provider: Dr. ANTHONY LANDON MD Chief Complaint: Respiratory Complaint Stated Complaint: NH pt w/ dementia, recently treated for pneumonia and uti is here for follow up testing to course developer efficacy of treatment. No vomiting, no fever, nonambulating, copd, blind, no recent injury, speech fluent, NH reports increased confusion Time Seen by Provider: 10/24/21 15:42 Mode of Arrival: Ambulance Information Source: Patient, Family, Retirement and EMT Primary Care Provider: MADELIN COVARRUBIAS Nursing and Triage Documentation Reviewed and Agree: Yes Does patient meet sepsis criteria?: No System Inflammatory Response Syndrome: Not Applicable Sepsis Protocol: For patient's 13 years and over: Temp is 96.8 and below OR 101 and greater Pulse >90 BPM Resp >20/minute Acutely Altered Mental Status Are patient's symptoms suggestive of a new infection, such as: -Pneumonia -Skin, Soft Tissue -Endocarditis -UTI -Bone, Joint Infection -Implantable Device -Acute Abdominal Infection -Wound Infection -Meningitis -Blood Stream Catheter Infection -Unknown Review of Systems Review Of Systems Constitutional: Denies Fever Eyes: Reports Other (blind) Ears, Nose, Mouth, Throat: Denies Throat pain Respiratory: Denies Short of air Cardiac: Denies Chest pain GI: Denies Abdominal pain or Vomiting : Denies Frequency Musculoskeletal: Denies Back pain or Neck pain Skin: Denies Rash or Cyanosis Neurological: Denies Headache All Other Systems: Other [facility] Medical History (Updated 10/24/21 @ 18:33 by ANTHONY LANDON MD) Alzheimer disease Anxiety Atherosclerotic cardiovascular disease CAD (coronary artery disease) Cataracts, both eyes COPD (chronic obstructive pulmonary disease) COVID-19 Dementia Depression ALBERTO (generalized anxiety disorder) Generalized weakness GI bleed Glaucoma Hx of solitary pulmonary nodule Hypertension IBS (irritable bowel syndrome) Legally blind Night terror Osteoarthritis Parkinson disease Pneumonia Reduced mobility UTI (urinary tract infection) Family History (Updated 10/09/21 @ 16:57 by SONY GONZALES RN) FATHER Cancer of bone BROTHER Acute AR BROTHER Hypertension Cardiac disorder SISTER Cardiac disorder Social History Smoking and tobacco status: Former smoker Surgical History History of appendectomy Female Reproductive History Menstrual Hx Hysterectomy: No Hx Tubal Ligation: No Physical Exam Physical Exam Appearance: Reports No pain distress Ill-appearing: None Pain Distress: None Eyes: Reports Not Examined ENT: Reports Oropharynx normal Neck: Supple Respiratory: Reports Airway patent, Breath sounds clear and Breath sounds equal Cardiovascular: Reports RRR GI/: Reports Soft and Nontender Musculoskeletal: Reports No edema Skin: Reports Warm and Dry Neurological: Reports Alert Psychiatric: Reports Affect appropriate Interpretation Radiology Interpretation Radiology Interpretation By: Radiologist Exam Interpreted: CXR Xray Comments: stable bilateral infil Radiology Interpretation By: Radiologist Exam Interpreted: CT Scan Xray Comments: no brain bleed on head ct EKG Interpretation Time of EKG #1: 18:30 Rate: Normal Rhythm: Sinus Interpretation: no stemi Critical Care Note Critical Care Note Total Critical Care Time (mins): 0 Course Course Hematology/Chemistry: 10/24/21 17:16 10/24/21 17:16 Orders, Labs, Meds: Lab Review 10/24/21 10/24/21 10/24/21 16:30 17:09 17:16 WBC 5.55 RBC 4.10 L Hgb 13.1 Hct 40.7 MCV 99.3 H MCH 32.0 H MCHC 32.2 RDW Coeff of Yosvany 15.1 H Plt Count 174 Immature Gran % (Auto) 0.2 Neut % (Auto) 80.1 H Lymph % (Auto) 9.4 L [place] % (Auto) 9.9 Eos % (Auto) 0.2 Baso % (Auto) 0.2 Neut # (Auto) 4.5 Lymph # (Auto) 0.5 L [place] # (Auto) 0.6 Eos # (Auto) 0.0 Baso # (Auto) 0.0 Immature Gran # (Auto) 0.0 Sodium Potassium Chloride Carbon Dioxide Anion Gap BUN Creatinine Estimated GFR (MDRD) BUN/Creatinine Ratio Glucose Lactic Acid Calcium Total Bilirubin AST ALT Alkaline Phosphatase Troponin I Total Protein Albumin Globulin Albumin/Globulin Ratio Urine Color Yellow Urine Clarity Clear Urine pH 5.0 Ur Specific [place] <=1.005 Urine Protein Negative Urine Glucose (UA) Negative Urine Ketones Negative Urine Blood Negative Urine Nitrite Negative Urine Bilirubin Negative Urine Urobilinogen 0.2 Ur Leukocyte Esterase Negative Influ A Molecular Assay Positive by naat H Influ B Molecular Assay Negative by naat 10/24/21 10/24/21 17:16 17:16 WBC RBC Hgb Hct MCV MCH MCHC RDW Coeff of Yosvany Plt Count Immature Gran % (Auto) Neut % (Auto) Lymph % (Auto) [place] % (Auto) Eos % (Auto) Baso % (Auto) Neut # (Auto) Lymph # (Auto) [place] # (Auto) Eos # (Auto) Baso # (Auto) Immature Gran # (Auto) Sodium 139.2 Potassium 3.98 Chloride 103.4 Carbon Dioxide 31.0 H Anion Gap 8.78 BUN 16.7 Creatinine 0.71 Estimated GFR (MDRD) 79.00 BUN/Creatinine Ratio 23.52 Glucose 87.6 Lactic Acid 0.62 L Calcium 8.13 L Total Bilirubin 0.44 AST 29.5 ALT 15.4 Alkaline Phosphatase 84.2 Troponin I < 0.012 Total Protein 6.49 Albumin 3.56 Globulin 2.93 Albumin/Globulin Ratio 1.21 Urine Color Urine Clarity Urine pH Ur Specific [place] Urine Protein Urine Glucose (UA) Urine Ketones Urine Blood Urine Nitrite Urine Bilirubin Urine Urobilinogen Ur Leukocyte Esterase Influ A Molecular Assay Influ B Molecular Assay Orders Category Date Time Status ABG DRAW REQUEST Stat CARDIO 10/24/21 18:27 Ordered EKG-(ED ONLY) Stat CARDIO 10/24/21 16:42 Completed ABG COOX Stat LAB 10/24/21 18:28 Ordered BLOOD CULTURE Stat LAB 10/24/21 17:16 Received CBC W/ AUTO DIFF Stat LAB 10/24/21 17:16 Completed CMP [COMPREHENSIVE METABOLIC PANEL] Stat LAB 10/24/21 17:16 Completed FLU A & B MOLECULAR [FLU A/B MOLECULAR] Stat LAB 10/24/21 16:30 Completed LACTIC ACID Stat LAB 10/24/21 17:16 Completed RESPIRATORY PANEL 2.1 (PCR) Stat LAB 10/24/21 17:26 Received TROPONIN I Stat LAB 10/24/21 17:16 Completed URINALYSIS C & S IF INDICATED Stat LAB 10/24/21 17:09 Completed Piperacillin Sodium/Tazobactam [Zosyn 3.375 gm] 3.375 MEDS 10/24/21 16:42 Discontinued gm 0.9 % Sodium Chloride [Sodium Chloride] 50 ml IV ONCE CHEST, 1V AP ONLY Stat RADS 10/24/21 15:[address] HEAD W/O CONTRAST Stat RADS 10/24/21 16:42 Completed Medications Discontinued Medications Generic Name Dose Route Start Last Admin Trade Name Freq PRN Reason Stop Dose Admin Piperacillin Sod/Tazobactam 50 mls @ 50 mls/hr 10/24/21 16:42 Sod 3.375 gm/ Sodium Chloride IV 10/24/21 17:41 ONCE ONE Vital Signs: Temp Pulse Resp BP Pulse Ox 10/24/21 14:49 97.2 F L 77 20 132/67 94 L Discharge Plan Discharge Patient Disposition: ADMITTED INPATIENT Discharge Problem: Pneumonia, Influenza A Prescriptions: No Action memantine [Namenda] 10 mg Tablet 10 mg PO Q12HR 0RF alprazolam [Xanax] 0.25 mg tablet 0.25 mg PO BEDTIME 0RF acetaminophen [Tylenol] 325 mg Tablet 650 mg PO Q4HR PRN (Reason: Pain) Qty: 60 5RF Rx Instructions: DO NOT TAKE MORE THAN 4000 MG IN A 24 HOUR PERIOD amlodipine [Norvasc] 5 mg Tablet 5 mg PO BEDTIME Qty: 30 5RF polyethylene glycol 3350 [Miralax] 17 gram Powder In Packet 17 g PO DAILY 0RF quetiapine 100 mg tablet 100 mg PO 1300,2100 0RF Rx Instructions: AFTERNOON AND EVENING alprazolam 0.5 mg tablet 0.5 mg PO 1200 0RF Rx Instructions: AFTERNOON magnesium hydroxide [Milk of Magnesia] 400 mg/5 mL Suspension 30 ml PO DAILY PRN (Reason: Constipation) 0RF Rx Instructions: IF NO BM FOR 3 DAYS bisacodyl 10 mg Suppository 10 mg [place] DAILY PRN (Reason: Constipation) 0RF quetiapine [Seroquel] 50 mg Tablet 50 mg PO QAM 0RF rivastigmine 4.6 mg/24 hour patch 24 hour 1 patch topical DAILY 0RF Breo Ellipta 100-25 mcg/dose blister with device 1 inh INHALATION DAILY 0RF mupirocin calcium 2 % Cream 1 applic TOPICAL DAILY 0RF Rx Instructions: Apply to coccyx wound every day shift albuterol sulfate [ProAir HFA] 90 mcg/actuation HFA aerosol inhaler 2 puff INHALATION Q12HR 0RF Rx Instructions: WITH SPACER budesonide-formoterol [Symbicort] 80-4.5 mcg/actuation Hfa Aerosol Inhaler 2 puff inhalation BID 0RF ED Provider: ANTHONY LANDON Condition: Stable Physician Progress Note: []full inpatient tele admit d/w Dr Covarrubias for influenza and stable pneumonia, pt on zosyn, abg and covid test pending, care to Dr Matson at 19:00
--- NOTE | 2021-10-24 16:27 | DI ---
EXAM: Chest one view, frontal view only. HISTORY: Cough. COMPARISON: 10/09/2021. FINDINGS: Heart size normal. Bilateral areas of consolidation appear similar to the prior examinati on. There is no frankly new opacity, large pleural effusion or pneumothorax. Elevated left diaphrag m. Gaseous distension of the colon under left diaphragm is stable. Degenerative changes in the shou lders. Since the prior study, findings are unchanged. IMPRESSION: Stable bilateral pneumonia. Close follow-up recommended.
[2021-10-24] MEDS ORDERED: ZOSYN 3.375 GM 3.375 GM in SODIUM CHLORIDE 50 ML IV ONE (16:42)
[2021-10-24 17:01] LABS: MOLECULAR FLU A POSITIVE BY NAAT (NEGATIVE); MOLECULAR FLU B NEGATIVE BY NAAT (NEGATIVE)
[2021-10-24 17:18] LABS: BILIRUBIN,URINE Negative (NEGATIVE); CLARITY,URINE Clear (CLEAR); COLOR,URINE Yellow (YELLOW); GLUCOSE, URINE (UA) Negative (NEGATIVE); KETONES,URINE Negative (NEGATIVE); LEUKOCYTE ESTERASE ,URINE Negative (NEGATIVE); NITRITE,URINE Negative (NEGATIVE); PROTEIN,URINE Negative (NEGATIVE); URINE, BLOOD Negative (NEGATIVE); UROBILINOGEN,URINE 0.2 (0.2)
--- NOTE | 2021-10-24 17:19 | CT ---
EXAM: CT head without contrast HISTORY: The altered mental status COMPARISON: CT head 07/02/2021 and 10/27/2020 TECHNIQUE: Serial axial images of the brain were obtained from the skull base to the vertex without IV contrast. FINDINGS: The ventricles, cisterns and sulci demonstrate moderate generalized volume loss and promin ent ventricles. The wheat-white matter junction is maintained. There is scattered low attenuation in the periventricular white matter.No midline shift or mass is identified. There is no abnormal intra or extra-axial fluid collection. The paranasal sinuses and mastoid air cells are clear. The osseou s calvarium is intact. IMPRESSION: 1. No acute intracranial abnormality or hemorrhage. 2. Moderate generalized volume loss and scattered low attenuation throughout the periventricular whi te matter, unchanged from prior examination suggestive of microangiopathy. All CT scans are performed using dose optimization techniques as appropriate to the performed exam an d include at least one of the following: Automated exposure control, adjustment of the mA and/or kV according t o size, and the use of iterative reconstruction technique.
[2021-10-24 17:33] LABS: BASOPHILS % (AUTO) 0.2 % (0.0-3.0); EOSINOPHILS % (AUTO) 0.2 % (0.0-7.0); HEMATOCRIT 40.7 % (37.0-47.0); HEMOGLOBIN 13.1 g/dl (12.0-16.0); IMMATURE GRANULOCYTE % (AUTO) 0.2 % (0.0-5.0); LYMPHOCYTES # (AUTO) 0.5 K/uL (0.60-3.4); LYMPHOCYTES % (AUTO) 9.4 (10.0-50.0); MEAN CORPUSCULAR HGB CONC 32.2 (31.8-35.4); MEAN CORPUSCULAR VOLUME 99.3 fl (81.0-99.0); MONOCYTES # (AUTO) 0.6 K/uL (0.4-2.0); MONOCYTES % (AUTO) 9.9 (0-10); NEUTROPHILS # (AUTO) 4.5 K/ul (2.0-6.9); NEUTROPHILS % (AUTO) 80.1 % (42.2-75.2); PLATELET COUNT 174 10^3/uL (140-440); RDW COEFFICIENT OF VARIATION 15.1 % (11.6-14.8); WHITE BLOOD COUNT 5.55 K/ul (4.6-10.2)
[2021-10-24 17:46] LABS: ALANINE AMINOTRANSFERASE 15.4 U/L (0-35); ALBUMIN 3.56 g/dL (3.5-5.0); ALKALINE PHOSPHATASE 84.2 U/L (53-141); ASPARTATE AMINO TRANSFERASE 29.5 U/L (14-36); BILIRUBIN,TOTAL 0.44 mg/dL (0.2-1.3); BLOOD UREA NITROGEN 16.7 mg/dL (7-17); CALCIUM 8.13 mg/dL (8.4-10.2); CHLORIDE 103.4 mmol/L (98-107); CREATININE 0.71 mg/dL (0.60-1.30); GLUCOSE 87.6 mg/dL (74-106); POTASSIUM 3.98 mmol/L (3.5-5.1); SODIUM 139.2 mmol/L (134.5-145); TOTAL PROTEIN 6.49 g/dL (6.3-8.2)
[2021-10-24 17:51] LABS: BORDETELLA PARAPERTUSSIS (PCR) NOT DETECTED (NOT DETECT); BORDETELLA PERTUSSIS (PCR) NOT DETECTED (NOT DETECT); CHLAMYDIA PNEUMONIAE (PCR) NOT DETECTED (NOT DETECT); CORONAVIRUS 229E (PCR) NOT DETECTED (NOT DETECT); CORONAVIRUS HKU1 (PCR) NOT DETECTED (NOT DETECT); CORONAVIRUS NL63 (PCR) NOT DETECTED (NOT DETECT); CORONAVIRUS OC43 (PCR) NOT DETECTED (NOT DETECT); HUMAN METAPNEUMOVIRUS (PCR) NOT DETECTED (NOT DETECT); HUMAN RHINOVIRUS/ENTEROV (PCR) NOT DETECTED (NOT DETECT); INFLUENZA B (PCR) NOT DETECTED (NOT DETECT); MYCOPLASMA PNEUMONIAE (PCR) NOT DETECTED (NOT DETECT); PARAINFLUENZA VIRUS 1 (PCR) NOT DETECTED (NOT DETECT); PARAINFLUENZA VIRUS 2 (PCR) NOT DETECTED (NOT DETECT); PARAINFLUENZA VIRUS 3 (PCR) NOT DETECTED (NOT DETECT); PARAINFLUENZA VIRUS 4 (PCR) NOT DETECTED (NOT DETECT); RESPIRATORY SYNCYTIAL V (PCR) NOT DETECTED (NOT DETECT); SARS_COV_2 (PCR) NOT DETECTED (NOT DETECT)
[2021-10-24 17:57] LABS: TROPONIN I < 0.012 ng/ml (0.0000-0.120)
[2021-10-24] MEDS ORDERED: TYLENOL PO PRN ×2 (18:33→21:16)
[2021-10-24 18:38] LABS: ADENOVIRUS (PCR) NOT DETECTED (NOT DETECT); INFLUENZA A H3 (PCR) DETECTED (NOT DETECT)
[2021-10-24 19:41] LABS: BEecf 3.1 (-2.0-3.0); COHb 1.8 (0.5-1.5); HCO3 27.9 (21-28); MetHb 0.8 (0-1.5); TCO2 29.3 (19-24)
[2021-10-24 19:43] LABS: ABG O2 HGB 84.7 % (95-100); tHb 12.8 g/dl (11.7-17.4)
[2021-10-24] MEDS: SODIUM CHLORIDE 1,000 ML IV SCH (20:20)
[2021-10-24 20:29] VITALS: BMI 21.7
[2021-10-24] MEDS ORDERED: DULCOLAX RC PRN (21:16)
[2021-10-24] MEDS ORDERED: MILK OF MAGNESIA PO PRN (21:16)
[2021-10-24] MEDS: SEROQUEL PO SCH (22:29)
[2021-10-24] MEDS: XANAX PO SCH (22:29)
[2021-10-24] MEDS: NAMENDA PO SCH (22:29)
[2021-10-24] MEDS: ZOSYN 3.375 GM 3.375 GM in SODIUM CHLORIDE 50 ML IV SCH (23:45)
[2021-10-24] MEDS: SYMBICORT 80-4.5 MCG INHALER IH SCH (23:45)
[2021-10-25] MEDS: VENTOLIN HFA (PER PUFF-WITH SPACER) IH SCH ×2 (05:05→18:34)
[2021-10-25] MEDS: ZOSYN 3.375 GM 3.375 GM in SODIUM CHLORIDE 50 ML IV SCH ×3 (05:55→17:40)
[2021-10-25] MEDS ORDERED: VENTOLIN HFA (PER PUFF-WITH SPACER) IH SCH (09:00)
[2021-10-25] MEDS ORDERED: MUPIROCIN CALCIUM 2% TP SCH (09:00)
[2021-10-25 09:06] LABS: BASOPHILS % (AUTO) 0.4 % (0.0-3.0); EOSINOPHILS % (AUTO) 0.2 % (0.0-7.0); HEMATOCRIT 38.6 % (37.0-47.0); HEMOGLOBIN 12.1 g/dl (12.0-16.0); IMMATURE GRANULOCYTE % (AUTO) 0.4 % (0.0-5.0); LYMPHOCYTES # (AUTO) 0.4 K/uL (0.60-3.4); LYMPHOCYTES % (AUTO) 8.7 (10.0-50.0); MEAN CORPUSCULAR HEMOGLOBIN 31.5 pg (27.0-31.0); MEAN CORPUSCULAR HGB CONC 31.3 (31.8-35.4); MEAN CORPUSCULAR VOLUME 100.5 fl (81.0-99.0); MONOCYTES # (AUTO) 0.4 K/uL (0.4-2.0); MONOCYTES % (AUTO) 8.5 (0-10); NEUTROPHILS # (AUTO) 4.1 K/ul (2.0-6.9); NEUTROPHILS % (AUTO) 81.8 % (42.2-75.2); PLATELET COUNT 167 10^3/uL (140-440); RDW COEFFICIENT OF VARIATION 14.8 % (11.6-14.8); RED BLOOD COUNT 3.84 10^6/ul (4.20-5.40); WHITE BLOOD COUNT 5.04 K/ul (4.6-10.2)
[2021-10-25 09:18] LABS: ALANINE AMINOTRANSFERASE 14.4 U/L (0-35); ALBUMIN 3.1 g/dL (3.5-5.0); ALKALINE PHOSPHATASE 80.8 U/L (53-141); ASPARTATE AMINO TRANSFERASE 37.2 U/L (14-36); BILIRUBIN,TOTAL 0.53 mg/dL (0.2-1.3); BLOOD UREA NITROGEN 11.1 mg/dL (7-17); CALCIUM 7.79 mg/dL (8.4-10.2); CARBON DIOXIDE 25.1 mmol/L (22-30.0); CHLORIDE 110.7 mmol/L (98-107); CREATININE 0.63 mg/dL (0.60-1.30); GLUCOSE 102.6 mg/dL (74-106); POTASSIUM 3.83 mmol/L (3.5-5.1); SODIUM 142.4 mmol/L (134.5-145); TOTAL PROTEIN 5.94 g/dL (6.3-8.2)
[2021-10-25] MEDS: SYMBICORT 80-4.5 MCG INHALER IH SCH ×2 (09:19→20:49)
[2021-10-25] MEDS: BACTROBAN TP SCH (09:19)
[2021-10-25] MEDS: SEROQUEL PO SCH ×3 (09:19→20:47)
[2021-10-25] MEDS: LOVENOX SUBCUT SCH (09:20)
[2021-10-25] MEDS: MIRALAX PO SCH (09:20)
[2021-10-25] MEDS: DECADRON IM SCH (09:20)
[2021-10-25] MEDS: NAMENDA PO SCH ×2 (09:20→20:47)
[2021-10-25] MEDS: TAMIFLU PO SCH ×2 (09:20→20:47)
[2021-10-25] MEDS: SODIUM CHLORIDE 1,000 ML IV SCH (10:10)
[2021-10-25] MEDS: XANAX PO SCH ×2 (12:04→20:47)
[2021-10-25] MEDS: RIVASTIGMINE TP SCH (14:18)
[2021-10-25] MEDS ORDERED: NORVASC PO SCH (21:00)
[2021-10-26] MEDS: ZOSYN 3.375 GM 3.375 GM in SODIUM CHLORIDE 50 ML IV SCH ×6 (00:04→23:55)
[2021-10-26] MEDS: SODIUM CHLORIDE 1,000 ML IV SCH ×2 (02:28→20:03)
[2021-10-26] MEDS: VENTOLIN HFA (PER PUFF-WITH SPACER) IH SCH ×2 (05:12→17:29)
[2021-10-26 05:31] LABS: HEMATOCRIT 37.1 % (37.0-47.0); HEMOGLOBIN 11.9 g/dl (12.0-16.0); MEAN CORPUSCULAR HEMOGLOBIN 31.7 pg (27.0-31.0); MEAN CORPUSCULAR HGB CONC 32.1 (31.8-35.4); MEAN CORPUSCULAR VOLUME 98.9 fl (81.0-99.0); PLATELET COUNT 148 10^3/uL (140-440); RDW COEFFICIENT OF VARIATION 14.6 % (11.6-14.8); RED BLOOD COUNT 3.75 10^6/ul (4.20-5.40)
[2021-10-26 05:38] LABS: ALANINE AMINOTRANSFERASE 11.7 U/L (0-35); ALBUMIN 3.01 g/dL (3.5-5.0); ALKALINE PHOSPHATASE 74.1 U/L (53-141); ASPARTATE AMINO TRANSFERASE 25.1 U/L (14-36); BILIRUBIN,TOTAL 0.38 mg/dL (0.2-1.3); BLOOD UREA NITROGEN 10.1 mg/dL (7-17); CALCIUM 7.75 mg/dL (8.4-10.2); CARBON DIOXIDE 25.4 mmol/L (22-30.0); CHLORIDE 112.1 mmol/L (98-107); CREATININE 0.61 mg/dL (0.60-1.30); GLUCOSE 108.2 mg/dL (74-106); POTASSIUM 4.03 mmol/L (3.5-5.1); SODIUM 142.3 mmol/L (134.5-145); TOTAL PROTEIN 5.84 g/dL (6.3-8.2)
[2021-10-26 05:46] LABS: WHITE BLOOD COUNT 2.02 K/ul (4.6-10.2)
[2021-10-26 05:47] LABS: ANISOCYTOSIS NOT PRESENT (NOT PRESENT)
[2021-10-26] MEDS: MIRALAX PO SCH (09:13)
[2021-10-26] MEDS: SYMBICORT 80-4.5 MCG INHALER IH SCH ×2 (09:13→21:15)
[2021-10-26] MEDS: BACTROBAN TP SCH (09:13)
[2021-10-26] MEDS: TAMIFLU PO SCH ×2 (09:13→21:07)
[2021-10-26] MEDS: SEROQUEL PO SCH ×3 (09:13→21:07)
[2021-10-26] MEDS: NAMENDA PO SCH ×2 (09:14→21:07)
[2021-10-26] MEDS: DECADRON IM SCH (09:14)
[2021-10-26] MEDS: RIVASTIGMINE TP SCH (09:14)
[2021-10-26] MEDS: LOVENOX SUBCUT SCH (09:15)
[2021-10-26] MEDS: XANAX PO SCH ×2 (12:34→21:07)
[2021-10-27] MEDS: VENTOLIN HFA (PER PUFF-WITH SPACER) IH SCH ×2 (04:52→17:27)
[2021-10-27] MEDS: ZOSYN 3.375 GM 3.375 GM in SODIUM CHLORIDE 50 ML IV SCH (05:35)
[2021-10-27 05:59] LABS: HEMATOCRIT 38.7 % (37.0-47.0); HEMOGLOBIN 12.4 g/dl (12.0-16.0); IMMATURE GRANULOCYTE % (AUTO) 0.3 % (0.0-5.0); LYMPHOCYTES % (AUTO) 28.7 (10.0-50.0); MEAN CORPUSCULAR HEMOGLOBIN 31.2 pg (27.0-31.0); MEAN CORPUSCULAR VOLUME 97.5 fl (81.0-99.0); MONOCYTES # (AUTO) 0.3 K/uL (0.4-2.0); MONOCYTES % (AUTO) 8.8 (0-10); NEUTROPHILS # (AUTO) 2.2 K/ul (2.0-6.9); NEUTROPHILS % (AUTO) 62.2 % (42.2-75.2); PLATELET COUNT 156 10^3/uL (140-440); RDW COEFFICIENT OF VARIATION 14.3 % (11.6-14.8); RED BLOOD COUNT 3.97 10^6/ul (4.20-5.40); WHITE BLOOD COUNT 3.52 K/ul (4.6-10.2)
[2021-10-27 06:10] LABS: ALANINE AMINOTRANSFERASE 11.9 U/L (0-35); ALBUMIN 3.22 g/dL (3.5-5.0); ALKALINE PHOSPHATASE 72.6 U/L (53-141); ASPARTATE AMINO TRANSFERASE 28.2 U/L (14-36); BILIRUBIN,TOTAL 0.52 mg/dL (0.2-1.3); BLOOD UREA NITROGEN 11.3 mg/dL (7-17); CALCIUM 8.08 mg/dL (8.4-10.2); CARBON DIOXIDE 27.1 mmol/L (22-30.0); CHLORIDE 114.4 mmol/L (98-107); CREATININE 0.62 mg/dL (0.60-1.30); GLUCOSE 90.9 mg/dL (74-106); POTASSIUM 3.67 mmol/L (3.5-5.1); SODIUM 145.2 mmol/L (134.5-145); TOTAL PROTEIN 6.07 g/dL (6.3-8.2)
[2021-10-27] MEDS: TAMIFLU PO SCH ×2 (08:49→20:10)
[2021-10-27] MEDS: DECADRON IM SCH (08:49)
[2021-10-27] MEDS: SEROQUEL PO SCH ×3 (08:49→20:10)
[2021-10-27] MEDS: NAMENDA PO SCH ×2 (08:49→20:10)
[2021-10-27] MEDS: SYMBICORT 80-4.5 MCG INHALER IH SCH ×2 (08:50→20:09)
[2021-10-27] MEDS: MIRALAX PO SCH (08:51)
[2021-10-27] MEDS: LOVENOX SUBCUT SCH (08:51)
[2021-10-27] MEDS: BACTROBAN TP SCH (08:51)
[2021-10-27] MEDS: RIVASTIGMINE TP SCH (08:51)
[2021-10-27] MEDS: XANAX PO SCH ×2 (12:53→20:10)
[2021-10-27] MEDS: SODIUM CHLORIDE 1,000 ML IV SCH (13:16)
[2021-10-27] MEDS: DOXYCYCLINE HYCLATE PO SCH (20:10)
[2021-10-28] MEDS: VENTOLIN HFA (PER PUFF-WITH SPACER) IH SCH ×2 (04:35→18:55)
[2021-10-28 04:45] LABS: BASOPHILS % (AUTO) 0.3 % (0.0-3.0); HEMATOCRIT 40.9 % (37.0-47.0); IMMATURE GRANULOCYTE % (AUTO) 0.3 % (0.0-5.0); LYMPHOCYTES # (AUTO) 1.2 K/uL (0.60-3.4); LYMPHOCYTES % (AUTO) 31.2 (10.0-50.0); MEAN CORPUSCULAR HEMOGLOBIN 31.3 pg (27.0-31.0); MEAN CORPUSCULAR HGB CONC 31.8 (31.8-35.4); MEAN CORPUSCULAR VOLUME 98.6 fl (81.0-99.0); MONOCYTES # (AUTO) 0.5 K/uL (0.4-2.0); MONOCYTES % (AUTO) 11.7 (0-10); NEUTROPHILS # (AUTO) 2.2 K/ul (2.0-6.9); NEUTROPHILS % (AUTO) 56.5 % (42.2-75.2); PLATELET COUNT 152 10^3/uL (140-440); RDW COEFFICIENT OF VARIATION 14.4 % (11.6-14.8); RED BLOOD COUNT 4.15 10^6/ul (4.20-5.40); WHITE BLOOD COUNT 3.85 K/ul (4.6-10.2)
[2021-10-28 04:58] LABS: ALBUMIN 3.38 g/dL (3.5-5.0); ALKALINE PHOSPHATASE 74.1 U/L (53-141); ASPARTATE AMINO TRANSFERASE 30.9 U/L (14-36); BILIRUBIN,TOTAL 0.41 mg/dL (0.2-1.3); BLOOD UREA NITROGEN 13.6 mg/dL (7-17); CALCIUM 8.42 mg/dL (8.4-10.2); CARBON DIOXIDE 33.6 mmol/L (22-30.0); CHLORIDE 109.5 mmol/L (98-107); CREATININE 0.72 mg/dL (0.60-1.30); GLUCOSE 88.3 mg/dL (74-106); POTASSIUM 3.92 mmol/L (3.5-5.1); SODIUM 144.8 mmol/L (134.5-145); TOTAL PROTEIN 6.41 g/dL (6.3-8.2)
--- NOTE | 2021-10-28 08:48 | PCM.PROG ---
Attending Provider: ATTENDING PROVIDER: Dr. MADELIN SOTELO This patient is seen with Elsa Bee, Nurse Practitioner. DATE OF SERVICE: 10/28/21 SUBJECTIVE: This 81 year old /WHITE F was hospitalized 10/24/21. The patient is resting comfortably. Oxygen saturation is 94% on room air. She has refused telemetry and refused IV. She is taking PO medications. She had a low grade fever last night but non this AM. REVIEW OF SYSTEMS: CONSTITUTIONAL: No night sweats. Fatigue. Fever. Weakness. HEENT: Eyes: No visual changes. No eye pain. No eye discharge. ENT: No runny nose. No epistaxis. No sinus pain. No odynophagia. No congestion. RESPIRATORY: Cough, no congestion. No hemoptysis. No shortness of breath. CARDIOVASCULAR: No angina symptoms. No CHF symptoms. No atypical chest pain for CAD. No palpitations. No orthopnea.. GASTROINTESTINAL: No abdominal pain. No nausea or vomiting. No diarrhea or constipation. No hematemesis. No hematochezia. GENITOURINARY: No urgency. No frequency. No dysuria. No hematuria. No obstructive symptoms. No discharge. No pain. No significant abnormal bleeding. MUSCULOSKELETAL: No musculoskeletal pain; no joint swelling. NEUROLOGICAL: Awake, alert, oriented to time, place and person. No headache. No neck pain. No syncope. No seizures. No dizziness. PSYCHIATRIC: Not anxious. No depression. No suicidal thoughts. No homicidal thoughts. SKIN: No rash. No lesions. No wounds. ENDOCRINE: No unexplained weight loss. No weight gain. HEMATOLOGIC/LYMPHATIC: No anemia. No purpura. No petechiae. No prolonged or excessive bleeding. No palpable lymph nodes. PHYSICAL EXAMINATION: GENERAL: The patient is awake, alert and oriented to person only, lying in bed in no distress. VITAL SIGNS: Temperature 97.8 F, Pulse 71, Respiratory Rate 14, BP 148/74, Pulse Ox 94% HEENT: Head normocephalic, atraumatic. Eyes: Extraocular muscles are intact. Pupils are equal, round and reactive to light and accommodation. Ears: No lesions. Nose appeared normal. Throat: No exudate or erythema. NECK: Supple. No JVD, no carotid bruit. No lymphadenopathy or thyromegaly. LUNGS: Diminished breath sounds. Clear to auscultation. Percussion note normal. Chest symmetrical. HEART: S1, S2, no S3. No murmurs. No cyanosis or clubbing. No ascites. Pulses: Dorsalis pedis and posterior tibial pulses +1 to +2 both sides. ABDOMEN: Soft. Non-tender. Bowel sounds active. No CVA tenderness. No mass felt. EXTREMITIES: No edema. Full range of motion of all extremities, equal. NEUROLOGIC: No focal deficit. Cranial nerves II through XII are grossly intact. No headache. No double vision. SKIN: Not dry. Intact. Turgor-normal. LYMPHATIC: No palpable lymph nodes/no lymphedema. MUSCULOSKELETAL: Normal joints with no swelling. Muscle tone is normal. LAB REVIEW: 10/28/21 04:41 10/28/21 04:41 10/28/21 04:41: Sodium 144.8, Potassium 3.92, Chloride 109.5 H, Carbon Dioxide 33.6 H, Anion Gap 5.62, BUN 13.6, Creatinine 0.72, Estimated GFR (MDRD) 77.00, BUN/Creatinine Ratio 18.88, Glucose 88.3, Calcium 8.42, Total Bilirubin 0.41, AST 30.9, ALT 14.0, Alkaline Phosphatase 74.1, Total Protein 6.41, Albumin 3.38 L, Globulin 3.03, Albumin/Globulin Ratio 1.11 10/28/21 04:41: WBC 3.85 L, RBC 4.15 L, Hgb 13.0, Hct 40.9, MCV 98.6, MCH 31.3 H , MCHC 31.8, RDW Coeff of Yosvany 14.4, Plt Count 152, Immature Gran % (Auto) 0.3, Neut % (Auto) 56.5, Lymph % (Auto) 31.2, [place] % (Auto) 11.7 H, Eos % (Auto) 0.0, Baso % (Auto) 0.3, Neut # (Auto) 2.2, Lymph # (Auto) 1.2, [place] # (Auto) 0.5, Eos # (Auto) 0.0, Baso # (Auto) 0.0, Immature Gran # (Auto) 0.0 ASSESSMENT: Please see below. 1. Influenza A 2. Bilateral pneumonia 3. Dementia with behavioral disturbances 4. Hypertension PLAN: 1. Restart Norvasc 2. Anticipate possible discharge tomorrow Plan and coordination of the patient's care discussed in the presence of Autocad Draftsman and nurse. SCRIBED BY: LOBITO DWYER Lan Administrator scribed while in presence of service performed by Dr. Sotelo/Elsa Bee APRN on 10/28/21 (0165)
[2021-10-28] MEDS: MIRALAX PO SCH (09:06)
[2021-10-28] MEDS: DOXYCYCLINE HYCLATE PO SCH ×2 (09:08→20:07)
[2021-10-28] MEDS: NAMENDA PO SCH ×2 (09:08→20:07)
[2021-10-28] MEDS: PREDNISONE PO SCH (09:09)
[2021-10-28] MEDS: TAMIFLU PO SCH ×2 (09:09→20:07)
[2021-10-28] MEDS: SEROQUEL PO SCH ×3 (09:09→20:07)
[2021-10-28] MEDS: RIVASTIGMINE TP SCH (09:10)
[2021-10-28] MEDS: LOVENOX SUBCUT SCH (09:13)
[2021-10-28] MEDS: SYMBICORT 80-4.5 MCG INHALER IH SCH ×2 (09:13→20:07)
[2021-10-28] MEDS: XANAX PO SCH ×2 (12:05→20:07)
[2021-10-29] MEDS: VENTOLIN HFA (PER PUFF-WITH SPACER) IH SCH (05:05)
[2021-10-29 05:14] VITALS: BP 133/65; TEMP 97.5
[2021-10-29 05:25] LABS: BASOPHILS % (AUTO) 0.3 % (0.0-3.0); HEMATOCRIT 41.5 % (37.0-47.0); HEMOGLOBIN 13.2 g/dl (12.0-16.0); IMMATURE GRANULOCYTE % (AUTO) 0.5 % (0.0-5.0); LYMPHOCYTES # (AUTO) 0.8 K/uL (0.60-3.4); LYMPHOCYTES % (AUTO) 20.6 (10.0-50.0); MEAN CORPUSCULAR HEMOGLOBIN 31.1 pg (27.0-31.0); MEAN CORPUSCULAR HGB CONC 31.8 (31.8-35.4); MEAN CORPUSCULAR VOLUME 97.9 fl (81.0-99.0); MONOCYTES # (AUTO) 0.4 K/uL (0.4-2.0); MONOCYTES % (AUTO) 9.9 (0-10); NEUTROPHILS # (AUTO) 2.7 K/ul (2.0-6.9); NEUTROPHILS % (AUTO) 68.7 % (42.2-75.2); PLATELET COUNT 180 10^3/uL (140-440); RDW COEFFICIENT OF VARIATION 14.6 % (11.6-14.8); RED BLOOD COUNT 4.24 10^6/ul (4.20-5.40); WHITE BLOOD COUNT 3.93 K/ul (4.6-10.2)
[2021-10-29 05:36] LABS: ALANINE AMINOTRANSFERASE 27.5 U/L (0-35); ALBUMIN 3.38 g/dL (3.5-5.0); ALKALINE PHOSPHATASE 77.4 U/L (53-141); ASPARTATE AMINO TRANSFERASE 51.1 U/L (14-36); BILIRUBIN,TOTAL 0.41 mg/dL (0.2-1.3); BLOOD UREA NITROGEN 16.8 mg/dL (7-17); CALCIUM 8.55 mg/dL (8.4-10.2); CARBON DIOXIDE 31.5 mmol/L (22-30.0); CHLORIDE 107.5 mmol/L (98-107); CREATININE 0.79 mg/dL (0.60-1.30); GLUCOSE 101.7 mg/dL (74-106); POTASSIUM 4.21 mmol/L (3.5-5.1); SODIUM 140.6 mmol/L (134.5-145); TOTAL PROTEIN 6.38 g/dL (6.3-8.2)
--- NOTE | 2021-10-29 09:14 | PCM.PROG ---
Attending Provider: ATTENDING PROVIDER: Dr. MADELIN SOTELO This patient is seen with Elsa Bee, Nurse Practitioner. DATE OF SERVICE: 10/29/21 SUBJECTIVE: This 81 year old /WHITE F was hospitalized 10/24/21. The patient had no fever. Been eating moderately well. Pleasantly confused. Ready to go back to halfway. REVIEW OF SYSTEMS: CONSTITUTIONAL: No night sweats. Fatigue. No fever or chills. HEENT: Eyes: No visual changes. No eye pain. No eye discharge. ENT: No runny nose. No epistaxis. No sinus pain. No odynophagia. No congestion. RESPIRATORY: No cough, no congestion. No hemoptysis. No shortness of breath. CARDIOVASCULAR: No angina symptoms. No CHF symptoms. No atypical chest pain for CAD. No palpitations. No orthopnea.. GASTROINTESTINAL: No abdominal pain. No nausea or vomiting. No diarrhea or constipation. No hematemesis. No hematochezia. GENITOURINARY: No urgency. No frequency. No dysuria. No hematuria. No obstructive symptoms. No discharge. No pain. No significant abnormal bleeding. MUSCULOSKELETAL: No musculoskeletal pain; no joint swelling. NEUROLOGICAL: Awake, alert, oriented to time, place and person. No headache. No neck pain. No syncope. No seizures. No dizziness. PSYCHIATRIC: Not anxious. No depression. No suicidal thoughts. No homicidal thoughts. SKIN: No rash. No lesions. No wounds. ENDOCRINE: No unexplained weight loss. No weight gain. HEMATOLOGIC/LYMPHATIC: No anemia. No purpura. No petechiae. No prolonged or excessive bleeding. No palpable lymph nodes. PHYSICAL EXAMINATION: GENERAL: The patient is awake, alert and not oriented, lying in bed in no distress. VITAL SIGNS: Temperature 97.5 F, Pulse 69, Respiratory Rate 16, BP 133/65, Pulse Ox 93% HEENT: Head normocephalic, atraumatic. Eyes: Extraocular muscles are intact. Pupils are equal, round and reactive to light and accommodation. Ears: No lesions. Nose appeared normal. Throat: No exudate or erythema. NECK: Supple. No JVD, no carotid bruit. No lymphadenopathy or thyromegaly. LUNGS: Diminished breath sounds. Clear to auscultation. Percussion note normal. Chest symmetrical. HEART: S1, S2, no S3. No murmurs. No cyanosis or clubbing. No ascites. Pulses: Dorsalis pedis and posterior tibial pulses +1 to +2 both sides. ABDOMEN: Soft. Non-tender. Bowel sounds active. No CVA tenderness. No mass felt. EXTREMITIES: No edema. Full range of motion of all extremities, equal. NEUROLOGIC: No focal deficit. Cranial nerves II through XII are grossly intact. No headache. No double vision. SKIN: Not dry. Intact. Turgor-normal. LYMPHATIC: No palpable lymph nodes/no lymphedema. MUSCULOSKELETAL: Normal joints with no swelling. Muscle tone is normal. LAB REVIEW: 10/29/21 04:44 10/29/21 04:44 10/29/21 04:44: Sodium 140.6, Potassium 4.21, Chloride 107.5 H, Carbon Dioxide 31.5 H, Anion Gap 5.81, BUN 16.8, Creatinine 0.79, Estimated GFR (MDRD) 70.00, BUN/Creatinine Ratio 21.26, Glucose 101.7, Calcium 8.55, Total Bilirubin 0.41, AST 51.1 H, ALT 27.5, Alkaline Phosphatase 77.4, Total Protein 6.38, Albumin 3.38 L, Globulin 3.00, Albumin/Globulin Ratio 1.12 10/29/21 04:44: WBC 3.93 L, RBC 4.24, Hgb 13.2, Hct 41.5, MCV 97.9, MCH 31.1 H, MCHC 31.8, RDW Coeff of Yosvany 14.6, Plt Count 180, Immature Gran % (Auto) 0.5, Neut % (Auto) 68.7, Lymph % (Auto) 20.6, [place] % (Auto) 9.9, Eos % (Auto) 0.0, Baso % (Auto) 0.3, Neut # (Auto) 2.7, Lymph # (Auto) 0.8, [place] # (Auto) 0.4, Eos # (Auto) 0.0, Baso # (Auto) 0.0, Immature Gran # (Auto) 0.0 ASSESSMENT: Please see below. 1. Influenza A 2. Bilateral pneumonia 3. Dehydration, resolved 4. Dementia with behavioral disturbances 5. Hypertension PLAN: 1. Discharge to [facility] 2. CBC and CMP in one week 3. Doxycycline 100mg BID times 5 days 4. Prednisone 20mg daily for 5 days 5. Continue Symbicort 6. We will followup on halfway rounds. Plan and coordination of the patient's care discussed in the presence of Weapons Electrical Engineering Officer and nurse. SCRIBED BY: Sola KRISHNANist scribed while in presence of service performed by Dr. Sotelo/Elsa Bee APRN on 10/29/21 (0800)
--- NOTE | 2021-10-29 09:17 | DS ---
DATE OF SERVICE: 10/29/21 FINAL DIAGNOSIS: 1. Influenza A 2. Bilateral pneumonia 3. Dehydration, resolved 4. Dementia with behavioral disturbances 5. Hypertension DISCHARGE INSTRUCTIONS: Discharge back to [facility] today by Dr. Covarrubias/Elsa Bee NP. Followup with Dr. Covarrubias/Elsa Bee NP to followup on [facility] rounds. CBC and CMP in one week. CODE STATUS: DNR. MEDICATIONS AT DISCHARGE: Namenda 10mg PO Q 12 hours Xanax 0.25mg PO bedtime Norvasc 5mg PO bedtime Tylenol 650mg PO Q 4 hours Miralax 17gram PO daily Alprazolam 0.5mg PO 120 Quetiapine 100mg PO 1300,2100 Rivastigmine 1 patch topical daily Seroquel 50mg PO QAM Milk of magnesia 30ml PO daily PRN Bisacodyl 10mg ID daily PRN Breo Ellipta one inhalation daily Mupirocin one application topical daily ProAir HFA 2 puff inhalation Q 12 hours Symbicort 2 puff inhalation BID NEW PRESCRIPTIONS: DOXYCYCLINE 100MG PO BID X5 DAYS PREDNISONE 20MG PO DAILY FOR 5 DAYS DISCONTINUED MEDICATIONS: Tamiflu DIET INSTRUCTIONS: Regular diet, resume as prior ACTIVITY: May participate in activities. Use your walker/assistive devices. HOSPITAL COURSE: 81 year old female who has been recently hospitalized with bilateral pneumonia had declining status at the [facility] and brought back to the emergency room. She was found to have residual pneumonia along with positive influenza A. She had increased confusion. lethargy and dehydration. She was started on IV fluids, Tamiflu along with IV Doxycycline and steroids. Over the course of the past several days she has steadily improved, eating moderate well and no fevers for past 36 hours. Still confused which is her baseline but more alert. Labs are still normal. Will discharge back to the [facility] with O2 at 2 liters, Doxycycline 100mg BID for 5 days and Prednisone 20mg BID for 5 days. Repeat CBC and CMP in one week. we will follow in [facility] rounds. TIME SPENT: More than 60 minutes. JUN
[2021-10-29] MEDS: PREDNISONE PO SCH (09:31)
[2021-10-29] MEDS: DOXYCYCLINE HYCLATE PO SCH (09:31)
[2021-10-29] MEDS: SEROQUEL PO SCH (09:31)
[2021-10-29] MEDS: NAMENDA PO SCH (09:32)
[2021-10-29] MEDS: TAMIFLU PO SCH (09:32)
[2021-10-29] MEDS: SYMBICORT 80-4.5 MCG INHALER IH SCH (09:32)
[2021-10-29] MEDS: MIRALAX PO SCH (09:32)
[2021-10-29] MEDS: RIVASTIGMINE TP SCH (09:32)
[2021-10-29] MEDS: LOVENOX SUBCUT SCH (09:39)
[2021-10-29] MEDS: XANAX PO SCH (12:39)
--- NOTE | 2021-10-29 13:18 | PN ---
DATE OF SERVICE: 10/28/21 SUBJECTIVE: The patient was seen and examined with Nurse Practitioner. The patient's condition is the best it could get. A little confused but alert. Seems to be improving. Condition is improving. Influenza A seems to be resolving. TIME SPENT: More than 30 minutes. Plan and coordination of the patient's care discussed in the presence of nurse. JUN
--- NOTE | 2021-11-01 11:29 | PN ---
DATE OF SERVICE: 10/29/21 SUBJECTIVE: The patient was seen and examined with the Nurse Practitioner. The patient's condition has been improving some, still confused. Influenza A symptoms are under control. TIME SPENT: More than 30 minutes. Plan and coordination of the patient's care discussed in the presence of nurse. JUN
--- NOTE | 2021-11-01 11:48 | PN ---
DATE OF SERVICE: 10/24/21 SUBJECTIVE: The patient was brought to the emergency room from the retirement with change in the mental status. According to the ER physician it was difficult to evaluate her. Change in the mental status as the patient has been confused and demented. On further workup the patient has Influenza A positive and also x-ray showing possibility of pneumonitis. PO2 is 50 with normal CO2 and normal pH. The patient is going to be hospitalized with IV antibiotics and IV fluids and steroids. The patient may have pneumonitis, possibility of UTI also exists. The patient is going to be on Zosyn. Discussed with attending in the emergency room. The patient is a DNR. TIME SPENT: More than 30 minutes. Plan and coordination of the patient's care discussed in the presence of nurse. JUN
--- NOTE | 2021-11-01 11:56 | PN ---
DATE OF SERVICE: 10/25/21 SUBJECTIVE: 81 year old white female hospitalized with pneumonitis with Influenza A positive with change in the mental status and lethargy. She is more or less awake and answering questions, mumbling when asked. Practically not much appetite. On 2 liters of oxygen saturation 94%. REVIEW OF SYSTEMS: CONSTITUTIONAL: No night sweats. No fatigue, malaise, lethargy. No fever or chills. HEENT: Eyes: No visual changes. No eye pain. No eye discharge. ENT: No runny nose. No epistaxis. No sinus pain. No sore throat. No odynophagia. No congestion. RESPIRATORY: No cough, no congestion. No hemoptysis. No shortness of breath. Laying with difficulty breathing without any wheezing. CARDIOVASCULAR: No angina symptoms. No CHF symptoms. No atypical chest pain for CAD. No palpitations. No PND. No orthopnea. GASTROINTESTINAL: No abdominal pain. No nausea or vomiting. No diarrhea or constipation. No hematemesis. No hematochezia. GENITOURINARY: No urgency. No frequency. No dysuria. No hematuria. No obstructive symptoms. No discharge. No pain. No significant abnormal bleeding. MUSCULOSKELETAL: No musculoskeletal pain; no joint swelling. NEUROLOGICAL: No headache. No neck pain. No syncope. No seizures. No dizziness. PSYCHIATRIC: Not anxious. No depression. No suicidal thoughts. No homicidal thoughts. SKIN: No rash. No lesions. No wounds. ENDOCRINE: No unexplained weight loss. No weight gain. HEMATOLOGIC/LYMPHATIC: No anemia. No purpura. No petechiae. No prolonged or excessive bleeding. No palpable lymph nodes. PHYSICAL EXAMINATION: VITAL SIGNS: Temperature 98.5, pulse 77, respiratory rate 16, blood pressure 98/52 and pulse 94% on 2 liters. HEENT: Head normocephalic, atraumatic. Eyes: Extraocular muscles are intact. Pupils are equal, round and reactive to light and accommodation. Ears: No lesions. Nose appeared normal. Throat: No exudate or erythema. NECK: Supple. No JVD, no carotid bruit. No lymphadenopathy or thyromegaly. LUNGS: Decreased breath sounds but clear to auscultation. Percussion note normal. Chest symmetrical. HEART: S1, S2, no S3. No murmurs. No cyanosis or clubbing. No ascites. Pulses: Dorsalis pedis and posterior tibial pulses +1 to +2 bilaterally. ABDOMEN: Soft. Nontender. Bowel sounds active. No CVA tenderness. No mass felt. EXTREMITIES: No edema. Full range of motion of all extremities, equal. NEUROLOGIC: No focal deficit. Cranial nerves II through XII are grossly intact. No headache. No double vision. SKIN: Not dry. Intact. Turgor - normal. LYMPHATIC: No palpable lymph nodes/no lymphedema. MUSCULOSKELETAL: Normal joints with no swelling. Muscle tone is normal. LABS: Hgb 13, hct 40, WBC 5,500 normal differential, creatinine 0.7, BUN 16, potassium 3.9. ASSESSMENT: 1. Influenza A with dehydration 2. Pneumonitis PLAN: 1. Continue IV antibiotics 2. Continue Zosyn and steroids 3. Discontinue Amlodipine because of hypotension 4. Tamiflu to be started 30mg PO twice a day 5. Dexamethasone 4mg daily. 6. The patient is Influenza A positive, chest x-ray is unchanged from the one that was done from previous hospitalizations, 2-3 weeks ago. TIME SPENT: More than 30 minutes. Plan and coordination of the patient's care discussed in the presence of nurse. JUN
--- NOTE | 2021-11-05 11:38 | PN ---
DATE OF SERVICE: 10/26/21 SUBJECTIVE: 81 year old white female hospitalized with Influenza A and pneumonia. The patient's condition seems to have improved. She is awake, confused. She eat a little bit at at time but appetite has improved. REVIEW OF SYSTEMS: CONSTITUTIONAL: No night sweats. No fatigue, malaise, lethargy. No fever or chills. HEENT: Eyes: No visual changes. No eye pain. No eye discharge. ENT: No runny nose. No epistaxis. No sinus pain. No sore throat. No odynophagia. No congestion. RESPIRATORY: No cough, no congestion. No hemoptysis. No shortness of breath. CARDIOVASCULAR: No angina symptoms. No CHF symptoms. No atypical chest pain for CAD. No palpitations. No PND. No orthopnea. GASTROINTESTINAL: No abdominal pain. No nausea or vomiting. No diarrhea or constipation. No hematemesis. No hematochezia. GENITOURINARY: No urgency. No frequency. No dysuria. No hematuria. No obstructive symptoms. No discharge. No pain. No significant abnormal bleeding. MUSCULOSKELETAL: No musculoskeletal pain; no joint swelling. NEUROLOGICAL: No headache. No neck pain. No syncope. No seizures. No dizziness. PSYCHIATRIC: Not anxious. No depression. No suicidal thoughts. No homicidal thoughts. SKIN: No rash. No lesions. No wounds. ENDOCRINE: No unexplained weight loss. No weight gain. HEMATOLOGIC/LYMPHATIC: No anemia. No purpura. No petechiae. No prolonged or excessive bleeding. No palpable lymph nodes. PHYSICAL EXAMINATION: VITAL SIGNS: Temperature 97.3, pulse 60, respiratory rate 16, blood pressure 106/60 and pulse ox 95%. HEENT: Head normocephalic, atraumatic. Eyes: Extraocular muscles are intact. Pupils are equal, round and reactive to light and accommodation. Ears: No lesions. Nose appeared normal. Throat: No exudate or erythema. NECK: Supple. No JVD, no carotid bruit. No lymphadenopathy or thyromegaly. LUNGS: Decreased breath sounds but clear to auscultation. Percussion note normal. Chest symmetrical. HEART: S1, S2, no S3. No murmurs. No cyanosis or clubbing. No ascites. Pulses: Dorsalis pedis and posterior tibial pulses +1 to +2 bilaterally. ABDOMEN: Soft. Nontender. Bowel sounds active. No CVA tenderness. No mass felt. EXTREMITIES: No edema. Full range of motion of all extremities, equal. NEUROLOGIC: No focal deficit. Cranial nerves II through XII are grossly intact. No headache. No double vision. The patient is confused but alert. SKIN: Not dry. Intact. Turgor - normal. LYMPHATIC: No palpable lymph nodes/no lymphedema. MUSCULOSKELETAL: Normal joints with no swelling. Muscle tone is normal. LABS: Hgb 11.9, hct 37, WBC 2,000 normal differential, creatinine 0.6, BUN 10, potassium 4, glucose 108. SARS negative. ASSESSMENT: 1. Influenza A positive 2. Respiratory failure secondary to pneumonia 3. Dementia PLAN: 1. Continue Zosyn, Dexamethasone and inhalers CONDITION: Stable PROGNOSIS: Guarded The patient is DNR. TIME SPENT: More than 30 minutes. Plan and coordination of the patient's care discussed in the presence of nurse. JUN
== END 2021-10-29 13:43 | DRG 193 ==
LOC: ED 14:38 → MEDSURG A 19:53
PROVIDERS: ADMIT Internal Medicine; ATTEND Internal Medicine

== ENCOUNTER 2022-06-26 12:12 | Inpatient (IN) ==
[2022-06-26] MEDS ORDERED: SOLU-MEDROL 125 MG IVP ONE (12:20)
[2022-06-26] MEDS ORDERED: DUONEB NEB ONE (12:20)
[2022-06-26] MEDS ORDERED: SODIUM CHLORIDE 1,000 ML IV STA (12:20)
--- NOTE | 2022-06-26 12:25 | ED.PDOC ---
General ED Provider: Dr. ANTHONY LANDON MD Chief Complaint: Respiratory Complaint Stated Complaint: mild short of breath and dry cough off and on for a week, no fever, no injury, NH pt hx copd, nonambulatory, dementia, poor historian, htn Time Seen by Provider: 06/26/22 12:25 Primary Care Provider: MADELIN SOTELO MD Nursing and Triage Documentation Reviewed and Agree: Yes Does patient meet sepsis criteria?: No System Inflammatory Response Syndrome: Not Applicable Sepsis Protocol: For patient's 13 years and over: Temp is 96.8 and below OR 101 and greater Pulse >90 BPM Resp >20/minute Acutely Altered Mental Status Are patient's symptoms suggestive of a new infection, such as: -Pneumonia -Skin, Soft Tissue -Endocarditis -UTI -Bone, Joint Infection -Implantable Device -Acute Abdominal Infection -Wound Infection -Meningitis -Blood Stream Catheter Infection -Unknown Review of Systems Review Of Systems Constitutional: Reports Malaise Eyes: Denies Drainage Ears, Nose, Mouth, Throat: Denies Nose discharge Respiratory: Reports Cough, Short of air and Wheezing; Denies Stridor Cardiac: Denies Chest pain GI: Denies Abdominal pain or Vomiting : Denies Frequency Musculoskeletal: Reports Muscle pain Skin: Reports Dryness Neurological: Reports Cognitive dysfunction All Other Systems: Other [facility] Medical History (Updated 06/26/22 @ 13:50 by ANTHONY LANDON MD) Alzheimer disease Anxiety Atherosclerotic cardiovascular disease CAD (coronary artery disease) Cataracts, both eyes COPD (chronic obstructive pulmonary disease) COVID-19 Dementia Depression ALBERTO (generalized anxiety disorder) Generalized weakness GI bleed Glaucoma Hx of solitary pulmonary nodule Hypertension IBS (irritable bowel syndrome) Legally blind Night terror Osteoarthritis Parkinson disease Pneumonia Reduced mobility UTI (urinary tract infection) Family History FATHER Cancer of bone BROTHER Acute [place] BROTHER Hypertension Cardiac disorder SISTER Cardiac disorder Social History Smoking and tobacco status: Former smoker Surgical History History of appendectomy Female Reproductive History Menstrual Hx Hysterectomy: No Hx Tubal Ligation: No Physical Exam Physical Exam Appearance: Reports Ill-appearing Ill-appearing: Mild Pain Distress: None Eyes: Reports RALPH, EOMI and Conjunctiva clear ENT: Reports Dry mucosa Neck: Supple Respiratory: Reports Airway patent and Wheezes Cardiovascular: Reports RRR GI/: Reports Soft and Nontender Musculoskeletal: Denies Calf tenderness Skin: Reports Warm and Dry Neurological: Reports Alert Psychiatric: Reports Affect appropriate Interpretation Radiology Interpretation Radiology Interpretation By: Radiologist Exam Interpreted: CXR Xray Comments: bilateral infil EKG Interpretation Time of EKG #1: 13:48 Rate: Normal Rhythm: Sinus Interpretation: no stemi Critical Care Note Critical Care Note Total Critical Care Time (mins): 0 Course Course Hematology/Chemistry: 06/26/22 12:40 06/26/22 12:40 Orders, Labs, Meds: Lab Review 06/26/22 06/26/22 06/26/22 12:26 12:26 12:40 WBC 9.08 RBC 3.64 L Hgb 11.6 L Hct 37.3 MCV 102.5 H MCH 31.9 H MCHC 31.1 L RDW Coeff of Yosvany 14.0 Plt Count 174 Immature Gran % (Auto) 0.6 Neut % (Auto) 82.4 H Lymph % (Auto) 7.4 L Grand % (Auto) 9.1 Eos % (Auto) 0.2 Baso % (Auto) 0.3 Neut # (Auto) 7.5 H Lymph # (Auto) 0.7 Grand # (Auto) 0.8 Eos # (Auto) 0.0 Baso # (Auto) 0.0 Immature Gran # (Auto) 0.1 Puncture Site Base Excess O2 Saturation ABG pH ABG pCO2 ABG pO2 ABG HCO3 ABG Total CO2 Russell Test Hemoglobin Oxyhemoglobin Carboxyhemoglobin Total Hemoglobin O2 Delivery Device Oxygen Liter Flow Sodium Potassium Chloride Carbon Dioxide Anion Gap BUN Creatinine Estimated GFR (MDRD) BUN/Creatinine Ratio Glucose Lactic Acid Calcium Total Bilirubin AST ALT Alkaline Phosphatase Troponin I NT-Pro-B Natriuret Pep Total Protein Albumin Globulin Albumin/Globulin Ratio Influ A Molecular Assay Negative by naat Influ B Molecular Assay Negative by naat SARS CoV-2 RNA Rapid ELISEO Negative 06/26/22 06/26/22 06/26/22 12:40 12:40 12:44 WBC RBC Hgb Hct MCV MCH MCHC RDW Coeff of Yosvany Plt Count Immature Gran % (Auto) Neut % (Auto) Lymph % (Auto) [place] % (Auto) Eos % (Auto) Baso % (Auto) Neut # (Auto) Lymph # (Auto) Grand # (Auto) Eos # (Auto) Baso # (Auto) Immature Gran # (Auto) Puncture Site Rbrach Base Excess 7.6 H O2 Saturation 86.8 L ABG pH 7.43 ABG pCO2 48.0 H ABG pO2 51.0 L* ABG HCO3 31.9 H ABG Total CO2 33.4 H Russell Test + Hemoglobin 0.8 Oxyhemoglobin 85.9 L Carboxyhemoglobin 2.5 H Total Hemoglobin 12.3 O2 Delivery Device Cannula Oxygen Liter Flow 2.00 Sodium 145.4 H Potassium 3.11 L Chloride 107.3 H Carbon Dioxide 33.4 H Anion Gap 7.81 BUN 30.8 H Creatinine 0.63 Estimated GFR (MDRD) 90.00 BUN/Creatinine Ratio 48.88 Glucose 178.3 H Lactic Acid 0.97 Calcium 8.63 Total Bilirubin 0.49 AST 32.4 ALT 23.1 Alkaline Phosphatase 112.1 Troponin I < 0.012 NT-Pro-B Natriuret Pep 668.000 H Total Protein 6.95 Albumin 3.40 L Globulin 3.55 Albumin/Globulin Ratio 0.95 Influ A Molecular Assay Influ B Molecular Assay SARS CoV-2 RNA Rapid ELISEO Orders Category Date Time Status ABG DRAW REQUEST Stat CARDIO 06/26/22 12:20 Completed EKG-(ED ONLY) Stat CARDIO 06/26/22 12:20 Completed OXYGEN [ED APPLY O2] .ONCE EMERGENCY 06/26/22 12:20 Active ABG COOX Stat LAB 06/26/22 12:44 Completed BLOOD CULTURE Stat LAB 06/26/22 12:54 Received CBC W/ AUTO DIFF Stat LAB 06/26/22 12:40 Completed CMP [COMPREHENSIVE METABOLIC PANEL] Stat LAB 06/26/22 12:40 Completed LACTIC ACID Stat LAB 06/26/22 12:40 Completed MOLECULAR FLU A & B [FLU A/B MOLECULAR] Stat LAB 06/26/22 12:26 Completed NT-PROBNP Stat LAB 06/26/22 12:40 Completed SARS COV-2 RNA RAPID ELISEO Stat LAB 06/26/22 12:26 Completed TROPONIN I Stat LAB 06/26/22 12:40 Completed URINALYSIS C & S IF INDICATED Stat LAB 06/26/22 12:20 Uncollected Ipratropium/Albuterol Neb [Duoneb] MEDS 06/26/22 12:20 Discontinued 3 ml NEB ONCE ONE Levofloxacin/D5w [Levaquin 750 mg/150 ml D5w] MEDS 06/26/22 13:30 Active 750 mg in 150 ml IV DAILY Methylprednisolone Sod Succ/Pf [Solu-Medrol 125 mg] MEDS 06/26/22 12:20 Discontinued 125 mg IVP ONCE ONE Potassium Chloride [K-Dur] MEDS 06/26/22 13:23 Discontinued 40 meq PO ONCE ONE Sodium Chloride 0.9% [Sodium Chloride] 1,000 ml MEDS 06/26/22 12:20 Discontinued IV BOLUS CHEST, 1V AP ONLY Stat RADS 06/26/22 12:20 Completed Medications Generic Name Dose Route Start Last Admin Trade Name Freq PRN Reason Stop Dose Admin Levofloxacin/Dextrose 750 mg in 150 mls @ 100 mls/hr 06/26/22 13:30 06/26/22 13:35 Levaquin 750 Mg/150 Ml D5w IV 06/29/22 13:29 100 mls/hr DAILY AZUCENA Administration Discontinued Medications Generic Name Dose Route Start Last Admin Trade Name Freq PRN Reason Stop Dose Admin Albuterol/Ipratropium 3 ml 06/26/22 12:20 06/26/22 12:51 Ipratropium/Albuterol Vial.Neb NEB 06/26/22 12:21 3 ml ONCE ONE Administration Sodium Chloride 1,000 mls @ 1,000 mls/hr 06/26/22 12:20 06/26/22 12:43 Sodium Chloride IV 06/26/22 13:19 1,000 mls/hr BOLUS STA Administration Methylprednisolone Sodium Succinate 125 mg 06/26/22 12:20 06/26/22 12:42 Methylprednisolone Sod Succ/Pf 125 Mg/2 Ml Vial IVP 06/26/22 12:21 125 mg ONCE ONE Administration Potassium Chloride 40 meq 06/26/22 13:23 06/26/22 13:35 Potassium Chloride 20 Meq Tab PO 06/26/22 13:24 40 meq ONCE ONE Administration Vital Signs: Temp Pulse Resp BP Pulse Ox 06/26/22 12:26 99.8 F 78 20 127/53 L 92 L Discharge Plan Discharge Patient Disposition: ADMITTED INPATIENT Discharge Problem: Pneumonia, Hypoxia Prescriptions: No Action memantine [Namenda] 10 mg Tablet 10 mg PO Q12HR acetaminophen [Tylenol] 325 mg Tablet 650 mg PO Q4HR PRN (Reason: Pain) Qty: 60 5RF Rx Instructions: DO NOT TAKE MORE THAN 4000 MG IN A 24 HOUR PERIOD polyethylene glycol 3350 [Miralax] 17 gram Powder In Packet 17 g PO DAILY quetiapine 100 mg tablet 100 mg PO 1300,2100 Rx Instructions: AFTERNOON AND EVENING alprazolam 0.5 mg tablet 0.5 mg PO TID Rx Instructions: AFTERNOON magnesium hydroxide [Milk of Magnesia] 400 mg/5 mL Suspension 30 ml PO DAILY PRN (Reason: Constipation) Rx Instructions: IF NO BM FOR 3 DAYS bisacodyl 10 mg Suppository 10 mg MA DAILY PRN (Reason: Constipation) quetiapine [Seroquel] 50 mg Tablet 50 mg PO QAM rivastigmine 4.6 mg/24 hour patch 24 hour 1 patch topical DAILY fluticasone furoate-vilanterol [Breo Ellipta] 100-25 mcg/dose blister with device 1 inh INHALATION DAILY mupirocin calcium 2 % Cream 1 applic TOPICAL DAILY Rx Instructions: Apply to coccyx wound every day shift albuterol sulfate [ProAir HFA] 90 mcg/actuation HFA aerosol inhaler 2 puff INHALATION Q12HR Rx Instructions: WITH SPACER budesonide-formoterol [Symbicort] 80-4.5 mcg/actuation Hfa Aerosol Inhaler 2 puff inhalation BID 0RF amlodipine [Norvasc] 5 mg tablet 5 mg PO DAILY Did you review [place] DOOR PERSON?: Not Applicable ED Provider: ANTHONY LANDON Condition: Stable Physician Progress Note: []full admit to tele d/w Dr Sotelo
[2022-06-26 12:48] LABS: BASOPHILS % (AUTO) 0.3 % (0.0-3.0); EOSINOPHILS % (AUTO) 0.2 % (0.0-7.0); HEMATOCRIT 37.3 % (37.0-47.0); HEMOGLOBIN 11.6 g/dl (12.0-16.0); IMMATURE GRANULOCYTE # (AUTO) 0.1 (0.0-1.0); IMMATURE GRANULOCYTE % (AUTO) 0.6 % (0.0-5.0); LYMPHOCYTES # (AUTO) 0.7 K/uL (0.60-3.4); LYMPHOCYTES % (AUTO) 7.4 (10.0-50.0); MEAN CORPUSCULAR HEMOGLOBIN 31.9 pg (27.0-31.0); MEAN CORPUSCULAR HGB CONC 31.1 (31.8-35.4); MEAN CORPUSCULAR VOLUME 102.5 fl (81.0-99.0); MONOCYTES # (AUTO) 0.8 K/uL (0.4-2.0); MONOCYTES % (AUTO) 9.1 (0-10); NEUTROPHILS # (AUTO) 7.5 K/ul (2.0-6.9); NEUTROPHILS % (AUTO) 82.4 % (42.2-75.2); PLATELET COUNT 174 10^3/uL (140-440); RED BLOOD COUNT 3.64 10^6/ul (4.20-5.40); WHITE BLOOD COUNT 9.08 K/ul (4.6-10.2)
[2022-06-26 12:51] LABS: ABG O2 HGB 85.9 % (95-100); ABG PH 7.43 (7.35-7.45); BEecf 7.6 (-2.0-3.0); COHb 2.5 (0.5-1.5); HCO3 31.9 (21-28); MetHb 0.8 (0-1.5); TCO2 33.4 (19-24); sO2 86.8 % (94-98); tHb 12.3 g/dl (11.7-17.4)
--- NOTE | 2022-06-26 13:01 | DI ---
EXAM: Frontal view of the chest. HISTORY: Weakness. COMPARISON: Chest radiograph 10/24/2021. FINDINGS: Patchy multifocal consolidative opacities in both lungs. Asymmetric elevation left hemidiaphragm. Normal heart size. Atherosclerotic calcifications of the aorta. No visible pleural effusion or pneumothorax. Severe degenerative change of the shoulders bilaterally. Multilevel spondylosis. IMPRESSION: Bilateral opacities suspicious for multifocal pneumonia.
[2022-06-26 13:07] LABS: ALANINE AMINOTRANSFERASE 23.1 U/L (0-35); ALKALINE PHOSPHATASE 112.1 U/L (53-141); ASPARTATE AMINO TRANSFERASE 32.4 U/L (14-36); BILIRUBIN,TOTAL 0.49 mg/dL (0.2-1.3); BLOOD UREA NITROGEN 30.8 mg/dL (7-17); CALCIUM 8.63 mg/dL (8.4-10.2); CARBON DIOXIDE 33.4 mmol/L (22-30.0); CHLORIDE 107.3 mmol/L (98-107); CREATININE 0.63 mg/dL (0.60-1.30); GLUCOSE 178.3 mg/dL (74-106); POTASSIUM 3.11 mmol/L (3.5-5.1); SODIUM 145.4 mmol/L (134.5-145); TOTAL PROTEIN 6.95 g/dL (6.3-8.2)
[2022-06-26 13:19] LABS: TROPONIN I < 0.012 ng/ml (0.0000-0.120)
[2022-06-26] MEDS ORDERED: K-DUR PO ONE (13:23)
[2022-06-26 13:34] LABS: MOLECULAR FLU A NEGATIVE BY NAAT (NEGATIVE); MOLECULAR FLU B NEGATIVE BY NAAT (NEGATIVE); SARS COV-2 RNA RAPID NAAT NEGATIVE (NEGATIVE)
[2022-06-26] MEDS: LEVAQUIN 750 MG/150 ML D5W 750 MG/150 ML BAG IV SCH (13:35)
[2022-06-26] MEDS ORDERED: DUONEB NEB PRN (13:51)
[2022-06-26] MEDS ORDERED: TYLENOL PO PRN (13:51)
[2022-06-26 16:18] VITALS: BMI 19.9
[2022-06-26] MEDS ORDERED: DULCOLAX RC PRN (17:42)
[2022-06-26] MEDS ORDERED: MILK OF MAGNESIA PO PRN (17:42)
[2022-06-26] MEDS ORDERED: ATIVAN PO PRN (17:52)
[2022-06-26] MEDS: SODIUM CHLORIDE 1,000 ML IV SCH (18:15)
[2022-06-26] MEDS: DUONEB NEB SCH ×2 (18:18→23:08)
[2022-06-26] MEDS: SOLU-CORTEF 100 MG IVP SCH (20:25)
[2022-06-26] MEDS ORDERED: SOLU-MEDROL 125 MG IVP SCH (21:00)
[2022-06-26] MEDS: ZYPREXA PO SCH (21:23)
[2022-06-26] MEDS: SYMBICORT 80-4.5 MCG INHALER IH SCH (21:23)
[2022-06-26] MEDS: NAMENDA PO SCH (21:23)
[2022-06-27] MEDS: DUONEB NEB SCH ×4 (04:35→23:30)
[2022-06-27] MEDS: SOLU-CORTEF 100 MG IVP SCH ×2 (04:53→13:22)
[2022-06-27 05:14] LABS: BILIRUBIN,URINE Negative (NEGATIVE); CLARITY,URINE Slightly (CLEAR); COLOR,URINE Yellow (YELLOW); GLUCOSE, URINE (UA) Negative (NEGATIVE); KETONES,URINE Negative (NEGATIVE); LEUKOCYTE ESTERASE ,URINE Negative (NEGATIVE); NITRITE,URINE Negative (NEGATIVE); PROTEIN,URINE 1+ (NEGATIVE); URINE, BLOOD Negative (NEGATIVE)
[2022-06-27 05:22] LABS: MUCUS,URINE 1+ (NOT PRESENT)
[2022-06-27 05:35] LABS: BASOPHILS % (AUTO) 0.1 % (0.0-3.0); HEMATOCRIT 37.9 % (37.0-47.0); HEMOGLOBIN 11.6 g/dl (12.0-16.0); IMMATURE GRANULOCYTE % (AUTO) 0.6 % (0.0-5.0); LYMPHOCYTES # (AUTO) 0.5 K/uL (0.60-3.4); LYMPHOCYTES % (AUTO) 7.2 (10.0-50.0); MEAN CORPUSCULAR HEMOGLOBIN 31.3 pg (27.0-31.0); MEAN CORPUSCULAR HGB CONC 30.6 (31.8-35.4); MEAN CORPUSCULAR VOLUME 102.2 fl (81.0-99.0); MONOCYTES # (AUTO) 0.2 K/uL (0.4-2.0); MONOCYTES % (AUTO) 2.5 (0-10); NEUTROPHILS # (AUTO) 6.1 K/ul (2.0-6.9); NEUTROPHILS % (AUTO) 89.6 % (42.2-75.2); PLATELET COUNT 173 10^3/uL (140-440); RDW COEFFICIENT OF VARIATION 13.9 % (11.6-14.8); RED BLOOD COUNT 3.71 10^6/ul (4.20-5.40); WHITE BLOOD COUNT 6.78 K/ul (4.6-10.2)
[2022-06-27 05:50] LABS: ALANINE AMINOTRANSFERASE 21.3 U/L (0-35); ALBUMIN 3.3 g/dL (3.5-5.0); ALKALINE PHOSPHATASE 117.9 U/L (53-141); ASPARTATE AMINO TRANSFERASE 25.4 U/L (14-36); BILIRUBIN,TOTAL 0.42 mg/dL (0.2-1.3); BLOOD UREA NITROGEN 20.8 mg/dL (7-17); CALCIUM 8.33 mg/dL (8.4-10.2); CHLORIDE 114.3 mmol/L (98-107); CREATININE 0.5 mg/dL (0.60-1.30); GLUCOSE 152.6 mg/dL (74-106); POTASSIUM 3.86 mmol/L (3.5-5.1); SODIUM 144.8 mmol/L (134.5-145); TOTAL PROTEIN 6.73 g/dL (6.3-8.2)
[2022-06-27] MEDS: SODIUM CHLORIDE 1,000 ML IV SCH (05:57)
[2022-06-27] MEDS ORDERED: K-DUR PO SCH (08:30)
[2022-06-27] MEDS: NORVASC PO SCH (08:45)
[2022-06-27] MEDS: MIRALAX PO SCH (08:45)
[2022-06-27] MEDS: NAMENDA PO SCH ×2 (08:45→20:11)
[2022-06-27] MEDS: XANAX PO PRN ×2 (08:45→15:10)
[2022-06-27] MEDS: K-DUR PO SCH ×2 (08:46→16:44)
[2022-06-27] MEDS: SYMBICORT 80-4.5 MCG INHALER IH SCH ×2 (08:54→20:17)
[2022-06-27] MEDS: LEVAQUIN 750 MG/150 ML D5W 750 MG/150 ML BAG IV SCH (08:54)
[2022-06-27] MEDS ORDERED: LEVAQUIN 750 MG/150 ML D5W 750 MG/150 ML BAG IV SCH (09:00)
[2022-06-27] MEDS: SEROQUEL PO SCH (15:10)
[2022-06-27] MEDS: RIVASTIGMINE TARTRATE 1.5 MG PO SCH ×2 (17:59→22:22)
[2022-06-27] MEDS: ZYPREXA PO SCH (20:10)
[2022-06-28] MEDS: DUONEB NEB SCH ×4 (05:10→23:15)
[2022-06-28 05:14] LABS: BASOPHILS % (AUTO) 0.2 % (0.0-3.0); HEMOGLOBIN 11.1 g/dl (12.0-16.0); IMMATURE GRANULOCYTE # (AUTO) 0.1 (0.0-1.0); IMMATURE GRANULOCYTE % (AUTO) 1.2 % (0.0-5.0); LYMPHOCYTES # (AUTO) 0.5 K/uL (0.60-3.4); LYMPHOCYTES % (AUTO) 5.6 (10.0-50.0); MEAN CORPUSCULAR HEMOGLOBIN 31.5 pg (27.0-31.0); MEAN CORPUSCULAR HGB CONC 30.8 (31.8-35.4); MEAN CORPUSCULAR VOLUME 102.3 fl (81.0-99.0); MONOCYTES # (AUTO) 0.5 K/uL (0.4-2.0); MONOCYTES % (AUTO) 5.6 (0-10); NEUTROPHILS # (AUTO) 8.4 K/ul (2.0-6.9); NEUTROPHILS % (AUTO) 87.4 % (42.2-75.2); PLATELET COUNT 206 10^3/uL (140-440); RDW COEFFICIENT OF VARIATION 13.9 % (11.6-14.8); RED BLOOD COUNT 3.52 10^6/ul (4.20-5.40); WHITE BLOOD COUNT 9.64 K/ul (4.6-10.2)
[2022-06-28 05:28] LABS: ALANINE AMINOTRANSFERASE 19.3 U/L (0-35); ALBUMIN 3.09 g/dL (3.5-5.0); ALKALINE PHOSPHATASE 98.2 U/L (53-141); ASPARTATE AMINO TRANSFERASE 23.7 U/L (14-36); BILIRUBIN,TOTAL 0.26 mg/dL (0.2-1.3); BLOOD UREA NITROGEN 19.1 mg/dL (7-17); CALCIUM 8.5 mg/dL (8.4-10.2); CARBON DIOXIDE 32.2 mmol/L (22-30.0); CHLORIDE 113.1 mmol/L (98-107); CREATININE 0.78 mg/dL (0.60-1.30); GLUCOSE 133.9 mg/dL (74-106); POTASSIUM 3.82 mmol/L (3.5-5.1); SODIUM 148.2 mmol/L (134.5-145); TOTAL PROTEIN 6.41 g/dL (6.3-8.2)
[2022-06-28] MEDS: LEVAQUIN PO SCH (06:46)
[2022-06-28] MEDS: MIRALAX PO SCH (09:04)
[2022-06-28] MEDS: K-DUR PO SCH ×2 (09:04→17:25)
[2022-06-28] MEDS: NAMENDA PO SCH ×2 (09:05→20:01)
[2022-06-28] MEDS: SEROQUEL PO SCH (09:05)
[2022-06-28] MEDS: NORVASC PO SCH (09:05)
[2022-06-28] MEDS: RIVASTIGMINE TARTRATE 1.5 MG PO SCH ×2 (09:06→20:02)
[2022-06-28] MEDS: SYMBICORT 80-4.5 MCG INHALER IH SCH ×2 (09:06→20:25)
[2022-06-28] MEDS: DECADRON IM SCH (09:07)
[2022-06-28 16:03] LABS: ABG O2 HGB 92.8 % (95-100); BEecf 6.5 (-2.0-3.0); COHb 0.7 (0.5-1.5); HCO3 29.4 (21-28); MetHb 0.6 (0-1.5); TCO2 30.5 (19-24); sO2 93.2 % (94-98); tHb 12.6 g/dl (11.7-17.4)
[2022-06-28 16:16] LABS: ABG PH 7.52 (7.35-7.45)
[2022-06-28] MEDS: SODIUM CHLORIDE 1,000 ML IV SCH (18:18)
[2022-06-28] MEDS: XANAX PO PRN (20:01)
[2022-06-28] MEDS: ZYPREXA PO SCH (20:01)
[2022-06-29] MEDS: DUONEB NEB SCH ×4 (05:05→23:10)
[2022-06-29] MEDS: LEVAQUIN PO SCH (05:29)
[2022-06-29 05:34] LABS: BASOPHILS % (AUTO) 0.4 % (0.0-3.0); HEMATOCRIT 44.6 % (37.0-47.0); HEMOGLOBIN 13.7 g/dl (12.0-16.0); IMMATURE GRANULOCYTE # (AUTO) 0.1 (0.0-1.0); IMMATURE GRANULOCYTE % (AUTO) 1.2 % (0.0-5.0); LYMPHOCYTES % (AUTO) 10.4 (10.0-50.0); MEAN CORPUSCULAR HEMOGLOBIN 31.1 pg (27.0-31.0); MEAN CORPUSCULAR HGB CONC 30.7 (31.8-35.4); MEAN CORPUSCULAR VOLUME 101.4 fl (81.0-99.0); MONOCYTES # (AUTO) 0.7 K/uL (0.4-2.0); MONOCYTES % (AUTO) 7.7 (0-10); NEUTROPHILS # (AUTO) 7.5 K/ul (2.0-6.9); NEUTROPHILS % (AUTO) 80.3 % (42.2-75.2); PLATELET COUNT 268 10^3/uL (140-440); RDW COEFFICIENT OF VARIATION 13.8 % (11.6-14.8); WHITE BLOOD COUNT 9.33 K/ul (4.6-10.2)
[2022-06-29 05:47] LABS: ALANINE AMINOTRANSFERASE 26.4 U/L (0-35); ALBUMIN 3.66 g/dL (3.5-5.0); ALKALINE PHOSPHATASE 115.7 U/L (53-141); BILIRUBIN,TOTAL 0.44 mg/dL (0.2-1.3); BLOOD UREA NITROGEN 21.5 mg/dL (7-17); CALCIUM 8.67 mg/dL (8.4-10.2); CARBON DIOXIDE 32.8 mmol/L (22-30.0); CHLORIDE 104.1 mmol/L (98-107); CREATININE 0.77 mg/dL (0.60-1.30); GLUCOSE 87.6 mg/dL (74-106); POTASSIUM 3.57 mmol/L (3.5-5.1); SODIUM 143.3 mmol/L (134.5-145); TOTAL PROTEIN 7.21 g/dL (6.3-8.2)
[2022-06-29] MEDS: MIRALAX PO SCH (08:30)
[2022-06-29] MEDS: NORVASC PO SCH (08:30)
[2022-06-29] MEDS: K-DUR PO SCH ×2 (08:30→17:26)
[2022-06-29] MEDS: DECADRON IM SCH (08:30)
[2022-06-29] MEDS: SEROQUEL PO SCH (08:30)
[2022-06-29] MEDS: NAMENDA PO SCH ×2 (08:30→21:22)
[2022-06-29] MEDS: SYMBICORT 80-4.5 MCG INHALER IH SCH ×2 (08:31→21:22)
[2022-06-29] MEDS: RIVASTIGMINE TARTRATE 1.5 MG PO SCH ×2 (08:31→21:48)
[2022-06-29] MEDS: ZYPREXA PO SCH (21:23)
[2022-06-29] MEDS: XANAX PO PRN (21:23)
[2022-06-30] MEDS: DUONEB NEB SCH ×4 (04:45→23:00)
[2022-06-30 05:35] LABS: BASOPHILS % (AUTO) 0.2 % (0.0-3.0); HEMATOCRIT 39.4 % (37.0-47.0); HEMOGLOBIN 12.3 g/dl (12.0-16.0); IMMATURE GRANULOCYTE # (AUTO) 0.1 (0.0-1.0); IMMATURE GRANULOCYTE % (AUTO) 1.1 % (0.0-5.0); LYMPHOCYTES # (AUTO) 1.1 K/uL (0.60-3.4); LYMPHOCYTES % (AUTO) 13.8 (10.0-50.0); MEAN CORPUSCULAR HEMOGLOBIN 31.5 pg (27.0-31.0); MEAN CORPUSCULAR HGB CONC 31.2 (31.8-35.4); MONOCYTES # (AUTO) 0.7 K/uL (0.4-2.0); MONOCYTES % (AUTO) 8.4 (0-10); NEUTROPHILS # (AUTO) 6.3 K/ul (2.0-6.9); NEUTROPHILS % (AUTO) 76.5 % (42.2-75.2); PLATELET COUNT 231 10^3/uL (140-440); RDW COEFFICIENT OF VARIATION 14.1 % (11.6-14.8); WHITE BLOOD COUNT 8.18 K/ul (4.6-10.2)
[2022-06-30] MEDS: LEVAQUIN PO SCH (05:42)
[2022-06-30 05:53] LABS: ALBUMIN 2.97 g/dL (3.5-5.0); ALKALINE PHOSPHATASE 85.4 U/L (53-141); ASPARTATE AMINO TRANSFERASE 22.6 U/L (14-36); BILIRUBIN,TOTAL 0.39 mg/dL (0.2-1.3); BLOOD UREA NITROGEN 25.5 mg/dL (7-17); CALCIUM 8.24 mg/dL (8.4-10.2); CARBON DIOXIDE 33.7 mmol/L (22-30.0); CHLORIDE 107.5 mmol/L (98-107); CREATININE 0.75 mg/dL (0.60-1.30); GLUCOSE 89.1 mg/dL (74-106); POTASSIUM 4.55 mmol/L (3.5-5.1); SODIUM 142.2 mmol/L (134.5-145); TOTAL PROTEIN 6.11 g/dL (6.3-8.2)
[2022-06-30] MEDS: MIRALAX PO SCH (09:19)
[2022-06-30] MEDS: SEROQUEL PO SCH (09:20)
[2022-06-30] MEDS: PREDNISONE PO SCH (09:20)
[2022-06-30] MEDS: NAMENDA PO SCH ×2 (09:20→21:08)
[2022-06-30] MEDS: NORVASC PO SCH (09:20)
[2022-06-30] MEDS: RIVASTIGMINE TARTRATE 1.5 MG PO SCH ×2 (09:21→21:14)
[2022-06-30] MEDS: DIFLUCAN PO SCH (09:21)
[2022-06-30] MEDS: SYMBICORT 80-4.5 MCG INHALER IH SCH ×2 (09:21→21:09)
--- NOTE | 2022-06-30 09:56 | DI ---
EXAM: Frontal view of the chest. HISTORY: Cough. COMPARISON: Chest radiograph 06/26/2022. FINDINGS: Decreased patchy consolidative opacities in the lungs bilaterally. No pleural effusion or pneumothorax. Chronic coarsening of the lung markings appears unchanged. Normal heart size. Scattered atherosclerotic calcifications. Bones appear diffusely demineralized. Degenerative changes of the spine shoulders. IMPRESSION: Slightly decreased bilateral opacities suggesting improving pneumonia or pneumonitis.
--- NOTE | 2022-06-30 10:12 | PCM.PROG ---
Attending Provider: ATTENDING PROVIDER: Dr. MADELIN SOTELO MD This patient is seen with Elsa Bee, Nurse Practitioner. DATE OF SERVICE: 06/30/22 SUBJECTIVE: This 81 year old /WHITE F was hospitalized 06/26/22. has been resting comfortably. Finally slept through the night. Must be fed but eating moderately well. No fever. We will discontinue Decadron and start PO Prednisone today. [facility]ip[facility]. REVIEW OF SYSTEMS: CONSTITUTIONAL: No night sweats. Fatigue. No fever or chills. Weakness. HEENT: Eyes: No visual changes. No eye pain. No eye discharge. ENT: No runny nose. No epistaxis. No sinus pain. No odynophagia. No congestion. RESPIRATORY: Cough, no congestion. No hemoptysis. No shortness of breath. CARDIOVASCULAR: No angina symptoms. No CHF symptoms. No atypical chest pain for CAD. No palpitations. No orthopnea.. GASTROINTESTINAL: No abdominal pain. No nausea or vomiting. No diarrhea or constipation. No hematemesis. No hematochezia. GENITOURINARY: No urgency. No frequency. No dysuria. No hematuria. No obstructive symptoms. No discharge. No pain. No significant abnormal bleeding. MUSCULOSKELETAL: No musculoskeletal pain; no joint swelling. NEUROLOGICAL: Awake, alert, confusion. No headache. No neck pain. No syncope. No seizures. No dizziness. PSYCHIATRIC: Not anxious. No depression. No suicidal thoughts. No homicidal thoughts. SKIN: No rash. No lesions. No wounds. ENDOCRINE: No unexplained weight loss. No weight gain. HEMATOLOGIC/LYMPHATIC: No anemia. No purpura. No petechiae. No prolonged or excessive bleeding. No palpable lymph nodes. PHYSICAL EXAMINATION: GENERAL: The patient is awake, alert and not oriented, lying in bed in no distress. VITAL SIGNS: Temperature 96.6 F, Pulse 66, Respiratory Rate 16, BP 132/65, Pulse Ox 94% HEENT: Head normocephalic, atraumatic. Eyes: Extraocular muscles are intact. Pupils are equal, round and reactive to light and accommodation. Ears: No lesions. Nose appeared normal. Throat: No exudate or erythema. NECK: Supple. No JVD, no carotid bruit. No lymphadenopathy or thyromegaly. LUNGS: Diminished breath sounds. Clear to auscultation. Percussion note normal. Chest symmetrical. HEART: S1, S2, no S3. No murmurs. No cyanosis or clubbing. No ascites. Pulses: Dorsalis pedis and posterior tibial pulses +1 to +2 both sides. ABDOMEN: Soft. Non-tender. Bowel sounds active. No CVA tenderness. No mass fe lt. EXTREMITIES: No edema. Full range of motion of all extremities, equal. NEUROLOGIC: No focal deficit. Cranial nerves II through XII are grossly intact. No headache. No double vision. SKIN: Not dry. Intact. Turgor-normal. LYMPHATIC: No palpable lymph nodes/no lymphedema. MUSCULOSKELETAL: Normal joints with no swelling. Muscle tone is normal. LAB REVIEW: 06/30/22 04:50 06/30/22 04:50 06/30/22 04:50: Sodium 142.2, Potassium 4.55, Chloride 107.5 H, Carbon Dioxide 33.7 H, Anion Gap 5.55, BUN 25.5 H, Creatinine 0.75, Estimated GFR (MDRD) 74.00, BUN/Creatinine Ratio 34.00, Glucose 89.1, Calcium 8.24 L, Total Bilirubin 0.39, AST 22.6, ALT 18.0, Alkaline Phosphatase 85.4 D, Total Protein 6.11 L, Albumin 2.97 L, Globulin 3.14, Albumin/Globulin Ratio 0.94 06/30/22 04:50: WBC 8.18, RBC 3.90 L, Hgb 12.3, Hct 39.4, MCV 101.0 H, MCH 31.5 H, MCHC 31.2 L, RDW Coeff of Yosvany 14.1, Plt Count 231, Immature Gran % (Auto) 1.1, Neut % (Auto) 76.5 H, Lymph % (Auto) 13.8, [place] % (Auto) 8.4, Eos % (Auto) 0.0, Baso % (Auto) 0.2, Neut # (Auto) 6.3, Lymph # (Auto) 1.1, [place] # (Auto) 0.7, Eos # (Auto) 0.0, Baso # (Auto) 0.0, Immature Gran # (Auto) 0.1 ASSESSMENT: Please see below. 1. Bilateral pneumonia 2. Acute respiratory failure, resolved 3. COPD 4. Dementia with behavioral disturbances. PLAN: 1. Repeat chest x-ray 2. Discontinue Potassium 3. Discontinue Decadron 4. Prednisone 20mg daily 5. Anticipate discharge tomorrow. Plan and coordination of the patient's care discussed in the presence of [employer] and nurse. SCRIBED BY: Armando KRISHNAN scribed while in presence of service performed by Dr. Sotelo/Elsa Bee APRN on 06/30/22 ([id number])
[2022-06-30] MEDS: NYSTATIN ORAL SUSP PO SCH ×3 (13:00→21:09)
[2022-06-30] MEDS: XANAX PO PRN ×2 (14:35→21:08)
--- NOTE | 2022-06-30 16:20 | RS.SLPCNOT ---
Speech Case Note Date of Note: 06/30/22 Title: Speech consult Note: The SUMMER ASSOCIATE addressed the ST consult with RN. The RN reported that the pt is on safer and least restrictive diet at this time and no concerns with hydration/nutrition status with modified diet texture. The RN also reported the patient will return to LTC facility at time of d/c. SUMMER ASSOCIATE stated if ST is warranted a bedside evaluation will be ordered. Thank you for this consult.
[2022-06-30] MEDS: ZYPREXA PO SCH (21:08)
[2022-07-01 04:58] VITALS: BP 142/74; TEMP 98
[2022-07-01] MEDS: DUONEB NEB SCH ×2 (05:00→11:51)
[2022-07-01 05:26] LABS: BASOPHILS % (AUTO) 0.1 % (0.0-3.0); EOSINOPHILS % (AUTO) 0.1 % (0.0-7.0); HEMATOCRIT 38.7 % (37.0-47.0); HEMOGLOBIN 12.3 g/dl (12.0-16.0); IMMATURE GRANULOCYTE # (AUTO) 0.1 (0.0-1.0); IMMATURE GRANULOCYTE % (AUTO) 1.1 % (0.0-5.0); LYMPHOCYTES # (AUTO) 0.9 K/uL (0.60-3.4); LYMPHOCYTES % (AUTO) 9.6 (10.0-50.0); MEAN CORPUSCULAR HEMOGLOBIN 31.5 pg (27.0-31.0); MEAN CORPUSCULAR HGB CONC 31.8 (31.8-35.4); MEAN CORPUSCULAR VOLUME 99.2 fl (81.0-99.0); MONOCYTES # (AUTO) 0.5 K/uL (0.4-2.0); NEUTROPHILS # (AUTO) 7.4 K/ul (2.0-6.9); NEUTROPHILS % (AUTO) 83.1 % (42.2-75.2); PLATELET COUNT 228 10^3/uL (140-440); WHITE BLOOD COUNT 8.87 K/ul (4.6-10.2)
[2022-07-01] MEDS: NYSTATIN ORAL SUSP PO SCH ×2 (05:35→12:42)
[2022-07-01 05:42] LABS: ALANINE AMINOTRANSFERASE 16.5 U/L (0-35); ALBUMIN 3.04 g/dL (3.5-5.0); ALKALINE PHOSPHATASE 86.1 U/L (53-141); ASPARTATE AMINO TRANSFERASE 19.7 U/L (14-36); BILIRUBIN,TOTAL 0.36 mg/dL (0.2-1.3); BLOOD UREA NITROGEN 23.8 mg/dL (7-17); CALCIUM 8.19 mg/dL (8.4-10.2); CARBON DIOXIDE 34.6 mmol/L (22-30.0); CHLORIDE 105.4 mmol/L (98-107); CREATININE 0.64 mg/dL (0.60-1.30); GLUCOSE 103.5 mg/dL (74-106); POTASSIUM 4.02 mmol/L (3.5-5.1); SODIUM 140.6 mmol/L (134.5-145); TOTAL PROTEIN 6.17 g/dL (6.3-8.2)
[2022-07-01] MEDS ORDERED: LEVAQUIN PO ONE (08:01)
[2022-07-01] MEDS: NORVASC PO SCH (08:31)
[2022-07-01] MEDS: NAMENDA PO SCH (08:31)
[2022-07-01] MEDS: SEROQUEL PO SCH (08:31)
[2022-07-01] MEDS: DIFLUCAN PO SCH (08:31)
[2022-07-01] MEDS: PREDNISONE PO SCH (08:31)
[2022-07-01] MEDS: SYMBICORT 80-4.5 MCG INHALER IH SCH (08:32)
[2022-07-01] MEDS: RIVASTIGMINE TARTRATE 1.5 MG PO SCH (08:32)
[2022-07-01] MEDS: MIRALAX PO SCH (08:44)
--- NOTE | 2022-07-01 09:54 | PCM.PROG ---
Attending Provider: ATTENDING PROVIDER: Dr. MADELIN SOTELO MD This patient is seen with Elsa Bee, Nurse Practitioner. DATE OF SERVICE: 07/01/22 SUBJECTIVE: This 81 year old /WHITE F was hospitalized 06/26/22. Resting comfortably, has been eating moderately week, does require assistance with f eeding. Chest x-ray showed improvement yesterday. Will discharge back to assisted today. REVIEW OF SYSTEMS: CONSTITUTIONAL: No night sweats. Fatigue. No fever or chills. Weakness. HEENT: Eyes: No visual changes. No eye pain. No eye discharge. ENT: No runny nose. No epistaxis. No sinus pain. No odynophagia. No congestion. RESPIRATORY: Cough, no congestion. No hemoptysis. No shortness of breath. CARDIOVASCULAR: No angina symptoms. No CHF symptoms. No atypical chest pain for CAD. No palpitations. No orthopnea.. GASTROINTESTINAL: No abdominal pain. No nausea or vomiting. No diarrhea or constipation. No hematemesis. No hematochezia. GENITOURINARY: No urgency. No frequency. No dysuria. No hematuria. No obstructive symptoms. No discharge. No pain. No significant abnormal bleeding. MUSCULOSKELETAL: No musculoskeletal pain; no joint swelling. NEUROLOGICAL: Awake, alert, intermittent confusion. No headache. No neck pain. No syncope. No seizures. No dizziness. PSYCHIATRIC: Not anxious. No depression. No suicidal thoughts. No homicidal thoughts. SKIN: No rash. No lesions. No wounds. ENDOCRINE: No unexplained weight loss. No weight gain. HEMATOLOGIC/LYMPHATIC: No anemia. No purpura. No petechiae. No prolonged or excessive bleeding. No palpable lymph nodes. PHYSICAL EXAMINATION: GENERAL: The patient is awake, alert oriented to person, not place or time, lying in bed in no distress. VITAL SIGNS: Temperature 98 F, Pulse 66, Respiratory Rate 18, BP 142/74, Pulse Ox 94% HEENT: Head normocephalic, atraumatic. Eyes: Extraocular muscles are intact. Pupils are equal, round and reactive to light and accommodation. Ears: No le sions. Nose appeared normal. Throat: No exudate or erythema. NECK: Supple. No JVD, no carotid bruit. No lymphadenopathy or thyromegaly. LUNGS: Diminished breath sounds. Clear to auscultation. Percussion note normal. Chest symmetrical. HEART: S1, S2, no S3. No murmurs. No cyanosis or clubbing. No ascites. Pulses: Dorsalis pedis and posterior tibial pulses +1 to +2 both sides. ABDOMEN: Soft. Non-tender. Bowel sounds active. No CVA tenderness. No mass felt. EXTREMITIES: No edema. Full range of motion of all extremities, equal. NEUROLOGIC: No focal deficit. Cranial nerves II through XII are grossly intact. No headache. No double vision. SKIN: Not dry. Intact. Turgor-normal. LYMPHATIC: No palpable lymph nodes/no lymphedema. MUSCULOSKELETAL: Normal joints with no swelling. Muscle tone is normal. LAB REVIEW: 07/01/22 04:36 07/01/22 04:36 07/01/22 04:36: Sodium 140.6, Potassium 4.02, Chloride 105.4, Carbon Dioxide 34.6 H, Anion Gap 4.62, BUN 23.8 H, Creatinine 0.64, Estimated GFR (MDRD) 89.00, BUN/Creatinine Ratio 37.18, Glucose 103.5, Calcium 8.19 L, Total Bilirubin 0.36, AST 19.7, ALT 16.5, Alkaline Phosphatase 86.1, Total Protein 6.17 L, Albumin 3.04 L, Globulin 3.13, Albumin/Globulin Ratio 0.97 07/01/22 04:36: WBC 8.87, RBC 3.90 L, Hgb 12.3, Hct 38.7, MCV 99.2 H, MCH 31.5 H , MCHC 31.8, RDW Coeff of Yosvany 14.0, Plt Count 228, Immature Gran % (Auto) 1.1, Neut % (Auto) 83.1 H, Lymph % (Auto) 9.6 L, [place] % (Auto) 6.0, Eos % (Auto) 0.1, Baso % (Auto) 0.1, Neut # (Auto) 7.4 H, Lymph # (Auto) 0.9, [place] # (Auto) 0.5, Eos # (Auto) 0.0, Baso # (Auto) 0.0, Immature Gran # (Auto) 0.1 ASSESSMENT: Please see below. 1. Bilateral pneumonitis 2. Acute respiratory failure, resolved 3. Hypokalemia, resolved 4. Thrush, improving 5. COPD 6. Dementia with behavioral disturbances. PLAN: 1. Discharge back to the assisted 2. Levaquin 500mg daily for 5 days 3. Diflucan 150mg every other day for 3 more days 4. DUO NEBS TID AZUCENA. 5. Prednisone 20mg daily for 5 days 6. Nystatin swish and swallow WID for 2 weeks 7. Will follow in the assisted 8. CBC and CMP next week. Plan and coordination of the patient's care discussed in the presence of [employer] Officer and nurse. SCRIBED BY: Armando KRISHNAN scribed while in presence of service performed by Dr. Sotelo/Elsa Bee APRN on 07/01/22 ([id number])
--- NOTE | 2022-07-01 09:59 | DS ---
DATE OF SERVICE: 07/01/22 FINAL DIAGNOSIS: 1. Bilateral pneumonitis 2. Acute respiratory failure, resolved 3. Hypokalemia, resolved 4. Thrush, improving 5. COPD 6. Dementia with behavioral disturbances. DISCHARGE INSTRUCTIONS: Discharge back to [facility]. Fall precautions. CODE STATUS: DNR. Continue all medications prior. Dr. Covarrubias/Elsa Bee, P[employer] MECH[employer]IC APPRENTICE and Sarabjit Jones to follow on [facility] rounds. CBC and CMP in one week. Continue Wound Care Coccyx area cleansed with soap and water with Optifoam dressing daily. MEDICATIONS AT DISCHARGE: Namenda 10mg PO Q 12 hours Tylenol 650mg PO Q 4 hours PRN Miralax 17gram PO daily Seroquel 50mg PO QAM Milk of Magnesia 30ml PO daily PRN Bisacodyl 10mg PO AL daily PRN Symbicort 2 puff inhalation BID Zyprexa 2.5mg PO bedtime Rivastigmine 1.5mg PO BID Norvasc 5mg PO daily NEW PRESCRIPTIONS: Levofloxacin 500mg PO daily Prednisone 20mg PO daily Ipratropium Albuterol 3ml NEB Q 6 hours Diflucan 150mg PO every other day Nystatin 5ml PO ACHS Alprazolam 0.5mg PO TID PRN DISCONTINUED MEDICATIONS: Alprazolam 0.5mg PO TID ProAir HFA DIET INSTRUCTIONS: Minced and moist with boost supplement. ACTIVITY: Fall Precautions. may participate in activities as tolerated. HOSPITAL COURSE: 81 year old white female who presented to the [facility] from [facility] with shortness of breath and oxygen saturation down to 85%. ABG showed pO2 of 53 on 2 liters. Initiated on 4 liters. She has been weaned down to 3 liters and does note wear oxygen all the time. X-ray showed bilateral multifocal pneumonia. Blood cultures are negative. Started on IV Levaquin and IV Solu-Cortef and given NEBS four times daily. Each day slowly has improved. She is back to baseline. She does require assistance with feeding due to blindness and dementia. She is on multiple psychotropic medications due to dementia with behavioral disturbances. Behaviors have been controlled. Yesterday she showed signs of Thrush and was started on Diflucan and Nystatin, this is already improving. We started oral steroids. She is tolerating that well. We will discharge back to [facility] with Levaquin and Prednisone daily for 5 more days. She is to continue DUO NEBS for 2 weeks. We will follow her at the [facility]. TIME SPENT: More than 60 minutes. JUN
--- NOTE | 2022-07-01 14:31 | PN ---
DATE OF SERVICE: 06/28/22 SUBJECTIVE: 81 year old white female hospitalized with bilateral pneumonia with severe hypoxemia. The patient's condition seems to have improved some in a way of her oxygenation and her skin turgor. Hypokalemia has resolved. REVIEW OF SYSTEMS: CONSTITUTIONAL: No night sweats. Sleepy. No fever or chills. HEENT: Eyes: No visual changes. No eye pain. No eye discharge. ENT: No runny nose. No epistaxis. No sinus pain. No sore throat. No odynophagia. No congestion. RESPIRATORY: No cough, no congestion. No hemoptysis. No shortness of breath. CARDIOVASCULAR: No angina symptoms. No CHF symptoms. No atypical chest pain for CAD. No palpitations. No PND. No orthopnea. GASTROINTESTINAL: No abdominal pain. No nausea or vomiting. No diarrhea or constipation. No hematemesis. No hematochezia. GENITOURINARY: No urgency. No frequency. No dysuria. No hematuria. No obstructive symptoms. No discharge. No pain. No significant abnormal bleeding. MUSCULOSKELETAL: No musculoskeletal pain; no joint swelling. NEUROLOGICAL: No headache. No neck pain. No syncope. No seizures. No dizziness. The patient is confused. PSYCHIATRIC: Not anxious. No depression. No suicidal thoughts. No homicidal thoughts. SKIN: No rash. No lesions. No wounds. ENDOCRINE: No unexplained weight loss. No weight gain. HEMATOLOGIC/LYMPHATIC: No anemia. No purpura. No petechiae. No prolonged or excessive bleeding. No palpable lymph nodes. PHYSICAL EXAMINATION: VITAL SIGNS: Temperature 98.1, pulse 70, respiratory rate 16, blood pressure 120/65 and pulse ox 93% HEENT: Head normocephalic, atraumatic. Eyes: Extraocular muscles are intact. Pupils are equal, round and reactive to light and accommodation. Ears: No lesions. Nose appeared normal. Throat: No exudate or erythema. NECK: Supple. No JVD, no carotid bruit. No lymphadenopathy or thyromegaly. LUNGS: Decreased breath sounds with good air entry. Clear to auscultation. Percussion note normal. Chest symmetrical. HEART: S1, S2, no S3. No murmurs. No cyanosis or clubbing. No ascites. Pulses: Dorsalis pedis and posterior tibial pulses +1 to +2 bilaterally. ABDOMEN: Soft. Nontender. Bowel sounds active. No CVA tenderness. No mass felt. EXTREMITIES: No edema. Full range of motion of all extremities, equal. NEUROLOGIC: No focal deficit. Cranial nerves II through XII are grossly intact. No headache. No double vision. SKIN: Not dry. Intact. Turgor - normal. LYMPHATIC: No palpable lymph nodes/no lymphedema. MUSCULOSKELETAL: Normal joints with no swelling. Muscle tone is normal. LABS: Hgb 11.1, hct 36, WBC 9,600 normal differential, creatinine 0.7, BUN 19, potassium 3.8 ASSESSMENT: 1. Bilateral pneumonia seems to be improving slowly 2. Dementia 3. Hypokalemia seems to have resolved PLAN: 1. Continue antibiotics, steroids 2. Will have ABG done on 2 liters TIME SPENT: More than 30 minutes. Plan and coordination of the patient's care discussed in the presence of nurse. JUN
--- NOTE | 2022-07-02 08:11 | PN ---
DATE OF SERVICE: 06/29/22 SUBJECTIVE: 81 year old white female who is demented hospitalized with bilateral pneumonia, hypoxemia. The patient's condition seems to have improved. Her blood gases done yesterday showed pO2 of 60, pCO2 36, pH 7.52 with 93% on room air. REVIEW OF SYSTEMS: CONSTITUTIONAL: No night sweats. No fatigue, malaise, lethargy. No fever or chills. HEENT: Eyes: No visual changes. No eye pain. No eye discharge. ENT: No runny nose. No epistaxis. No sinus pain. No sore throat. No odynophagia. No congestion. RESPIRATORY: No cough, no congestion. No hemoptysis. No shortness of breath. CARDIOVASCULAR: No angina symptoms. No CHF symptoms. No atypical chest pain for CAD. No palpitations. No PND. No orthopnea. GASTROINTESTINAL: No abdominal pain. No nausea or vomiting. No diarrhea or constipation. No hematemesis. No hematochezia. oral intake not up to par. GENITOURINARY: No urgency. No frequency. No dysuria. No hematuria. No obstructive symptoms. No discharge. No pain. No significant abnormal bleeding. MUSCULOSKELETAL: No musculoskeletal pain; no joint swelling. NEUROLOGICAL: No headache. No neck pain. No syncope. No seizures. No dizziness. PSYCHIATRIC: Not anxious. No depression. No suicidal thoughts. No homicidal thoughts. SKIN: No rash. No lesions. No wounds. ENDOCRINE: No unexplained weight loss. No weight gain. HEMATOLOGIC/LYMPHATIC: No anemia. No purpura. No petechiae. No prolonged or excessive bleeding. No palpable lymph nodes. PHYSICAL EXAMINATION: VITAL SIGNS: Temperature 96.6, pulse 85, respiratory rate 18, blood pressure 152/77 and pulse ox 96% HEENT: Head normocephalic, atraumatic. Eyes: Extraocular muscles are intact. Pupils are equal, round and reactive to light and accommodation. Ears: No lesions. Nose appeared normal. Throat: No exudate or erythema. NECK: Supple. No JVD, no carotid bruit. No lymphadenopathy or thyromegaly. LUNGS: Decreased breath sounds but clear to auscultation. Percussion note normal. Chest symmetrical. HEART: S1, S2, no S3. No murmurs. No cyanosis or clubbing. No ascites. Pulses: Dorsalis pedis and posterior tibial pulses +1 to +2 bilaterally. ABDOMEN: Soft. Nontender. Bowel sounds active. No CVA tenderness. No mass felt. EXTREMITIES: No edema. Full range of motion of all extremities, equal. NEUROLOGIC: No focal deficit. Cranial nerves II through XII are grossly intact. No headache. No double vision. SKIN: Not dry. Intact. Turgor - normal. LYMPHATIC: No palpable lymph nodes/no lymphedema. MUSCULOSKELETAL: Normal joints with no swelling. Muscle tone is normal. LABS: Hgb 13.7, hct 44, WBC 9,300 normal differential, creatinine 0.7, BUN 21, potassium 3.5 ASSESSMENT: 1. Bilateral pneumonia seems to be resolving 2. Hypoxemia seems to be better, blood gasses good yesterday 3. Hypokalemia, borderline PLAN: 1. Continue the same treatment with antibiotics, NEBS, Dexamethasone 1cc daily 2. Continue Levofloxacin 500mg PO daily TIME SPENT: More than 30 minutes. Plan and coordination of the patient's care discussed in the presence of nurse. JUN
--- NOTE | 2022-07-02 10:02 | PN ---
DATE OF SERVICE: 06/30/22 SUBJECTIVE: The patient was seen with the Nurse Practitioner. The patient's condition is stable. The patient has dementia. Pneumonia seems to resolving. Oxygen saturation satisfactory. Prognosis is guarded. The patient's dementia is advanced. TIME SPENT: More than 30 minutes. Plan and coordination of the patient's care discussed in the presence of nurse. JUN
--- NOTE | 2022-07-02 10:37 | PN ---
DATE OF SERVICE: 07/01/22 SUBJECTIVE: The patient was seen and examined with the Nurse Practitioner. The patient's condition is stable. She has dementia. Pneumonia seems to have resolved. The [facility] The patient was seen and examined with the Nurse Practitioner. TIME SPENT: More than 30 minutes. Plan and coordination of the patient's care discussed in the presence of nurse. JUN
--- NOTE | 2022-07-02 10:38 | PN ---
ADMISSION DAY: LEVEL 5 REST OF THEM: INTERMEDIATE FINAL DAY: D IN DISCHARGE MTDD
--- NOTE | 2022-07-03 11:21 | PN ---
DATE OF SERVICE: 06/26/22 SUBJECTIVE: The patient was seen and examined after she was hospitalized with change in the mental status and weakness. The patient had hypoxemia with respiratory failure with bilateral pneumonia. Lung sounds were congested. The patient is going to be on double antibiotics like Doxycycline and Rocephin. She is going to be steroids, NEBS treatment, IV fluids. The patient will be on telemetry and routine telemetry orders. Daily CBC and CMP. Daughter was present at the time when I examined and after that she left. The patient is DNR. Condition stable for now. TIME SPENT: More than 30 minutes. Plan and coordination of the patient's care discussed in the presence of nurse. JUN
--- NOTE | 2022-07-03 14:47 | PN ---
DATE OF SERVICE: 06/27/22 SUBJECTIVE: 81 year old white female hospitalized with bilateral pneumonia, hypoxemia The patient's condition has improved. She is feeling somewhat better. She is still sleepy. REVIEW OF SYSTEMS: CONSTITUTIONAL: No night sweats. No fatigue, malaise, lethargy. No fever or chills. HEENT: Eyes: No visual changes. No eye pain. No eye discharge. ENT: No runny nose. No epistaxis. No sinus pain. No sore throat. No odynophagia. No congestion. RESPIRATORY: No cough, no congestion. No hemoptysis. No shortness of breath. CARDIOVASCULAR: No angina symptoms. No CHF symptoms. No atypical chest pain for CAD. No palpitations. No PND. No orthopnea. GASTROINTESTINAL: No abdominal pain. No nausea or vomiting. No diarrhea or constipation. No hematemesis. No hematochezia. GENITOURINARY: No urgency. No frequency. No dysuria. No hematuria. No obstructive symptoms. No discharge. No pain. No significant abnormal bleeding. MUSCULOSKELETAL: No musculoskeletal pain; no joint swelling. NEUROLOGICAL: No headache. No neck pain. No syncope. No seizures. No dizziness. PSYCHIATRIC: Not anxious. No depression. No suicidal thoughts. No homicidal thoughts. SKIN: No rash. No lesions. No wounds. ENDOCRINE: No unexplained weight loss. No weight gain. HEMATOLOGIC/LYMPHATIC: No anemia. No purpura. No petechiae. No prolonged or excessive bleeding. No palpable lymph nodes. PHYSICAL EXAMINATION: GENERAL: Cooperative. VITAL SIGNS: Temperature 96.5, pulse 80, respiratory rate 16, blood pressure 135/72, pulse ox 94% HEENT: Head normocephalic, atraumatic. Eyes: Extraocular muscles are intact. Pupils are equal, round and reactive to light and accommodation. Ears: No lesions. Nose appeared normal. Throat: No exudate or erythema. NECK: Supple. No JVD, no carotid bruit. No lymphadenopathy or thyromegaly. LUNGS: Decreased breath sounds. Percussion note normal. Chest symmetrical. HEART: S2, no S3. No murmurs. No cyanosis or clubbing. No ascites. Pulses: Dorsalis pedis and posterior tibial pulses +1 to +2 bilaterally. ABDOMEN: Soft. Nontender. Bowel sounds active. No CVA tenderness. No mass felt. EXTREMITIES: Trace edema. Full range of motion of all extremities, equal. NEUROLOGIC: No focal deficit. Cranial nerves II through XII are grossly intact. No headache. No double vision. SKIN: Not dry. Intact. Turgor - normal. LYMPHATIC: No palpable lymph nodes/no lymphedema. MUSCULOSKELETAL: Normal joints with no swelling. Muscle tone is normal. LABS: Hemoglobin 11.6, hematocrit 37, WBC 6,700, normal differential, BUN 20, potassium 3.8 ASSESSMENT: 1. Bilateral pneumonia with respiratory failure with hypoxemia 2. Hypokalemia seems to have resolved CONDITION; Stable TIME SPENT: More than 30 minutes. Plan and coordination of the patient's care discussed in the presence of nurse. JUN
--- NOTE | 2022-07-10 14:05 | HP ---
DATE OF SERVICE: 06/26/22 HISTORY OF PRESENT ILLNESS: This is an 81 year old white male who is a resident at [facility]. They called and stated that she had been short of breath with a dry cough off and on for a week. [facility] they stated that her oxygen saturation was found to be in the 80's. She was brought here for further evaluation. PAST MEDICAL HISTORY: Covid - September 2021 Alzheimer's dementia with behavioral disturbances History of hallucinations Anxiety Coronary artery disease Congenital cataracts of both eyes, she is legally blind COPD Recurrent pneumonia Depression Generalized weakness History of GI bleed Bilateral glaucoma History of pulmonary nodule Hypertension Polyarthritis Parkinson's disease Recurrent UTI's L3 compression deformity History of left breast nodule, refuses further evaluation Internal hemorrhoids PAST SURGICAL HISTORY: Appendectomy Bilateral cataract extraction REVIEW OF SYSTEMS: CONSTITUTIONAL: Generalized weakness. No night sweats. No fatigue, malaise, lethargy. No fever or chills. HEENT: Eyes: No visual changes. No eye pain. No eye discharge. ENT: No runny nose. No epistaxis. No sinus pain. No sore throat. No odynophagia. No ear pain. No congestion. RESPIRATORY: Cough, no congestion. No hemoptysis. Shortness of breath. CARDIOVASCULAR: No angina symptoms. No CHF symptoms. No atypical chest pain for CAD. No palpitations. No PND. No orthopnea. GASTROINTESTINAL: No abdominal pain. No nausea or vomiting. No diarrhea or constipation. No hematemesis. No hematochezia. GENITOURINARY: No urgency. No frequency. No dysuria. No hematuria. No obstructive symptoms. No discharge. No pain. No significant abnormal bleeding. MUSCULOSKELETAL: No musculoskeletal pain. No joint swelling. No arthritis. NEUROLOGICAL: No headache. No neck pain. No syncope. No seizures. No dizziness. PSYCHIATRIC: Confusion. Not anxious. No depression. No suicidal thoughts. No homicidal thoughts. SKIN: No rash. No lesions. No wounds. ENDOCRINE: No unexplained weight loss. No weight gain. HEMATOLOGIC/LYMPHATIC: No anemia. No purpura. No petechiae. No prolonged or excessive bleeding. No palpable lymph nodes. LABS: White count 9.08, hemoglobin 11.6, hematocrit 37.3, platelets 174, sodium 145, potassium 3.1, carbon dioxide 33.4, BUN 30, creatinine 0.63, glucose 178. Influenza A and B are negative. Covid is negative. ABG's on 2 liters - O2 sat 85, PH 7.43, PCO2 48, PO2 51, bicarb 31,9. Lactic acid 0.97. Troponin 0.012, NT proBNP 668. Chest x-ray on 06/26 shows bilateral opacities suspicious for multifocal pneumonia. PHYSICAL EXAMINATION: GENERAL: The patient is alert and not oriented to person or place. VITAL SIGNS: Temp 99.8, heart rate 78, respirations 20, blood pressure 127/53, pulse ox 92% on 3 liters HEENT: Head normocephalic, atraumatic. Eyes: Extraocular muscles are intact. Pupils are equal, round and reactive to light and accommodation. Ears: No lesions. Nose appeared normal. Throat: No exudate or erythema. NECK: Supple. No JVD, no carotid bruit. No lymphadenopathy or thyromegaly. LUNGS: Severely diminished breath sounds with bilateral rhonchi and bilateral expiratory wheezing. Chest symmetrical. HEART: S1, S2, no S3. No murmur. No cyanosis or clubbing. No ascites. Pulses: Dorsalis pedis and posterior tibial pulses +1 to +2 bilaterally. ABDOMEN: Soft. Nontender. Bowel sounds active. No CVA tenderness. No mass felt. EXTREMITIES: No leg edema. Full range of motion of all extremities, equal. NEUROLOGIC: No focal deficit. Cranial nerves II through XII are grossly intact. No headache, no double vision or headache. SKIN: Not dry. Intact. Turgor - normal. LYMPHATIC: No palpable lymph nodes/no lymphedema. MUSCULOSKELETAL: Normal joints with no swelling. Muscle tone is normal. ASSESSMENT: Acute respiratory failure Bilateral pneumonia Dementia with behavioral disturbances Hypokalemia Acute renal failure PLAN: 1. We will admit 2. Routine telemetry orders 3. CBC, CMP daily 4 . Increase oxygen to 3 liters and repeat ABG's in one hour on [address] of chest with and without 6. Start potassium 20 PO BID 7. UA, urine for culture and sensitivity 8. Blood cultures x2 9. ER started her on Levaquin 500 mg IV daily 10. Solu cortef 100 mg IV Q eight hours 11. Albuterol nebs TID scheduled 12. Regular diet 13. Patient requires assistance with all ADL's 14. Will follow closely 15. Speech evaluation TIME SPENT: More than 70 minutes. JUN
== END 2022-07-01 13:25 | DRG 193 ==
LOC: ED 12:12 → MEDSURG A 14:36
PROVIDERS: ADMIT Internal Medicine; ATTEND Internal Medicine
DX: J18.9 Pneumonia, unspecified organism; I10 Essential (primary) hypertension; E87.6 Hypokalemia; R06.02 Shortness of breath; N17.9 Acute kidney failure, unspecified; Z74.1 Need for assistance with personal care; F32.A Depression, unspecified; F03.911 Unspecified dementia, unspecified severity, with agitation; Z79.899 Other long term (current) drug therapy; Z51.81 Encounter for therapeutic drug level monitoring; B37.9 Candidiasis, unspecified; Z20.822 Contact with and (suspected) exposure to COVID-19; J96.21 Acute and chronic respiratory failure with hypoxia; I25.10 Atherosclerotic heart disease of native coronary artery without angina pectoris; R09.02 Hypoxemia; J44.1 Chronic obstructive pulmonary disease with (acute) exacerbation

== ENCOUNTER 2022-08-16 10:46 | Inpatient (IN) ==
[2022-08-16] MEDS ORDERED: SODIUM CHLORIDE 1,000 ML IV STA (10:51)
--- NOTE | 2022-08-16 10:55 | ED.PDOC ---
General ED Provider: Dr. ANTHONY LANDON MD Chief Complaint: Behavioral Complaint Stated Complaint: NH pt w/ episode of unresponsiveness today for a few minutes, no injury, hx htn, dementia, uses a WC, no fever, no emesis, poor historian, poc glucose 188, staff reports they feel she withdraws on purpose, hx dnr Time Seen by Provider: 08/16/22 10:49 Primary Care Provider: MADELIN SOTELO MD Nursing and Triage Documentation Reviewed and Agree: Yes Does patient meet sepsis criteria?: No System Inflammatory Response Syndrome: Not Applicable Sepsis Protocol: For patient's 13 years and over: Temp is 96.8 and below OR 101 and greater Pulse >90 BPM Resp >20/minute Acutely Altered Mental Status Are patient's symptoms suggestive of a new infection, such as: -Pneumonia -Skin, Soft Tissue -Endocarditis -UTI -Bone, Joint Infection -Implantable Device -Acute Abdominal Infection -Wound Infection -Meningitis -Blood Stream Catheter Infection -Unknown Review of Systems Review Of Systems Constitutional: Denies Fever Eyes: Denies Drainage Ears, Nose, Mouth, Throat: Denies Epistaxis Respiratory: Denies Short of air Cardiac: Denies Chest pain GI: Denies Abdomen distended Musculoskeletal: Denies Back pain Skin: Denies Cyanosis Neurological: Reports Cognitive dysfunction All Other Systems: Other [facility] Medical History (Updated 08/16/22 @ 13:20 by ANTHONY LANDON MD) Alzheimer disease Anxiety Atherosclerotic cardiovascular disease CAD (coronary artery disease) Cataracts, both eyes COPD (chronic obstructive pulmonary disease) COVID-19 Dementia Depression ALBERTO (generalized anxiety disorder) Generalized weakness GI bleed Glaucoma Hx of solitary pulmonary nodule Hypertension IBS (irritable bowel syndrome) Legally blind Night terror Osteoarthritis Parkinson disease Pneumonia Reduced mobility UTI (urinary tract infection) Family History FATHER Cancer of bone BROTHER Acute GA BROTHER Hypertension Cardiac disorder SISTER Cardiac disorder Social History (Updated 06/26/22 @ 15:56 by FEDE BENÍTEZ RN) Smoking and tobacco status: Former smoker Alcohol intake: former Substance use type: does not use Surgical History History of appendectomy Female Reproductive History Menstrual Hx Hysterectomy: No Hx Tubal Ligation: No Physical Exam Physical Exam Appearance: Reports No pain distress Ill-appearing: Mild Pain Distress: None Eyes: Reports RALPH, EOMI and Conjunctiva clear ENT: Reports Dry mucosa Neck: Supple Respiratory: Reports Airway patent, Breath sounds clear and Breath sounds equal Cardiovascular: Reports RRR GI/: Reports Soft and Nontender Musculoskeletal: Reports No edema Skin: Reports Warm and Dry Neurological: Reports Sensation intact and Other (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, uncoope rative) Psychiatric: Reports Depressed Interpretation Radiology Interpretation Radiology Interpretation By: Radiologist Radiology Results: No acute changes Exam Interpreted: CXR Radiology Interpretation By: Radiologist Exam Interpreted: CT Scan Xray Comments: no brain bleed EKG Interpretation Time of EKG #1: 13:18 Rate: Normal Rhythm: Sinus Interpretation: no stemi Critical Care Note Critical Care Note Total Critical Care Time (mins): 0 Course Course Hematology/Chemistry: 08/16/22 11:22 08/16/22 11:22 Orders, Labs, Meds: Lab Review 08/16/22 08/16/22 08/16/22 11:09 11:22 11:22 WBC 6.29 RBC 4.09 L Hgb 13.2 Hct 41.5 MCV 101.5 H MCH 32.3 H MCHC 31.8 RDW Coeff of Yosvany 14.6 Plt Count 180 Immature Gran % (Auto) 0.2 Neut % (Auto) 79.2 H Lymph % (Auto) 13.0 [place] % (Auto) 6.8 Eos % (Auto) 0.3 Baso % (Auto) 0.5 Neut # (Auto) 5.0 Lymph # (Auto) 0.8 [place] # (Auto) 0.4 Eos # (Auto) 0.0 Baso # (Auto) 0.0 Immature Gran # (Auto) 0.0 PT 9.9 INR 0.95 Sodium Potassium Chloride Carbon Dioxide Anion Gap BUN Creatinine Estimated GFR (MDRD) BUN/Creatinine Ratio Glucose Lactic Acid Calcium Total Bilirubin AST ALT Alkaline Phosphatase Troponin I Total Protein Albumin Globulin Albumin/Globulin Ratio Urine Color Urine Clarity Urine pH Ur Specific [place] Urine Protein Urine Glucose (UA) Urine Ketones Urine Blood Urine Nitrite Urine Bilirubin Urine Urobilinogen Ur Leukocyte Esterase Urine Microscopic WBC Ur Squamous Epith Cells Urine Bacteria SARS CoV-2 RNA Rapid ELISEO Negative 08/16/22 08/16/22 08/16/22 11:22 11:22 12:40 WBC RBC Hgb Hct MCV MCH MCHC RDW Coeff of Yosvany Plt Count Immature Gran % (Auto) Neut % (Auto) Lymph % (Auto) [place] % (Auto) Eos % (Auto) Baso % (Auto) Neut # (Auto) Lymph # (Auto) [place] # (Auto) Eos # (Auto) Baso # (Auto) Immature Gran # (Auto) PT INR Sodium 142.6 Potassium 3.93 Chloride 107.6 H Carbon Dioxide 32.8 H Anion Gap 6.13 BUN 20.2 H Creatinine 0.75 Estimated GFR (MDRD) 74.00 BUN/Creatinine Ratio 26.93 Glucose 107.1 H Lactic Acid 0.79 Calcium 8.62 Total Bilirubin 0.45 AST 33.6 ALT 26.6 Alkaline Phosphatase 85.4 Troponin I < 0.012 Total Protein 6.74 Albumin 3.89 Globulin 2.85 Albumin/Globulin Ratio 1.36 Urine Color Yellow Urine Clarity Turbid Urine pH 7.0 Ur Specific [place] 1.020 Urine Protein Negative Urine Glucose (UA) Negative Urine Ketones Negative Urine Blood Negative Urine Nitrite Positive H Urine Bilirubin Negative Urine Urobilinogen 0.2 Ur Leukocyte Esterase Trace H Urine Microscopic WBC 2-5 Ur Squamous Epith Cells Not present Urine Bacteria 3+ SARS CoV-2 RNA Rapid ELISEO Orders Category Date Time Status EKG-(ED ONLY) Stat CARDIO 08/16/22 10:49 Completed CBC W/ AUTO DIFF Stat LAB 08/16/22 11:22 Completed CMP [COMPREHENSIVE METABOLIC PANEL] Stat LAB 08/16/22 11:22 Completed LACTIC ACID Stat LAB 08/16/22 11:22 Completed PT WITH INR Stat LAB 08/16/22 11:22 Completed SARS COV-2 RNA RAPID ELISEO Stat LAB 08/16/22 11:09 Completed TROPONIN I Stat LAB 08/16/22 11:22 Completed URINALYSIS C & S IF INDICATED Stat LAB 08/16/22 12:40 Completed URINE CULTURE Stat LAB 08/16/22 12:40 Received Sodium Chloride 0.9% [Sodium Chloride] 1,000 ml MEDS 08/16/22 10:51 Discontinued IV BOLUS CHEST, 1V AP ONLY Stat RADS 08/16/22 10:[address] HEAD W/O CONTRAST Stat RADS 08/16/22 10:49 Completed Medications Discontinued Medications Generic Name Dose Route Start Last Admin Trade Name Freq PRN Reason Stop Dose Admin Sodium Chloride 1,000 mls @ 1,000 mls/hr 08/16/22 10:51 Sodium Chloride IV 08/16/22 11:50 BOLUS STA Vital Signs: Temp Pulse Resp BP Pulse Ox 08/16/22 10:49 98.2 F 75 20 167/73 H 99 Discharge Plan Discharge Patient Disposition: ADMITTED INPATIENT Discharge Problem: Syncope, Acute UTI Prescriptions: No Action memantine [Namenda] 10 mg Tablet 10 mg PO Q12HR acetaminophen [Tylenol] 325 mg Tablet 650 mg PO Q4HR PRN (Reason: Pain) Qty: 60 5RF Rx Instructions: DO NOT TAKE MORE THAN 4000 MG IN A 24 HOUR PERIOD polyethylene glycol 3350 [Miralax] 17 gram Powder In Packet 17 g PO DAILY magnesium hydroxide [Milk of Magnesia] 400 mg/5 mL Suspension 30 ml PO DAILY PRN (Reason: Constipation) Rx Instructions: IF NO BM FOR 3 DAYS bisacodyl 10 mg Suppository 10 mg MI DAILY PRN (Reason: Constipation) quetiapine [Seroquel] 50 mg Tablet 50 mg PO QAM budesonide-formoterol [Symbicort] 80-4.5 mcg/actuation Hfa Aerosol Inhaler 2 puff inhalation BID 0RF amlodipine [Norvasc] 5 mg tablet 5 mg PO DAILY rivastigmine tartrate 1.5 mg Capsule 1.5 mg PO BID olanzapine [Zyprexa] 2.5 mg Tablet 2.5 mg PO BEDTIME alprazolam 0.5 mg tablet 0.5 mg PO TID PRN (Reason: Anxiety) Qty: 90 0RF Rx Instructions: AFTERNOON levofloxacin 500 mg Tablet 500 mg PO DAILY Qty: 5 0RF prednisone 20 mg Tablet 20 mg PO DAILY Qty: 5 0RF fluconazole [Diflucan] 150 mg Tablet 150 mg PO EVERY OTHER DAY Qty: 3 0RF Rx Instructions: TAKE 150MG EVERY OTHER DAY. NEXT DOSE DUE 07/03/22, 07/05/22, 07/07/22. nystatin 100,000 unit/mL Suspension 5 ml PO ACHS Qty: 280 0RF Rx Instructions: TAKE 5ML BEFORE MEALS AND AT BEDTIME FOR 2 WEEKS. Did you review [place] ACOUSTICAL MATERIAL WORKER for ALL controlled substances?: Not Applicable ED Provider: ANTHONY LANDON Condition: Stable Physician Progress Note: []full admit tele d/w Dr Sotelo
--- NOTE | 2022-08-16 11:25 | CT ---
EXAM: CT head without contrast. HISTORY: Weakness. COMPARISON: 10/24/2021. TECHNIQUE: Multiple axial images of the brain were obtained from the skull base through the vertex w ithout intravenous contrast. Multiplanar reformats were provided. FINDINGS: There is no intracranial hemorrhage or extraaxial collection. The wheat-white differentiat ion is maintained without evidence for acute large vascular territory infarction. There are areas of periventricular and subcortical white matter low attenuation. The cortical sulci and cerebral ventr icles are symmetrically enlarged. The basal cisterns are well visualized. There is no hydrocephalus , mass effect, or midline shift. Mild mucosal thickening ethmoid sinuses and left frontal sinus. Ot herwise, the paranasal sinuses and mastoid air cells are clear. The calvarium is intact. Since the prior study, there has been no significant interval change. IMPRESSION: 1. No acute intracranial abnormality. 2. Chronic small vessel ischemic changes and atrophy. All CT scans are performed using dose optimization techniques as appropriate to the performed exam an d include at least one of the following: Automated exposure control, adjustment of the mA and/or kV according t o size, and the use of iterative reconstruction technique.
[2022-08-16 11:29] LABS: BASOPHILS % (AUTO) 0.5 % (0.0-3.0); EOSINOPHILS % (AUTO) 0.3 % (0.0-7.0); HEMATOCRIT 41.5 % (37.0-47.0); HEMOGLOBIN 13.2 g/dl (12.0-16.0); IMMATURE GRANULOCYTE % (AUTO) 0.2 % (0.0-5.0); LYMPHOCYTES # (AUTO) 0.8 K/uL (0.60-3.4); MEAN CORPUSCULAR HEMOGLOBIN 32.3 pg (27.0-31.0); MEAN CORPUSCULAR HGB CONC 31.8 (31.8-35.4); MEAN CORPUSCULAR VOLUME 101.5 fl (81.0-99.0); MONOCYTES # (AUTO) 0.4 K/uL (0.4-2.0); MONOCYTES % (AUTO) 6.8 (0-10); NEUTROPHILS % (AUTO) 79.2 % (42.2-75.2); PLATELET COUNT 180 10^3/uL (140-440); RDW COEFFICIENT OF VARIATION 14.6 % (11.6-14.8); RED BLOOD COUNT 4.09 10^6/ul (4.20-5.40); WHITE BLOOD COUNT 6.29 K/ul (4.6-10.2)
[2022-08-16 11:38] LABS: ALANINE AMINOTRANSFERASE 26.6 U/L (0-35); ALBUMIN 3.89 g/dL (3.5-5.0); ALKALINE PHOSPHATASE 85.4 U/L (53-141); ASPARTATE AMINO TRANSFERASE 33.6 U/L (14-36); BILIRUBIN,TOTAL 0.45 mg/dL (0.2-1.3); BLOOD UREA NITROGEN 20.2 mg/dL (7-17); CALCIUM 8.62 mg/dL (8.4-10.2); CARBON DIOXIDE 32.8 mmol/L (22-30.0); CHLORIDE 107.6 mmol/L (98-107); CREATININE 0.75 mg/dL (0.60-1.30); GLUCOSE 107.1 mg/dL (74-106); POTASSIUM 3.93 mmol/L (3.5-5.1); PROTHROMBIN TIME 9.9 SEC (9.3-11.0); SODIUM 142.6 mmol/L (134.5-145); TOTAL PROTEIN 6.74 g/dL (6.3-8.2)
--- NOTE | 2022-08-16 11:49 | DI ---
EXAM: Chest one view, frontal view only. HISTORY: Weakness. COMPARISON: Radiograph 06/30/2022. CT 12/27/2019 FINDINGS: Heart size normal. Stable consolidation in both upper lungs in the right lung base. Gene ral reticular prominence throughout both lungs. No new opacity, pleural effusion or pneumothorax. D egenerative changes in the spine and shoulders. Since prior study, findings are stable. IMPRESSION: Stable appearance of the chest.
[2022-08-16 11:50] LABS: TROPONIN I < 0.012 ng/ml (0.0000-0.120)
[2022-08-16 12:06] LABS: SARS COV-2 RNA RAPID NAAT NEGATIVE (NEGATIVE)
[2022-08-16 12:48] LABS: BILIRUBIN,URINE Negative (NEGATIVE); CLARITY,URINE Turbid (CLEAR); COLOR,URINE Yellow (YELLOW); GLUCOSE, URINE (UA) Negative (NEGATIVE); KETONES,URINE Negative (NEGATIVE); LEUKOCYTE ESTERASE ,URINE Trace (NEGATIVE); NITRITE,URINE Positive (NEGATIVE); PROTEIN,URINE Negative (NEGATIVE); URINE, BLOOD Negative (NEGATIVE); UROBILINOGEN,URINE 0.2 (0.2)
[2022-08-16 13:11] LABS: BACTERIA,URINE 3+ (NOT PRESENT); SQUAMOUS EPITHELIAL CELL,UR NOT PRESENT (0-5)
[2022-08-16] MEDS ORDERED: ROCEPHIN 1 GM/50 ML D5W 1 GM/50 ML BAG IV SCH (14:00)
[2022-08-16] MEDS: SODIUM CHLORIDE 1,000 ML IV SCH (14:04)
[2022-08-16 14:59] VITALS: BMI 19.8
[2022-08-16] MEDS ORDERED: ROCEPHIN 1 GM/50 ML D5W 1 GM/50 ML BAG IV ONE (15:08)
[2022-08-16] MEDS ORDERED: NYSTATIN ORAL SUSP PO SCH (17:00)
[2022-08-16] MEDS: SYMBICORT 80-4.5 MCG INHALER IH SCH (20:46)
[2022-08-16] MEDS: NAMENDA PO SCH (20:46)
[2022-08-16] MEDS: ZYPREXA PO SCH (20:46)
[2022-08-17] MEDS: SODIUM CHLORIDE 1,000 ML IV SCH (02:26)
[2022-08-17 03:40] LABS: BASOPHILS % (AUTO) 0.6 % (0.0-3.0); EOSINOPHILS # (AUTO) 0.1 K/ul (0.0-0.7); EOSINOPHILS % (AUTO) 1.5 % (0.0-7.0); HEMATOCRIT 39.3 % (37.0-47.0); HEMOGLOBIN 12.5 g/dl (12.0-16.0); IMMATURE GRANULOCYTE % (AUTO) 0.2 % (0.0-5.0); LYMPHOCYTES % (AUTO) 18.2 (10.0-50.0); MEAN CORPUSCULAR HEMOGLOBIN 32.4 pg (27.0-31.0); MEAN CORPUSCULAR HGB CONC 31.8 (31.8-35.4); MEAN CORPUSCULAR VOLUME 101.8 fl (81.0-99.0); MONOCYTES # (AUTO) 0.5 K/uL (0.4-2.0); MONOCYTES % (AUTO) 10.1 (0-10); NEUTROPHILS # (AUTO) 3.7 K/ul (2.0-6.9); NEUTROPHILS % (AUTO) 69.4 % (42.2-75.2); PLATELET COUNT 156 10^3/uL (140-440); RDW COEFFICIENT OF VARIATION 14.6 % (11.6-14.8); RED BLOOD COUNT 3.86 10^6/ul (4.20-5.40); WHITE BLOOD COUNT 5.27 K/ul (4.6-10.2)
[2022-08-17 03:53] LABS: ALANINE AMINOTRANSFERASE 23.2 U/L (0-35); ALBUMIN 3.46 g/dL (3.5-5.0); ALKALINE PHOSPHATASE 75.9 U/L (53-141); ASPARTATE AMINO TRANSFERASE 31.1 U/L (14-36); BILIRUBIN,TOTAL 0.49 mg/dL (0.2-1.3); BLOOD UREA NITROGEN 16.5 mg/dL (7-17); CALCIUM 8.31 mg/dL (8.4-10.2); CARBON DIOXIDE 29.3 mmol/L (22-30.0); CHLORIDE 109.8 mmol/L (98-107); GLUCOSE 88.4 mg/dL (74-106); POTASSIUM 3.94 mmol/L (3.5-5.1); SODIUM 141.2 mmol/L (134.5-145); TOTAL PROTEIN 6.25 g/dL (6.3-8.2)
[2022-08-17 04:05] LABS: TROPONIN I < 0.012 ng/ml (0.0000-0.120)
[2022-08-17] MEDS: TYLENOL PO PRN (06:55)
[2022-08-17] MEDS: MIRALAX PO SCH (08:49)
[2022-08-17] MEDS: NORVASC PO SCH (08:50)
[2022-08-17] MEDS: NAMENDA PO SCH ×2 (08:50→20:36)
[2022-08-17] MEDS: SEROQUEL PO SCH (08:50)
[2022-08-17] MEDS ORDERED: PREDNISONE PO SCH (09:00)
[2022-08-17] MEDS ORDERED: ROCEPHIN 1 GM/50 ML D5W 1 GM/50 ML BAG IV SCH (09:00)
[2022-08-17] MEDS: SYMBICORT 80-4.5 MCG INHALER IH SCH ×2 (09:49→20:41)
[2022-08-17] MEDS: XANAX PO PRN ×2 (12:03→20:36)
[2022-08-17] MEDS: ZYPREXA PO SCH (20:36)
[2022-08-18 05:22] LABS: BASOPHILS % (AUTO) 0.4 % (0.0-3.0); EOSINOPHILS # (AUTO) 0.1 K/ul (0.0-0.7); EOSINOPHILS % (AUTO) 1.7 % (0.0-7.0); HEMATOCRIT 40.8 % (37.0-47.0); HEMOGLOBIN 13.2 g/dl (12.0-16.0); IMMATURE GRANULOCYTE % (AUTO) 0.4 % (0.0-5.0); LYMPHOCYTES % (AUTO) 20.8 (10.0-50.0); MEAN CORPUSCULAR HEMOGLOBIN 32.4 pg (27.0-31.0); MEAN CORPUSCULAR HGB CONC 32.4 (31.8-35.4); MONOCYTES # (AUTO) 0.5 K/uL (0.4-2.0); MONOCYTES % (AUTO) 11.1 (0-10); NEUTROPHILS # (AUTO) 3.1 K/ul (2.0-6.9); NEUTROPHILS % (AUTO) 65.6 % (42.2-75.2); PLATELET COUNT 156 10^3/uL (140-440); RDW COEFFICIENT OF VARIATION 14.5 % (11.6-14.8); RED BLOOD COUNT 4.08 10^6/ul (4.20-5.40); WHITE BLOOD COUNT 4.77 K/ul (4.6-10.2)
[2022-08-18 05:42] LABS: ALANINE AMINOTRANSFERASE 20.6 U/L (0-35); ALBUMIN 3.66 g/dL (3.5-5.0); ALKALINE PHOSPHATASE 75.6 U/L (53-141); BILIRUBIN,TOTAL 0.37 mg/dL (0.2-1.3); BLOOD UREA NITROGEN 16.8 mg/dL (7-17); CALCIUM 8.68 mg/dL (8.4-10.2); CARBON DIOXIDE 31.3 mmol/L (22-30.0); CHLORIDE 108.6 mmol/L (98-107); CREATININE 0.63 mg/dL (0.60-1.30); GLUCOSE 90.7 mg/dL (74-106); POTASSIUM 4.06 mmol/L (3.5-5.1); SODIUM 141.9 mmol/L (134.5-145); TOTAL PROTEIN 6.49 g/dL (6.3-8.2)
[2022-08-18] MEDS ORDERED: DIFLUCAN PO SCH (09:00)
[2022-08-18] MEDS: MIRALAX PO SCH (09:03)
[2022-08-18] MEDS: ROCEPHIN 1 GM VIAL IM SCH (09:03)
[2022-08-18] MEDS: LIDOCAINE HCL 1% SDV IM SCH (09:03)
[2022-08-18] MEDS: NORVASC PO SCH (09:03)
[2022-08-18] MEDS: NAMENDA PO SCH ×2 (09:03→20:47)
[2022-08-18] MEDS: SEROQUEL PO SCH (09:03)
[2022-08-18] MEDS: SYMBICORT 80-4.5 MCG INHALER IH SCH ×2 (09:04→20:51)
--- NOTE | 2022-08-18 09:12 | PCM.PROG ---
Attending Provider: ATTENDING PROVIDER: Dr. MADELIN SOTELO MD This patient is seen with Elsa Bee, Nurse Practitioner. DATE OF SERVICE: 08/18/22 SUBJECTIVE: This 82 year old /WHITE F was hospitalized 08/16/22. The patient is eating well, no fever. Urine culture pending. White count with normal limits. Behavior has been controlled here. REVIEW OF SYSTEMS: CONSTITUTIONAL: No night sweats. No fatigue, malaise, lethargy. No fever or chills. HEENT: Eyes: No visual changes. No eye pain. No eye discharge. ENT: No runny nose. No epistaxis. No sinus pain. No odynophagia. No congestion. RESPIRATORY: No cough, no congestion. No hemoptysis. No shortness of breath. CARDIOVASCULAR: No angina symptoms. No CHF symptoms. No atypical chest pain for CAD. No palpitations. No orthopnea.. GASTROINTESTINAL: No abdominal pain. No nausea or vomiting. No diarrhea or constipation. No hematemesis. No hematochezia. GENITOURINARY: No urgency. No frequency. No dysuria. No hematuria. No obstructive symptoms. No discharge. No pain. No significant abnormal bleeding. MUSCULOSKELETAL: No musculoskeletal pain; no joint swelling. NEUROLOGICAL: Awake, alert, confusion. No headache. No neck pain. No syncope. No seizures. No dizziness. PSYCHIATRIC: Not anxious. No depression. No suicidal thoughts. No homicidal thoughts. SKIN: Wound noted on coccyx. No rash. No lesions. ENDOCRINE: No unexplained weight loss. No weight gain. HEMATOLOGIC/LYMPHATIC: No anemia. No purpura. No petechiae. No prolonged or excessive bleeding. No palpable lymph nodes. PHYSICAL EXAMINATION: GENERAL: The patient is awake, alert but not oriented, lying/sitting in bed in no distress. VITAL SIGNS: Temperature 96.9 F, Pulse 75, Respiratory Rate 18, BP 130/62, Pulse Ox 95% HEENT: Head normocephalic, atraumatic. Eyes: Extraocular muscles are intact. Pupils are equal, round and reactive to light and accommodation. Ears: No lesions. Nose appeared normal. Throat: No exudate or erythema. NECK: Supple. No JVD, no carotid bruit. No lymphadenopathy or thyromegaly. LUNGS: Diminished breath sounds. Clear to auscultation. Percussion note normal. Chest symmetrical. HEART: S1, S2, no S3. No murmurs. No cyanosis or clubbing. No ascites. Pulses: Dorsalis pedis and posterior tibial pulses +1 to +2 both sides. ABDOMEN: Soft. Non-tender. Bowel sounds active. No CVA tenderness. No mass felt. EXTREMITIES: No edema. Full range of motion of all extremities, equal. NEUROLOGIC: No focal deficit. Cranial nerves II through XII are grossly intact. No headache. No double vision. SKIN: Not dry. Intact. Turgor-normal. LYMPHATIC: No palpable lymph nodes/no lymphedema. MUSCULOSKELETAL: Normal joints with no swelling. Muscle tone is normal. LAB REVIEW: 08/18/22 04:58 08/18/22 04:58 08/18/22 04:58: Sodium 141.9, Potassium 4.06, Chloride 108.6 H, Carbon Dioxide 31.3 H, Anion Gap 6.06, BUN 16.8, Creatinine 0.63, Estimated GFR (MDRD) 90.00, BUN/Creatinine Ratio 26.66, Glucose 90.7, Calcium 8.68, Total Bilirubin 0.37, AST 28.0, ALT 20.6, Alkaline Phosphatase 75.6, Total Protein 6.49, Albumin 3.66, Globulin 2.83, Albumin/Globulin Ratio 1.29 08/18/22 04:58: WBC 4.77, RBC 4.08 L, Hgb 13.2, Hct 40.8, MCV 100.0 H, MCH 32.4 H, MCHC 32.4, RDW Coeff of Yosvany 14.5, Plt Count 156, Immature Gran % (Auto) 0.4, Neut % (Auto) 65.6, Lymph % (Auto) 20.8, [place] % (Auto) 11.1 H, Eos % (Auto) 1.7, Baso % (Auto) 0.4, Neut # (Auto) 3.1, Lymph # (Auto) 1.0, [place] # (Auto) 0.5, Eos # (Auto) 0.1, Baso # (Auto) 0.0, Immature Gran # (Auto) 0.0 ASSESSMENT: Please see below. 1. UTI culture pending. 2. Dementia with behavioral disturbance. 3. Stage 3 decubitus on coccyx. PLAN: 1. Continue Rocephin. Plan and coordination of the patient's care discussed in the presence of Home Care Consultant and nurse. TIME SPENT: 35 MINUTES CONDITION: STABLE SCRIBED BY: ROSSY MARTIN Information Director scribed while in presence of service performed by Dr. Sotelo/Elsa Bee APRN on 08/18/22 ([id number])
[2022-08-18] MEDS: XANAX PO PRN (12:38)
[2022-08-18] MEDS: TYLENOL PO PRN (20:47)
[2022-08-18] MEDS: ZYPREXA PO SCH (20:47)
[2022-08-18] MEDS: BACTROBAN TP SCH (20:47)
[2022-08-19 05:18] LABS: BASOPHILS % (AUTO) 0.9 % (0.0-3.0); EOSINOPHILS # (AUTO) 0.1 K/ul (0.0-0.7); EOSINOPHILS % (AUTO) 1.7 % (0.0-7.0); HEMATOCRIT 40.7 % (37.0-47.0); HEMOGLOBIN 13.2 g/dl (12.0-16.0); IMMATURE GRANULOCYTE % (AUTO) 0.2 % (0.0-5.0); LYMPHOCYTES # (AUTO) 1.2 K/uL (0.60-3.4); LYMPHOCYTES % (AUTO) 25.5 (10.0-50.0); MEAN CORPUSCULAR HEMOGLOBIN 32.5 pg (27.0-31.0); MEAN CORPUSCULAR HGB CONC 32.4 (31.8-35.4); MEAN CORPUSCULAR VOLUME 100.2 fl (81.0-99.0); MONOCYTES # (AUTO) 0.6 K/uL (0.4-2.0); MONOCYTES % (AUTO) 11.9 (0-10); NEUTROPHILS # (AUTO) 2.8 K/ul (2.0-6.9); NEUTROPHILS % (AUTO) 59.8 % (42.2-75.2); PLATELET COUNT 173 10^3/uL (140-440); RDW COEFFICIENT OF VARIATION 14.5 % (11.6-14.8); RED BLOOD COUNT 4.06 10^6/ul (4.20-5.40); WHITE BLOOD COUNT 4.62 K/ul (4.6-10.2)
[2022-08-19 05:52] LABS: ALANINE AMINOTRANSFERASE 17.9 U/L (0-35); ALBUMIN 3.57 g/dL (3.5-5.0); ALKALINE PHOSPHATASE 73.2 U/L (53-141); ASPARTATE AMINO TRANSFERASE 27.3 U/L (14-36); BILIRUBIN,TOTAL 0.49 mg/dL (0.2-1.3); BLOOD UREA NITROGEN 20.1 mg/dL (7-17); CALCIUM 8.29 mg/dL (8.4-10.2); CREATININE 0.64 mg/dL (0.60-1.30); GLUCOSE 91.5 mg/dL (74-106); POTASSIUM 4.23 mmol/L (3.5-5.1); SODIUM 141.8 mmol/L (134.5-145); TOTAL PROTEIN 6.4 g/dL (6.3-8.2)
[2022-08-19] MEDS: NORVASC PO SCH (08:47)
[2022-08-19] MEDS: NAMENDA PO SCH ×2 (08:48→20:14)
[2022-08-19] MEDS: SEROQUEL PO SCH (08:48)
[2022-08-19] MEDS: ROCEPHIN 1 GM VIAL IM SCH (08:48)
[2022-08-19] MEDS: LIDOCAINE HCL 1% SDV IM SCH (08:48)
[2022-08-19] MEDS: SYMBICORT 80-4.5 MCG INHALER IH SCH ×2 (08:49→20:14)
[2022-08-19] MEDS: BACTROBAN TP SCH ×2 (08:49→20:14)
--- NOTE | 2022-08-19 08:54 | PCM.PROG ---
Attending Provider: ATTENDING PROVIDER: Dr. MADELIN SOTELO MD This patient is seen with Elsa Bee, Nurse Practitioner. DATE OF SERVICE: 08/19/22 SUBJECTIVE: This 82 year old /WHITE F was hospitalized 08/16/22. The patient is resting comfortably. Urine culture is not back. Wound culture of coccyx shows colonization. The area does not look infected. She has been eating moderately well. No fever. REVIEW OF SYSTEMS: CONSTITUTIONAL: Weakness. No night sweats. No fatigue, malaise, lethargy. No fever or chills. HEENT: Eyes: No visual changes. No eye pain. No eye discharge. ENT: No runny nose. No epistaxis. No sinus pain. No odynophagia. No congestion. RESPIRATORY: No cough, no congestion. No hemoptysis. No shortness of breath. CARDIOVASCULAR: No angina symptoms. No CHF symptoms. No atypical chest pain for CAD. No palpitations. No orthopnea.. GASTROINTESTINAL: No abdominal pain. No nausea or vomiting. No diarrhea or constipation. No hematemesis. No hematochezia. GENITOURINARY: No urgency. No frequency. No dysuria. No hematuria. No obstructive symptoms. No discharge. No pain. No significant abnormal bleeding. MUSCULOSKELETAL: No musculoskeletal pain; no joint swelling. NEUROLOGICAL: Awake, alert, confusion. No headache. No neck pain. No syncope. No seizures. No dizziness. PSYCHIATRIC: Not anxious. No depression. No suicidal thoughts. No homicidal thoughts. SKIN: No rash. No lesions. No wounds. ENDOCRINE: No unexplained weight loss. No weight gain. HEMATOLOGIC/LYMPHATIC: No anemia. No purpura. No petechiae. No prolonged or excessive bleeding. No palpable lymph nodes. PHYSICAL EXAMINATION: GENERAL: The patient is awake, alert, not oriented, lying/sitting in bed in no distress. VITAL SIGNS: Temperature 96.9 F, Pulse 62, Respiratory Rate 16, BP 121/67, Pulse Ox 98% HEENT: Head normocephalic, atraumatic. Eyes: Extraocular muscles are intact. Pupils are equal, round and reactive to light and accommodation. Ears: No lesions. Nose appeared normal. Throat: No exudate or erythema. NECK: Supple. No JVD, no carotid bruit. No lymphadenopathy or thyromegaly. LUNGS: Diminished breath sounds. Clear to auscultation. Percussion note normal. Chest symmetrical. HEART: S1, S2, no S3. No murmurs. No cyanosis or clubbing. No ascites. Pulses: Dorsalis pedis and posterior tibial pulses +1 to +2 both sides. ABDOMEN: Soft. Non-tender. Bowel sounds active. No CVA tenderness. No mass felt. EXTREMITIES: No edema. Full range of motion of all extremities, equal. NEUROLOGIC: No focal deficit. Cranial nerves II through XII are grossly intact. No headache. No double vision. SKIN: Not dry. Intact. Turgor-normal. LYMPHATIC: No palpable lymph nodes/no lymphedema. MUSCULOSKELETAL: Normal joints with no swelling. Muscle tone is normal. LAB REVIEW: 08/19/22 04:45 08/19/22 04:45 08/19/22 04:45: Sodium 141.8, Potassium 4.23, Chloride 108.0 H, Carbon Dioxide 29.0, Anion Gap 9.03, BUN 20.1 H, Creatinine 0.64, Estimated GFR (MDRD) 88.00, BUN/Creatinine Ratio 31.40, Glucose 91.5, Calcium 8.29 L, Total Bilirubin 0.49, AST 27.3, ALT 17.9, Alkaline Phosphatase 73.2, Total Protein 6.40, Albumin 3.57, Globulin 2.83, Albumin/Globulin Ratio 1.26 08/19/22 04:45: WBC 4.62, RBC 4.06 L, Hgb 13.2, Hct 40.7, MCV 100.2 H, MCH 32.5 H, MCHC 32.4, RDW Coeff of Yosvany 14.5, Plt Count 173, Immature Gran % (Auto) 0.2, Neut % (Auto) 59.8, Lymph % (Auto) 25.5, [place] % (Auto) 11.9 H, Eos % (Auto) 1.7, Baso % (Auto) 0.9, Neut # (Auto) 2.8, Lymph # (Auto) 1.2, [place] # (Auto) 0.6, Eos # (Auto) 0.1, Baso # (Auto) 0.0, Immature Gran # (Auto) 0.0 08/18/22 04:58: Hemoglobin A1c 5.03 ASSESSMENT: Please see below. 1. UTI 2. Stage 3 decubitus on coccyx 3. Dementia with behavioral disturbances 4. Congenital cataracts PLAN: 1. Anticipate discharge on . 2. Continue Rocephin. Plan and coordination of the patient's care discussed in the presence of Hand Ironer and nurse. TIME SPENT: 35 MINUTES CONDITION: Stable SCRIBED BY: ROSSY MARTIN Jailer/Training Officer scribed while in presence of service performed by Dr. Sotelo/Elsa Bee APRN on 08/19/22 ([id number])
[2022-08-19] MEDS: MIRALAX PO SCH (10:16)
[2022-08-19] MEDS: XANAX PO PRN ×2 (12:29→20:13)
[2022-08-19] MEDS: ZYPREXA PO SCH (20:13)
[2022-08-20 05:09] LABS: BASOPHILS % (AUTO) 0.4 % (0.0-3.0); EOSINOPHILS # (AUTO) 0.1 K/ul (0.0-0.7); EOSINOPHILS % (AUTO) 1.5 % (0.0-7.0); HEMATOCRIT 40.8 % (37.0-47.0); HEMOGLOBIN 13.3 g/dl (12.0-16.0); IMMATURE GRANULOCYTE % (AUTO) 0.2 % (0.0-5.0); LYMPHOCYTES # (AUTO) 1.1 K/uL (0.60-3.4); LYMPHOCYTES % (AUTO) 23.5 (10.0-50.0); MEAN CORPUSCULAR HEMOGLOBIN 32.7 pg (27.0-31.0); MEAN CORPUSCULAR HGB CONC 32.6 (31.8-35.4); MEAN CORPUSCULAR VOLUME 100.2 fl (81.0-99.0); MONOCYTES # (AUTO) 0.6 K/uL (0.4-2.0); MONOCYTES % (AUTO) 13.1 (0-10); NEUTROPHILS # (AUTO) 2.8 K/ul (2.0-6.9); NEUTROPHILS % (AUTO) 61.3 % (42.2-75.2); PLATELET COUNT 176 10^3/uL (140-440); RDW COEFFICIENT OF VARIATION 14.4 % (11.6-14.8); RED BLOOD COUNT 4.07 10^6/ul (4.20-5.40); WHITE BLOOD COUNT 4.59 K/ul (4.6-10.2)
[2022-08-20 05:24] LABS: ALANINE AMINOTRANSFERASE 17.7 U/L (0-35); ALBUMIN 3.71 g/dL (3.5-5.0); ALKALINE PHOSPHATASE 72.9 U/L (53-141); ASPARTATE AMINO TRANSFERASE 27.8 U/L (14-36); BILIRUBIN,TOTAL 0.57 mg/dL (0.2-1.3); CALCIUM 8.45 mg/dL (8.4-10.2); CHLORIDE 106.6 mmol/L (98-107); CREATININE 0.63 mg/dL (0.60-1.30); GLUCOSE 83.3 mg/dL (74-106); POTASSIUM 3.97 mmol/L (3.5-5.1); SODIUM 140.2 mmol/L (134.5-145); TOTAL PROTEIN 6.55 g/dL (6.3-8.2)
[2022-08-20] MEDS: MIRALAX PO SCH (08:35)
[2022-08-20] MEDS: NORVASC PO SCH (08:38)
[2022-08-20] MEDS: SEROQUEL PO SCH (08:39)
[2022-08-20] MEDS: NAMENDA PO SCH ×2 (08:39→21:00)
[2022-08-20] MEDS: LIDOCAINE HCL 1% SDV IM SCH (08:44)
[2022-08-20] MEDS: ROCEPHIN 1 GM VIAL IM SCH (08:47)
[2022-08-20] MEDS: BACTROBAN TP SCH ×2 (08:57→21:02)
[2022-08-20] MEDS: SYMBICORT 80-4.5 MCG INHALER IH SCH ×2 (08:57→21:02)
[2022-08-20] MEDS ORDERED: DULCOLAX RC PRN (12:13)
--- NOTE | 2022-08-20 15:09 | PN ---
DATE OF SERVICE: 08/18/22 SUBJECTIVE: Patient was seen and examined with the nurse practitioner in the room. Her hydration status has improved. She seems to be under control. Her cardiovascular status is stable. REVIEW OF SYSTEMS: CONSTITUTIONAL: No night sweats. No fatigue, malaise, lethargy. No fever or chills. HEENT: Eyes: No visual changes. No eye pain. No eye discharge. ENT: No runny nose. No epistaxis. No sinus pain. No sore throat. No odynophagia. No congestion. RESPIRATORY: No cough, no congestion. No hemoptysis. No shortness of breath. CARDIOVASCULAR: No angina symptoms. No CHF symptoms. No atypical chest pain for CAD. No palpitations. No PND. No orthopnea. GASTROINTESTINAL: No abdominal pain. No nausea or vomiting. No diarrhea or constipation. No hematemesis. No hematochezia. GENITOURINARY: No urgency. No frequency. No dysuria. No hematuria. No obstructive symptoms. No discharge. No pain. No significant abnormal bleeding. MUSCULOSKELETAL: No musculoskeletal pain; no joint swelling. NEUROLOGICAL: No headache. No neck pain. No syncope. No seizures. No dizziness. PSYCHIATRIC: Not anxious. No depression. No suicidal thoughts. No homicidal thoughts. SKIN: No rash. No lesions. No wounds. ENDOCRINE: No unexplained weight loss. No weight gain. HEMATOLOGIC/LYMPHATIC: No anemia. No purpura. No petechiae. No prolonged or excessive bleeding. No palpable lymph nodes. PHYSICAL EXAMINATION: GENERAL: The patient is in no distress. HEENT: Head normocephalic, atraumatic. Eyes: Extraocular muscles are intact. Pupils are equal, round and reactive to light and accommodation. Ears: No lesions. Nose appeared normal. Throat: No exudate or erythema. NECK: Supple. No JVD, no carotid bruit. No lymphadenopathy or thyromegaly. LUNGS: Clear to auscultation. Percussion note normal. Chest symmetrical. HEART: S1, S2, no S3. No murmurs. No cyanosis or clubbing. No ascites. Pulses: Dorsalis pedis and posterior tibial pulses +1 to +2 bilaterally. ABDOMEN: Soft. Nontender. Bowel sounds active. No CVA tenderness. No mass felt. EXTREMITIES: No edema. Full range of motion of all extremities, equal. NEUROLOGIC: No focal deficit. Cranial nerves II through XII are grossly intact. No headache. No double vision. SKIN: Not dry. Intact. Turgor - normal. LYMPHATIC: No palpable lymph nodes/no lymphedema. MUSCULOSKELETAL: Normal joints with no swelling. Muscle tone is normal. TIME SPENT: More than 35 minutes. Plan and coordination of the patient's care discussed in the presence of nurse. JUN
[2022-08-20] MEDS: XANAX PO PRN (18:08)
[2022-08-20] MEDS: ZYPREXA PO SCH (21:00)
[2022-08-20] MEDS: TYLENOL PO PRN (21:00)
[2022-08-21 05:30] LABS: BASOPHILS % (AUTO) 0.4 % (0.0-3.0); EOSINOPHILS # (AUTO) 0.1 K/ul (0.0-0.7); EOSINOPHILS % (AUTO) 1.9 % (0.0-7.0); HEMATOCRIT 41.2 % (37.0-47.0); HEMOGLOBIN 13.2 g/dl (12.0-16.0); LYMPHOCYTES # (AUTO) 1.1 K/uL (0.60-3.4); LYMPHOCYTES % (AUTO) 23.7 (10.0-50.0); MEAN CORPUSCULAR HEMOGLOBIN 32.3 pg (27.0-31.0); MEAN CORPUSCULAR VOLUME 100.7 fl (81.0-99.0); MONOCYTES # (AUTO) 0.6 K/uL (0.4-2.0); MONOCYTES % (AUTO) 13.4 (0-10); NEUTROPHILS # (AUTO) 2.9 K/ul (2.0-6.9); NEUTROPHILS % (AUTO) 60.6 % (42.2-75.2); PLATELET COUNT 192 10^3/uL (140-440); RDW COEFFICIENT OF VARIATION 14.6 % (11.6-14.8); RED BLOOD COUNT 4.09 10^6/ul (4.20-5.40); WHITE BLOOD COUNT 4.76 K/ul (4.6-10.2)
[2022-08-21 05:47] LABS: ALANINE AMINOTRANSFERASE 16.4 U/L (0-35); ALBUMIN 3.62 g/dL (3.5-5.0); ALKALINE PHOSPHATASE 62.4 U/L (53-141); ASPARTATE AMINO TRANSFERASE 30.9 U/L (14-36); BILIRUBIN,TOTAL 0.47 mg/dL (0.2-1.3); BLOOD UREA NITROGEN 24.3 mg/dL (7-17); CALCIUM 8.72 mg/dL (8.4-10.2); CARBON DIOXIDE 31.2 mmol/L (22-30.0); CREATININE 0.6 mg/dL (0.60-1.30); GLUCOSE 83.6 mg/dL (74-106); POTASSIUM 4.31 mmol/L (3.5-5.1); SODIUM 142.2 mmol/L (134.5-145); TOTAL PROTEIN 6.51 g/dL (6.3-8.2)
[2022-08-21] MEDS: LIDOCAINE HCL 1% SDV IM SCH (08:09)
[2022-08-21] MEDS: SYMBICORT 80-4.5 MCG INHALER IH SCH ×2 (09:03→20:15)
[2022-08-21] MEDS: MIRALAX PO SCH (09:03)
[2022-08-21] MEDS: SEROQUEL PO SCH (09:04)
[2022-08-21] MEDS: BACTROBAN TP SCH (09:04)
[2022-08-21] MEDS: NORVASC PO SCH (09:04)
[2022-08-21] MEDS: NAMENDA PO SCH ×2 (09:04→20:14)
--- NOTE | 2022-08-21 09:56 | PCM.PROG ---
Attending Provider: ATTENDING PROVIDER: Dr. MADELIN SOTELO MD This patient is seen with Elsa Bee, Nurse Practitioner. DATE OF SERVICE: 08/21/22 SUBJECTIVE: This 82 year old /WHITE F was hospitalized 08/16/22. The patient is resting comfortably. UA grew staph likely a contaminant. She is afebrile and is eating well. She is ready to be discharged back to [facility] today. Will send back on Doxycycline. She had received Rocephin here. No other medication changes. REVIEW OF SYSTEMS: CONSTITUTIONAL: Weakness. No night sweats. No fatigue, malaise, lethargy. No fever or chills. HEENT: Eyes: No visual changes. No eye pain. No eye discharge. ENT: No runny nose. No epistaxis. No sinus pain. No odynophagia. No congestion. RESPIRATORY: No cough, no congestion. No hemoptysis. No shortness of breath. CARDIOVASCULAR: No angina symptoms. No CHF symptoms. No atypical chest pain for CAD. No palpitations. No orthopnea.. GASTROINTESTINAL: No abdominal pain. No nausea or vomiting. No diarrhea or constipation. No hematemesis. No hematochezia. GENITOURINARY: No urgency. No frequency. No dysuria. No hematuria. No obstructive symptoms. No discharge. No pain. No significant abnormal bleeding. MUSCULOSKELETAL: No musculoskeletal pain; no joint swelling. NEUROLOGICAL: Awake, alert, oriented, confusion. No headache. No neck pain. No syncope. No seizures. No dizziness. PSYCHIATRIC: Not anxious. No depression. No suicidal thoughts. No homicidal thoughts. SKIN: No rash. No lesions. No wounds. ENDOCRINE: No unexplained weight loss. No weight gain. HEMATOLOGIC/LYMPHATIC: No anemia. No purpura. No petechiae. No prolonged or excessive bleeding. No palpable lymph nodes. PHYSICAL EXAMINATION: GENERAL: The patient is awake, alert and oriented, lying/sitting in bed in no distress. VITAL SIGNS: Temperature 97.8 F, Pulse 74, Respiratory Rate 18, BP 112/67, Pulse Ox 95% HEENT: Head normocephalic, atraumatic. Eyes: Extraocular muscles are intact. Pupils are equal, round and reactive to light and accommodation. Ears: No lesions. Nose appeared normal. Throat: No exudate or erythema. NECK: Supple. No JVD, no carotid bruit. No lymphadenopathy or thyromegaly. LUNGS: Diminshed breath sounds. Clear to auscultation. Percussion note normal. Chest symmetrical. HEART: S1, S2, no S3. No murmurs. No cyanosis or clubbing. No ascites. Pulses: Dorsalis pedis and posterior tibial pulses +1 to +2 both sides. ABDOMEN: Soft. Non-tender. Bowel sounds active. No CVA tenderness. No mass felt. EXTREMITIES: No edema. Full range of motion of all extremities, equal. NEUROLOGIC: No focal deficit. Cranial nerves II through XII are grossly intact. No headache. No double vision. SKIN: Not dry. Intact. Turgor-normal. LYMPHATIC: No palpable lymph nodes/no lymphedema. MUSCULOSKELETAL: Normal joints with no swelling. Muscle tone is normal. LAB REVIEW: 08/21/22 04:55 08/21/22 04:55 08/21/22 04:55: Sodium 142.2, Potassium 4.31, Chloride 107.0, Carbon Dioxide 31.2 H, Anion Gap 8.31, BUN 24.3 H, Creatinine 0.60, Estimated GFR (MDRD) 95.00, BUN/Creatinine Ratio 40.50, Glucose 83.6, Calcium 8.72, Total Bilirubin 0.47, AST 30.9, ALT 16.4, Alkaline Phosphatase 62.4, Total Protein 6.51, Albumin 3.62, Globulin 2.89, Albumin/Globulin Ratio 1.25 08/21/22 04:55: WBC 4.76, RBC 4.09 L, Hgb 13.2, Hct 41.2, MCV 100.7 H, MCH 32.3 H, MCHC 32.0, RDW Coeff of Yosvany 14.6, Plt Count 192, Immature Gran % (Auto) 0.0, Neut % (Auto) 60.6, Lymph % (Auto) 23.7, [place] % (Auto) 13.4 H, Eos % (Auto) 1.9, Baso % (Auto) 0.4, Neut # (Auto) 2.9, Lymph # (Auto) 1.1, [place] # (Auto) 0.6, Eos # (Auto) 0.1, Baso # (Auto) 0.0, Immature Gran # (Auto) 0.0 ASSESSMENT: Please see below. 1. UTI 2. Generalized weakness 3. Dementia with behavioral disturbance 4. Hypertension PLAN: 1. Doxycycline 100 mg b.i.d. times 7 days. 2. No other medication changes. 3. Discharge today back to [facility] today. Plan and coordination of the patient's care discussed in the presence of Solderer Dipper and nurse. TIME SPENT: 35 MINUTES CONDITION: Stable SCRIBED BY: ROSSY MARTIN Monitoring Analyst scribed while in presence of service performed by Dr. Sotelo/Elsa Bee APRN on 08/21/22 (08)
--- NOTE | 2022-08-21 11:31 | DS ---
DATE OF SERVICE: 08/21/22 FINAL DIAGNOSIS: 1. UTI 2. GENERALIZED WEAKNESS 3. DEMENTIA WITH BEHAVIORAL DISTURBANCE 4. HYPERTENSION DISCHARGE INSTRUCTIONS: Followup appointment: The patient will be evaluated during detention rounds at [facility] one week following discharge. MEDICATIONS AT DISCHARGE: Acetaminophen (Tylenol) 325 mg, 650 mg p.o. q.4hr p.r.n. Albuterol Sulfate 90 mcg/actuation HFA aerosol inhaler two puff inh b.i.d. Alprazolam 0.5 mg p.o. t.i.d. p.r.n. Amlodipine (Norvasc) 5 mg p.o. daily Bisacodyl 10 mg AR daily p.r.n. Budesonide-Formoterol (Symbicort) 80-4.5 mcg/actuation Hfa aerosol inhaler two puff INH b.i.d. Magnesium Hydroxide (Milk of Magnesia) 400 mg/5 mL suspension Memantine (Namenda) 10 mg tablet Olanzapine (Zyprexa) 2.5 mg p.o. bedtime Polyethylene glycol 3350 (Miralax) 17 gm powder in packet, 17 gm p.o. daily Quetiapine (Seroquel) 50 mg p.o. q.a.m. Rivastigmine Tartrate 1.5 mg capsule 1.5 mg p.o. b.i.d. NEW PRESCRIPTIONS: Doxycycline 100 mg by mouth twice a day for 7 days (script provided in packet if needed) DIET INSTRUCTIONS: Resume normal diet. ACTIVITY: Resume activity as tolerated. Initiate fall prevention/fall precautions due to extreme fall risk. Resume wound care as ordered. SMOKING: N/A DISEASE SPECIFIC EDUCATION: Medications Diet Activity Fall precautions Wound Care HOSPITAL COURSE: 82-year-old /White female who was admitted through the Emergency Department after having a so-called syncopal episode at [facility]. The patient, in fact, did not have syncopal episode, was normal and complaining of being cold. She was admitted and found to be mildy dehydrated. She had a UTI and has been on antibiotics IV and IM. She has been given IV fluids. She significantly improved over past several days. Behavior has improved. She is eating well. Labs are stable. She will be discharged back to [facility] on Doxycycline 100 mg times 7 days. She will be followed on detention rounds. SCRIBED BY: ROSSY MARTIN Exhibit Display Representative scribed while in presence of service performed by Elsa Bee APRN on 08/21/22 (805) TIME SPENT: 70 minutes. JUN
[2022-08-21] MEDS: ZYPREXA PO SCH (20:14)
[2022-08-21] MEDS: XANAX PO PRN (20:14)
[2022-08-22 05:14] VITALS: BP 124/64; TEMP 96.6
[2022-08-22 05:49] LABS: BASOPHILS % (AUTO) 0.6 % (0.0-3.0); EOSINOPHILS # (AUTO) 0.1 K/ul (0.0-0.7); EOSINOPHILS % (AUTO) 1.9 % (0.0-7.0); HEMATOCRIT 40.9 % (37.0-47.0); HEMOGLOBIN 12.8 g/dl (12.0-16.0); IMMATURE GRANULOCYTE % (AUTO) 0.2 % (0.0-5.0); LYMPHOCYTES # (AUTO) 1.4 K/uL (0.60-3.4); LYMPHOCYTES % (AUTO) 28.8 (10.0-50.0); MEAN CORPUSCULAR HEMOGLOBIN 32.2 pg (27.0-31.0); MEAN CORPUSCULAR HGB CONC 31.3 (31.8-35.4); MEAN CORPUSCULAR VOLUME 102.8 fl (81.0-99.0); MONOCYTES # (AUTO) 0.6 K/uL (0.4-2.0); MONOCYTES % (AUTO) 11.6 (0-10); NEUTROPHILS # (AUTO) 2.7 K/ul (2.0-6.9); NEUTROPHILS % (AUTO) 56.9 % (42.2-75.2); PLATELET COUNT 168 10^3/uL (140-440); RDW COEFFICIENT OF VARIATION 14.4 % (11.6-14.8); RED BLOOD COUNT 3.98 10^6/ul (4.20-5.40); WHITE BLOOD COUNT 4.82 K/ul (4.6-10.2)
[2022-08-22 06:05] LABS: ALANINE AMINOTRANSFERASE 18.9 U/L (0-35); ALBUMIN 3.42 g/dL (3.5-5.0); ALKALINE PHOSPHATASE 75.5 U/L (53-141); ASPARTATE AMINO TRANSFERASE 29.5 U/L (14-36); BILIRUBIN,TOTAL 0.3 mg/dL (0.2-1.3); BLOOD UREA NITROGEN 20.1 mg/dL (7-17); CALCIUM 8.57 mg/dL (8.4-10.2); CARBON DIOXIDE 30.2 mmol/L (22-30.0); CHLORIDE 107.4 mmol/L (98-107); CREATININE 0.76 mg/dL (0.60-1.30); GLUCOSE 87.9 mg/dL (74-106); POTASSIUM 4.23 mmol/L (3.5-5.1); SODIUM 140.8 mmol/L (134.5-145); TOTAL PROTEIN 6.11 g/dL (6.3-8.2)
[2022-08-22] MEDS ORDERED: DOXYCYCLINE HYCLATE PO SCH (09:00)
[2022-08-22] MEDS: MIRALAX PO SCH (09:15)
[2022-08-22] MEDS: NAMENDA PO SCH (09:15)
[2022-08-22] MEDS: SEROQUEL PO SCH (09:16)
[2022-08-22] MEDS: NORVASC PO SCH (09:16)
[2022-08-22] MEDS: SYMBICORT 80-4.5 MCG INHALER IH SCH (09:18)
--- NOTE | 2022-08-22 10:43 | PCM.PROG ---
Attending Provider: ATTENDING PROVIDER: Dr. MADELIN SOTELO MD This patient is seen with Elsa Bee, Nurse Practitioner. DATE OF SERVICE: 08/22/22 SUBJECTIVE: This 82 year old /WHITE F was hospitalized 08/16/22. The patient is resting comfortably yesterday after a long discussion with daughter. There were some concerns regarding the care she is receiving at [facility]. The daughter was also concerned with the bacteria identified in the urine culture and she had also been told by the DON at 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 We ordered testing and did an exam and found no herpetic lesions and no visible vaginal drainage. We are trying to transfer the patient to [place]. REVIEW OF SYSTEMS: CONSTITUTIONAL: Weakness. No night sweats. No fatigue, malaise, lethargy. No fever or chills. HEENT: Eyes: No visual changes. No eye pain. No eye discharge. ENT: No runny nose. No epistaxis. No sinus pain. No odynophagia. No congestion. RESPIRATORY: No cough, no congestion. No hemoptysis. No shortness of breath. CARDIOVASCULAR: No angina symptoms. No CHF symptoms. No atypical chest pain for CAD. No palpitations. No orthopnea.. GASTROINTESTINAL: No abdominal pain. No nausea or vomiting. No diarrhea or constipation. No hematemesis. No hematochezia. GENITOURINARY: Incontinence. No urgency. No frequency. No dysuria. No hematuria. No obstructive symptoms. No discharge. No pain. No significant abnormal bleeding. MUSCULOSKELETAL: No musculoskeletal pain; no joint swelling. NEUROLOGICAL: Awake, alert, confusion. No headache. No neck pain. No syncope. No seizures. No dizziness. PSYCHIATRIC: Not anxious. No depression. No suicidal thoughts. No homicidal thoughts. SKIN: She does have 4 mm skin colored tags in her anal area. No vesicular lesions, no redness. No rash. No lesions. No wounds. ENDOCRINE: No unexplained weight loss. No weight gain. HEMATOLOGIC/LYMPHATIC: No anemia. No purpura. No petechiae. No prolonged or excessive bleeding. No palpable lymph nodes. PHYSICAL EXAMINATION: GENERAL: The patient is awake, alert and oriented, lying/sitting in bed in no distress. VITAL SIGNS: Temperature 96.6 F, Pulse 63, Respiratory Rate 18, BP 124/64, Pulse Ox 97% HEENT: Head normocephalic, atraumatic. Eyes: Extraocular muscles are intact. Pupils are equal, round and reactive to light and accommodation. Ears: No lesions. Nose appeared normal. Throat: No exudate or erythema. NECK: Supple. No JVD, no carotid bruit. No lymphadenopathy or thyromegaly. LUNGS: Diminished breath sounds. Clear to auscultation. Percussion note normal. Chest symmetrical. HEART: S1, S2, no S3. No murmurs. No cyanosis or clubbing. No ascites. Pulses: Dorsalis pedis and posterior tibial pulses +1 to +2 both sides. ABDOMEN: Soft. Non-tender. Bowel sounds active. No CVA tenderness. No mass felt. EXTREMITIES: No edema. Full range of motion of all extremities, equal. NEUROLOGIC: No focal deficit. Cranial nerves II through XII are grossly intact. No headache. No double vision. SKIN: Not dry. Intact. Turgor-normal. LYMPHATIC: No palpable lymph nodes/no lymphedema. MUSCULOSKELETAL: Normal joints with no swelling. Muscle tone is normal. LAB REVIEW: 08/22/22 04:46 08/22/22 04:46 08/22/22 04:46: Sodium 140.8, Potassium 4.23, Chloride 107.4 H, Carbon Dioxide 30.2 H, Anion Gap 7.43, BUN 20.1 H, Creatinine 0.76, Estimated GFR (MDRD) 73.00, BUN/Creatinine Ratio 26.44, Glucose 87.9, Calcium 8.57, Total Bilirubin 0.30, AST 29.5, ALT 18.9, Alkaline Phosphatase 75.5, Total Protein 6.11 L, Albumin 3.42 L, Globulin 2.69, Albumin/Globulin Ratio 1.27 08/22/22 04:46: WBC 4.82, RBC 3.98 L, Hgb 12.8, Hct 40.9, MCV 102.8 H, MCH 32.2 H, MCHC 31.3 L, RDW Coeff of Yosvany 14.4, Plt Count 168, Immature Gran % (Auto) 0.2, Neut % (Auto) 56.9, Lymph % (Auto) 28.8, [place] % (Auto) 11.6 H, Eos % (Auto) 1.9, Baso % (Auto) 0.6, Neut # (Auto) 2.7, Lymph # (Auto) 1.4, [place] # (Auto) 0.6, Eos # (Auto) 0.1, Baso # (Auto) 0.0, Immature Gran # (Auto) 0.0 08/21/22 04:55: HSV I IgG Ab 41.30 H, HSV II IgG <0.91 ASSESSMENT: Please see below. 1. UTI 2. DEMENTIA 3. DEHYDRATION - RESOLVED 4. 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 PLAN: 1. As a screening precaution, gonorrhea and Chlamydia was sent. 2. She is to continue Doxycycline 100 mg b.i.d. for UTI. 3. We are attempting to move her to [place]. Plan and coordination of the patient's care discussed in the presence of Drum Saw Operator and nurse. CONDITION: Stable TIME SPENT: 35 MINUTES SCRIBED BY: ROSSY MARTIN Head Insulation Board Saw Operator scribed while in presence of service performed by Elsa Bee APRN on 08/22/22 ([id number])
[2022-08-24 07:15] LABS: CHLAMYDIA TRACHOMATIS, NAA Negative (Negative); NEISSERIA GONORRHOEAE, NAA Negative (Negative)
--- NOTE | 2022-08-24 11:11 | PN ---
DATE OF SERVICE: 08/19/22 SUBJECTIVE: Patient was seen and examined with the nurse practitioner. Patient's UTI seems to be resolving and syncope likely from UTI, combination of dehydration and also stubbornness. She was asked questions and not answer. In any case, the patient's overall cardiovascular status is stable. Her mental status has improved. REVIEW OF SYSTEMS: CONSTITUTIONAL: No night sweats. No fatigue, malaise, lethargy. No fever or chills. HEENT: Eyes: No visual changes. No eye pain. No eye discharge. ENT: No runny nose. No epistaxis. No sinus pain. No sore throat. No odynophagia. No congestion. RESPIRATORY: No cough, no congestion. No hemoptysis. No shortness of breath. CARDIOVASCULAR: No angina symptoms. No CHF symptoms. No atypical chest pain for CAD. No palpitations. No PND. No orthopnea. GASTROINTESTINAL: No abdominal pain. No nausea or vomiting. No diarrhea or constipation. No hematemesis. No hematochezia. GENITOURINARY: No urgency. No frequency. No dysuria. No hematuria. No obstructive symptoms. No discharge. No pain. No significant abnormal bleeding. MUSCULOSKELETAL: No musculoskeletal pain; no joint swelling. NEUROLOGICAL: No headache. No neck pain. No syncope. No seizures. No dizziness. PSYCHIATRIC: Not anxious. No depression. No suicidal thoughts. No homicidal thoughts. SKIN: No rash. No lesions. No wounds. ENDOCRINE: No unexplained weight loss. No weight gain. HEMATOLOGIC/LYMPHATIC: No anemia. No purpura. No petechiae. No prolonged or excessive bleeding. No palpable lymph nodes. PHYSICAL EXAMINATION: GENERAL: The patient is in no distress. HEENT: Head normocephalic, atraumatic. Eyes: Extraocular muscles are intact. Pupils are equal, round and reactive to light and accommodation. Ears: No lesions. Nose appeared normal. Throat: No exudate or erythema. NECK: Supple. No JVD, no carotid bruit. No lymphadenopathy or thyromegaly. LUNGS: Clear to auscultation. Percussion note normal. Chest symmetrical. HEART: S1, S2, no S3. No murmurs. No cyanosis or clubbing. No ascites. Pulses: Dorsalis pedis and posterior tibial pulses +1 to +2 bilaterally. ABDOMEN: Soft. Nontender. Bowel sounds active. No CVA tenderness. No mass felt. EXTREMITIES: No edema. Full range of motion of all extremities, equal. NEUROLOGIC: No focal deficit. Cranial nerves II through XII are grossly intact. No headache. No double vision. SKIN: Not dry. Intact. Turgor - normal. LYMPHATIC: No palpable lymph nodes/no lymphedema. MUSCULOSKELETAL: Normal joints with no swelling. Muscle tone is normal. . TIME SPENT: More than 35 minutes. Plan and coordination of the patient's care discussed in the presence of nurse. JUN
--- NOTE | 2022-08-24 11:16 | PN ---
DATE OF SERVICE: 08/20/22 SUBJECTIVE: 82 year old white female hospitalized with UTI and syncopal episode. She had an unresponsive status which was very mild; she just refused to talk to the nursing staff at the [facility]. The patient was mildly dehydrated. REVIEW OF SYSTEMS: CONSTITUTIONAL: No night sweats. No fatigue, malaise, lethargy. No fever or chills. HEENT: Eyes: No visual changes. No eye pain. No eye discharge. ENT: No runny nose. No epistaxis. No sinus pain. No sore throat. No odynophagia. No congestion. RESPIRATORY: No cough, no congestion. No hemoptysis. No shortness of breath. CARDIOVASCULAR: No angina symptoms. No CHF symptoms. No atypical chest pain for CAD. No palpitations. No PND. No orthopnea. GASTROINTESTINAL: No abdominal pain. No nausea or vomiting. No diarrhea or constipation. No hematemesis. No hematochezia. GENITOURINARY: No urgency. No frequency. No dysuria. No hematuria. No obstructive symptoms. No discharge. No pain. No significant abnormal bleeding. MUSCULOSKELETAL: No musculoskeletal pain; no joint swelling. NEUROLOGICAL: No headache. No neck pain. No syncope. No seizures. No dizziness. PSYCHIATRIC: Not anxious. No depression. No suicidal thoughts. No homicidal thoughts. SKIN: No rash. No lesions. No wounds. ENDOCRINE: No unexplained weight loss. No weight gain. HEMATOLOGIC/LYMPHATIC: No anemia. No purpura. No petechiae. No prolonged or excessive bleeding. No palpable lymph nodes. PHYSICAL EXAMINATION: GENERAL: The patient is , lying/sitting in bed in no distress. VITAL SIGNS: Temperature 98, pulse 65, respiratory rate 16, blood pressure 118/70, pulse ox 98% on room air. HEENT: Head normocephalic, atraumatic. Eyes: Extraocular muscles are intact. Pupils are equal, round and reactive to light and accommodation. Ears: No lesions. Nose appeared normal. Throat: No exudate or erythema. NECK: Supple. No JVD, no carotid bruit. No lymphadenopathy or thyromegaly. LUNGS: Decreased breath sounds but clear. . Percussion note normal. Chest symmetrical. HEART: S1, S2, no S3. No murmurs. No cyanosis or clubbing. No ascites. Pulses: Dorsalis pedis and posterior tibial pulses +1 to +2 bilaterally. ABDOMEN: Soft. Nontender. Bowel sounds active. No CVA tenderness. No mass felt. EXTREMITIES: No edema. Full range of motion of all extremities, equal. NEUROLOGIC: No focal deficit. Cranial nerves II through XII are grossly intact. No headache. No double vision. SKIN: Not dry. Intact. Turgor - normal. LYMPHATIC: No palpable lymph nodes/no lymphedema. MUSCULOSKELETAL: Normal joints with no swelling. Muscle tone is normal. ASSESSMENT: 1. UTI, seems to be resolving 2. Dehydration, resolving 3. Patient's mental status has improved PLAN: 1. Continue antibiotics 2. Likely to be discharged tomorrow TIME SPENT: More than 35 minutes. Plan and coordination of the patient's care discussed in the presence of nurse. JUN
--- NOTE | 2022-08-24 11:30 | PN ---
DATE OF SERVICE: 08/22/22 SUBJECTIVE: Patient was seen and examined with the nurse practitioner. Patient's overall condition seems to have improved. Urine didn't grow any organisms. Overall mental status is the same. She seems to be alert. She is afebrile and appetite is stable. REVIEW OF SYSTEMS: CONSTITUTIONAL: No night sweats. No fatigue, malaise, lethargy. No fever or chills. HEENT: Eyes: No visual changes. No eye pain. No eye discharge. ENT: No runny nose. No epistaxis. No sinus pain. No sore throat. No odynophagia. No congestion. RESPIRATORY: No cough, no congestion. No hemoptysis. No shortness of breath. CARDIOVASCULAR: No angina symptoms. No CHF symptoms. No atypical chest pain for CAD. No palpitations. No PND. No orthopnea. GASTROINTESTINAL: No abdominal pain. No nausea or vomiting. No diarrhea or constipation. No hematemesis. No hematochezia. GENITOURINARY: No urgency. No frequency. No dysuria. No hematuria. No obstructive symptoms. No discharge. No pain. No significant abnormal bleeding. MUSCULOSKELETAL: No musculoskeletal pain; no joint swelling. NEUROLOGICAL: No headache. No neck pain. No syncope. No seizures. No dizziness. PSYCHIATRIC: Not anxious. No depression. No suicidal thoughts. No homicidal thoughts. SKIN: No rash. No lesions. No wounds. ENDOCRINE: No unexplained weight loss. No weight gain. HEMATOLOGIC/LYMPHATIC: No anemia. No purpura. No petechiae. No prolonged or excessive bleeding. No palpable lymph nodes. PHYSICAL EXAMINATION: GENERAL: The patient is in no distress. HEENT: Head normocephalic, atraumatic. Eyes: Extraocular muscles are intact. Pupils are equal, round and reactive to light and accommodation. Ears: No lesions. Nose appeared normal. Throat: No exudate or erythema. NECK: Supple. No JVD, no carotid bruit. No lymphadenopathy or thyromegaly. LUNGS: Clear to auscultation. Percussion note normal. Chest symmetrical. HEART: S1, S2, no S3. No murmurs. No cyanosis or clubbing. No ascites. Pulses: Dorsalis pedis and posterior tibial pulses +1 to +2 bilaterally. ABDOMEN: Soft. Nontender. Bowel sounds active. No CVA tenderness. No mass felt. EXTREMITIES: No edema. Full range of motion of all extremities, equal. NEUROLOGIC: No focal deficit. Cranial nerves II through XII are grossly intact. No headache. No double vision. SKIN: Not dry. Intact. Turgor - normal. LYMPHATIC: No palpable lymph nodes/no lymphedema. MUSCULOSKELETAL: Normal joints with no swelling. Muscle tone is normal. TIME SPENT: More than 35 minutes. Plan and coordination of the patient's care discussed in the presence of nurse. JUN
--- NOTE | 2022-08-25 06:30 | PN ---
DATE OF SERVICE: 08/21/22 SUBJECTIVE: The patient was examined with the nurse practitioner. The patient has staph growing from the urine that I think is a contaminent. I don't think that there are any symptoms. Wound cultures showed staph. The patient is incontinent of urine. Daughter has raised some issues which I had discussion with Elsa, Nurse Practitioner, and things have been taken care, satisfied the question raised by the daughter. TIME SPENT: More than 35 minutes. Plan and coordination of the patient's care discussed in the presence of nurse. JUN
== END 2022-08-22 15:15 | DRG 312 ==
LOC: ED 10:46 → MEDSURG A 13:28
PROVIDERS: ADMIT Internal Medicine; ATTEND Internal Medicine

== ENCOUNTER 2022-10-28 10:48 | Inpatient (IN) ==
[2022-10-28] MEDS ORDERED: DUONEB NEB STA (10:52)
[2022-10-28 11:07] LABS: ABG O2 HGB 95.5 % (95-100); ABG PH 7.46 (7.35-7.45); BEecf 8.2 (-2.0-3.0); COHb 1.6 (0.5-1.5); MetHb 0.8 (0-1.5); TCO2 33.4 (19-24); tHb 12.7 g/dl (11.7-17.4)
[2022-10-28 11:18] LABS: BASOPHILS % (AUTO) 0.2 % (0.0-3.0); EOSINOPHILS % (AUTO) 0.1 % (0.0-7.0); HEMATOCRIT 37.1 % (37.0-47.0); HEMOGLOBIN 11.7 g/dl (12.0-16.0); IMMATURE GRANULOCYTE % (AUTO) 0.4 % (0.0-5.0); LYMPHOCYTES # (AUTO) 0.6 K/uL (0.60-3.4); LYMPHOCYTES % (AUTO) 5.2 (10.0-50.0); MEAN CORPUSCULAR HEMOGLOBIN 31.2 pg (27.0-31.0); MEAN CORPUSCULAR HGB CONC 31.5 (31.8-35.4); MEAN CORPUSCULAR VOLUME 98.9 fl (81.0-99.0); MONOCYTES # (AUTO) 0.8 K/uL (0.4-2.0); NEUTROPHILS # (AUTO) 9.3 K/ul (2.0-6.9); NEUTROPHILS % (AUTO) 87.1 % (42.2-75.2); PLATELET COUNT 208 10^3/uL (140-440); RDW COEFFICIENT OF VARIATION 13.2 % (11.6-14.8); RED BLOOD COUNT 3.75 10^6/ul (4.20-5.40); WHITE BLOOD COUNT 10.69 K/ul (4.6-10.2)
--- NOTE | 2022-10-28 11:20 | DI ---
EXAM: CHEST ONE-VIEW HISTORY: Cough COMPARISON: AP chest from 08/16/2022 FINDINGS: The cardiomediastinal silhouette is normal. The pulmonary vasculature is normal. There a re diffuse infiltrates throughout the lungs. No pneumothoraces or pleural effusions. IMPRESSION: 1. Diffuse infiltrates.. .
[2022-10-28 11:34] LABS: ALANINE AMINOTRANSFERASE 17.8 U/L (0-35); ALBUMIN 3.42 g/dL (3.5-5.0); ALKALINE PHOSPHATASE 134.9 U/L (53-141); ASPARTATE AMINO TRANSFERASE 25.5 U/L (14-36); BILIRUBIN,TOTAL 0.51 mg/dL (0.2-1.3); BLOOD UREA NITROGEN 22.7 mg/dL (7-17); CALCIUM 9.05 mg/dL (8.4-10.2); CHLORIDE 110.2 mmol/L (98-107); CREATINE KINASE 214.4 U/L (30-135); CREATININE 0.57 mg/dL (0.60-1.30); GLUCOSE 123.6 mg/dL (74-106); POTASSIUM 3.83 mmol/L (3.5-5.1); SODIUM 146.3 mmol/L (134.5-145); TOTAL PROTEIN 6.87 g/dL (6.3-8.2)
[2022-10-28 11:45] LABS: TROPONIN I < 0.012 ng/ml (0.0000-0.120)
[2022-10-28] MEDS ORDERED: ZOSYN 3.375 GM 3.375 GM in SODIUM CHLORIDE 100ML 100 ML IV ONE (11:59)
--- NOTE | 2022-10-28 12:39 | ED.PDOC ---
General ED Provider: Dr. EVIE ANNA Chief Complaint: Shortness of Air Stated Complaint: Was noted to have decreased oxygen saturation at the alf and cough. Time Seen by Provider: 10/28/22 10:52 Information Source: Assisted and EMT Primary Care Provider: MADELIN SOTELO MD Nursing and Triage Documentation Reviewed and Agree: Yes Does patient meet sepsis criteria?: No System Inflammatory Response Syndrome: Not Applicable Sepsis Protocol: For patient's 13 years and over: Temp is 96.8 and below OR 101 and greater Pulse >90 BPM Resp >20/minute Acutely Altered Mental Status Are patient's symptoms suggestive of a new infection, such as: -Pneumonia -Skin, Soft Tissue -Endocarditis -UTI -Bone, Joint Infection -Implantable Device -Acute Abdominal Infection -Wound Infection -Meningitis -Blood Stream Catheter Infection -Unknown Review of Systems Review Of Systems Constitutional: Reports No symptoms Respiratory: Reports Cough and Short of air All Other Systems: Other (limited due to dementia ) PFSH Medical History Family History FATHER Cancer of bone BROTHER Acute CT BROTHER Hypertension Cardiac disorder SISTER Cardiac disorder Social History Smoking and tobacco status: Former smoker Alcohol intake: former Substance use type: does not use Surgical History Female Reproductive History Menstrual Hx Hysterectomy: No Hx Tubal Ligation: No Physical Exam Physical Exam Appearance: Reports Ill-appearing Ill-appearing: Mild Pain Distress: None Eyes: Reports Not Examined ENT: Reports Nose normal Neck: Not Examined Respiratory: Reports Rhonchi (diffuse ) Cardiovascular: Reports RRR, Pulses normal and No rub GI/: Reports Soft and Nontender Musculoskeletal: Reports ROM intact Skin: Reports Warm, Dry and Normal color Neurological: Reports Motor intact Psychiatric: Reports Anxious Interpretation Radiology Interpretation Radiology Interpretation By: Radiologist Radiology Results: Positive (Diffuse infiltrate ) Exam Interpreted: Portable CXR Maintenance Fitter Rate: Normal Rhythm: Sinus Ectopy: None EKG Interpretation Time of EKG #1: 10:44 Rate: Normal Rhythm: Sinus (with Av dissociation, ) Ectopy: PACs [place]: Left ST Segment: Normal Interpretation: possible lateral ischemia but poor quality of EKG Physician Notification Case Discussed Physician Notified: Dr Sotelo Time of Notification: 13:50 Critical Care Note Critical Care Note Total Critical Care Time (mins): 30 Course Course 10/28/22 11:13 10/28/22 11:13 Orders, Labs, Meds: Lab Review 10/28/22 10/28/22 10/28/22 11:03 11:13 12:20 WBC 10.69 H RBC 3.75 L Hgb 11.7 L Hct 37.1 MCV 98.9 MCH 31.2 H MCHC 31.5 L RDW Coeff of Yosvany 13.2 Plt Count 208 Immature Gran % (Auto) 0.4 Neut % (Auto) 87.1 H Lymph % (Auto) 5.2 L [place] % (Auto) 7.0 Eos % (Auto) 0.1 Baso % (Auto) 0.2 Neut # (Auto) 9.3 H Lymph # (Auto) 0.6 [place] # (Auto) 0.8 Eos # (Auto) 0.0 Baso # (Auto) 0.0 Immature Gran # (Auto) 0.0 Puncture Site Lbr Base Excess 8.2 H O2 Saturation 98.0 ABG pH 7.46 H ABG pCO2 45.0 ABG pO2 98.0 ABG HCO3 32.0 H ABG Total CO2 33.4 H Russell Test + Hemoglobin 0.8 Oxyhemoglobin 95.5 Carboxyhemoglobin 1.6 H Total Hemoglobin 12.7 O2 Delivery Device Msk Oxygen Liter Flow 6.00 Sodium 146.3 H Potassium 3.83 Chloride 110.2 H Carbon Dioxide 32.0 H Anion Gap 7.93 BUN 22.7 H Creatinine 0.57 L Estimated GFR (MDRD) 101.00 BUN/Creatinine Ratio 39.82 Glucose 123.6 H Lactic Acid 0.68 L Calcium 9.05 Total Bilirubin 0.51 AST 25.5 ALT 17.8 Alkaline Phosphatase 134.9 Total Creatine Kinase 214.4 H CK-MB (CK-2) 1.480 CK-MB (CK-2) % 0.6900 Troponin I < 0.012 Total Protein 6.87 Albumin 3.42 L Globulin 3.45 Albumin/Globulin Ratio 0.99 Procalcitonin 0.13 H SARS CoV-2 RNA Rapid ELISEO Negative Orders Category Date Time Status ABG DRAW REQUEST Stat CARDIO 10/28/22 10:53 Completed EKG-(ED ONLY) Stat CARDIO 10/28/22 10:52 Completed NEBULIZER TREATMENT Stat CARDIO 10/28/22 10:53 Completed ED IV/MEDIPORT/POWERPORT .ONCE EMERGENCY 10/28/22 10:52 Active ABG COOX Stat LAB 10/28/22 11:03 Completed BLOOD CULTURE (ED ONLY) Stat LAB 10/28/22 11:13 Received CBC W/ AUTO DIFF Stat LAB 10/28/22 11:13 Completed COMPREHENSIVE METABOLIC PANEL Stat LAB 10/28/22 11:13 Completed CREATINE KINASE Stat LAB 10/28/22 11:13 Completed LACTIC ACID Stat LAB 10/28/22 11:13 Completed PROCALCITONIN Stat LAB 10/28/22 11:13 Completed SARS COV-2 RNA RAPID ELISEO Stat LAB 10/28/22 12:20 Completed TROPONIN I Stat LAB 10/28/22 11:13 Completed 0.9 % Sodium Chloride [Saline Flush] MEDS 10/28/22 10:52 Active 1 syr IVF PRN PRN Ipratropium/Albuterol Neb [Duoneb] MEDS 10/28/22 10:52 Discontinued 3 ml NEB ONCE STA Piperacillin Sodium/Tazobactam [Zosyn 3.375 gm] 3.375 MEDS 10/28/22 11:59 Discontinued gm 0.9 % Sodium Chloride [Sodium Chloride 100Ml] 100 ml IV ONCE CHEST, 1V AP ONLY Stat RADS 10/28/22 10:52 Completed Medications Generic Name Dose Route Start Last Admin Trade Name Freq PRN Reason Stop Dose Admin Acetaminophen 650 mg 10/28/22 14:25 Acetaminophen 325 Mg Tablet PO Q4H PRN Fever and Mild Pain Acetaminophen 650 mg 10/28/22 19:55 Acetaminophen 325 Mg Tablet PO Q4HR PRN Mild Pain Hydrocodone Bitart/Acetaminophen 1 tab 10/28/22 19:55 Hydrocodone Bit/Acetaminophen 7.5/325 Mg Tablet PO Q4H PRN Pain Hydrocodone Bitart/Acetaminophen 1 tab 10/28/22 21:00 Hydrocodone Bit/Acetaminophen 7.5/325 Mg Tablet PO BID AZUCENA Albuterol/Ipratropium 3 ml 10/28/22 18:00 10/28/22 16:54 Ipratropium/Albuterol Vial.Neb NEB 3 ml RTQ4H AZUCENA Administration Alprazolam 0.5 mg 10/28/22 19:55 Alprazolam 0.5 Mg Tablet PO TID PRN anxiety Amlodipine Besylate 5 mg 10/29/22 09:00 Amlodipine Besylate 5 Mg Tablet PO DAILY [facility] Bisacodyl 10 mg 10/28/22 19:55 Bisacodyl 10 Mg Supp.Rect RC DAILY PRN Constipation Budesonide/Formoterol Fumarate 2 puff 10/28/22 21:00 Budesonide/Formoterol Fumarate 80/4.5 Mcg Hfa.Aer.Ad IH BID AZUCENA Docusate Sodium 100 mg 10/28/22 21:00 Docusate Sodium 100 Mg Capsule PO BID [facility] Enoxaparin Sodium 40 mg 10/29/22 09:00 Enoxaparin Sodium 40 Mg/0.4 Ml Syr SUBCUT DAILY [facility] Sodium Chloride 1,000 mls @ 125 mls/hr 10/28/22 14:30 10/28/22 14:55 Sodium Chloride IV 125 mls/hr .Q8H AZUCENA Administration VANCOMYCIN/WATER FOR INJ (PEG) 750 mg in 150 mls @ 150 mls/hr 10/28/22 15:00 10/28/22 15:14 Vancomycin 750 Mg/150 Ml Bag IV 10/31/22 14:59 150 mls/hr Q12HR AZUCENA Administration Meropenem/Sodium Chloride 1 gm in 50 mls @ 75 mls/hr 10/28/22 21:00 10/28/22 20:00 Merrem 1 Gm/50 Ml Nacl IV 10/31/22 20:59 75 mls/hr Q12HR AZUCENA Administration Magnesium Hydroxide 30 ml 10/28/22 19:55 Magnesium Hydroxide 30 Ml Cup PO DAILY PRN Constipation Memantine 10 mg 10/28/22 21:00 Memantine Hcl 10 Mg Tablet PO Q12HR [facility] Methylprednisolone Sodium Succinate 40 mg 10/28/22 21:00 Methylprednisolone Sod Succ/Pf 40 Mg/Ml Vial IVP Q8HR [facility] Non-Formulary Medication 1,000 mcg 10/29/22 09:00 Cyanocobalamin (Vitamin B-12) PO DAILY [facility] Non-Formulary Medication 1.5 mg 10/28/22 21:00 Rivastigmine Tartrate PO BID [facility] Olanzapine 2.5 mg 10/28/22 21:00 Olanzapine 2.5 Mg Tablet PO BEDTIME [facility] Ondansetron HCl 4 mg 10/28/22 14:25 Ondansetron Hcl/Pf 4 Mg/2 Ml Sdv IVP Q6H PRN Nausea / Vomiting Polyethylene Glycol 17 gm 10/29/22 09:00 Polyethylene Glycol 17 Gm Powd.Pack PO DAILY AZUCENA Quetiapine Fumarate 50 mg 10/29/22 09:00 Quetiapine Fumarate 25 Mg Tablet PO QAM AZUCENA Sodium Chloride 1 syr 10/28/22 10:52 0.9% Sodium Chloride 10 Ml Disp.Syrin IVF PRN PRN To flush IV Discontinued Medications Generic Name Dose Route Start Last Admin Trade Name Freq PRN Reason Stop Dose Admin Albuterol/Ipratropium 3 ml 10/28/22 10:52 10/28/22 11:19 Ipratropium/Albuterol Vial.Neb NEB 10/28/22 10:53 3 ml ONCE STA Administration Piperacillin Sod/Tazobactam 100 mls @ 100 mls/hr 10/28/22 11:59 10/28/22 12:58 Sod 3.375 gm/ Sodium Chloride IV 10/28/22 12:58 100 mls/hr ONCE ONE Administration Methylprednisolone Sodium Succinate 125 mg 10/28/22 14:19 10/28/22 14:24 Methylprednisolone Sod Succ/Pf 125 Mg/2 Ml Vial IVP 10/28/22 14:20 125 mg ONCE STA Administration Vital Signs: Temp Pulse Resp BP Pulse Ox 10/28/22 10:54 97.8 F 77 20 127/58 L 96 Discharge Plan Discharge Patient Disposition: ADMITTED INPATIENT Discharge Problem: Pneumonia Did you review [place] [employer] for ALL controlled substances?: Not Applicable ED Provider: EVIE ANNA Condition: Fair Physician Progress Note: []
[2022-10-28 13:07] LABS: SARS COV-2 RNA RAPID NAAT NEGATIVE (NEGATIVE)
[2022-10-28] MEDS ORDERED: VANCOMYCIN 1 GRAM/200 ML PREMIX 1 GM/200 ML BAG IV ONE (13:35)
[2022-10-28] MEDS ORDERED: SOLU-MEDROL 125 MG IVP STA (14:19)
[2022-10-28] MEDS ORDERED: TYLENOL PO PRN ×2 (14:25→19:55)
[2022-10-28] MEDS ORDERED: ZOFRAN 4 MG/2 ML IVP PRN (14:25)
[2022-10-28] MEDS: SODIUM CHLORIDE 1,000 ML IV SCH (14:55)
[2022-10-28 15:10] VITALS: BMI 17.6
[2022-10-28] MEDS: VANCOMYCIN 750 MG/150 ML BAG 750 MG/150 ML BAG IV SCH ×2 (15:14→22:23)
--- NOTE | 2022-10-28 15:44 | RS.SLPCNOT ---
Speech Case Note Date of Note: 10/28/22 Title: Swallow consult Note: RN reported pt was admitted with poor oral hygiene and risks for swallowing difficulty. GROUNDSKEEPING MAINTENANCE WORKER and RN discussed consult or evaluation this date. Per RN, pt is not alert for full evaluation at this time. Tomorrow this date, GROUNDSKEEPING MAINTENANCE WORKER will follow-up with nursing to determine if skilled SPT is needed. Please complete three oz water test or place on mildly thick-nectar liquids if pt is coughing or overt s/s of aspiration audible at the bedside. Thank you for this consult.
[2022-10-28] MEDS: DUONEB NEB SCH ×2 (16:54→22:15)
[2022-10-28] MEDS ORDERED: ZOSYN 3.375 GM 3.375 GM in SODIUM CHLORIDE 100ML 50 ML IV SCH (18:00)
[2022-10-28 18:41] LABS: BILIRUBIN,URINE Negative (NEGATIVE); CLARITY,URINE Clear (CLEAR); COLOR,URINE Yellow (YELLOW); GLUCOSE, URINE (UA) Negative (NEGATIVE); KETONES,URINE Negative (NEGATIVE); LEUKOCYTE ESTERASE ,URINE Negative (NEGATIVE); NITRITE,URINE Negative (NEGATIVE); PROTEIN,URINE Negative (NEGATIVE); URINE, BLOOD Negative (NEGATIVE); UROBILINOGEN,URINE 0.2 (0.2)
[2022-10-28] MEDS ORDERED: MILK OF MAGNESIA PO PRN (19:55)
[2022-10-28] MEDS ORDERED: DULCOLAX RC PRN (19:55)
[2022-10-28] MEDS ORDERED: MERREM 1 GM/50 ML NACL 1 GM/50 ML BAG IV SCH (21:00)
[2022-10-28] MEDS ORDERED: VANCOMYCIN VIAL (IF PREGNANT) 1 GM in SODIUM CHLORIDE 250 ML IV SCH (21:00)
[2022-10-28] MEDS: COLACE PO SCH (21:13)
[2022-10-28] MEDS: ZYPREXA PO SCH (21:16)
[2022-10-28] MEDS: NORCO 7.5-325 PO SCH (21:17)
[2022-10-28] MEDS: NAMENDA PO SCH (21:17)
[2022-10-28] MEDS: SYMBICORT 80-4.5 MCG INHALER IH SCH (21:26)
[2022-10-28] MEDS: XANAX PO PRN (21:46)
[2022-10-28] MEDS: SOLU-MEDROL 40 MG IVP SCH (21:59)
[2022-10-29] MEDS: DUONEB NEB SCH ×6 (01:30→21:09)
[2022-10-29] MEDS: SODIUM CHLORIDE 1,000 ML IV SCH ×3 (01:34→23:27)
[2022-10-29] MEDS: SOLU-MEDROL 40 MG IVP SCH ×3 (04:59→20:12)
[2022-10-29 05:11] LABS: BASOPHILS % (AUTO) 0.1 % (0.0-3.0); HEMATOCRIT 36.3 % (37.0-47.0); HEMOGLOBIN 11.3 g/dl (12.0-16.0); IMMATURE GRANULOCYTE % (AUTO) 0.4 % (0.0-5.0); LYMPHOCYTES # (AUTO) 0.3 K/uL (0.60-3.4); LYMPHOCYTES % (AUTO) 2.7 (10.0-50.0); MEAN CORPUSCULAR HEMOGLOBIN 31.4 pg (27.0-31.0); MEAN CORPUSCULAR HGB CONC 31.1 (31.8-35.4); MEAN CORPUSCULAR VOLUME 100.8 fl (81.0-99.0); MONOCYTES # (AUTO) 0.2 K/uL (0.4-2.0); MONOCYTES % (AUTO) 1.8 (0-10); NEUTROPHILS # (AUTO) 10.8 K/ul (2.0-6.9); PLATELET COUNT 192 10^3/uL (140-440); RDW COEFFICIENT OF VARIATION 13.2 % (11.6-14.8); WHITE BLOOD COUNT 11.34 K/ul (4.6-10.2)
[2022-10-29 05:27] LABS: ALBUMIN 3.1 g/dL (3.5-5.0); ALKALINE PHOSPHATASE 115.1 U/L (53-141); ASPARTATE AMINO TRANSFERASE 21.3 U/L (14-36); BILIRUBIN,TOTAL 0.33 mg/dL (0.2-1.3); BLOOD UREA NITROGEN 24.4 mg/dL (7-17); CALCIUM 8.35 mg/dL (8.4-10.2); CARBON DIOXIDE 28.3 mmol/L (22-30.0); CHLORIDE 114.5 mmol/L (98-107); CREATININE 0.56 mg/dL (0.60-1.30); GLUCOSE 149.9 mg/dL (74-106); POTASSIUM 3.65 mmol/L (3.5-5.1); SODIUM 147.9 mmol/L (134.5-145); TOTAL PROTEIN 6.46 g/dL (6.3-8.2)
[2022-10-29] MEDS: RIVASTIGMINE TARTRATE 1.5 MG PO SCH ×3 (07:30→20:13)
[2022-10-29] MEDS: MERREM 1 GM/50 ML NACL 1 GM/50 ML BAG IV SCH ×3 (08:57→23:27)
[2022-10-29] MEDS: VANCOMYCIN 750 MG/150 ML BAG 750 MG/150 ML BAG IV SCH ×2 (09:46→20:14)
[2022-10-29] MEDS: COLACE PO SCH ×2 (12:25→20:11)
[2022-10-29] MEDS: MIRALAX PO SCH (12:26)
[2022-10-29] MEDS: NAMENDA PO SCH ×2 (12:27→20:12)
[2022-10-29] MEDS: NORCO 7.5-325 PO SCH ×2 (12:27→20:12)
[2022-10-29] MEDS: NORVASC PO SCH (12:28)
[2022-10-29] MEDS: SEROQUEL PO SCH (12:29)
[2022-10-29] MEDS: SYMBICORT 80-4.5 MCG INHALER IH SCH ×2 (12:29→21:22)
[2022-10-29] MEDS: LOVENOX SUBCUT SCH (12:59)
[2022-10-29] MEDS: SANTYL TP SCH (16:29)
[2022-10-29] MEDS ORDERED: HALDOL IM STA (16:58)
[2022-10-29] MEDS: XANAX PO PRN (20:11)
[2022-10-29] MEDS: ZYPREXA PO SCH (20:12)
[2022-10-30] MEDS: DUONEB NEB SCH ×6 (02:00→20:58)
[2022-10-30] MEDS: SOLU-MEDROL 40 MG IVP SCH (04:20)
[2022-10-30] MEDS: MERREM 1 GM/50 ML NACL 1 GM/50 ML BAG IV SCH ×3 (04:26→20:55)
[2022-10-30 05:13] LABS: BASOPHILS % (AUTO) 0.1 % (0.0-3.0); HEMATOCRIT 34.6 % (37.0-47.0); IMMATURE GRANULOCYTE # (AUTO) 0.1 (0.0-1.0); IMMATURE GRANULOCYTE % (AUTO) 0.4 % (0.0-5.0); LYMPHOCYTES # (AUTO) 0.4 K/uL (0.60-3.4); LYMPHOCYTES % (AUTO) 3.5 (10.0-50.0); MEAN CORPUSCULAR HEMOGLOBIN 31.7 pg (27.0-31.0); MEAN CORPUSCULAR HGB CONC 31.8 (31.8-35.4); MEAN CORPUSCULAR VOLUME 99.7 fl (81.0-99.0); MONOCYTES # (AUTO) 0.3 K/uL (0.4-2.0); MONOCYTES % (AUTO) 2.8 (0-10); NEUTROPHILS # (AUTO) 10.5 K/ul (2.0-6.9); NEUTROPHILS % (AUTO) 93.2 % (42.2-75.2); PLATELET COUNT 214 10^3/uL (140-440); RDW COEFFICIENT OF VARIATION 13.2 % (11.6-14.8); RED BLOOD COUNT 3.47 10^6/ul (4.20-5.40); WHITE BLOOD COUNT 11.28 K/ul (4.6-10.2)
[2022-10-30 05:25] LABS: ALBUMIN 2.88 g/dL (3.5-5.0); ALKALINE PHOSPHATASE 108.6 U/L (53-141); ASPARTATE AMINO TRANSFERASE 20.1 U/L (14-36); BILIRUBIN,TOTAL 0.25 mg/dL (0.2-1.3); BLOOD UREA NITROGEN 25.4 mg/dL (7-17); CHLORIDE 117.6 mmol/L (98-107); CREATININE 0.59 mg/dL (0.60-1.30); GLUCOSE 140.6 mg/dL (74-106); POTASSIUM 3.33 mmol/L (3.5-5.1); SODIUM 148.6 mmol/L (134.5-145); TOTAL PROTEIN 6.14 g/dL (6.3-8.2)
[2022-10-30] MEDS ORDERED: SODIUM CHLORIDE 1,000 ML IV SCH (08:12)
[2022-10-30] MEDS ORDERED: POTASSIUM CHLORIDE 20 MEQ VIAL- ADDITIVE ONLY 20 MEQ in SODIUM CHLORIDE 1,000 ML IV SCH (08:17)
[2022-10-30] MEDS ORDERED: HALDOL IVP PRN (08:19)
[2022-10-30] MEDS: RIVASTIGMINE TARTRATE 1.5 MG PO SCH ×2 (09:00→22:59)
[2022-10-30] MEDS: NORVASC PO SCH (09:00)
[2022-10-30] MEDS: NORCO 7.5-325 PO SCH ×2 (09:00→22:59)
[2022-10-30] MEDS: COLACE PO SCH ×2 (09:00→22:57)
[2022-10-30] MEDS: NAMENDA PO SCH ×2 (09:00→22:58)
[2022-10-30] MEDS: SEROQUEL PO SCH (09:00)
[2022-10-30] MEDS: SYMBICORT 80-4.5 MCG INHALER IH SCH ×2 (09:00→23:00)
--- NOTE | 2022-10-30 09:12 | PCM.PROG ---
Attending Provider: ATTENDING PROVIDER: Dr. MADELIN SOTELO MD This patient is seen with Elsa Bee, Nurse Practitioner. DATE OF SERVICE: 10/30/22 SUBJECTIVE: This 82 year old /WHITE F was hospitalized 10/28/22. The patient is resting comfortably. She is uncooperative and combative when awake, confused as usual. She is still on 4L nasal cannula, not eating much. Wound vac should be changed today. REVIEW OF SYSTEMS: CONSTITUTIONAL: No night sweats. No fatigue, malaise, lethargy. No fever or chills. HEENT: Eyes: No visual changes. No eye pain. No eye discharge. ENT: No runny nose. No epistaxis. No sinus pain. No odynophagia. No congestion. RESPIRATORY: Cough, shortness of breath. No hemoptysis. CARDIOVASCULAR: No angina symptoms. No CHF symptoms. No atypical chest pain for CAD. No palpitations. No orthopnea.. GASTROINTESTINAL: No abdominal pain. No nausea or vomiting. No diarrhea or constipation. No hematemesis. No hematochezia. GENITOURINARY: No urgency. No frequency. No dysuria. No hematuria. No obstructive symptoms. No discharge. No pain. No significant abnormal bleeding. MUSCULOSKELETAL: No musculoskeletal pain; no joint swelling. NEUROLOGICAL: Awake, confused. No headache. No neck pain. No syncope. No seizures. No dizziness. PSYCHIATRIC: Agitated. No depression. No suicidal thoughts. No homicidal thoughts. SKIN: No rash. Decubitus on coccyx. ENDOCRINE: No unexplained weight loss. No weight gain. HEMATOLOGIC/LYMPHATIC: No anemia. No purpura. No petechiae. No prolonged or excessive bleeding. No palpable lymph nodes. PHYSICAL EXAMINATION: GENERAL: The patient is awake, alert but not oriented, lying/sitting in bed in no distress. VITAL SIGNS: Temperature 97.6 F, Pulse 78, Respiratory Rate 16, BP 115/65, Pulse Ox 98% HEENT: Head normocephalic, atraumatic. Eyes: Extraocular muscles are intact. Pupils are equal, round and reactive to light and accommodation. Ears: No lesions. Nose appeared normal. Throat: No exudate or erythema. NECK: Supple. No JVD, no carotid bruit. No lymphadenopathy or thyromegaly. LUNGS: Severely diminished breath sounds with rhonchi. Percussion note n ormal. Chest symmetrical. HEART: S1, S2, no S3. No murmurs. No cyanosis or clubbing. No ascites. Pulses: Dorsalis pedis and posterior tibial pulses +1 to +2 both sides. ABDOMEN: Soft. Non-tender. Bowel sounds active. No CVA tenderness. No mass felt. EXTREMITIES: No edema. Full range of motion of all extremities, equal. NEUROLOGIC: No focal deficit. Cranial nerves II through XII are grossly intact. No headache. No double vision. SKIN: Decubitus on coccyx, Stage 4. Not dry. Intact. Turgor-normal. LYMPHATIC: No palpable lymph nodes/no lymphedema. MUSCULOSKELETAL: Normal joints with no swelling. Muscle tone is normal. LAB REVIEW: 10/30/22 04:45 10/30/22 04:45 10/30/22 04:45: WBC 11.28 H, RBC 3.47 L, Hgb 11.0 L, Hct 34.6 L, MCV 99.7 H, MCH 31.7 H, MCHC 31.8, RDW Coeff of Yosvany 13.2, Plt Count 214, Immature Gran % (Auto) 0.4, Neut % (Auto) 93.2 H, Lymph % (Auto) 3.5 L, [place] % (Auto) 2.8, Eos % (Auto) 0.0, Baso % (Auto) 0.1, Neut # (Auto) 10.5 H, Lymph # (Auto) 0.4 L, [place] # (Auto) 0.3 L, Eos # (Auto) 0.0, Baso # (Auto) 0.0, Immature Gran # (Auto) 0.1, Sodium 148.6 H, Potassium 3.33 L, Chloride 117.6 H, Carbon Dioxide 30.0, Anion Gap 4.33, BUN 25.4 H, Creatinine 0.59 L, Estimated GFR (MDRD) 97.00, BUN/Creatinine Ratio 43.05, Glucose 140.6 H, Calcium 8.00 L, Total Bilirubin 0.25, AST 20.1, ALT 12.0, Alkaline Phosphatase 108.6, Total Protein 6.14 L, Albumin 2.88 L, Globulin 3.26, Albumin/Globulin Ratio 0.88 ASSESSMENT: Please see below. 1. Bilateral pneumonia. 2. Acute respiratory failure. 3. Hypokalemia. 4. Dementia with behavioral disturbances. 5. Decubitus ulcer on coccyx with Wound Vac. PLAN: 1. Decrease fluids to 75 mL. 2. Refusing p.o. medication. 3. 1 mg Haldol IV or q.8hr p.r.n. 4. Continue IV antibiotics. 5. Increase steroids to 80 mg q.8. 6. Continue Vancomycin. 7. Potassium 20 mEq in IV fluids. 8. Haldol .5 q.8 p.r.n. IM or IV. Plan and coordination of the patient's care discussed in the presence of Spinal Surgeon and nurse. CONDITION: Stable TIME SPENT: 35 MINUTES SCRIBED BY: Sola HECTORist scribed while in presence of service performed by Elsa Bee APRN on 10/30/22 ([id number])
[2022-10-30] MEDS: SODIUM CHLORIDE 0.9%-KCL 20 MEQ 1,000 ML IV SCH ×2 (09:13→23:59)
[2022-10-30] MEDS: LOVENOX SUBCUT SCH (09:41)
[2022-10-30] MEDS: VANCOMYCIN 750 MG/150 ML BAG 750 MG/150 ML BAG IV SCH ×2 (09:41→21:45)
[2022-10-30] MEDS: SODIUM CHLORIDE 1,000 ML IV SCH (10:26)
[2022-10-30] MEDS: SANTYL TP SCH (11:27)
[2022-10-30] MEDS: MIRALAX PO SCH (12:00)
[2022-10-30] MEDS: SOLU-MEDROL 125 MG IVP SCH ×2 (13:24→21:46)
[2022-10-30] MEDS: NORCO 7.5-325 PO PRN (18:00)
[2022-10-30] MEDS: ZYPREXA PO SCH (23:00)
[2022-10-31] MEDS: DUONEB NEB SCH ×5 (02:00→20:55)
[2022-10-31] MEDS: SOLU-MEDROL 125 MG IVP SCH ×3 (05:58→20:44)
[2022-10-31] MEDS: MERREM 1 GM/50 ML NACL 1 GM/50 ML BAG IV SCH ×3 (05:58→20:45)
--- NOTE | 2022-10-31 06:57 | HP ---
DATE OF SERVICE: 10/28/22 REASON FOR HOSPITALIZATION: Pneumonia HISTORY OF PRESENT ILLNESS: 82-year-old white female was in respiratory failure. Oxygen saturation less than 85%. She came to the emergency room where the patient was diagnosed to have pneumonia and was hospitalized. PAST MEDICAL/SURGICAL HISTORY: The patient is blind Dementia Hypertension Behavioral disorder Generalized osteoarthritis, severe contractures extremity Decubitus ulcer right trochanteric area where the patient has wound vac REVIEW OF SYSTEMS: (Unable to obtain because the patient is not answering any questions but doesn't seem to be in obvious distress). PERSONAL/FAMILY/SOCIAL HISTORY: The [facility] is a [facility]. She is DNR. Daughter is POA. She is living at home. Smoker. No alcohol abuse. The patient is on oxygen at the [facility]. She is a resident of the [facility]. She is practically blind. MEDICATIONS: Memantine Acetaminophen Bisacodyl Magnesium Hydroxide Polyethylene Glycol Seroquel Symbicort Amlodipine Zyprexa Albuterol Alprazolam Hydrocodone Naloxone Nasal [place] p.r.n. opiate overdose ALLERGIES: IODINE, ARICEPT, NARCOTICS PHYSICAL EXAMINATION: GENERAL: The patient is confused. Seems to be alert. VITAL SIGNS: Temperature 98.4, pulse 95, respiratory rate 20, blood pressure 128/74, pulse ox 99% on 4L. HEENT: Looks pale. Head normocephalic, atraumatic. Eyes: Extraocular muscles are intact. Pupils are equal, round and reactive to light and accommodation. Ears: No lesions. Nose appeared normal. Throat: No exudate or erythema. NECK: Supple. No JVD, no carotid bruit. No lymphadenopathy or thyromegaly. LUNGS: Mild expiratory wheeze. Decreased air entry bilaterally. Percussion note normal. Chest symmetrical. HEART: S1, S2, no S3. No murmur. No cyanosis or clubbing. No ascites. Pulses: Dorsalis pedis and posterior tibial pulses +1 to +2 bilaterally. ABDOMEN: Soft. Nontender. Bowel sounds active. No CVA tenderness. No mass felt. EXTREMITIES: Contracted but moving left upper extremity. Lower extremities are contracted and has flexion deformities. Wound vac present on the right trochanteric area. NEUROLOGIC: No focal deficit. Cranial nerves II through XII are grossly intact. No headache, no double vision or headache. SKIN: Dry. Intact. Turgor - normal. LYMPHATIC: No palpable lymph nodes/no lymphedema. MUSCULOSKELETAL: Normal joints with no swelling. Muscle tone is normal. LABS: Hemoglobin 11.7, hematocrit 37, WBC 10,000 with mild shift to the left. Creatinine 0.5, BUN 22. CK mildly elevated. MB fraction negative. Troponin negative. Procalcitonin 0.13 elevated. Potassium 3.8. ABGs p02 98, pc02 45, pH 7.46 with 98% saturation on 6L. ASSESSMENT: 1. Pneumonia with respiratory failure, hypoxemia. 2. Chronic lung disease. 3. Hypertension. 4. Blind both eyes. 5. Decubitus ulcer right trochanteric area. Wound vac. 6. 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 PLAN: 1. Admit the patient. 2. Routine telemetry orders. 3. No evidence of acute NV or ischemia. 4. Vancomycin and Merrem antibiotics to be used. 5. Continue nebs, continue inhalers. 6. Methylprednisolone 40 mg IV q.8. 7. Continue the rest of the medications including Seroquel and Zyprexa. 8. The patient is DNR. PROGNOSIS: GUARDED TIME SPENT: More than 75 minutes. MTDD
--- NOTE | 2022-10-31 07:04 | PN ---
DATE OF SERVICE: 10/29/22 SUBJECTIVE: 82-year-old white female hospitalized with pneumonia, respiratory failure. The patient's condition seems to be stablizing but she is still not answering any questions. She seems to be awake with some behavioral issues which I had prescribed Haldol later on. The patient doesn't seem to be in any distress. REVIEW OF SYSTEMS: CONSTITUTIONAL: No night sweats. No fatigue, malaise, lethargy. No fever or chills. HEENT: Eyes: No visual changes. No eye pain. No eye discharge. ENT: No runny nose. No epistaxis. No sinus pain. No sore throat. No odynophagia. No congestion. RESPIRATORY: No cough, no congestion. No hemoptysis. No shortness of breath. CARDIOVASCULAR: No angina symptoms. No CHF symptoms. No atypical chest pain for CAD. No palpitations. No PND. No orthopnea. GASTROINTESTINAL: No abdominal pain. No nausea or vomiting. No diarrhea or constipation. No hematemesis. No hematochezia. GENITOURINARY: No urgency. No frequency. No dysuria. No hematuria. No obstructive symptoms. No discharge. No pain. No significant abnormal bleeding. MUSCULOSKELETAL: No musculoskeletal pain; no joint swelling. NEUROLOGICAL: No headache. No neck pain. No syncope. No seizures. No dizziness. PSYCHIATRIC: Not anxious. No depression. No suicidal thoughts. No homicidal thoughts. SKIN: No rash. No lesions. No wounds. ENDOCRINE: No unexplained weight loss. No weight gain. HEMATOLOGIC/LYMPHATIC: No anemia. No purpura. No petechiae. No prolonged or excessive bleeding. No palpable lymph nodes. PHYSICAL EXAMINATION: VITAL SIGNS: Temperature 97.9, pulse 90, respiratory rate 18, blood pressure 114/63, pulse ox 99% on 2 to 3L. HEENT: Looks somewhat pale. Head normocephalic, atraumatic. Eyes: Extraocular muscles are intact. Pupils are equal, round and reactive to light and accommodation. Ears: No lesions. Nose appeared normal. Throat: No exudate or erythema. NECK: Supple. No JVD, no carotid bruit. No lymphadenopathy or thyromegaly. LUNGS: Decreased breath sounds, mild wheze. Air entry better. Percussion note normal. Chest symmetrical. HEART: S1, S2, no S3. No murmurs. No cyanosis or clubbing. No ascites. Pulses: Dorsalis pedis and posterior tibial pulses +1 to +2 bilaterally. ABDOMEN: Soft. Nontender. Bowel sounds active. No CVA tenderness. No mass felt. EXTREMITIES: No pedal edema. Contracted extremities both lower extremities. Upper extremity also has some flexion contractures but able to move the left upper extremity. NEUROLOGIC: No focal deficit. Cranial nerves II through XII are grossly intact. No headache. No double vision. SKIN: Dry. Intact. Turgor - normal. LYMPHATIC: No palpable lymph nodes/no lymphedema. MUSCULOSKELETAL: Normal joints with no swelling. Muscle tone is normal. LABS: Hemoglobin 11.3, hematocrit 36, WBC 11,000 with mild shift to the left. Creatinine 0.5, BUN 24, potassium 3.6. ASSESSMENT: 1. Pneumonia on antibiotics now, Vancomycin and Merrem. 2. Chronic lung disease with respiratory failure. 3. Hypertension. 4. Behavioral disorder with dementia. PLAN: 1. Continue antibiotics, steroids, nebs, oxygen supplement. 2. Continue to have wound care vac for right hip trochanteric decubitus ulcer. PROGNOSIS: Guarded. TIME SPENT: More than 35 minutes. Plan and coordination of the patient's care discussed in the presence of nurse. JUN
[2022-10-31] MEDS: NORCO 7.5-325 PO SCH ×2 (10:27→20:45)
[2022-10-31] MEDS: SEROQUEL PO SCH (10:28)
[2022-10-31] MEDS: COLACE PO SCH ×2 (10:29→20:44)
[2022-10-31] MEDS: MIRALAX PO SCH (10:30)
[2022-10-31] MEDS: NAMENDA PO SCH ×2 (10:31→20:44)
[2022-10-31] MEDS: NORVASC PO SCH (10:31)
[2022-10-31] MEDS: SYMBICORT 80-4.5 MCG INHALER IH SCH ×2 (10:33→20:46)
[2022-10-31] MEDS: SANTYL TP SCH (10:33)
[2022-10-31] MEDS: LOVENOX SUBCUT SCH (10:34)
[2022-10-31] MEDS: RIVASTIGMINE TARTRATE 1.5 MG PO SCH ×2 (10:40→20:45)
[2022-10-31] MEDS: VANCOMYCIN 750 MG/150 ML BAG 750 MG/150 ML BAG IV SCH ×2 (10:42→21:46)
[2022-10-31] MEDS: K-DUR PO SCH (12:26)
[2022-10-31] MEDS: ZYPREXA PO SCH (20:45)
[2022-10-31] MEDS: SODIUM CHLORIDE 0.9%-KCL 20 MEQ 1,000 ML IV SCH (23:00)
[2022-11-01] MEDS: DUONEB NEB SCH ×4 (04:52→20:35)
[2022-11-01] MEDS: SOLU-MEDROL 125 MG IVP SCH (05:14)
[2022-11-01] MEDS: MERREM 1 GM/50 ML NACL 1 GM/50 ML BAG IV SCH (05:15)
[2022-11-01] MEDS: NORCO 7.5-325 PO PRN (05:25)
[2022-11-01 06:35] LABS: ABG PH 7.55 (7.35-7.45); BEecf 6.5 (-2.0-3.0); HCO3 28.9 (21-28)
[2022-11-01 06:36] LABS: COHb 1.6 (0.5-1.5); MetHb 0.8 (0-1.5); TCO2 29.9 (19-24); sO2 94.3 % (94-98); tHb 12.6 g/dl (11.7-17.4)
[2022-11-01 06:37] LABS: ABG O2 HGB 92.9 % (95-100)
[2022-11-01 07:38] LABS: BASOPHILS % (AUTO) 0.2 % (0.0-3.0); HEMATOCRIT 40.3 % (37.0-47.0); HEMOGLOBIN 12.8 g/dl (12.0-16.0); IMMATURE GRANULOCYTE # (AUTO) 0.2 (0.0-1.0); IMMATURE GRANULOCYTE % (AUTO) 1.4 % (0.0-5.0); LYMPHOCYTES # (AUTO) 0.3 K/uL (0.60-3.4); LYMPHOCYTES % (AUTO) 2.6 (10.0-50.0); MEAN CORPUSCULAR HEMOGLOBIN 30.8 pg (27.0-31.0); MEAN CORPUSCULAR HGB CONC 31.8 (31.8-35.4); MEAN CORPUSCULAR VOLUME 96.9 fl (81.0-99.0); MONOCYTES # (AUTO) 0.6 K/uL (0.4-2.0); MONOCYTES % (AUTO) 5.6 (0-10); NEUTROPHILS # (AUTO) 10.2 K/ul (2.0-6.9); NEUTROPHILS % (AUTO) 90.2 % (42.2-75.2); PLATELET COUNT 228 10^3/uL (140-440); RDW COEFFICIENT OF VARIATION 13.2 % (11.6-14.8); RED BLOOD COUNT 4.16 10^6/ul (4.20-5.40); WHITE BLOOD COUNT 11.33 K/ul (4.6-10.2)
[2022-11-01 07:50] LABS: ALANINE AMINOTRANSFERASE 19.8 U/L (0-35); ALBUMIN 3.15 g/dL (3.5-5.0); ASPARTATE AMINO TRANSFERASE 28.2 U/L (14-36); BILIRUBIN,TOTAL 0.36 mg/dL (0.2-1.3); BLOOD UREA NITROGEN 22.2 mg/dL (7-17); CALCIUM 7.82 mg/dL (8.4-10.2); CARBON DIOXIDE 31.2 mmol/L (22-30.0); CHLORIDE 108.5 mmol/L (98-107); CREATININE 0.5 mg/dL (0.60-1.30); POTASSIUM 4.16 mmol/L (3.5-5.1); SODIUM 140.3 mmol/L (134.5-145); TOTAL PROTEIN 6.35 g/dL (6.3-8.2)
[2022-11-01] MEDS: VANCOMYCIN 750 MG/150 ML BAG 750 MG/150 ML BAG IV SCH (09:13)
[2022-11-01] MEDS: MIRALAX PO SCH (09:13)
[2022-11-01] MEDS: SEROQUEL PO SCH (09:14)
[2022-11-01] MEDS: NORCO 7.5-325 PO SCH ×2 (09:14→20:43)
[2022-11-01] MEDS: COLACE PO SCH ×2 (09:14→20:43)
[2022-11-01] MEDS: NAMENDA PO SCH ×2 (09:14→20:43)
[2022-11-01] MEDS: NORVASC PO SCH (09:14)
[2022-11-01] MEDS: RIVASTIGMINE TARTRATE 1.5 MG PO SCH ×2 (09:15→20:42)
[2022-11-01] MEDS: LOVENOX SUBCUT SCH (09:16)
[2022-11-01] MEDS: K-DUR PO SCH (09:32)
[2022-11-01] MEDS: SYMBICORT 80-4.5 MCG INHALER IH SCH ×2 (09:33→20:49)
[2022-11-01] MEDS: COREG PO SCH ×2 (12:40→17:14)
[2022-11-01] MEDS: SANTYL TP SCH (13:10)
[2022-11-01] MEDS: SODIUM CHLORIDE 0.9%-KCL 20 MEQ 1,000 ML IV SCH (20:41)
[2022-11-01] MEDS: ZYPREXA PO SCH (20:43)
[2022-11-01] MEDS: OMNICEF PO SCH (20:43)
[2022-11-01] MEDS: DOXYCYCLINE HYCLATE PO SCH (20:43)
[2022-11-01] MEDS: XANAX PO PRN (20:43)
[2022-11-02] MEDS: DUONEB NEB SCH ×4 (04:50→20:45)
[2022-11-02 05:56] LABS: BASOPHILS % (AUTO) 0.1 % (0.0-3.0); EOSINOPHILS % (AUTO) 0.4 % (0.0-7.0); HEMATOCRIT 39.9 % (37.0-47.0); HEMOGLOBIN 12.8 g/dl (12.0-16.0); IMMATURE GRANULOCYTE # (AUTO) 0.2 (0.0-1.0); IMMATURE GRANULOCYTE % (AUTO) 2.2 % (0.0-5.0); LYMPHOCYTES # (AUTO) 1.1 K/uL (0.60-3.4); MEAN CORPUSCULAR HEMOGLOBIN 31.1 pg (27.0-31.0); MEAN CORPUSCULAR HGB CONC 32.1 (31.8-35.4); MEAN CORPUSCULAR VOLUME 96.8 fl (81.0-99.0); MONOCYTES # (AUTO) 0.6 K/uL (0.4-2.0); MONOCYTES % (AUTO) 7.6 (0-10); NEUTROPHILS # (AUTO) 5.5 K/ul (2.0-6.9); NEUTROPHILS % (AUTO) 74.7 % (42.2-75.2); PLATELET COUNT 211 10^3/uL (140-440); RDW COEFFICIENT OF VARIATION 13.2 % (11.6-14.8); RED BLOOD COUNT 4.12 10^6/ul (4.20-5.40); WHITE BLOOD COUNT 7.39 K/ul (4.6-10.2)
[2022-11-02 06:08] LABS: ALANINE AMINOTRANSFERASE 18.9 U/L (0-35); ALBUMIN 2.79 g/dL (3.5-5.0); ALKALINE PHOSPHATASE 102.4 U/L (53-141); ASPARTATE AMINO TRANSFERASE 28.4 U/L (14-36); BILIRUBIN,TOTAL 0.45 mg/dL (0.2-1.3); BLOOD UREA NITROGEN 20.4 mg/dL (7-17); CALCIUM 7.75 mg/dL (8.4-10.2); CARBON DIOXIDE 33.6 mmol/L (22-30.0); CHLORIDE 104.1 mmol/L (98-107); CREATININE 0.55 mg/dL (0.60-1.30); GLUCOSE 75.6 mg/dL (74-106); POTASSIUM 4.28 mmol/L (3.5-5.1); SODIUM 136.4 mmol/L (134.5-145); TOTAL PROTEIN 5.8 g/dL (6.3-8.2)
[2022-11-02] MEDS: DOXYCYCLINE HYCLATE PO SCH ×2 (09:00→20:21)
[2022-11-02] MEDS: SEROQUEL PO SCH (09:00)
[2022-11-02] MEDS: PREDNISONE PO SCH (09:00)
[2022-11-02] MEDS: COLACE PO SCH ×2 (09:00→20:20)
[2022-11-02] MEDS: NORCO 7.5-325 PO SCH ×2 (09:00→20:21)
[2022-11-02] MEDS: MIRALAX PO SCH (09:01)
[2022-11-02] MEDS: NORVASC PO SCH (09:01)
[2022-11-02] MEDS: OMNICEF PO SCH ×2 (09:01→20:21)
[2022-11-02] MEDS: LOVENOX SUBCUT SCH (09:01)
[2022-11-02] MEDS: SYMBICORT 80-4.5 MCG INHALER IH SCH ×2 (09:01→20:22)
[2022-11-02] MEDS: RIVASTIGMINE TARTRATE 1.5 MG PO SCH ×2 (09:01→20:20)
[2022-11-02] MEDS: COREG PO SCH ×2 (09:02→18:03)
[2022-11-02] MEDS: NAMENDA PO SCH ×2 (09:02→20:21)
[2022-11-02] MEDS: K-DUR PO SCH (09:02)
[2022-11-02] MEDS: SANTYL TP SCH (09:03)
[2022-11-02] MEDS: ZYPREXA PO SCH (20:21)
[2022-11-02 20:56] VITALS: RESP 18
[2022-11-03 04:33] LABS: BASOPHILS % (AUTO) 0.2 % (0.0-3.0); EOSINOPHILS % (AUTO) 0.4 % (0.0-7.0); HEMOGLOBIN 11.5 g/dl (12.0-16.0); IMMATURE GRANULOCYTE # (AUTO) 0.2 (0.0-1.0); LYMPHOCYTES # (AUTO) 1.4 K/uL (0.60-3.4); LYMPHOCYTES % (AUTO) 15.2 (10.0-50.0); MEAN CORPUSCULAR HEMOGLOBIN 30.7 pg (27.0-31.0); MEAN CORPUSCULAR HGB CONC 31.9 (31.8-35.4); MONOCYTES # (AUTO) 0.7 K/uL (0.4-2.0); MONOCYTES % (AUTO) 8.1 (0-10); NEUTROPHILS # (AUTO) 6.6 K/ul (2.0-6.9); NEUTROPHILS % (AUTO) 74.1 % (42.2-75.2); PLATELET COUNT 197 10^3/uL (140-440); RDW COEFFICIENT OF VARIATION 13.2 % (11.6-14.8); RED BLOOD COUNT 3.75 10^6/ul (4.20-5.40); WHITE BLOOD COUNT 8.89 K/ul (4.6-10.2)
[2022-11-03 04:45] LABS: ALANINE AMINOTRANSFERASE 17.2 U/L (0-35); ALBUMIN 2.53 g/dL (3.5-5.0); ALKALINE PHOSPHATASE 93.4 U/L (53-141); ASPARTATE AMINO TRANSFERASE 22.9 U/L (14-36); BILIRUBIN,TOTAL 0.26 mg/dL (0.2-1.3); BLOOD UREA NITROGEN 24.5 mg/dL (7-17); CALCIUM 7.6 mg/dL (8.4-10.2); CHLORIDE 106.7 mmol/L (98-107); CREATININE 0.54 mg/dL (0.60-1.30); GLUCOSE 85.2 mg/dL (74-106); POTASSIUM 4.08 mmol/L (3.5-5.1); SODIUM 137.6 mmol/L (134.5-145); TOTAL PROTEIN 5.23 g/dL (6.3-8.2)
[2022-11-03] MEDS: DUONEB NEB SCH ×2 (04:45→10:39)
[2022-11-03 05:08] VITALS: BP 120/61; TEMP 97.7
[2022-11-03] MEDS: SANTYL TP SCH (09:15)
[2022-11-03] MEDS: MIRALAX PO SCH (09:40)
[2022-11-03] MEDS: DOXYCYCLINE HYCLATE PO SCH (09:41)
[2022-11-03] MEDS: COREG PO SCH (09:42)
[2022-11-03] MEDS: NORCO 7.5-325 PO SCH (09:42)
[2022-11-03] MEDS: NAMENDA PO SCH (09:43)
[2022-11-03] MEDS: PREDNISONE PO SCH (09:43)
[2022-11-03] MEDS: K-DUR PO SCH (09:43)
[2022-11-03] MEDS: OMNICEF PO SCH (09:43)
[2022-11-03] MEDS: NORVASC PO SCH (09:44)
[2022-11-03] MEDS: LOVENOX SUBCUT SCH (09:44)
[2022-11-03] MEDS: COLACE PO SCH (09:44)
--- NOTE | 2022-11-03 09:50 | PCM.PROG ---
Attending Provider: ATTENDING PROVIDER: Dr. MADELIN SOTELO MD This patient is seen with Elsa Bee, Nurse Practitioner. DATE OF SERVICE: 11/03/22 SUBJECTIVE: This 82 year old /WHITE F was hospitalized 10/28/22. The patient no longer has an IV site due to pulling out. Will not leave [address] She is currently 95 on room air. She is taking p.o. medications with pudding. She is eating well for her and ready to be discharged. REVIEW OF SYSTEMS: CONSTITUTIONAL: Weakness. No night sweats. No fatigue, malaise, lethargy. No fever or chills. HEENT: Eyes: No visual changes. No eye pain. No eye discharge. ENT: No runny nose. No epistaxis. No sinus pain. No odynophagia. No congestion. RESPIRATORY: Cough. No hemoptysis. No shortness of breath. CARDIOVASCULAR: No angina symptoms. No CHF symptoms. No atypical chest pain for CAD. No palpitations. No orthopnea.. GASTROINTESTINAL: No abdominal pain. No nausea or vomiting. No diarrhea or constipation. No hematemesis. No hematochezia. GENITOURINARY: No urgency. No frequency. No dysuria. No hematuria. No obstructive symptoms. No discharge. No pain. No significant abnormal bleeding. MUSCULOSKELETAL: No musculoskeletal pain; no joint swelling. NEUROLOGICAL: Awake, confused. No headache. No neck pain. No syncope. No seizures. No dizziness. PSYCHIATRIC: Agitation. No depression. No suicidal thoughts. No homicidal thoughts. SKIN: No rash. No lesions. Wound on coccyx. ENDOCRINE: No unexplained weight loss. No weight gain. HEMATOLOGIC/LYMPHATIC: No anemia. No purpura. No petechiae. No prolonged or excessive bleeding. No palpable lymph nodes. PHYSICAL EXAMINATION: GENERAL: The patient is alert, not oriented lying/sitting in bed in no distress. VITAL SIGNS: Temperature 97.7 F, Pulse 69, Respiratory Rate 18, BP 120/61, Pulse Ox 95% HEENT: Head normocephalic, atraumatic. Eyes: Extraocular muscles are intact. Pupils are equal, round and reactive to light and accommodation. Ears: No lesions. Nose appeared normal. Throat: No exudate or erythema. NECK: Supple. No JVD, no carotid bruit. No lymphadenopathy or thyromegaly. LUNGS: Severely diminished breath sounds. Clear to auscultation. Percussion note normal. Chest symmetrical. HEART: S1, S2, no S3. No murmurs. No cyanosis or clubbing. No ascites. Pulses: Dorsalis pedis and posterior tibial pulses +1 to +2 both sides. ABDOMEN: Soft. Non-tender. Bowel sounds active. No CVA tenderness. No mass felt. EXTREMITIES: Stage 4 decubitus on coccyx. No edema. Full range of motion of all extremities, equal. NEUROLOGIC: No focal deficit. Cranial nerves II through XII are grossly intact. No headache. No double vision. SKIN: Not dry. Intact. Turgor-normal. LYMPHATIC: No palpable lymph nodes/no lymphedema. MUSCULOSKELETAL: Normal joints with no swelling. Muscle tone is normal. LAB REVIEW: 11/03/22 04:25 11/03/22 04:25 11/03/22 04:25: WBC 8.89, RBC 3.75 L, Hgb 11.5 L, Hct 36.0 L, MCV 96.0, MCH 30.7, MCHC 31.9, RDW Coeff of Yosvany 13.2, Plt Count 197, Immature Gran % (Auto) 2.0, Neut % (Auto) 74.1, Lymph % (Auto) 15.2, [place] % (Auto) 8.1, Eos % (Auto) 0.4, Baso % (Auto) 0.2, Neut # (Auto) 6.6, Lymph # (Auto) 1.4, [place] # (Auto) 0.7, Eos # (Auto) 0.0, Baso # (Auto) 0.0, Immature Gran # (Auto) 0.2, Sodium 137.6, Potassium 4.08, Chloride 106.7, Carbon Dioxide 32.0 H, Anion Gap 2.98, BUN 24.5 H, Creatinine 0.54 L, Estimated GFR (MDRD) 108.00, BUN/Creatinine Ratio 45.37, Glucose 85.2, Calcium 7.60 L, Total Bilirubin 0.26, AST 22.9, ALT 17.2, Alkaline Phosphatase 93.4, Total Protein 5.23 L, Albumin 2.53 L, Globulin 2.70, Albumin/Globulin Ratio 0.93 ASSESSMENT: Please see below. 1. Bilateral pneumonia. 2. Acute respiratory failure. 3. Dementia with behavioral disturbance. 4. Parkinson's disease. 5. Stage 4 decubitus ulcer on coccyx with wound vac. PLAN: 1. Attempt to put wound vac back on. 2. Omnicef 300 mg b.i.d. x5 days. 3. Doxycycline 100 mg b.i.d. x5 days. 4. Prednisone 10 mg daily x5 days. 5. She is to keep appointment with wound care at [facility], [place] this week. 6. CBC, CMP on Thursday of next week. 7. Will followup on longterm rounds. Plan and coordination of the patient's care discussed in the presence of [employer] and nurse. CONDITION: Stable TIME SPENT: 35 MINUTES SCRIBED BY: ROSSY MARTIN Lap Winder scribed while in presence of service performed by Elsa Bee APRN on 11/03/22 ([id number])
[2022-11-03] MEDS: SYMBICORT 80-4.5 MCG INHALER IH SCH (09:55)
[2022-11-03] MEDS: SEROQUEL PO SCH (09:57)
[2022-11-03] MEDS: RIVASTIGMINE TARTRATE 1.5 MG PO SCH (09:59)
--- NOTE | 2022-11-03 14:06 | PN ---
DATE OF SERVICE: 10/31/22 SUBJECTIVE: 82 year old white female hospitalized pneumonia, respiratory failure. The patient's condition has improved. She is more alert. The daughter is sitting in the room. REVIEW OF SYSTEMS: CONSTITUTIONAL: No night sweats. No fatigue, malaise, lethargy. No fever or chills. HEENT: Eyes: No visual changes. No eye pain. No eye discharge. ENT: No runny nose. No epistaxis. No sinus pain. No sore throat. No odynophagia. No congestion. RESPIRATORY: No cough, no congestion. No hemoptysis. No shortness of breath. CARDIOVASCULAR: No angina symptoms. No CHF symptoms. No atypical chest pain for CAD. No palpitations. No PND. No orthopnea. GASTROINTESTINAL: No abdominal pain. No nausea or vomiting. No diarrhea or constipation. No hematemesis. No hematochezia. GENITOURINARY: No urgency. No frequency. No dysuria. No hematuria. No obstructive symptoms. No discharge. No pain. No significant abnormal bleeding. MUSCULOSKELETAL: No musculoskeletal pain; no joint swelling. NEUROLOGICAL: No headache. No neck pain. No syncope. No seizures. No dizziness. PSYCHIATRIC: Not anxious. No depression. No suicidal thoughts. No homicidal thoughts. SKIN: No rash. No lesions. No wounds. ENDOCRINE: No unexplained weight loss. No weight gain. HEMATOLOGIC/LYMPHATIC: No anemia. No purpura. No petechiae. No prolonged or excessive bleeding. No palpable lymph nodes. PHYSICAL EXAMINATION: VITAL SIGNS: Temperature 98.2, pulse 90, respiratory rate 16, blood pressure 173/83 and pulse ox 92%. HEENT: Head normocephalic, atraumatic. Eyes: Extraocular muscles are intact. Pupils are equal, round and reactive to light and accommodation. Ears: No lesions. Nose appeared normal. Throat: No exudate or erythema. NECK: Supple. No JVD, no carotid bruit. No lymphadenopathy or thyromegaly. LUNGS: Decreased breath sounds but clear to auscultation. Percussion note normal. Chest symmetrical. HEART: S1, S2, no S3. No murmurs. No cyanosis or clubbing. No ascites. Pulses: Dorsalis pedis and posterior tibial pulses +1 to +2 bilaterally. ABDOMEN: Soft. Nontender. Bowel sounds active. No CVA tenderness. No mass felt. EXTREMITIES: No edema. Full range of motion of all extremities, equal. NEUROLOGIC: No focal deficit. Cranial nerves II through XII are grossly intact. No headache. No double vision. SKIN: Not dry. Intact. Turgor - normal. LYMPHATIC: No palpable lymph nodes/no lymphedema. MUSCULOSKELETAL: Normal joints with no swelling. Muscle tone is normal. LABS: Hgb 11, hct 34, WBC 11,000 normal differential, creatinine 0.5, BUN 25, potassium 3.3 that was yesterday. ASSESSMENT: 1. Pneumonia seems to be resolving 2. Respiratory failure seems to be under control PLAN: 1. Continue the antibiotics same as has been with NEBS treatment 2. ABG on room air tomorrow 3. The patient is very uncooperative. She took the Wound Vac off yesterday night also took the IV fluids. The patient is uncooperative. TIME SPENT: More than 35 minutes. Plan and coordination of the patient's care discussed in the presence of nurse. JUN
--- NOTE | 2022-11-05 14:27 | PN ---
DATE OF SERVICE: 10/30/22 SUBJECTIVE: Patient was seen and examined with the nurse practitioner. Patient's condition is improving. Pneumonia seems to be resolving. REVIEW OF SYSTEMS: CONSTITUTIONAL: No night sweats. No fatigue, malaise, lethargy. No fever or chills. HEENT: Eyes: No visual changes. No eye pain. No eye discharge. ENT: No runny nose. No epistaxis. No sinus pain. No sore throat. No odynophagia. No congestion. RESPIRATORY: No cough, no congestion. No hemoptysis. No shortness of breath. CARDIOVASCULAR: No angina symptoms. No CHF symptoms. No atypical chest pain for CAD. No palpitations. No PND. No orthopnea. GASTROINTESTINAL: No abdominal pain. No nausea or vomiting. No diarrhea or constipation. No hematemesis. No hematochezia. GENITOURINARY: No urgency. No frequency. No dysuria. No hematuria. No obstructive symptoms. No discharge. No pain. No significant abnormal bleeding. MUSCULOSKELETAL: No musculoskeletal pain; no joint swelling. NEUROLOGICAL: No headache. No neck pain. No syncope. No seizures. No dizziness. PSYCHIATRIC: Not anxious. No depression. No suicidal thoughts. No homicidal thoughts. SKIN: No rash. No lesions. No wounds. ENDOCRINE: No unexplained weight loss. No weight gain. HEMATOLOGIC/LYMPHATIC: No anemia. No purpura. No petechiae. No prolonged or excessive bleeding. No palpable lymph nodes. PHYSICAL EXAMINATION: GENERAL: The patient is in no distress. HEENT: Head normocephalic, atraumatic. Eyes: Extraocular muscles are intact. Pupils are equal, round and reactive to light and accommodation. Ears: No lesions. Nose appeared normal. Throat: No exudate or erythema. NECK: Supple. No JVD, no carotid bruit. No lymphadenopathy or thyromegaly. LUNGS: Clear to auscultation. Percussion note normal. Chest symmetrical. HEART: S1, S2, no S3. No murmurs. No cyanosis or clubbing. No ascites. Pulses: Dorsalis pedis and posterior tibial pulses +1 to +2 bilaterally. ABDOMEN: Soft. Nontender. Bowel sounds active. No CVA tenderness. No mass felt. EXTREMITIES: No edema. Full range of motion of all extremities, equal. NEUROLOGIC: No focal deficit. Cranial nerves II through XII are grossly intact. No headache. No double vision. SKIN: Not dry. Intact. Turgor - normal. LYMPHATIC: No palpable lymph nodes/no lymphedema. MUSCULOSKELETAL: Normal joints with no swelling. Muscle tone is normal. PLAN: Continue antibiotics. TIME SPENT: More than 35 minutes. Plan and coordination of the patient's care discussed in the presence of nurse. JUN
--- NOTE | 2022-11-05 14:36 | PN ---
DATE OF SERVICE: 11/01/22 SUBJECTIVE: 82 year old white female hospitalized with pneumonia and respiratory failure. Patient's condition has improved. Blood gases PCO2 of 33, PH 7.55 with 92% oxygen saturation on room air. Patient is on two liters. She is not coughing much at all. She is confused but her behavior is acceptable. REVIEW OF SYSTEMS: CONSTITUTIONAL: No night sweats. No fatigue, malaise, lethargy. No fever or chills. HEENT: Eyes: No visual changes. No eye pain. No eye discharge. ENT: No runny nose. No epistaxis. No sinus pain. No sore throat. No odynophagia. No congestion. RESPIRATORY: No cough, no congestion. No hemoptysis. No shortness of breath. CARDIOVASCULAR: No angina symptoms. No CHF symptoms. No atypical chest pain for CAD. No palpitations. No PND. No orthopnea. GASTROINTESTINAL: No abdominal pain. No nausea or vomiting. No diarrhea or constipation. No hematemesis. No hematochezia. GENITOURINARY: No urgency. No frequency. No dysuria. No hematuria. No obstructive symptoms. No discharge. No pain. No significant abnormal bleeding. MUSCULOSKELETAL: No musculoskeletal pain; no joint swelling. NEUROLOGICAL: No headache. No neck pain. No syncope. No seizures. No dizziness. PSYCHIATRIC: Not anxious. No depression. No suicidal thoughts. No homicidal thoughts. SKIN: No rash. No lesions. No wounds. ENDOCRINE: No unexplained weight loss. No weight gain. HEMATOLOGIC/LYMPHATIC: No anemia. No purpura. No petechiae. No prolonged or excessive bleeding. No palpable lymph nodes. PHYSICAL EXAMINATION: GENERAL: The patient is in no distress. VITAL SIGNS: Temp 97.6, pulse 92, respiratory rate 15, blood pressure 150/79, pulse ox 94% on two liters. HEENT: Head normocephalic, atraumatic. Eyes: Extraocular muscles are intact. Pupils are equal, round and reactive to light and accommodation. Ears: No lesions. Nose appeared normal. Throat: No exudate or erythema. NECK: Supple. LUNGS: Good air entry. HEART: S1, S2, no S3. ABDOMEN: Soft. EXTREMITIES: No edema. Full range of motion of all extremities, equal. NEUROLOGIC: No focal deficit. Cranial nerves II through XII are grossly intact. No headache. No double vision. SKIN: Not dry. Intact. Turgor - normal. LYMPHATIC: No palpable lymph nodes/no lymphedema. MUSCULOSKELETAL: Normal joints with no swelling. Muscle tone is normal. LABS: Hemoglobin 12.8, hematocrit 40, WBC 11,000, normal differential, cretinine 0.5, BUN 22, potassium 4.1. ASSESSMENT: Hypokalemia, resolved Pneumonia seems to be resolving PLAN: 1. Continue antibiotics as prescribed. 2. Discontinue her Vancomycin and now she is going to be on Omnicef and Doxycycline 3. IV discontinued because she is pulling it out. TIME SPENT: More than 35 minutes. Plan and coordination of the patient's care discussed in the presence of nurse. JUN
--- NOTE | 2022-11-05 14:42 | PN ---
DATE OF SERVICE: 11/02/22 SUBJECTIVE: 82 year old white female hospitalized with pneumonia. Patient's condition has improved. Her appetite has improved. The daughter is present in the room. REVIEW OF SYSTEMS: CONSTITUTIONAL: No nausea, no vomiting. No fever or chills. HEENT: Eyes: No visual changes. No eye pain. No eye discharge. ENT: No runny nose. No epistaxis. No sinus pain. No sore throat. No odynophagia. No congestion. RESPIRATORY: No cough, no congestion. No hemoptysis. No shortness of breath. CARDIOVASCULAR: No chest pain. No PND. No orthopnea. GASTROINTESTINAL: No abdominal pain. No nausea or vomiting. No diarrhea or constipation. No hematemesis. No hematochezia. GENITOURINARY: No urgency. No frequency. No dysuria. No hematuria. No obstructive symptoms. No discharge. No pain. No significant abnormal bleeding. MUSCULOSKELETAL: No musculoskeletal pain; no joint swelling. NEUROLOGICAL: No headache. No neck pain. No syncope. No seizures. No dizziness. PSYCHIATRIC: Not anxious. No depression. No suicidal thoughts. No homicidal thoughts. SKIN: No rash. No lesions. No wounds. ENDOCRINE: No unexplained weight loss. No weight gain. HEMATOLOGIC/LYMPHATIC: No anemia. No purpura. No petechiae. No prolonged or excessive bleeding. No palpable lymph nodes. PHYSICAL EXAMINATION: GENERAL: The patient isin no distress. VITAL SIGNS: Temp 97.1, pulse 62, respiratory rate 16, blood pressure 127/62, pulse ox 95% HEENT: Head normocephalic, atraumatic. Eyes: Extraocular muscles are intact. Pupils are equal, round and reactive to light and accommodation. Ears: No lesions. Nose appeared normal. Throat: No exudate or erythema. NECK: Supple. LUNGS: Decreased breath sounds but clear. HEART: S1, S2, no S3. No murmurs. No cyanosis or clubbing. No ascites. Pulses: Dorsalis pedis and posterior tibial pulses +1 to +2 bilaterally. ABDOMEN: Soft. Bowel sounds active. EXTREMITIES: No edema. Full range of motion of all extremities, equal. NEUROLOGIC: No focal deficit. Cranial nerves II through XII are grossly intact. No headache. No double vision. SKIN: Not dry. Intact. Turgor - normal. LYMPHATIC: No palpable lymph nodes/no lymphedema. MUSCULOSKELETAL: Normal joints with no swelling. Muscle tone is normal. LABS: Hemoglobin 12.8, hematocrit 40, WBC 11,000, normal differential, creatinine 0.5, BUN 22, potassium 4.1 ASSESSMENT: 1. Pneumonia seems to have resolved 2. Respiratory failure under control PLAN: Continue antibiotics, steroids, nebs Patient has been converted to oral medicines, she has been pulling the IV's out and somewhat uncooperative. 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 Condition: Stable. TIME SPENT: More than 35 minutes. Plan and coordination of the patient's care discussed in the presence of nurse. JUN
--- NOTE | 2022-11-07 18:07 | PN ---
DATE OF SERVICE: 11/03/22 SUBJECTIVE: Patient was seen and examined with the nurse practitioner. Patient's condition has improved and her pneumonia has resolved. Her behavior is more or less acceptable. Condition: Stable PLAN: Patient is going to be discharged home and followed in the alf. TIME SPENT: More than 35 minutes. Plan and coordination of the patient's care discussed in the presence of nurse. JUN
--- NOTE | 2022-11-07 18:09 | PN ---
10/28/22 LEVEL 5 10/29/22 - 11/02/22 INTERMEDIATE 11/03/22 DISCHARGE MTDD
--- NOTE | 2022-12-23 11:14 | DS ---
DATE OF SERVICE: 11/03/22 FINAL DIAGNOSIS: 1. Bilateral pneumonia 2. Acute respiratory failure 3. Dementia with behavioral disturbances 4. Parkinson's disease 5. Stage 4 decubitus with Wound Vac. DISCHARGE INSTRUCTIONS: [facility] back to [facility]. Keep appointment with [facility]. MEDICATIONS AT DISCHARGE: Acetaminophen (Acetaminophen 325 Mg Tablet) 650 mg PO Q4-6H PRN Hydrocodone Bitart/Acetaminophen (Hydrocodone Bit/Acetaminophen 7.5/325 Mg Tablet) 1 tab PO BID AZUCENA Albuterol Sulfate (Albuterol Sulfate 0.083% Vial.Neb) 2.5 mg NEB RTTID AZUCENA Budesonide/Formoterol Fumarate (Budesonide/Formoterol Fumarate 80/4.5 Mcg Hfa.Aer.Ad) 2 puff IH BID AZUCENA Docusate Sodium (Docusate Sodium 100 Mg Capsule) 100 mg PO BID AZUCENA Enoxaparin Sodium (Enoxaparin Sodium 40 Mg/0.4 Ml Syr) 40 mg SUBCUT DAILY [facility] Sodium Chloride (Sodium Chloride) 1,000 mls @ 100 mls/hr IV .Q10H AZUCENA VANCOMYCIN/WATER FOR INJ (PEG) (Vancomycin 750 Mg/150 Ml Bag) 750 mg in 150 mls @ 150 mls/hr IV DAILY AZUCENA CEFEPIME 2 GM/D5W (Maxipime 2 Gm/50 Ml D5w) 2 gm in 50 mls @ 100 mls/hr IV Q12HR [facility] Memantine (Memantine Hcl 10 Mg Tablet) 10 mg PO Q12HR [facility] Methylprednisolone Sodium Succinate (Methylprednisolone Sod Succ/Pf 40 Mg/Ml Vial) 40 mg IVP Q8HR [facility] Non-Formulary Medication (Rivastigmine Tartrate) 1.5 mg PO BID AZUCENA Nystatin (Nystatin 15 Gm Cream) 1 applic TP BID AZUCENA Olanzapine (Olanzapine 2.5 Mg Tablet) 2.5 mg PO BEDTIME [facility] Polyethylene Glycol (Polyethylene Glycol 17 Gm Powd.Pack) 17 gm PO DAILY AZUCENA Quetiapine Fumarate (Quetiapine Fumarate 25 Mg Tablet) 50 mg PO QAM AZUCENA Sodium Chloride (0.9% Sodium Chloride 10 Ml Disp.Syrin) 1 syr IVF PRN PRN Sodium Hypochlorite (Sodium Hypochlorite 473 Ml Btl) 1 applic TP 1000,2200 [facility] HOSPITAL COURSE: 82 year old white male who is a resident at [facility]. She presented to the emergency room with decreased oxygen saturation at 84% at the retirement. She was requiring oxygen at 2-[address] of the chest showed pneumonia. She has history of recurrent pneumonia. She has Parkinson's and is bed bound. She also has a stage 4 decubitus ulcer on her coccyx with a Wound Vac for which she sees [facility] at [facility] and takes pain medication via their recommendation due to the wound. She was placed on Rocephin and Doxycycline IV. She showed improvement. She will not leave her oxygen on or her IV site in. She had Leukocytosis initially which has since resolved. She does have behaviors related to her dementia but this is her baseline. She will be discharged back to [facility] for Omnicef 300mg BID for the next 5 days along with Doxycycline 100mg BID times 5 days, Prednisone 10mg daily times 5 days. She has an appointment with [facility] this week that she is to keep. We will do CBC and CMP on Thursday of next week. TIME SPENT: 70 minutes JUN
== END 2022-11-03 12:42 | DRG 193 ==
LOC: ED 10:48 → MEDSURG A 14:04
PROVIDERS: ADMIT Internal Medicine; ATTEND Internal Medicine
DX: J96.01 Acute respiratory failure with hypoxia; Z79.899 Other long term (current) drug therapy; H54.8 Legal blindness, as defined in USA; Z87.891 Personal history of nicotine dependence; Z51.81 Encounter for therapeutic drug level monitoring; Z66 Do not resuscitate; J18.9 Pneumonia, unspecified organism; Z99.81 Dependence on supplemental oxygen; Z20.822 Contact with and (suspected) exposure to COVID-19; M62.49 Contracture of muscle, multiple sites; F03.918 Unspecified dementia, unspecified severity, with other behavioral disturbance; L89.154 Pressure ulcer of sacral region, stage 4; G20 Parkinson's disease; M15.9 Polyosteoarthritis, unspecified; I10 Essential (primary) hypertension; J44.9 Chronic obstructive pulmonary disease, unspecified; E87.6 Hypokalemia; Z97.8 Presence of other specified devices

== ENCOUNTER 2022-11-14 14:07 | Inpatient (IN) ==
--- NOTE | 2022-11-14 14:33 | ED.PDOC ---
General ED Provider: Dr. AYUSH MCDANIEL MD Chief Complaint: Shortness of Air Stated Complaint: Respiratory distress Time Seen by Provider: 11/14/22 14:31 Mode of Arrival: Ambulance Information Source: Custodial and EMT Primary Care Provider: MADELIN SOTELO MD Nursing and Triage Documentation Reviewed and Agree: Yes Does patient meet sepsis criteria?: No System Inflammatory Response Syndrome: Not Applicable Sepsis Protocol: For patient's 13 years and over: Temp is 96.8 and below OR 101 and greater Pulse >90 BPM Resp >20/minute Acutely Altered Mental Status Are patient's symptoms suggestive of a new infection, such as: -Pneumonia -Skin, Soft Tissue -Endocarditis -UTI -Bone, Joint Infection -Implantable Device -Acute Abdominal Infection -Wound Infection -Meningitis -Blood Stream Catheter Infection -Unknown Respiratory Complaint Exam Shortness of Air Complaint/Exam Onset/Duration: this afternoon Symptoms Are: Worse Timing: Constant Initial Severity: Severe Current Severity: Severe Character: Reports Dyspnea at rest (low sats, low BP) Aggravating: Reports None Alleviating: Reports None Associated Signs and Symptoms: Denies Rapid breathing (RR 6-10) or Labored breathing (breathing freely but slowly) Related History: Denies Similar episode History of Healthcare-Acquired Pneumonia: Lives at group home and Admit w/in last 30 days Pulmonary Embolism Risk Factors: Reports Bedrest Cardiac Risk Factors: Reports None Pseudomonas Risk Factors: Reports Chronic Lung Disease and Chronic steriod use Tuberculosis Risk Factors: Reports Corticosteriod use and Communal living Respiratory Distress: Severe Subcutaneous Emphysema: No Retractions: Not Present Diminished Breath Sounds: Yes Prolonged Expiratory Phase: Yes Fatigue: Yes Differential Diagnoses: Pulmonary Edema, COPD Exacerbation, Pneumonia, Pneumothorax, Pulmonary Embolism, SARS, URI and Other (aspiration) Review of Systems Review Of Systems Constitutional: Reports Other (unresponsive) All Other Systems: Other (Unable to obtain ROS secondary to unresponsive) [facility] Medical History Alzheimer disease G30.9 - Alzheimer's disease, unspecified (ICD-10) F02.80 - Dementia in other diseases classified elsewhere without behavioral disturbance (ICD-10) Anxiety F41.9 - Anxiety disorder, unspecified (ICD-10) 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 - Atherosclerotic heart disease of [place] coronary artery without angina pectoris (ICD-10) CAD (coronary artery disease) I25.10 - Atherosclerotic heart disease of [place] coronary artery without angina pectoris (ICD-10) Cataracts, both eyes H26.9 - Unspecified cataract (ICD-10) COPD (chronic obstructive pulmonary disease) J44.9 - Chronic obstructive pulmonary disease, unspecified (ICD-10) COVID-19 U07.1 - COVID-19 (ICD-10) Dementia F03.90 - Unspecified dementia without behavioral disturbance (ICD-10) Depression F32.9 - Major depressive disorder, single episode, unspecified (ICD-10) ALBERTO (generalized anxiety disorder) F41.1 - Generalized anxiety disorder (ICD-10) Generalized weakness R53.1 - Weakness (ICD-10) GI bleed K92.2 - Gastrointestinal hemorrhage, unspecified (ICD-10) Glaucoma H40.9 - Unspecified glaucoma (ICD-10) Hx of solitary pulmonary nodule Z87.898 - Personal history of other specified conditions (ICD-10) Hypertension I10 - Essential (primary) hypertension (ICD-10) IBS (irritable bowel syndrome) K58.9 - Irritable bowel syndrome without diarrhea (ICD-10) Legally blind H54.8 - Legal blindness, as defined in [place] (ICD-10) Night terror F51.4 - Sleep terrors [night terrors] (ICD-10) Osteoarthritis M19.90 - Unspecified osteoarthritis, unspecified site (ICD-10) Parkinson disease G20 - Parkinson's disease (ICD-10) Pneumonia J18.9 - Pneumonia, unspecified organism (ICD-10) Reduced mobility Z74.09 - Other reduced mobility (ICD-10) UTI (urinary tract infection) N39.0 - Urinary tract infection, site not specified (ICD-10) Family History FATHER Cancer of bone BROTHER Acute OR BROTHER Hypertension Cardiac disorder SISTER Cardiac disorder Social History Smoking and tobacco status: Former smoker Alcohol intake: former Substance use type: does not use Surgical History History of appendectomy Z98.89 - Other specified postprocedural states (ICD-10) Female Reproductive History Menstrual Hx Hysterectomy: No Hx Tubal Ligation: No Physical Exam Physical Exam Appearance: Reports Other (unresponsive) Ill-appearing: Severe Pain Distress: None Eyes: Reports Other (pinpoint pupils) ENT: Reports Ears normal and Nose normal Neck: Nonsupple (normal age-appropriate external appearance) Respiratory: Reports Airway patent, Breath sounds equal, Breath sounds d iminished, Wheezes and Other (low RR) Cardiovascular: Reports RRR GI/: Reports Soft and Nontender Musculoskeletal: Reports Not Examined (unresponsive) Skin: Reports Warm, Dry and Normal color Neurological: Reports Unresponsive Psychiatric: Reports Not Examined Critical Care Note Critical Care Note Total Critical Care Time (mins): 0 Course Course 11/18/22 04:50 11/18/22 04:50 Orders, Labs, Meds: Lab Review 11/14/22 11/14/22 11/15/22 21:00 22:50 00:25 WBC 14.70 H RBC 3.95 L Hgb 12.4 Hct 40.1 MCV 101.5 H MCH 31.4 H MCHC 30.9 L RDW Coeff of Yosvany 15.1 H Plt Count 199 Immature Gran % (Auto) 0.4 Neut % (Auto) 91.8 H Lymph % (Auto) 2.2 L Dickson % (Auto) 5.4 Eos % (Auto) 0.1 Baso % (Auto) 0.1 Neut # (Auto) 13.5 H Lymph # (Auto) 0.3 L Dickson # (Auto) 0.8 Eos # (Auto) 0.0 Baso # (Auto) 0.0 Immature Gran # (Auto) 0.1 Sodium 141.7 Potassium 3.99 Chloride 110.6 H Carbon Dioxide 28.0 Anion Gap 7.09 BUN 18.7 H Creatinine 0.49 L Estimated GFR (MDRD) 120.00 BUN/Creatinine Ratio 38.16 Glucose 133.8 H Lactic Acid 0.92 Calcium 8.05 L Magnesium 2.03 Total Bilirubin 0.67 AST 23.9 ALT 12.7 Alkaline Phosphatase 111.0 Total Protein 6.05 L Albumin 3.10 L Globulin 2.95 Albumin/Globulin Ratio 1.05 Procalcitonin 0.37 H Urine Color Yellow Urine Clarity Slightly Urine pH 5.5 Ur Specific [place] 1.025 Urine Protein Negative Urine Glucose (UA) Negative Urine Ketones Trace H Urine Blood Negative Urine Nitrite Negative Urine Bilirubin Negative Urine Urobilinogen 0.2 Ur Leukocyte Esterase Negative SARS CoV-2 RNA Rapid ELISEO Negative Orders Category Date Time Status ADMIT PATIENT INPATIENT .TO [facility] (MONITORED BED) ADMISSION 11/15/22 03:19 Completed OXYGEN Routine CARDIO 11/15/22 03:24 Completed ACTIVITY .Complete BR CARE 11/15/22 03:19 Completed CATHETER INSERTION AND CARE Q8HR CARE 11/15/22 03:19 Completed Rincon [CATHETER INSERTION AND CARE] Q8HR CARE 11/15/22 00:33 Completed INCISION/WOUND CARE 1000,2200 CARE 11/15/22 03:19 Completed INTAKE & OUTPUT Q8HR CARE 11/15/22 03:20 Completed IP: INSERT SALINE LOCK ONCE CARE 11/15/22 03:20 Completed REMINDER: Ask MD to d/c rincon DAILY CARE 11/15/22 03:21 Completed TELEMETRY MONITORING TELE CARE 11/15/22 03:20 Completed VITAL SIGNS Q8HR CARE 11/15/22 03:20 Completed VTE PREVENTION .SCD 24 Hours CARE 11/15/22 03:19 Completed REGULAR DIET DIETARY 11/15/22 Breakfast Completed Saline Lock [ED IV/MEDIPORT/POWERPORT] .ONCE EMERGENCY 11/14/22 21:25 Completed BLOOD CULTURE (ED ONLY) Stat LAB 11/14/22 22:50 Completed CBC W/ AUTO DIFF Stat LAB 11/14/22 22:50 Completed CMP [COMPREHENSIVE METABOLIC PANEL] Stat LAB 11/14/22 22:50 Completed COVID [SARS COV-2 RNA RAPID ELISEO] Stat LAB 11/14/22 21:00 Completed LACTIC ACID Stat LAB 11/14/22 22:50 Completed MAGNESIUM Stat LAB 11/14/22 22:50 Completed PROCALCITONIN Stat LAB 11/14/22 22:50 Completed URINALYSIS C & S IF INDICATED Stat LAB 11/15/22 00:25 Completed 0.9 % Sodium Chloride [Saline Flush] MEDS 11/14/22 21:25 Discontinued 1 syr IVF PRN PRN Azithromycin Inj [Zithromax] 500 mg MEDS 11/15/22 09:00 Discontinued 0.9 % Sodium Chloride [Sodium Chloride] 250 ml IV DAILY Ceftriaxone/D5w 1 gm Premix [Rocephin 1 gm/50 ml D5w] MEDS 11/15/22 21:00 Discontinued 1 gm in 50 ml IV BEDTIME Ceftriaxone/D5w 1 gm Premix [Rocephin 1 gm/50 ml D5w] MEDS 11/14/22 23:50 Discontinued 1 gm in 50 ml IV ONCE Flumazenil [Romazicon] MEDS 11/14/22 22:02 Discontinued 0.3 mg IVP ONCE ONE Flumazenil [Romazicon] MEDS 11/14/22 22:17 Discontinued 0.5 mg IVP ONCE ONE Naloxone HCl [Narcan] MEDS 11/14/22 21:25 Discontinued 0.4 mg IVP ONCE ONE Naloxone HCl [Narcan] MEDS 11/14/22 21:49 Discontinued 0.4 mg IVP ONCE ONE Ringers Lactated Solution [Lactated Ringers] 1,000 ml MEDS 11/14/22 22:32 Discontinued IV 250 mls/hr RESUSCITATION STATUS Routine OTHERS 11/15/22 03:[address] CHEST W/O CONTRAST Stat RADS 11/14/22 22:27 Completed Medications Discontinued Medications Generic Name Dose Route Start Last Admin Trade Name Freq PRN Reason Stop Dose Admin Acetaminophen 650 mg 11/15/22 05:12 Acetaminophen 325 Mg Tablet PO Q4-6H PRN Mild/Moderate Pain Hydrocodone Bitart/Acetaminophen 1 tab 11/15/22 13:00 11/18/22 09:50 Hydrocodone Bit/Acetaminophen 7.5/325 Mg Tablet PO 1 tab BID AZUCENA Administration Albuterol Sulfate 2.5 mg 11/15/22 06:00 11/15/22 06:05 Albuterol Sulfate 0.083% Vial.Neb NEB 2.5 mg RTQ6H AZUCENA Administration Albuterol Sulfate 2.5 mg 11/15/22 14:00 11/18/22 04:45 Albuterol Sulfate 0.083% Vial.Neb NEB 2.5 mg RTTID AZUCENA Administration Alprazolam 0.25 mg 11/15/22 12:34 11/17/22 15:30 Alprazolam 0.5 Mg Tablet PO 0.25 mg TID PRN Administration Anxiety Amlodipine Besylate 5 mg 11/17/22 09:00 11/18/22 09:47 Amlodipine Besylate 5 Mg Tablet PO 5 mg DAILY AZUCENA Administration Budesonide/Formoterol Fumarate 2 puff 11/15/22 09:00 11/18/22 09:47 Budesonide/Formoterol Fumarate 80/4.5 Mcg Hfa.Aer.Ad IH 2 puff BID AZUCENA Administration Carvedilol 3.125 mg 11/16/22 10:30 11/18/22 09:45 Carvedilol 3.125 Mg Tablet PO 3.125 mg BIDWM AZUCENA Administration Docusate Sodium 100 mg 11/15/22 21:00 11/18/22 09:45 Docusate Sodium 100 Mg Capsule PO 100 mg BID AZUCENA Administration Enoxaparin Sodium 40 mg 11/16/22 09:00 11/18/22 09:50 Enoxaparin Sodium 40 Mg/0.4 Ml Syr SUBCUT 40 mg DAILY AZUCENA Administration Ertapenem 1 gm 11/18/22 09:00 11/18/22 09:50 Ertapenem Sodium 1 Gm Vial IM 11/21/22 08:59 1 gm DAILY AZUCENA Administration Flumazenil 0.3 mg 11/14/22 22:02 11/14/22 22:12 Flumazenil 0.1 Mg/1 Ml Mdv IVP 11/14/22 22:03 0.3 mg ONCE ONE Administration Flumazenil 0.5 mg 11/14/22 22:17 11/15/22 03:16 Flumazenil 0.1 Mg/1 Ml Mdv IVP 11/14/22 22:18 Not Given ONCE ONE Lactated Ringer's 1,000 mls @ 250 mls/hr 11/14/22 22:32 11/14/22 22:46 Lactated Ringers IV 11/15/22 02:31 250 mls/hr .Q4H STA Administration CEFTRIAXONE/D5W 1 GM PREMIX 1 gm in 50 mls @ 75 mls/hr 11/14/22 23:50 00:35 Rocephin 1 Gm/50 Ml D5w IV 11/15/22 00:29 75 mls/hr ONCE ONE Administration CEFTRIAXONE/D5W 1 GM PREMIX 1 gm in 50 mls @ 75 mls/hr 11/15/22 21:00 Rocephin 1 Gm/50 Ml D5w IV 11/18/22 20:59 BEDTIME AZUCENA Azithromycin 500 mg/ Sodium 250 mls @ 125 mls/hr 11/15/22 09:00 11/15/22 08:06 Chloride IV 11/18/22 08:59 125 mls/hr DAILY AZUCENA Administration Sodium Chloride 1,000 mls @ 100 mls/hr 11/15/22 05:30 11/16/22 13:55 Sodium Chloride IV Not Given .Q10H AZUCENA VANCOMYCIN/WATER FOR INJ (PEG) 750 mg in 150 mls @ 150 mls/hr 11/15/22 09:00 11/17/22 10:17 Vancomycin 750 Mg/150 Ml Bag IV 11/18/22 08:59 150 mls/hr DAILY AZUCENA Administration CEFEPIME 2 GM/D5W 2 gm in 50 mls @ 100 mls/hr 11/15/22 09:00 11/17/22 09:07 Maxipime 2 Gm/50 Ml D5w IV 11/18/22 08:59 100 mls/hr Q12HR AZUCENA Administration Sodium Chloride 1,000 mls @ 75 mls/hr 11/16/22 13:01 11/17/22 14:52 Sodium Chloride IV 75 mls/hr .[id number] AZUCENA Administration Ertapenem 1 gm/ Sodium 100 mls @ 200 mls/hr 11/17/22 10:30 11/17/22 11:50 Chloride IV 11/20/22 10:29 200 mls/hr DAILY AZUCENA Administration Ertapenem 1 gm/ Sodium 100 mls @ 200 mls/hr 11/18/22 09:00 Chloride IM 11/21/22 08:59 DAILY AZUCENA Lidocaine HCl 3.2 ml 11/18/22 09:00 11/18/22 09:50 Lidocaine Hcl/Pf 1% 5 Ml Vial IM 3.2 ml DAILY AZUCENA Administration Memantine 10 mg 11/15/22 09:00 11/18/22 09:45 Memantine Hcl 10 Mg Tablet PO 10 mg Q12HR AZUCENA Administration Methylprednisolone Sodium Succinate 40 mg 11/15/22 13:05 11/17/22 14:21 Methylprednisolone Sod Succ/Pf 40 Mg/Ml Vial IVP 40 mg Q8HR AZUCENA Administration Methylprednisolone Sodium Succinate 40 mg 11/17/22 21:00 11/18/22 05:28 Methylprednisolone Sod Succ/Pf 40 Mg/Ml Vial IM 40 mg Q8HR AZUCENA Administration Naloxone HCl 0.4 mg 11/14/22 21:25 11/14/22 21:41 Naloxone Hcl 0.4 Mg/Ml Vial IVP 11/14/22 21:26 0.4 mg ONCE ONE Administration Naloxone HCl 0.4 mg 11/14/22 21:49 11/14/22 21:59 Naloxone Hcl 0.4 Mg/Ml Vial IVP 11/14/22 21:50 0.4 mg ONCE ONE Administration Non-Formulary Medication 1.5 mg 11/15/22 09:00 11/18/22 09:50 Rivastigmine Tartrate PO Not Given BID AZUCENA Non-Formulary Medication 1 applic 11/15/22 13:00 Dakins External Solution TP QSHIFT AZUCENA Nystatin 1 applic 11/15/22 13:00 11/18/22 09:45 Nystatin 15 Gm Cream TP Not Given BID AZUCENA Olanzapine 2.5 mg 11/15/22 21:00 11/17/22 20:16 Olanzapine 2.5 Mg Tablet PO 2.5 mg BEDTIME AZUCENA Administration Olanzapine 5 mg 11/15/22 21:09 11/15/22 22:31 Olanzapine 10 Mg Vial IM 5 mg ONCE PRN Administration Agitation Olanzapine 5 mg 11/16/22 09:59 11/16/22 21:11 Olanzapine 10 Mg Vial IM 5 mg ONCE PRN Administration Agitation Polyethylene Glycol 17 gm 11/16/22 09:00 11/18/22 09:50 Polyethylene Glycol 17 Gm Powd.Pack PO 17 gm DAILY AZUCENA Administration Potassium Chloride 60 meq 11/18/22 08:03 11/18/22 11:46 Potassium Chloride 40 Meq/30 Ml Cup PO 11/18/22 08:04 60 meq ONCE ONE Administration Quetiapine Fumarate 50 mg 11/16/22 09:00 11/18/22 09:47 Quetiapine Fumarate 25 Mg Tablet PO 50 mg QAM AZUCENA Administration Saccharomyces Boulardii 250 mg 11/16/22 09:00 11/18/22 09:48 Saccharomyces Boulardii 250 Mg Capsule PO 250 mg BID AZUCENA Administration Sodium Chloride 1 syr 11/14/22 21:25 0.9% Sodium Chloride 10 Ml Disp.Syrin IVF PRN PRN To flush IV Sodium Hypochlorite 1 applic 11/15/22 22:00 11/18/22 11:13 Sodium Hypochlorite 473 Ml Btl TP Not Given 1000,2200 [facility] Vital Signs: Temp Pulse Resp BP Pulse Ox 11/15/22 01:17 97.3 F L 86 20 107/80 97 11/14/22 14:17 96.8 F L 45 L 10 L 73/43 L 91 L Patient is a DNR group home resident who was sent to the ED with shortness of breath. On arrival, she was noted to be unresponsive with low Oxygen saturation. Her respirations were quite shallow, and the respiratory rate was quite low. Additionally, she was quite hypotensive. She was clearly expectant. Her POC (daughter) was consulted, and she changed the status to Comfort Measures only. We were asked not to take labs, or give IVF or medication with the intent to prolong life. On PE, she was noted to have pinpoint pupils. I asked about administring Narcan, but was told we could not administer medication or 'stick' her. Several family members spent the day with her, and when they all had left except the POA, she came out to talk to us. She said that the patient was recently given an increased dose of narcotics and benzos, secondary to some behavior on the part of the patient. She reported the patient seems to have improved somewhat over her time in the ED, and she wondered if it was possible that she was overly sedated. I said that I thought there was a very good chance that represents at least part of her problem. She then authorized us to try to reverse the narcotics and benzodiazepines. We first administered Narcan, with minimal improvement, but it seemed to be improvement nonetheless. A second administration resulted in possible improvement, however, it was minimal change, at best. We then tried Flumazinil, which made a rather dramatic improvement in her condition. Her daughter authorized us to draw labs, administer fluids, and treat as is appropriate. She was given LR because I expect her to be dehydrated and have elevated electrolytes. Labs were drawn, to include blood cultures and sepsis markers. A CT chest was done because it seemed that with her poor positioning that we would get a more definitive result than a CXR (1V). 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
[2022-11-14 21:22] LABS: SARS COV-2 RNA RAPID NAAT NEGATIVE (NEGATIVE)
[2022-11-14] MEDS ORDERED: NARCAN IVP ONE ×2 (21:25→21:49)
[2022-11-14] MEDS ORDERED: ROMAZICON IVP ONE ×2 (22:02→22:17)
[2022-11-14] MEDS ORDERED: LACTATED RINGERS 1,000 ML IV STA (22:32)
[2022-11-14 22:58] LABS: BASOPHILS % (AUTO) 0.1 % (0.0-3.0); EOSINOPHILS % (AUTO) 0.1 % (0.0-7.0); HEMATOCRIT 40.1 % (37.0-47.0); HEMOGLOBIN 12.4 g/dl (12.0-16.0); IMMATURE GRANULOCYTE # (AUTO) 0.1 (0.0-1.0); IMMATURE GRANULOCYTE % (AUTO) 0.4 % (0.0-5.0); LYMPHOCYTES # (AUTO) 0.3 K/uL (0.60-3.4); LYMPHOCYTES % (AUTO) 2.2 (10.0-50.0); MEAN CORPUSCULAR HEMOGLOBIN 31.4 pg (27.0-31.0); MEAN CORPUSCULAR HGB CONC 30.9 (31.8-35.4); MEAN CORPUSCULAR VOLUME 101.5 fl (81.0-99.0); MONOCYTES # (AUTO) 0.8 K/uL (0.4-2.0); MONOCYTES % (AUTO) 5.4 (0-10); NEUTROPHILS # (AUTO) 13.5 K/ul (2.0-6.9); NEUTROPHILS % (AUTO) 91.8 % (42.2-75.2); PLATELET COUNT 199 10^3/uL (140-440); RDW COEFFICIENT OF VARIATION 15.1 % (11.6-14.8); RED BLOOD COUNT 3.95 10^6/ul (4.20-5.40)
[2022-11-14 23:22] LABS: ALANINE AMINOTRANSFERASE 12.7 U/L (0-35); ALBUMIN 3.1 g/dL (3.5-5.0); ASPARTATE AMINO TRANSFERASE 23.9 U/L (14-36); BILIRUBIN,TOTAL 0.67 mg/dL (0.2-1.3); BLOOD UREA NITROGEN 18.7 mg/dL (7-17); CALCIUM 8.05 mg/dL (8.4-10.2); CHLORIDE 110.6 mmol/L (98-107); CREATININE 0.49 mg/dL (0.60-1.30); GLUCOSE 133.8 mg/dL (74-106); MAGNESIUM 2.03 mg/dL (1.6-2.3); POTASSIUM 3.99 mmol/L (3.5-5.1); SODIUM 141.7 mmol/L (134.5-145); TOTAL PROTEIN 6.05 g/dL (6.3-8.2)
--- NOTE | 2022-11-14 23:38 | CT ---
EXAM: CT OF THE CHEST WITHOUT CONTRAST History: Short of breath and cough. Comparison: CT chest, abdomen pelvis 12/27/2019 Technique: Multiplanar CT images through the thorax were obtained without the administration of IV c ontrast FINDINGS: Heart size is normal. Coronary calcifications. No thoracic aortic aneurysm. No axillary lymphadenopathy. A few borderline enlarged mediastinal lymph nodes. Evaluation for hilar lymph nod es is limited due to the lack of contrast administration. There is bilateral shoulder joint effusion s or bursitis. Multifocal bilateral lung infiltrates with nodular appearance. Trace bilateral pleur al effusions. No pneumothorax. There is some bronchial wall thickening. Within the visualized upper abdomen, no grossly acute findings. Scoliosis and degenerative changes o f the spine. Degenerative changes of bilateral glenohumeral joints. Impression: 1. Nodular bilateral lung infiltrates most likely represents some type of atypical pneumonia. Neopl astic etiology is not excluded and would recommend followup to assure resolution. 2. Coronary artery disease All CT scans are performed using dose optimization techniques as appropriate to the performed exam an d include at least one of the following: Automated exposure control, adjustment of the mA and/or kV according t o size, and the use of iterative reconstruction technique.
[2022-11-14] MEDS ORDERED: ROCEPHIN 1 GM/50 ML D5W 1 GM/50 ML BAG IV ONE (23:50)
[2022-11-15 00:39] LABS: BILIRUBIN,URINE Negative (NEGATIVE); CLARITY,URINE Slightly (CLEAR); COLOR,URINE Yellow (YELLOW); GLUCOSE, URINE (UA) Negative (NEGATIVE); KETONES,URINE Trace (NEGATIVE); LEUKOCYTE ESTERASE ,URINE Negative (NEGATIVE); NITRITE,URINE Negative (NEGATIVE); PH,URINE 5.5 (5-9); PROTEIN,URINE Negative (NEGATIVE); URINE, BLOOD Negative (NEGATIVE); UROBILINOGEN,URINE 0.2 (0.2)
[2022-11-15 04:57] VITALS: BMI 17.6
[2022-11-15] MEDS ORDERED: TYLENOL PO PRN (05:12)
[2022-11-15 05:44] LABS: ABG O2 HGB 96.1 % (95-100); ABG PH 7.39 (7.35-7.45); BEecf 3.5 (-2.0-3.0); HCO3 28.5 (21-28); MetHb 0.3 (0-1.5); TCO2 29.9 (19-24); sO2 97.3 % (94-98); tHb 11.1 g/dl (11.7-17.4)
[2022-11-15] MEDS ORDERED: ALBUTEROL 0.083% NEB NEB SCH (06:00)
[2022-11-15] MEDS: SODIUM CHLORIDE 1,000 ML IV SCH ×2 (07:49→19:35)
[2022-11-15] MEDS ORDERED: MAXIPIME 1 GM VIAL 1 GM in SODIUM CHLORIDE 50 ML IV SCH (09:00)
[2022-11-15] MEDS ORDERED: ZITHROMAX 500 MG in SODIUM CHLORIDE 250 ML IV SCH (09:00)
[2022-11-15] MEDS: SYMBICORT 80-4.5 MCG INHALER IH SCH ×2 (10:46→20:33)
[2022-11-15] MEDS: NAMENDA PO SCH ×2 (10:46→20:11)
[2022-11-15] MEDS: RIVASTIGMINE TARTRATE 1.5 MG PO SCH ×2 (10:54→20:34)
[2022-11-15] MEDS: MAXIPIME 2 GM/50 ML D5W 2 GM/50 ML BAG IV SCH ×2 (11:24→20:12)
--- NOTE | 2022-11-15 11:39 | PCM ---
Date of Service Date Seen by Provider: 11/15/22 Time Seen by Provider: 08:30 Admit Day/Time Admission Date: 11/15/22 Admission Time: 03:19 Reason for Admission Chief Complaint: PNEUMONIA,BILATERAL Hospital Provider Hospital Provider: MARIELLE ASTORGA PA-C, [facility] [place] Primary Care Physician: MADELIN SOTELO MD History of Present Illness History of Present Illness: Patient is a 82 year old female from the senior care with pmhx of COPD, alzheimers, recent pneumonia who presented to ER for hypotension and hypoxia. She was noted to have pinpoint pupils. Daughter was contacted and she initially wanted comfort measures. After some time, it was discussed that her medications were adjusted at the senior care. She was given narcan with no response. However she did have positive response to flumazenil. After this positive response, daughter decided she wanted to pursue a full work up. CT chest showed multifocal pneumonia. WBC 14. She required 2L O2. She was given a dose of r ocephin. She will be admitted to med surg. Case Discussed With Case Discussed With: Patient's case was discussed with the ER Physicians, Dr. Lassiter. [facility] Medical History Alzheimer disease G30.9 - Alzheimer's disease, unspecified (ICD-10) F02.80 - Dementia in other diseases classified elsewhere without behavioral disturbance (ICD-10) Anxiety F41.9 - Anxiety disorder, unspecified (ICD-10) 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 - Atherosclerotic heart disease of [place] coronary artery without angina pectoris (ICD-10) CAD (coronary artery disease) I25.10 - Atherosclerotic heart disease of [place] coronary artery without angina pectoris (ICD-10) Cataracts, both eyes H26.9 - Unspecified cataract (ICD-10) COPD (chronic obstructive pulmonary disease) J44.9 - Chronic obstructive pulmonary disease, unspecified (ICD-10) COVID-19 U07.1 - COVID-19 (ICD-10) Dementia F03.90 - Unspecified dementia without behavioral disturbance (ICD-10) Depression F32.9 - Major depressive disorder, single episode, unspecified (ICD-10) ALBERTO (generalized anxiety disorder) F41.1 - Generalized anxiety disorder (ICD-10) Generalized weakness R53.1 - Weakness (ICD-10) GI bleed K92.2 - Gastrointestinal hemorrhage, unspecified (ICD-10) Glaucoma H40.9 - Unspecified glaucoma (ICD-10) Hx of solitary pulmonary nodule Z87.898 - Personal history of other specified conditions (ICD-10) Hypertension I10 - Essential (primary) hypertension (ICD-10) IBS (irritable bowel syndrome) K58.9 - Irritable bowel syndrome without diarrhea (ICD-10) Legally blind H54.8 - Legal blindness, as defined in [place] (ICD-10) Night terror F51.4 - Sleep terrors [night terrors] (ICD-10) Osteoarthritis M19.90 - Unspecified osteoarthritis, unspecified site (ICD-10) Parkinson disease G20 - Parkinson's disease (ICD-10) Pneumonia J18.9 - Pneumonia, unspecified organism (ICD-10) Reduced mobility Z74.09 - Other reduced mobility (ICD-10) UTI (urinary tract infection) N39.0 - Urinary tract infection, site not specified (ICD-10) Surgical History History of appendectomy Z98.89 - Other specified postprocedural states (ICD-10) Family History FATHER Cancer of bone BROTHER Acute MD BROTHER Hypertension Cardiac disorder SISTER Cardiac disorder Social History Smoking and tobacco status: Former smoker Alcohol intake: former Substance use type: does not use Allergies Allergies Allergy/AdvReac Type Severity Reaction Status Date / Time apraclonidine [From Iopidine] AdvReac Unknown Verified 11/14/22 20:55 donepezil [From Aricept] AdvReac Unknown Verified 11/14/22 20:55 NARCOTICS AdvReac Intermediate SENSITIVE Uncoded 11/14/22 20:55 TO NARCOTICS, GETS LETHARGIC Current Medications Home Medications memantine 10 mg tablet (Namenda) 10 mg PO Q12HR 07/17/20 [History Confirmed 12/02 Last Taken 06/26/22] acetaminophen 325 mg tablet (Tylenol) 650 mg PO Q4HR PRN Pain #60 tabs 10/11/20 [Rx Confirmed 11/14/22 Last Taken 06/26/22] bisacodyl 10 mg rectal suppository 10 mg WV DAILY PRN Constipation 07/02/21 [History Confirmed 11/14/22 Last Taken 06/25/22] magnesium hydroxide 400 mg/5 mL oral suspension (Milk of Magnesia) 30 ml PO DAILY PRN Constipation 07/02/21 [History Confirmed 11/14/22 Last Taken Unknown] polyethylene glycol 3350 17 gram oral powder packet (Miralax) 17 g PO DAILY 07/02/21 [History Confirmed 11/14/22 Last Taken 06/26/22] quetiapine 50 mg tablet (Seroquel) 50 mg PO QAM 07/02/21 [History Confirmed 11/14/22 Last Taken 06/26/22] budesonide-formoterol HFA 80 mcg-4.5 mcg/actuation aerosol inhaler (Symbicort) 2 puff inhalation BID 10/15/21 [Rx Confirmed 11/14/22 Last Taken 06/26/22] amlodipine 5 mg tablet (Norvasc) 5 mg PO DAILY 06/26/22 [History Confirmed 11/14/22 Last Taken 06/26/22] olanzapine 2.5 mg tablet (Zyprexa) 2.5 mg PO BEDTIME 06/26/22 [History Confirmed 11/14/22 Last Taken Unknown] rivastigmine tartrate 1.5 mg capsule 1.5 mg PO BID 06/26/22 [History Confirmed 11/14/22 Last Taken Unknown] albuterol sulfate 90 mcg/actuation aerosol inhaler 2 puff inhalation BID 08/16/22 [History Confirmed 11/14/22 Last Taken Unknown] alprazolam 0.5 mg tablet 0.5 mg PO TID PRN Anxiety #90 tabs 10/23/22 [Rx Confirmed 11/14/22 Last Taken 10/28/22] cyanocobalamin (vitamin B-12) 1,000 mcg tablet 1,000 mcg PO DAILY 10/28/22 [History Confirmed 11/14/22 Last Taken 10/28/22] docusate sodium 100 mg capsule (Colace) 100 mg PO BID 10/28/22 [History Confirmed 11/14/22 Last Taken 10/28/22] carvedilol 3.125 mg tablet 3.125 mg PO BIDWM 30 days #60 tabs 11/03/22 [Rx Confirmed 11/14/22 Last Taken Unknown] hydrocodone 7.5 mg-acetaminophen 325 mg tablet 1 tab PO BID pain #60 tabs 11/04/22 [Rx Confirmed 11/14/22 Last Taken Unknown] hydrocodone 7.5 mg-acetaminophen 325 mg tablet 1 tab PO Q4H PRN pain #180 tabs 11/04/22 [Rx Confirmed 11/14/22 Last Taken Unknown] DAKINS EXTERNAL SOLUTION 1 applic topical QSVAFT 11/14/22 [History Confirmed 11/14/22 Last Taken Unknown] cyanocobalamin (vitamin B-12) 1,000 mcg/mL injection solution 1,000 mcg IM MONTHLY 11/14/22 [History Confirmed 11/14/22 Last Taken Unknown] hydrocodone 7.5 mg-acetaminophen 325 mg tablet 1 tab PO BID 11/14/22 [History Confirmed 11/14/22 Last Taken Unknown] naloxone 4 mg/actuation nasal spray (Narcan) 4 mg intranasal Q2-3M PRN OVERDOSE 11/14/22 [History Confirmed 11/14/22 Last Taken Unknown] triamcinolone acetonide 0.1 % topical cream 1 applic topical QSVAFT 11/14/22 [History Confirmed 11/14/22 Last Taken Unknown] Home Acetaminophen (Acetaminophen 325 Mg Tablet) 650 mg PO Q4-6H PRN PRN Reason: Mild/Moderate Pain Hydrocodone Bitart/Acetaminophen (Hydrocodone Bit/Acetaminophen 7.5/325 Mg Tablet) 1 tab PO BID [facility] Last Admin: 11/15/22 13:01 Dose: 1 tab Albuterol Sulfate (Albuterol Sulfate 0.083% Vial.Neb) 2.5 mg NEB RTTID [facility] Alprazolam (Alprazolam 0.5 Mg Tablet) 0.25 mg PO TID PRN PRN Reason: Anxiety Budesonide/Formoterol Fumarate (Budesonide/Formoterol Fumarate 80/4.5 Mcg Hfa.Aer.Ad) 2 puff IH BID [facility] Last Admin: 11/15/22 10:46 Dose: 2 puff Docusate Sodium (Docusate Sodium 100 Mg Capsule) 100 mg PO BID [facility] Enoxaparin Sodium (Enoxaparin Sodium 40 Mg/0.4 Ml Syr) 40 mg SUBCUT DAILY [facility] Sodium Chloride (Sodium Chloride) 1,000 mls @ 100 mls/hr IV .Q10H [facility] Last Admin: 11/15/22 07:49 Dose: 100 mls/hr VANCOMYCIN/WATER FOR INJ (PEG) (Vancomycin 750 Mg/150 Ml Bag) 750 mg in 150 mls @ 150 mls/hr IV DAILY [facility] Stop: 11/18/22 08:59 Last Admin: 11/15/22 11:59 Dose: 150 mls/hr CEFEPIME 2 GM/D5W (Maxipime 2 Gm/50 Ml D5w) 2 gm in 50 mls @ 100 mls/hr IV Q12HR [facility] Stop: 11/18/22 08:59 Last Admin: 11/15/22 11:24 Dose: 100 mls/hr Memantine (Memantine Hcl 10 Mg Tablet) 10 mg PO Q12HR [facility] Last Admin: 11/15/22 10:46 Dose: 10 mg Methylprednisolone Sodium Succinate (Methylprednisolone Sod Succ/Pf 40 Mg/Ml Vial) 40 mg IVP Q8HR [facility] Non-Formulary Medication (Rivastigmine Tartrate) 1.5 mg PO BID [facility] Last Admin: 11/15/22 10:54 Dose: Not Given Nystatin (Nystatin 15 Gm Cream) 1 applic TP BID [facility] Olanzapine (Olanzapine 2.5 Mg Tablet) 2.5 mg PO BEDTIME [facility] Polyethylene Glycol (Polyethylene Glycol 17 Gm Powd.Pack) 17 gm PO DAILY [facility] Quetiapine Fumarate (Quetiapine Fumarate 25 Mg Tablet) 50 mg PO QAM [facility] Sodium Chloride (0.9% Sodium Chloride 10 Ml Disp.Syrin) 1 syr IVF PRN PRN PRN Reason: To flush IV Sodium Hypochlorite (Sodium Hypochlorite 473 Ml Btl) 1 applic TP 1000,2200 [facility] Discontinued Medications Albuterol Sulfate (Albuterol Sulfate 0.083% Vial.Neb) 2.5 mg NEB RTQ6H [facility] Last Admin: 11/15/22 06:05 Dose: 2.5 mg Flumazenil (Flumazenil 0.1 Mg/1 Ml Mdv) 0.3 mg IVP ONCE ONE Stop: 11/14/22 22:03 Last Admin: 11/14/22 22:12 Dose: 0.3 mg Flumazenil (Flumazenil 0.1 Mg/1 Ml Mdv) 0.5 mg IVP ONCE ONE Stop: 11/14/22 22:18 Last Admin: 11/15/22 03:16 Dose: Not Given Lactated Ringer's (Lactated Ringers) 1,000 mls @ 250 mls/hr IV .Q4H STA Stop: 11/15/22 02:31 Last Admin: 11/14/22 22:46 Dose: 250 mls/hr CEFTRIAXONE/D5W 1 GM PREMIX (Rocephin 1 Gm/50 Ml D5w) 1 gm in 50 mls @ 75 mls/hr IV ONCE ONE Stop: 11/15/22 00:29 Last Admin: 11/15/22 00:35 Dose: 75 mls/hr CEFTRIAXONE/D5W 1 GM PREMIX (Rocephin 1 Gm/50 Ml D5w) 1 gm in 50 mls @ 75 mls/hr IV BEDTIME [facility] Stop: 11/18/22 20:59 Azithromycin 500 mg/ Sodium (Chloride) 250 mls @ 125 mls/hr IV DAILY [facility] Stop: 11/18/22 08:59 Last Admin: 11/15/22 08:06 Dose: 125 mls/hr Naloxone HCl (Naloxone Hcl 0.4 Mg/Ml Vial) 0.4 mg IVP ONCE ONE Stop: 11/14/22 21:26 Last Admin: 11/14/22 21:41 Dose: 0.4 mg Naloxone HCl (Naloxone Hcl 0.4 Mg/Ml Vial) 0.4 mg IVP ONCE ONE Stop: 11/14/22 21:50 Last Admin: 11/14/22 21:59 Dose: 0.4 mg Non-Formulary Medication (Dakins External Solution) 1 applic TP QSHIFT [facility] Review of Systems Constitutional: Reports Fatigue and Other (Limited ROS due to patient's dementia and condition. ) Cardiovascular: Denies Chest pain Respiratory: Reports Cough and Shortness of air Neurological: Reports Weakness Physical examination Most Recent Vital Signs: Most Recent Vital Signs Temperature 96.9 F L 11/15/22 04:31 Temperature Source Oral 11/15/22 04:31 Temperature Source Infrared 11/15/22 01:17 Pulse Rate 81 11/15/22 04:31 Respiratory Rate 18 11/15/22 08:00 Blood Pressure 120/50 L 11/15/22 04:06 Blood Pressure Right Arm 131/62 11/15/22 04:31 Blood Pressure Position Supine 11/15/22 04:31 O2 Sat by Pulse Oximetry 97 11/15/22 06:05 Oxygen Delivery Method Nasal Cannula 11/15/22 08:00 Oxygen Flow Rate 2 11/15/22 08:00 Height 5 ft 4 in 11/15/22 04:31 Weight 103 lb 3.2 oz 11/15/22 04:31 Telemetry Type Remote Telemetry 11/15/22 07:00 Telemetry Monitoring Continues 11/15/22 07:00 Telemetry Heart Rate 64 11/15/22 07:00 EKG WV Interval 0.16 11/15/22 07:00 EKG QRS Interval 0.08 11/15/22 07:00 Telemetry Strip Reading SR 11/15/22 07:00 Appearance: Positive Other (Elderly, frail, chronically ill appearing. ) Skin: Positive [place], Warm, Good Color and Other (Sacral - Large stage IV sacral decub, no drainage or malodor. Surrounding wound is a very erythematous macular rash consistent with yeast. ) HEENT: Positive Normocephalic and Atraumatic; Negative Oral Mucous Moist Neck: Positive Supple and Midline Trachea Chest/Lungs: Positive Rhonci (bertha) and Wheezes (bertha) Heart: Positive RRR GI/: Positive Soft, Nontender and Bowel Sounds Normal Extremities: Positive Intact Peripheral Pulses; Negative Edema (trace bertha lower ext) Neurological: Positive Alert and Disorinted (Patient unable to answer orientation questions correctly. Patient is hollering for help often. Other times she is singing loudly. ) Psychiatric: Positive Appropriate Mood and Appropriate Affect; Negative Oriented x4, Normal Judgement or Normal Insight Labs This Visit Labs This Visit: Labs This Visit 11/14/22 11/14/22 11/15/22 21:00 22:50 00:25 WBC 14.70 H RBC 3.95 L Hgb 12.4 Hct 40.1 MCV 101.5 H MCH 31.4 H MCHC 30.9 L RDW Coeff of Yosvany 15.1 H Plt Count 199 Immature Gran % (Auto) 0.4 Neut % (Auto) 91.8 H Lymph % (Auto) 2.2 L Barbour % (Auto) 5.4 Eos % (Auto) 0.1 Baso % (Auto) 0.1 Neut # (Auto) 13.5 H Lymph # (Auto) 0.3 L [place] # (Auto) 0.8 Eos # (Auto) 0.0 Baso # (Auto) 0.0 Immature Gran # (Auto) 0.1 Puncture Site Base Excess O2 Saturation ABG pH ABG pCO2 ABG pO2 ABG HCO3 ABG Total CO2 Russell Test Hemoglobin Oxyhemoglobin Carboxyhemoglobin Total Hemoglobin O2 Delivery Device Oxygen Liter Flow Sodium 141.7 Potassium 3.99 Chloride 110.6 H Carbon Dioxide 28.0 Anion Gap 7.09 BUN 18.7 H Creatinine 0.49 L Estimated GFR (MDRD) 120.00 BUN/Creatinine Ratio 38.16 Glucose 133.8 H Lactic Acid 0.92 Calcium 8.05 L Magnesium 2.03 Total Bilirubin 0.67 AST 23.9 ALT 12.7 Alkaline Phosphatase 111.0 Total Protein 6.05 L Albumin 3.10 L Globulin 2.95 Albumin/Globulin Ratio 1.05 Procalcitonin 0.37 H Urine Color Yellow Urine Clarity Slightly Urine pH 5.5 Ur Specific Rankin 1.025 Urine Protein Negative Urine Glucose (UA) Negative Urine Ketones Trace H Urine Blood Negative Urine Nitrite Negative Urine Bilirubin Negative Urine Urobilinogen 0.2 Ur Leukocyte Esterase Negative SARS CoV-2 RNA Rapid ELISEO Negative 11/15/22 05:41 WBC RBC Hgb Hct MCV MCH MCHC RDW Coeff of Yosvany Plt Count Immature Gran % (Auto) Neut % (Auto) Lymph % (Auto) Barbour % (Auto) Eos % (Auto) Baso % (Auto) Neut # (Auto) Lymph # (Auto) Barbour # (Auto) Eos # (Auto) Baso # (Auto) Immature Gran # (Auto) Puncture Site Lbrach Base Excess 3.5 H O2 Saturation 97.3 ABG pH 7.39 ABG pCO2 47.0 H ABG pO2 95.0 ABG HCO3 28.5 H ABG Total CO2 29.9 H Russell Test Pos Hemoglobin 0.3 Oxyhemoglobin 96.1 Carboxyhemoglobin 2.0 H Total Hemoglobin 11.1 L O2 Delivery Device Cannula Oxygen Liter Flow 2.00 Sodium Potassium Chloride Carbon Dioxide Anion Gap BUN Creatinine Estimated GFR (MDRD) BUN/Creatinine Ratio Glucose Lactic Acid Calcium Magnesium Total Bilirubin AST ALT Alkaline Phosphatase Total Protein Albumin Globulin Albumin/Globulin Ratio Procalcitonin Urine Color Urine Clarity Urine pH Ur Specific Rankin Urine Protein Urine Glucose (UA) Urine Ketones Urine Blood Urine Nitrite Urine Bilirubin Urine Urobilinogen Ur Leukocyte Esterase SARS CoV-2 RNA Rapid ELISEO Imaging Imagining: EXAM: CT OF THE CHEST WITHOUT CONTRAST History: Short of breath and cough. Comparison: CT chest, abdomen pelvis 12/27/2019 Technique: Multiplanar CT images through the thorax were obtained without the administration of IV contrast FINDINGS: Heart size is normal. Coronary calcifications. No thoracic aortic aneurysm. No axillary lymphadenopathy. A few borderline enlarged mediastinal lymph nodes. Evaluation for hilar lymph nodes is limited due to the lack of contrast administration. There is bilateral shoulder joint effusions or bursitis. Multifocal bilateral lung infiltrates with nodular appearance. Trace bilateral pleural effusions. No pneumothorax. There is some bronchial wall thickening. Within the visualized upper abdomen, no grossly acute findings. Scoliosis and degenerative changes of the spine. Degenerative changes of bilateral glenohumeral joints. Impression: 1. Nodular bilateral lung infiltrates most likely represents some type of atypical pneumonia. Neoplastic etiology is not excluded and would recommend followup to assure resolution. 2. Coronary artery disease Review Statement Review Statement: I have independently reviewed and interpreted the labs/EKGs/imaging that were ordered by the ER provider. I have reviewed all outside records that are amara ilable currently in our EMR including imaging/notes/labs from previous visits. Plan Plan: A&P: 1. Acute hypoxic respiratory failure in setting of bilateral pneumonia - RT consult, neb treatments, keep O2 >92%. Will start cefepime IV and vanc IV as patient has had a recent hospitalization for pna. Add solumedrol 40 mg q8hrs. Check sputum, mrsa swab, strep pneumo urine antigen, legionella urine antigen. Blood cultures pending. Fluids ordered 1/2NS at 100 ml/hr. Will reassess fluid status in AM. 2. Bilateral pneumonia, suspect bacterial - Plan as above. 3. Accidental overdose -Improved. Patient is now at baseline. Nursing contacted senior care. Only difference in medications is her xanax has been prescribed as scheduled instead of prn. She also is taking norco for pain for her sacral wound, seems to be prescribed by her wound care provider. Psych meds at the same as usual. Daughter would like patient to have xanax and norco, but in safe doses. Will decrease xanax dose and make it prn for now and monitor patient closely. Will keep norco on board as she does have a significant wound causing her pain. 4. Acute toxic encephalopathy in setting of accidental overdose and bilateral pneumonia - Improving. Plan as #1 and #3. 5. Sacral decubitus ulcer, stage IV, present upon arrival - Stable, chronic. Continue wound care from senior care orders with blair. However, hold triamcinolone. Will start nystatin bid around wound. 6. COPD - chronic. Maybe mildly exacerbated by pna, will start solumedrol 40 mg q8hrs IV. Continue nebs. 7. Hypertension - Will hold amlodipine and coreg at this time due to hypotension last night. 8. Dementia - Continue home meds DVT Prophylaxis: Lovenox Time Spent: Greater than 80 minutes spent with patient, 50% of the time spent with this patient was devoted to counseling and coordination of care. [facility] minutes spent discussing advance care planning. DNR. Admit to: Inpatient Discussed Plan of Care with Dr. Sotelo. Medications Medication Orders: Medications Ordered Category Date Time Status 0.9 % Sodium Chloride [Saline Flush] [facility] 11/14/22 21:25 Active 1 syr IVF PRN PRN Acetaminophen [Tylenol] [facility] 11/15/22 05:12 Active 650 mg PO Q4-6H PRN Albuterol Sulfate 0.083% Neb [Albuterol 0.083% Neb] [facility] 11/15/22 14:00 Active 2.5 mg NEB RTTID Budesonide/Formoterol Fumarate [Symbicort 80-4.5 Mcg [facility] 11/15/22 09:00 Active Inhaler] 2 puff IH BID Cefepime 2 gm/D5w [Maxipime 2 gm/50 ml D5w] [facility] 11/15/22 09:00 Active 2 gm in 50 ml IV Q12HR Memantine HCl [Namenda] [facility] 11/15/22 09:00 Active 10 mg PO Q12HR Sodium Chloride 0.45 % [Sodium Chloride] 1,000 ml [facility] 11/15/22 05:30 Active IV 100 mls/hr Sodium Hypochlorite [Dakin's Half Strength (0.25%)] [facility] 11/15/22 22:00 Active 1 applic TP 1000,2200 Vancomycin/Water For Inj (Peg) [Vancomycin 750 mg/150 [facility] 11/15/22 09:00 Active ml Bag] 750 mg in 150 ml IV DAILY rivastigmine tartrate [facility] 11/15/22 09:00 Active 1.5 mg PO BID
[2022-11-15] MEDS: VANCOMYCIN 750 MG/150 ML BAG 750 MG/150 ML BAG IV SCH (11:59)
[2022-11-15] MEDS ORDERED: SODIUM HYPOCHLORITE TP SCH ×2 (13:00→22:00)
[2022-11-15] MEDS: NORCO 7.5-325 PO SCH ×2 (13:01→20:11)
[2022-11-15] MEDS: ALBUTEROL 0.083% NEB NEB SCH ×2 (13:30→20:35)
[2022-11-15] MEDS: SOLU-MEDROL 40 MG IVP SCH ×2 (14:22→21:29)
[2022-11-15] MEDS: NYSTATIN CREAM TP SCH ×2 (14:22→20:13)
[2022-11-15] MEDS: COLACE PO SCH (20:11)
[2022-11-15] MEDS: XANAX PO PRN (20:11)
[2022-11-15] MEDS: ZYPREXA PO SCH (20:11)
[2022-11-15] MEDS ORDERED: ROCEPHIN 1 GM/50 ML D5W 1 GM/50 ML BAG IV SCH (21:00)
[2022-11-15] MEDS ORDERED: ZYPREXA IM PRN (21:09)
[2022-11-15] MEDS: [UNRECOGNIZED DRUG - OTHER] TP SCH (22:24)
[2022-11-16] MEDS: ALBUTEROL 0.083% NEB NEB SCH ×3 (04:45→19:55)
[2022-11-16] MEDS: SOLU-MEDROL 40 MG IVP SCH ×3 (05:52→20:45)
[2022-11-16] MEDS: MAXIPIME 2 GM/50 ML D5W 2 GM/50 ML BAG IV SCH ×2 (08:01→20:03)
--- NOTE | 2022-11-16 09:32 | PCM.PROG ---
Date/Time Seen Date Seen by Provider: 11/16/22 Time Seen by Provider: 08:30 Provider Provider: [facility]EL[facility] ASTORGA PA-C, [facility] Chief Complaint Chief Complaint: PNEUMONIA,BILATERAL Subjective Subjective: Patient required IM zyprexa last night due to being agitated and combative. She has been pulling on her IV site as well. Patient had a positive response from IM zyprexa per nursing staff. During evaluation today she is alert and talking but unable to provide history due to her dementia. She does admit that her wound is painful. Objective Appearance: Positive Other (Elderly, frail, chronically ill. Mucosal membranes are dry, lips are dry. SKIN EXAM: Large sacral decubitus ulcer, stage 4, no malodor or significant drainage. Yeasty rash around wound. ) Chest/Lungs: Positive Symmetrical With Equal Breath Sounds, Rhonci (bertha) and Wheezes (bertha) Heart: Positive RRR GI/: Positive Soft, Nontender and Bowel Sounds Normal Neurological: Positive Alert, Disorinted (at baseline ) and Other (generalized weakness ) Vital Signs Vital Signs: Vital Signs: Last 24 Hours 11/15/22 14:00 11/15/22 10:00 11/15/22 13:00 Temperature 96.0 F L Temperature Source Temporal Artery Scan Pulse Rate Respiratory Rate 12 Blood Pressure Blood Pressure Mean Blood Pressure Location Blood Pressure Position O2 Sat by Pulse Oximetry Oxygen Delivery Method Room Air Nasal Cannula Oxygen Flow Rate 2 Telemetry Type Remote Telemetry Telemetry Monitoring Continues Telemetry Heart Rate [address] Interval 0.18 EKG QRS Interval 0.08 Telemetry Strip Reading SR 11/15/22 14:00 11/15/22 19:00 11/15/22 19:44 Temperature Temperature Source Pulse Rate Respiratory Rate Blood Pressure Blood Pressure Mean Blood Pressure Location Blood Pressure Position O2 Sat by Pulse Oximetry 97 Oxygen Delivery Method Nasal Cannula Room Air Oxygen Flow Rate 2 Telemetry Type Telemetry Monitoring Telemetry Heart Rate EKG CT Interval EKG QRS Interval Telemetry Strip Reading REFUSES 11/15/22 20:00 11/16/22 01:00 11/16/22 04:54 Temperature Temperature Source Pulse Rate Respiratory Rate Blood Pressure Blood Pressure Mean Blood Pressure Location Blood Pressure Position O2 Sat by Pulse Oximetry 93 L 92 L Oxygen Delivery Method Room Air Room Air Oxygen Flow Rate Telemetry Type Telemetry Monitoring Telemetry Heart Rate EKG CT Interval EKG QRS Interval Telemetry Strip Reading refuses 11/16/22 06:00 11/16/22 07:00 11/16/22 07:42 Temperature 96.7 F L Temperature Source Temporal Artery Scan Pulse Rate 80 Respiratory Rate 18 Blood Pressure 159/77 H Blood Pressure Mean 104 Blood Pressure Location Right Arm Blood Pressure Position Supine O2 Sat by Pulse Oximetry 95 Oxygen Delivery Method Room Air Room Air Oxygen Flow Rate Telemetry Type Telemetry Monitoring Telemetry Heart Rate EKG CT Interval EKG QRS Interval Telemetry Strip Reading refused Lab Results Lab Results: Lab Results: Last 24 Hours 11/15/22 05:20 C-Reactive Prot, Quant 62 H Additional Comments Additional Comments: I have independently reviewed and interpreted the labs/EKGs/imaging ordered during this hospital stay. I have reviewed outside records that are available in our EMR that pertain to medical stay including imaging/notes/labs from previous visits. Active Medications Active Medications: Medications Generic Name Dose Route Start Last Admin Trade Name Freq PRN Reason Stop Dose Admin Acetaminophen 650 mg 11/15/22 05:12 Acetaminophen 325 Mg Tablet PO Q4-6H PRN Mild/Moderate Pain Hydrocodone Bitart/Acetaminophen 1 tab 11/15/22 13:00 11/15/22 20:11 Hydrocodone Bit/Acetaminophen 7.5/325 Mg Tablet PO 1 tab BID AZUCENA Administration Albuterol Sulfate 2.5 mg 11/15/22 14:00 11/16/22 04:45 Albuterol Sulfate 0.083% Vial.Neb NEB 2.5 mg RTTID AZUCENA Administration Alprazolam 0.25 mg 11/15/22 12:34 11/15/22 20:11 Alprazolam 0.5 Mg Tablet PO 0.25 mg TID PRN Administration Anxiety Budesonide/Formoterol Fumarate 2 puff 11/15/22 09:00 11/15/22 20:33 Budesonide/Formoterol Fumarate 80/4.5 Mcg Hfa.Aer.Ad IH 2 puff BID AZUCENA Administration Docusate Sodium 100 mg 11/15/22 21:00 11/15/22 20:11 Docusate Sodium 100 Mg Capsule PO 100 mg BID AZUCENA Administration Enoxaparin Sodium 40 mg 11/16/22 09:00 Enoxaparin Sodium 40 Mg/0.4 Ml Syr SUBCUT DAILY AZUCENA Sodium Chloride 1,000 mls @ 100 mls/hr 11/15/22 05:30 11/15/22 19:35 Sodium Chloride IV 100 mls/hr .Q10H AZUCENA Administration VANCOMYCIN/WATER FOR INJ (PEG) 750 mg in 150 mls @ 150 mls/hr 11/15/22 09:00 11/15/22 11:59 Vancomycin 750 Mg/150 Ml Bag IV 11/18/22 08:59 150 mls/hr DAILY AZUCENA Administration CEFEPIME 2 GM/D5W 2 gm in 50 mls @ 100 mls/hr 11/15/22 09:00 11/16/22 08:01 Maxipime 2 Gm/50 Ml D5w IV 11/18/22 08:59 100 mls/hr Q12HR AZUCENA Administration Memantine 10 mg 11/15/22 09:00 11/15/22 20:11 Memantine Hcl 10 Mg Tablet PO 10 mg Q12HR AZUCENA Administration Methylprednisolone Sodium Succinate 40 mg 11/15/22 13:05 11/16/22 05:52 Methylprednisolone Sod Succ/Pf 40 Mg/Ml Vial IVP 40 mg Q8HR AZUCENA Administration Non-Formulary Medication 1.5 mg 11/15/22 09:00 11/15/22 20:34 Rivastigmine Tartrate PO Not Given BID AZUCENA Nystatin 1 applic 11/15/22 13:00 11/15/22 20:13 Nystatin 15 Gm Cream TP 1 applic BID AZUCENA Administration Olanzapine 2.5 mg 11/15/22 21:00 11/15/22 20:11 Olanzapine 2.5 Mg Tablet PO 2.5 mg BEDTIME AZUCENA Administration Olanzapine 5 mg 11/15/22 21:09 11/15/22 22:31 Olanzapine 10 Mg Vial IM 5 mg ONCE PRN Administration Agitation Polyethylene Glycol 17 gm 11/16/22 09:00 Polyethylene Glycol 17 Gm Powd.Pack PO DAILY AZUCENA Quetiapine Fumarate 50 mg 11/16/22 09:00 Quetiapine Fumarate 25 Mg Tablet PO QAM AZUCENA Saccharomyces Boulardii 250 mg 11/16/22 09:00 Saccharomyces Boulardii 250 Mg Capsule PO BID AZUCENA Sodium Chloride 1 syr 11/14/22 21:25 0.9% Sodium Chloride 10 Ml Disp.Syrin IVF PRN PRN To flush IV Sodium Hypochlorite 1 applic 11/15/22 22:00 11/15/22 22:24 Sodium Hypochlorite 473 Ml Btl TP 1 applic 1000,2200 AZUCENA Administration Plan Plan: 1. Acute hypoxic respiratory failure in setting of bilateral pneumonia - RT consult, neb treatments, keep O2 >92%. Continue cefepime IV and vanc IV as patient has had a recent hospitalization for pna. Continue solumedrol 40 mg q8 hrs. Check sputum, mrsa swab, strep pneumo urine antigen, legionella urine antigen. Blood cultures pending. Continue fluids ordered but decrease to 1/2NS at 75 ml/hr. Will reassess fluid status in AM. Procal rising, will repeat in AM. 2. Community acquired bilateral pneumonia, suspect bacterial - Plan as above. 3. Accidental overdose -Resolved. Patient is now at baseline. Nursing contacted shelter. Only difference in medications is her xanax has been prescribed as scheduled instead of prn. She also is taking norco for pain for her sacral wound, seems to be prescribed by her wound care provider since mid September. Psych meds are the same as usual. Daughter would like patient to have xanax and norco, but in safe doses. Will decrease xanax dose and make it prn for now and monitor patient closely. Will keep norco on board as she does have a significant wound causing her pain. 4. Acute toxic encephalopathy in setting of accidental overdose and bilateral pneumonia - Improving. Plan as #1 and #3. 5. Sacral decubitus ulcer, stage IV, present upon arrival - Stable, chronic. Continue wound care from shelter orders with [facility]. However, hold triamcinolone. Will start nystatin bid around wound. 6. COPD - chronic. Maybe mildly exacerbated by pna, continue solumedrol 40 mg q8hrs IV. Continue nebs. 7. Hypertension - Resume blood pressure meds. 8. Dementia - Continue home meds. May use zyprexa 5 mg IM prn x1 at night for agitation/combativeness. DVT Prophylaxis: Lovenox Discussed Plan of Care with Dr. Covarrubias. Review Statement Review Statement: I have personally discussed and reviewed the patient's visit/currently labs/imaging/decision making with Dr. Covarrubias, my supervising attending. Greater that 50 minutes spent with patient, 50% of the time spent with this patient was devoted to counseling and coordination of care.
[2022-11-16] MEDS: MIRALAX PO SCH (09:38)
[2022-11-16] MEDS: SYMBICORT 80-4.5 MCG INHALER IH SCH ×2 (09:39→20:04)
[2022-11-16] MEDS: COLACE PO SCH ×2 (09:40→20:05)
[2022-11-16] MEDS: FLORASTOR PO SCH ×2 (09:40→20:06)
[2022-11-16] MEDS: SEROQUEL PO SCH (09:40)
[2022-11-16] MEDS: NORCO 7.5-325 PO SCH ×2 (09:40→20:05)
[2022-11-16] MEDS: NAMENDA PO SCH ×2 (09:40→20:05)
[2022-11-16] MEDS: LOVENOX SUBCUT SCH (09:41)
[2022-11-16] MEDS: RIVASTIGMINE TARTRATE 1.5 MG PO SCH ×2 (09:48→20:07)
[2022-11-16] MEDS: VANCOMYCIN 750 MG/150 ML BAG 750 MG/150 ML BAG IV SCH (09:49)
[2022-11-16] MEDS ORDERED: ZYPREXA IM PRN (09:59)
[2022-11-16] MEDS: NYSTATIN CREAM TP SCH ×2 (11:52→20:04)
[2022-11-16] MEDS: [UNRECOGNIZED DRUG - OTHER] TP SCH (11:52)
[2022-11-16] MEDS: COREG PO SCH ×2 (12:01→16:48)
[2022-11-16 12:47] LABS: BASOPHILS % (AUTO) 0.1 % (0.0-3.0); HEMATOCRIT 37.6 % (37.0-47.0); HEMOGLOBIN 11.6 g/dl (12.0-16.0); IMMATURE GRANULOCYTE # (AUTO) 0.1 (0.0-1.0); IMMATURE GRANULOCYTE % (AUTO) 0.5 % (0.0-5.0); LYMPHOCYTES # (AUTO) 0.3 K/uL (0.60-3.4); LYMPHOCYTES % (AUTO) 3.3 (10.0-50.0); MEAN CORPUSCULAR HEMOGLOBIN 30.8 pg (27.0-31.0); MEAN CORPUSCULAR HGB CONC 30.9 (31.8-35.4); MEAN CORPUSCULAR VOLUME 99.7 fl (81.0-99.0); MONOCYTES % (AUTO) 0.4 (0-10); NEUTROPHILS % (AUTO) 95.7 % (42.2-75.2); PLATELET COUNT 188 10^3/uL (140-440); RDW COEFFICIENT OF VARIATION 15.2 % (11.6-14.8); RED BLOOD COUNT 3.77 10^6/ul (4.20-5.40)
[2022-11-16 12:57] LABS: ALANINE AMINOTRANSFERASE 15.6 U/L (0-35); ALBUMIN 3.05 g/dL (3.5-5.0); ASPARTATE AMINO TRANSFERASE 26.9 U/L (14-36); BILIRUBIN,TOTAL 0.49 mg/dL (0.2-1.3); CALCIUM 8.54 mg/dL (8.4-10.2); CARBON DIOXIDE 25.6 mmol/L (22-30.0); CHLORIDE 110.6 mmol/L (98-107); CREATININE 0.43 mg/dL (0.60-1.30); GLUCOSE 231.1 mg/dL (74-106); POTASSIUM 4.12 mmol/L (3.5-5.1); SODIUM 140.6 mmol/L (134.5-145); TOTAL PROTEIN 6.32 g/dL (6.3-8.2)
[2022-11-16] MEDS: SODIUM CHLORIDE 1,000 ML IV SCH ×2 (13:32→13:55)
[2022-11-16 13:47] LABS: WHITE BLOOD COUNT 9.44 K/ul (4.6-10.2)
[2022-11-16] MEDS: XANAX PO PRN (20:05)
[2022-11-16] MEDS: ZYPREXA PO SCH (20:06)
[2022-11-17] MEDS: ALBUTEROL 0.083% NEB NEB SCH ×3 (04:55→19:30)
[2022-11-17] MEDS: [UNRECOGNIZED DRUG - OTHER] TP SCH ×3 (05:03→21:27)
[2022-11-17 05:04] LABS: HEMATOCRIT 37.4 % (37.0-47.0); HEMOGLOBIN 11.8 g/dl (12.0-16.0); MEAN CORPUSCULAR HEMOGLOBIN 31.1 pg (27.0-31.0); MEAN CORPUSCULAR HGB CONC 31.6 (31.8-35.4); MEAN CORPUSCULAR VOLUME 98.7 fl (81.0-99.0); PLATELET COUNT 187 10^3/uL (140-440); RDW COEFFICIENT OF VARIATION 15.1 % (11.6-14.8); RED BLOOD COUNT 3.79 10^6/ul (4.20-5.40); WHITE BLOOD COUNT 9.75 K/ul (4.6-10.2)
[2022-11-17] MEDS: SOLU-MEDROL 40 MG IVP SCH ×2 (05:04→14:21)
[2022-11-17 05:14] LABS: ANISOCYTOSIS NOT PRESENT (NOT PRESENT)
[2022-11-17 05:16] LABS: ALANINE AMINOTRANSFERASE 12.6 U/L (0-35); ALBUMIN 3.15 g/dL (3.5-5.0); ALKALINE PHOSPHATASE 97.6 U/L (53-141); BILIRUBIN,TOTAL 0.37 mg/dL (0.2-1.3); BLOOD UREA NITROGEN 11.2 mg/dL (7-17); CALCIUM 8.52 mg/dL (8.4-10.2); CARBON DIOXIDE 30.9 mmol/L (22-30.0); CHLORIDE 111.1 mmol/L (98-107); CREATININE 0.46 mg/dL (0.60-1.30); POTASSIUM 3.78 mmol/L (3.5-5.1); SODIUM 143.7 mmol/L (134.5-145); TOTAL PROTEIN 6.18 g/dL (6.3-8.2)
[2022-11-17] MEDS: MIRALAX PO SCH (08:52)
[2022-11-17] MEDS: FLORASTOR PO SCH ×2 (08:55→20:31)
[2022-11-17] MEDS: NORCO 7.5-325 PO SCH ×2 (08:56→20:16)
[2022-11-17] MEDS: NORVASC PO SCH (08:57)
[2022-11-17] MEDS: NAMENDA PO SCH ×2 (08:57→20:16)
[2022-11-17] MEDS: SEROQUEL PO SCH (08:58)
[2022-11-17] MEDS: COLACE PO SCH ×2 (09:00→20:16)
[2022-11-17] MEDS: COREG PO SCH ×2 (09:06→17:25)
[2022-11-17] MEDS: SYMBICORT 80-4.5 MCG INHALER IH SCH ×2 (09:07→20:20)
[2022-11-17] MEDS: MAXIPIME 2 GM/50 ML D5W 2 GM/50 ML BAG IV SCH (09:07)
[2022-11-17] MEDS: NYSTATIN CREAM TP SCH ×2 (09:08→20:20)
[2022-11-17] MEDS: LOVENOX SUBCUT SCH (09:12)
[2022-11-17] MEDS: RIVASTIGMINE TARTRATE 1.5 MG PO SCH ×2 (09:20→20:26)
[2022-11-17] MEDS: VANCOMYCIN 750 MG/150 ML BAG 750 MG/150 ML BAG IV SCH (10:17)
--- NOTE | 2022-11-17 10:29 | PCM.PROG ---
Date/Time Seen Date Seen by Provider: 11/17/22 Time Seen by Provider: 08:40 Provider [facility] STEPHENS[facility] Chief Complaint Chief Complaint: PNEUMONIA,BILATERAL Subjective Subjective: No fevers or events overnight. Off O2 at this time. NAD. Objective Appearance: Positive No Apparent Distress, Ill-Appearing and Thin Chest/Lungs: Positive Symmetrical With Equal Breath Sounds, Rhonci and Good Air Movement all 4 Lung Silva Heart: Positive RRR, Pulses Normal, No S3 Auscultated and No S4 Auscultated GI/: Positive Soft, Nontender, Bowel Sounds Normal, No Distention and No Organomegaly Musculoskeletal: Positive Not Examined Neurological: Positive Alert and Disorinted Vital Signs Vital Signs: Vital Signs: Last 24 Hours 11/16/22 14:00 11/16/22 13:00 11/16/22 14:00 Temperature 95.4 F L Temperature Source Temporal Artery Scan Pulse Rate 52 L Pulse Rate [Apical] Respiratory Rate 12 Blood Pressure 126/59 L Blood Pressure Mean 81 Blood Pressure Location Left Arm Blood Pressure Position Supine O2 Sat by Pulse Oximetry 96 92 L Oxygen Delivery Method Room Air Room Air Telemetry Type Telemetry Strip Reading refused 11/16/22 19:00 11/16/22 19:55 11/16/22 20:00 Temperature Temperature Source Pulse Rate Pulse Rate [Apical] 62 Respiratory Rate 16 Blood Pressure Blood Pressure Mean Blood Pressure Location Blood Pressure Position O2 Sat by Pulse Oximetry 94 L Oxygen Delivery Method Room Air Room Air Telemetry Type Remote Telemetry Telemetry Strip Reading tele not on currently - pt combative and keep removing it before you can get it completely hooked up - 11/16/22 22:00 11/17/22 01:00 11/17/22 05:14 Temperature 97.5 F L Temperature Source Temporal Artery Scan Pulse Rate 59 L Pulse Rate [Apical] Respiratory Rate 16 Blood Pressure 163/71 H Blood Pressure Mean 101 Blood Pressure Location Left Radial Artery Blood Pressure Position O2 Sat by Pulse Oximetry 95 Oxygen Delivery Method Room Air Room Air Telemetry Type Remote Telemetry Telemetry Strip Reading pt will not leave tele on; pt combative; 11/17/22 05:49 11/17/22 07:00 11/17/22 08:00 Temperature 97.4 F L Temperature Source Temporal Artery Scan Pulse Rate 70 Pulse Rate [Apical] Respiratory Rate 16 16 Blood Pressure 155/68 H Blood Pressure Mean 97 Blood Pressure Location Left Arm Blood Pressure Position Supine O2 Sat by Pulse Oximetry 94 L Oxygen Delivery Method Room Air Room Air Telemetry Type Telemetry Strip Reading REFUSES 11/17/22 09:33 Temperature Temperature Source Pulse Rate Pulse Rate [Apical] Respiratory Rate Blood Pressure Blood Pressure Mean Blood Pressure Location Blood Pressure Position O2 Sat by Pulse Oximetry 94 L Oxygen Delivery Method Room Air Telemetry Type Telemetry Strip Reading Lab Results Lab Results: Lab Results: Last 24 Hours 11/17/22 11/16/22 04:57 09:56 WBC 9.75 9.44 D RBC 3.79 L 3.77 L Hgb 11.8 L 11.6 L Hct 37.4 37.6 MCV 98.7 99.7 H MCH 31.1 H 30.8 MCHC 31.6 L 30.9 L RDW Coeff of Yosvany 15.1 H 15.2 H Plt Count 187 188 Immature Gran % (Auto) 0.5 Neut % (Auto) 95.7 H Lymph % (Auto) 3.3 L Pike % (Auto) 0.4 Eos % (Auto) 0.0 Baso % (Auto) 0.1 Neut # (Auto) 9.0 H Lymph # (Auto) 0.3 L Pike # (Auto) 0.0 L Eos # (Auto) 0.0 Baso # (Auto) 0.0 Immature Gran # (Auto) 0.1 Neutrophils % (Manual) 93.0 H Lymphocytes % (Manual) 3.0 L Monocytes % (Manual) 4.0 Anisocytosis Not present Sodium 143.7 140.6 Potassium 3.78 4.12 Chloride 111.1 H 110.6 H Carbon Dioxide 30.9 H 25.6 Anion Gap 5.48 8.52 BUN 11.2 12.0 Creatinine 0.46 L 0.43 L Estimated GFR (MDRD) 129.00 140.00 BUN/Creatinine Ratio 24.34 27.90 Glucose 138.0 H D 231.1 H Calcium 8.52 8.54 Total Bilirubin 0.37 0.49 AST 20.0 26.9 ALT 12.6 15.6 Alkaline Phosphatase 97.6 102.0 Total Protein 6.18 L 6.32 Albumin 3.15 L 3.05 L Globulin 3.03 3.27 Albumin/Globulin Ratio 1.03 0.93 Procalcitonin 0.61 H 0.68 H Additional Comments Additional Comments: I have independently reviewed and interpreted the labs/EKGs/imaging ordered during this hospital stay. I have reviewed outside records that are available in our EMR that pertain to medical stay including imaging/notes/labs from previous visits. Active Medications Active Medications: Medications Generic Name Dose Route Start Last Admin Trade Name Freq PRN Reason Stop Dose Admin Acetaminophen 650 mg 11/15/22 05:12 Acetaminophen 325 Mg Tablet PO Q4-6H PRN Mild/Moderate Pain Hydrocodone Bitart/Acetaminophen 1 tab 11/15/22 13:00 11/17/22 08:56 Hydrocodone Bit/Acetaminophen 7.5/325 Mg Tablet PO 1 tab BID AZUCENA Administration Albuterol Sulfate 2.5 mg 11/15/22 14:00 11/17/22 04:55 Albuterol Sulfate 0.083% Vial.Neb NEB 2.5 mg RTTID AZUCENA Administration Alprazolam 0.25 mg 11/15/22 12:34 11/16/22 20:05 Alprazolam 0.5 Mg Tablet PO 0.25 mg TID PRN Administration Anxiety Amlodipine Besylate 5 mg 11/17/22 09:00 11/17/22 08:57 Amlodipine Besylate 5 Mg Tablet PO 5 mg DAILY AZUCENA Administration Budesonide/Formoterol Fumarate 2 puff 11/15/22 09:00 11/17/22 09:07 Budesonide/Formoterol Fumarate 80/4.5 Mcg Hfa.Aer.Ad IH 2 puff BID AZUCENA Administration Carvedilol 3.125 mg 11/16/22 10:30 11/17/22 09:06 Carvedilol 3.125 Mg Tablet PO 3.125 mg BIDWM AZUCENA Administration Docusate Sodium 100 mg 11/15/22 21:00 11/17/22 09:00 Docusate Sodium 100 Mg Capsule PO 100 mg BID AZUCENA Administration Enoxaparin Sodium 40 mg 11/16/22 09:00 11/17/22 09:12 Enoxaparin Sodium 40 Mg/0.4 Ml Syr SUBCUT 40 mg DAILY AZUCENA Administration Sodium Chloride 1,000 mls @ 75 mls/hr 11/16/22 13:01 11/16/22 13:32 Sodium Chloride IV 75 mls/hr .[id number] AZUCENA Administration Ertapenem 1 gm/ Sodium 100 mls @ 200 mls/hr 11/17/22 10:30 Chloride IV 11/20/22 10:29 DAILY AZUCENA Memantine 10 mg 11/15/22 09:00 11/17/22 08:57 Memantine Hcl 10 Mg Tablet PO 10 mg Q12HR AZUCENA Administration Methylprednisolone Sodium Succinate 40 mg 11/15/22 13:05 11/17/22 05:04 Methylprednisolone Sod Succ/Pf 40 Mg/Ml Vial IVP Not Given Q8HR AZUCENA Non-Formulary Medication 1.5 mg 11/15/22 09:00 11/17/22 09:20 Rivastigmine Tartrate PO Not Given BID AZUCENA Nystatin 1 applic 11/15/22 13:00 11/17/22 09:08 Nystatin 15 Gm Cream TP 1 applic BID AZUCENA Administration Olanzapine 2.5 mg 11/15/22 21:00 11/16/22 20:06 Olanzapine 2.5 Mg Tablet PO 2.5 mg BEDTIME AZUCENA Administration Olanzapine 5 mg 11/16/22 09:59 11/16/22 21:11 Olanzapine 10 Mg Vial IM 5 mg ONCE PRN Administration Agitation Polyethylene Glycol 17 gm 11/16/22 09:00 11/17/22 08:52 Polyethylene Glycol 17 Gm Powd.Pack PO 17 gm DAILY AZUCENA Administration Quetiapine Fumarate 50 mg 11/16/22 09:00 11/17/22 08:58 Quetiapine Fumarate 25 Mg Tablet PO 50 mg QAM AZUCENA Administration Saccharomyces Boulardii 250 mg 11/16/22 09:00 11/17/22 08:55 Saccharomyces Boulardii 250 Mg Capsule PO 250 mg BID AZUCENA Administration Sodium Chloride 1 syr 11/14/22 21:25 0.9% Sodium Chloride 10 Ml Disp.Syrin IVF PRN PRN To flush IV Sodium Hypochlorite 1 applic 11/15/22 22:00 11/17/22 05:03 Sodium Hypochlorite 473 Ml Btl TP Not Given 1000,2200 [facility] Plan Plan: 1. Acute hypoxic respiratory failure in setting of bilateral pneumonia - RT consult, neb treatments, keep O2 >92%. Continue solumedrol 40 mg q8hrs. Sputum culture showed esbl + e.coli. D/c vancomycin and cefepime. Start on Invanz 1G IV daily, will d/c on IM. MRSA swab, strep pneumo urine antigen, and legionella urine antigen pending. Blood cultures negative. Continue 1/2NS at 75 ml/hr. Will reassess fluid status in AM. 2. Community acquired bilateral pneumonia, bacterial - Plan as above. 3. Accidental overdose -Resolved. Patient is now at baseline. Nursing contacted half-way. Only difference in medications is her xanax has been prescribed as scheduled instead of prn. She also is taking norco for pain for her sacral wound, seems to be prescribed by her wound care provider since mid September. Psych meds are the same as usual. Daughter would like patient to have xanax and norco, but in safe doses. Will decrease xanax dose and make it prn for now and monitor patient closely. Will keep norco on board as she does have a significant wound causing her pain. 4. Acute toxic encephalopathy in setting of accidental overdose and bilateral pneumonia - Resolved, Plan as #1 and #3. 5. Sacral decubitus ulcer, stage IV, present upon arrival - Stable, chronic. Continue wound care from half-way orders with daklizbeth. Nystatin bid around wound. 6. COPD - chronic. Maybe mildly exacerbated by pna, continue solumedrol 40 mg q8hrs IV. Continue nebs. 7. Hypertension - Resume blood pressure meds. 8. Dementia - Continue home meds. May use zyprexa 5 mg IM prn x1 at night for agitation/combativeness. Did not receive dose last night, pleasant today Review Statement Review Statement: I have personally discussed and reviewed the patient's visit/currently labs/imaging/decision making with Dr. Covarrubias, my supervising attending. Greater that 50 minutes spent with patient, 50% of the time spent with this patient was devoted to counseling and coordination of care.
[2022-11-17] MEDS ORDERED: INVANZ 1 GM in SODIUM CHLORIDE 100ML 100 ML IV SCH (10:30)
[2022-11-17] MEDS: SODIUM CHLORIDE 1,000 ML IV SCH (14:52)
[2022-11-17] MEDS: XANAX PO PRN (15:30)
[2022-11-17] MEDS: SOLU-MEDROL 40 MG IM SCH (20:15)
[2022-11-17] MEDS: ZYPREXA PO SCH (20:16)
[2022-11-18] MEDS: ALBUTEROL 0.083% NEB NEB SCH (04:45)
[2022-11-18 05:07] VITALS: BP 157/72; TEMP 97.6
[2022-11-18] MEDS: SOLU-MEDROL 40 MG IM SCH (05:28)
[2022-11-18 05:34] LABS: BASOPHILS % (AUTO) 0.1 % (0.0-3.0); HEMATOCRIT 36.6 % (37.0-47.0); HEMOGLOBIN 11.7 g/dl (12.0-16.0); IMMATURE GRANULOCYTE % (AUTO) 0.4 % (0.0-5.0); LYMPHOCYTES # (AUTO) 0.5 K/uL (0.60-3.4); LYMPHOCYTES % (AUTO) 6.3 (10.0-50.0); MEAN CORPUSCULAR VOLUME 96.8 fl (81.0-99.0); MONOCYTES # (AUTO) 0.2 K/uL (0.4-2.0); MONOCYTES % (AUTO) 1.9 (0-10); NEUTROPHILS # (AUTO) 7.8 K/ul (2.0-6.9); NEUTROPHILS % (AUTO) 91.3 % (42.2-75.2); PLATELET COUNT 192 10^3/uL (140-440); RDW COEFFICIENT OF VARIATION 15.1 % (11.6-14.8); RED BLOOD COUNT 3.78 10^6/ul (4.20-5.40); WHITE BLOOD COUNT 8.56 K/ul (4.6-10.2)
[2022-11-18 05:50] LABS: ALBUMIN 3.1 g/dL (3.5-5.0); ALKALINE PHOSPHATASE 96.8 U/L (53-141); ASPARTATE AMINO TRANSFERASE 21.9 U/L (14-36); BILIRUBIN,TOTAL 0.33 mg/dL (0.2-1.3); BLOOD UREA NITROGEN 16.5 mg/dL (7-17); CALCIUM 8.2 mg/dL (8.4-10.2); CARBON DIOXIDE 34.1 mmol/L (22-30.0); CHLORIDE 106.6 mmol/L (98-107); CREATININE 0.59 mg/dL (0.60-1.30); GLUCOSE 126.7 mg/dL (74-106); POTASSIUM 3.2 mmol/L (3.5-5.1); SODIUM 142.1 mmol/L (134.5-145); TOTAL PROTEIN 6.12 g/dL (6.3-8.2)
[2022-11-18] MEDS ORDERED: POTASSIUM CHL 10% ORAL SOL PO ONE (08:03)
[2022-11-18] MEDS ORDERED: INVANZ 1 GM in SODIUM CHLORIDE 100ML 100 ML IM SCH (09:00)
[2022-11-18] MEDS ORDERED: LIDOCAINE HCL 1% SDV IM SCH (09:00)
[2022-11-18] MEDS ORDERED: INVANZ IM SCH (09:00)
--- NOTE | 2022-11-18 09:38 | DCSUM ---
Admission Date Admission Date: 11/14/22 Discharge Date Discharge Date: 11/18/22 Admission Diagnosis Admission Diagnosis: 1. Acute hypoxic respiratory failure in setting of bilateral pneumonia 2. Bilateral pneumonia 3. Accidental overdose Discharge Diagnosis Discharge Diagnosis: Bilateral Pneumonia, ESBL + E Coli in Sputum Hospital Provider Hospital Provider: ALICIA STEPHENS, [facility] [place] Primary Care Physician: MADELIN SOTELO MD Summary of History and Physical Summary of History and Physical: Patient is a 82 year old female from the group home with pmhx of COPD, alzheimers, recent pneumonia who presented to ER for hypotension and hypoxia. She was noted to have pinpoint pupils. Daughter was contacted and she initially wanted comfort measures. After some time, it was discussed that her medications were adjusted at the group home. She was given narcan with no response. However she did have positive response to flumazenil. After this positive response, daughter decided she wanted to pursue a full work up. CT chest showed multifocal pneumonia. WBC 14. She required 2L O2. She was given a dose of rocephin. A&P: 1. Acute hypoxic respiratory failure in setting of bilateral pneumonia - RT consult, neb treatments, keep O2 >92%. Will start cefepime IV and vanc IV as patient has had a recent hospitalization for pna. Add solumedrol 40 mg q8hrs. Check sputum, mrsa swab, strep pneumo urine antigen, legionella urine antigen. Blood cultures pending. Fluids ordered 1/2NS at 100 ml/hr. Will reassess fluid status in AM. 2. Bilateral pneumonia, suspect bacterial - Plan as above. 3. Accidental overdose -Improved. Patient is now at baseline. Nursing contacted group home. Only difference in medications is her xanax has been prescribed as scheduled instead of prn. She also is taking norco for pain for her sacral wound, seems to be prescribed by her wound care provider. Psych meds at the same as usual. Daughter would like patient to have xanax and norco, but in safe doses. Will decrease xanax dose and make it prn for now and monitor patient closely. Will keep norco on board as she does have a significant wound causing her pain. 4. Acute toxic encephalopathy in setting of accidental overdose and bilateral pneumonia - Improving. Plan as #1 and #3. 5. Sacral decubitus ulcer, stage IV, present upon arrival - Stable, chronic. Continue wound care from group home orders with dakins. However, hold triamcinolone. Will start nystatin bid around wound. 6. COPD - chronic. Maybe mildly exacerbated by pna, will start solumedrol 40 mg q8hrs IV. Continue nebs. 7. Hypertension - Will hold amlodipine and coreg at this time due to hypotension last night. 8. Dementia - Continue home meds Hospital Course Subjective: Patient was initially requiring 2L of O2 via NC. Over the last 2 days, she has been on RA. Antibiotics were adjusted based on sputum culture showing esbl+ ecoli. D/c vanc and cefepime. Has been receiving invanz. MRSA swab, strep pneumo urine antigen, and legionella urine antigen were collected and still pending. Accidental overdose - Resolved after adjusting xanax to prn instead of scheduled. Sacral decubitus ulcer, stage IV, present upon arrival - Stable, chronic. Continued wound care from group home orders with dakins. Nystatin bid around wound. COPD - chronic. Maybe mildly exacerbated by pna, received solumedrol 40 mg q8hrs IV and neb treatments Feeling better today. Pleasant, talkative. No events overnight. Appearance: Pleasant, No Apparent Distress and Alert HEENT: Supple CVS: No Murmur, No Rubs, No Gallop and No JVD Abdomen: Soft, Non-Tender and No Distention Respiratory: No Crackles Extremities: No Edema Vital Signs: Most Recent Vital Signs Temperature 97.6 F 11/18/22 05:05 Temperature Source Temporal Artery Scan 11/18/22 05:05 Temperature Source Infrared 11/15/22 01:17 Pulse Rate 70 11/18/22 05:05 Respiratory Rate 16 11/18/22 07:54 Blood Pressure 157/72 H 11/18/22 05:05 Blood Pressure Mean 100 11/18/22 05:05 Blood Pressure Right Arm 131/62 11/15/22 04:31 Blood Pressure Location Right Arm 11/18/22 05:05 Blood Pressure Position Supine 11/18/22 05:05 O2 Sat by Pulse Oximetry 95 11/18/22 09:34 Oxygen Delivery Method Room Air 11/18/22 09:34 Oxygen Flow Rate 2 11/15/22 14:00 Height 5 ft 4 in 11/15/22 04:31 Weight 103 lb 3.2 oz 11/15/22 04:31 Telemetry Type Remote Telemetry 11/17/22 01:00 Telemetry Monitoring Continues 11/15/22 13:00 Telemetry Heart Rate 60 11/15/22 13:00 EKG MA Interval 0.18 11/15/22 13:00 EKG QRS Interval 0.08 11/15/22 13:00 Telemetry Strip Reading REFUSES 11/18/22 07:00 Lab Results Last 24 Hours: 11/18/22 11/15/22 04:50 12:04 WBC 8.56 RBC 3.78 L Hgb 11.7 L Hct 36.6 L MCV 96.8 MCH 31.0 MCHC 32.0 RDW Coeff of Yosvany 15.1 H Plt Count 192 Immature Gran % (Auto) 0.4 Neut % (Auto) 91.3 H Lymph % (Auto) 6.3 L Christian % (Auto) 1.9 Eos % (Auto) 0.0 Baso % (Auto) 0.1 Neut # (Auto) 7.8 H Lymph # (Auto) 0.5 L Christian # (Auto) 0.2 L Eos # (Auto) 0.0 Baso # (Auto) 0.0 Immature Gran # (Auto) 0.0 Sodium 142.1 Potassium 3.20 L Chloride 106.6 Carbon Dioxide 34.1 H Anion Gap 4.60 BUN 16.5 Creatinine 0.59 L Estimated GFR (MDRD) 97.00 BUN/Creatinine Ratio 27.96 Glucose 126.7 H Calcium 8.20 L Total Bilirubin 0.33 AST 21.9 ALT 17.0 Alkaline Phosphatase 96.8 Total Protein 6.12 L Albumin 3.10 L Globulin 3.02 Albumin/Globulin Ratio 1.02 Miscellaneous Test Sent to [facility] Discharge Instructions Discharge Planning: Discharge Planning > 40 minutes Continue Invanz 1G daily x 5 days. Xanax prn instead of scheduled. Apply nystatin surrounding sacral wound BID. Turn every 2 hours. Mechanical soft, regular diet Continue rincon catheter, change Q72H Medications Given This Visit: Medications Generic Name Dose Route Start Last Admin Trade Name Freq PRN Reason Stop Dose Admin Acetaminophen 650 mg 11/15/22 05:12 Acetaminophen 325 Mg Tablet PO Q4-6H PRN Mild/Moderate Pain Hydrocodone Bitart/Acetaminophen 1 tab 11/15/22 13:00 11/17/22 20:16 Hydrocodone Bit/Acetaminophen 7.5/325 Mg Tablet PO 1 tab BID AZUCENA Administration Albuterol Sulfate 2.5 mg 11/15/22 14:00 11/18/22 04:45 Albuterol Sulfate 0.083% Vial.Neb NEB 2.5 mg RTTID AZUCENA Administration Alprazolam 0.25 mg 11/15/22 12:34 11/17/22 15:30 Alprazolam 0.5 Mg Tablet PO 0.25 mg TID PRN Administration Anxiety Amlodipine Besylate 5 mg 11/17/22 09:00 11/17/22 08:57 Amlodipine Besylate 5 Mg Tablet PO 5 mg DAILY AZUCENA Administration Budesonide/Formoterol Fumarate 2 puff 11/15/22 09:00 11/17/22 20:20 Budesonide/Formoterol Fumarate 80/4.5 Mcg Hfa.Aer.Ad IH 2 puff BID AZUCENA Administration Carvedilol 3.125 mg 11/16/22 10:30 11/17/22 17:25 Carvedilol 3.125 Mg Tablet PO 3.125 mg BIDWM AZUCENA Administration Docusate Sodium 100 mg 11/15/22 21:00 11/17/22 20:16 Docusate Sodium 100 Mg Capsule PO 100 mg BID AZUCENA Administration Enoxaparin Sodium 40 mg 11/16/22 09:00 11/17/22 09:12 Enoxaparin Sodium 40 Mg/0.4 Ml Syr SUBCUT 40 mg DAILY AZUCENA Administration Ertapenem 1 gm 11/18/22 09:00 Ertapenem Sodium 1 Gm Vial IM 11/21/22 08:59 DAILY AZUCENA Lidocaine HCl 3.2 ml 11/18/22 09:00 Lidocaine Hcl/Pf 1% 5 Ml Vial IM DAILY AZUCENA Memantine 10 mg 11/15/22 09:00 11/17/22 20:16 Memantine Hcl 10 Mg Tablet PO 10 mg Q12HR AZUCENA Administration Methylprednisolone Sodium Succinate 40 mg 11/17/22 21:00 11/18/22 05:28 Methylprednisolone Sod Succ/Pf 40 Mg/Ml Vial IM 40 mg Q8HR AZUCENA Administration Non-Formulary Medication 1.5 mg 11/15/22 09:00 11/17/22 20:26 Rivastigmine Tartrate PO Not Given BID AZUCENA Nystatin 1 applic 11/15/22 13:00 11/17/22 20:20 Nystatin 15 Gm Cream TP 1 applic BID AZUCENA Administration Olanzapine 2.5 mg 11/15/22 21:00 11/17/22 20:16 Olanzapine 2.5 Mg Tablet PO 2.5 mg BEDTIME AZUCENA Administration Olanzapine 5 mg 11/16/22 09:59 11/16/22 21:11 Olanzapine 10 Mg Vial IM 5 mg ONCE PRN Administration Agitation Polyethylene Glycol 17 gm 11/16/22 09:00 11/17/22 08:52 Polyethylene Glycol 17 Gm Powd.Pack PO 17 gm DAILY AZUCENA Administration Quetiapine Fumarate 50 mg 11/16/22 09:00 11/17/22 08:58 Quetiapine Fumarate 25 Mg Tablet PO 50 mg QAM AZUCENA Administration Saccharomyces Boulardii 250 mg 11/16/22 09:00 11/17/22 20:31 Saccharomyces Boulardii 250 Mg Capsule PO 250 mg BID AZUCENA Administration Sodium Chloride 1 syr 11/14/22 21:25 0.9% Sodium Chloride 10 Ml Disp.Syrin IVF PRN PRN To flush IV Sodium Hypochlorite 1 applic 11/15/22 22:00 11/17/22 21:27 Sodium Hypochlorite 473 Ml Btl TP 1 applic 1000,2200 AZUCENA Administration Medications Given This Visit: Medications at Discharge (Home Meds & RX) memantine 10 mg tablet (Namenda) 10 mg PO Q12HR 07/17/20 acetaminophen 325 mg tablet (Tylenol) 650 mg PO Q4HR PRN Pain #60 tabs 10/11/20 bisacodyl 10 mg rectal suppository 10 mg MA DAILY PRN Constipation 07/02/21 magnesium hydroxide 400 mg/5 mL oral suspension (Milk of Magnesia) 30 ml PO DA IVETH PRN Constipation 07/02/21 polyethylene glycol 3350 17 gram oral powder packet (Miralax) 17 g PO DAILY 07/02/21 quetiapine 50 mg tablet (Seroquel) 50 mg PO QAM 07/02/21 budesonide-formoterol HFA 80 mcg-4.5 mcg/actuation aerosol inhaler (Symbicort) 2 puff inhalation BID 10/15/21 amlodipine 5 mg tablet (Norvasc) 5 mg PO DAILY 06/26/22 olanzapine 2.5 mg tablet (Zyprexa) 2.5 mg PO BEDTIME 06/26/22 rivastigmine tartrate 1.5 mg capsule 1.5 mg PO BID 06/26/22 albuterol sulfate 90 mcg/actuation aerosol inhaler 2 puff inhalation BID 08/16/22 alprazolam 0.5 mg tablet 0.5 mg PO TID PRN Anxiety #90 tabs 10/23/22 cyanocobalamin (vitamin B-12) 1,000 mcg tablet 1,000 mcg PO DAILY 10/28/22 docusate sodium 100 mg capsule (Colace) 100 mg PO BID 10/28/22 carvedilol 3.125 mg tablet 3.125 mg PO BIDWM 30 days #60 tabs 11/03/22 hydrocodone 7.5 mg-acetaminophen 325 mg tablet 1 tab PO BID pain #60 tabs 11/04/22 hydrocodone 7.5 mg-acetaminophen 325 mg tablet 1 tab PO Q4H PRN pain #180 tabs 11/04/22 DAKINS EXTERNAL SOLUTION 1 applic topical QSHIFT 11/14/22 cyanocobalamin (vitamin B-12) 1,000 mcg/mL injection solution 1,000 mcg IM MONTHLY 11/14/22 hydrocodone 7.5 mg-acetaminophen 325 mg tablet 1 tab PO BID 11/14/22 naloxone 4 mg/actuation nasal spray (Narcan) 4 mg intranasal Q2-3M PRN OVERDOSE 11/14/22 triamcinolone acetonide 0.1 % topical cream 1 applic topical QSHIFT 11/14/22 Discharge Plan Discharge Discharge Orders: Discharge Patient (ONCE); Ordered 11/18/22 Ordered By: HERNANDO MARTIN Activity Restrictions/Additional Instructions: Continue Invanz 1G daily x 5 days. Xanax prn instead of scheduled. Apply nystatin surrounding sacral wound BID. Turn every 2 hours. Mechanical soft, regular diet Continue rincon catheter, change Q72H Instructions: Pneumonia (IP) Patient Disposition: TRANSFER [facility] Prescriptions: New ertapenem [Invanz] 1 gram Recon Soln 1 g IM DAILY 5 Days Qty: 5 0RF lidocaine (PF) [Xylocaine-MPF] 10 mg/mL (1 %) Solution 3.2 ml IM DAILY Qty: 20 0RF Rx Instructions: Mix with invanz for administration nystatin 100,000 unit/gram Cream 1 applic topical BID 30 Days Qty: 1 0RF alprazolam 0.5 mg Tablet 0.25 mg PO TID PRN (Reason: anxiety) 10 Days Qty: 30 0RF Continued hydrocodone-acetaminophen 7.5-325 mg tablet 1 tab PO Q4H PRN (Reason: pain) Qty: 180 0RF hydrocodone-acetaminophen 7.5-325 mg tablet 1 tab PO BID Qty: 60 0RF memantine [Namenda] 10 mg Tablet 10 mg PO Q12HR acetaminophen [Tylenol] 325 mg Tablet 650 mg PO Q4HR PRN (Reason: Pain) Qty: 60 5RF Rx Instructions: DO NOT TAKE MORE THAN 4000 MG IN A 24 HOUR PERIOD polyethylene glycol 3350 [Miralax] 17 gram Powder In Packet 17 g PO DAILY magnesium hydroxide [Milk of Magnesia] 400 mg/5 mL Suspension 30 ml PO DAILY PRN (Reason: Constipation) Rx Instructions: IF NO BM FOR 3 DAYS bisacodyl 10 mg Suppository 10 mg MA DAILY PRN (Reason: Constipation) quetiapine [Seroquel] 50 mg Tablet 50 mg PO QAM budesonide-formoterol [Symbicort] 80-4.5 mcg/actuation Hfa Aerosol Inhaler 2 puff inhalation BID 0RF amlodipine [Norvasc] 5 mg tablet 5 mg PO DAILY rivastigmine tartrate 1.5 mg Capsule 1.5 mg PO BID olanzapine [Zyprexa] 2.5 mg Tablet 2.5 mg PO BEDTIME albuterol sulfate 90 mcg/actuation HFA aerosol inhaler 2 puff INHALATION BID cyanocobalamin (vitamin B-12) 1,000 mcg tablet 1,000 mcg PO DAILY docusate sodium [Colace] 100 mg capsule 100 mg PO BID carvedilol 3.125 mg Tablet 3.125 mg PO BIDWM 30 Days Qty: 60 0RF cyanocobalamin (vitamin B-12) 1,000 mcg/mL solution 1,000 mcg IM MONTHLY Rx Instructions: TAKES ON THE 6TH OF EACH MONTH DAKINS EXTERNAL SOLUTION 1 applic topical QSHIFT Rx Instructions: APPLY TO SACRUM/COCCYX TOPICALLY EVERY SHIFT FOR [place] HOLD R/T PERIWOUND SKIN BREAKDOWN. APPLY DAKINS WET TO DRY SOLUTION TO SACRUM WOUND QSHIFT WITH TR IAMCINOLONE 1% CREAM TO PERIWOUND WITH EACH DRESSING CHANGE. COVER WITH FOAM QSHIFT naloxone [Narcan] 4 mg/actuation spray,non-aerosol 4 mg intranasal Q2-3M PRN (Reason: OVERDOSE) Rx Instructions: spray 1 dose into ONE nostril; alternate nostrils w each dose until help arrives hydrocodone-acetaminophen 7.5-325 mg tablet 1 tab PO BID triamcinolone acetonide 0.1 % cream 1 applic TOPICAL QSHIFT Rx Instructions: APPLY TO SKIN AROUND COCCYX WOUND TOPICALLY EVERY SHIFT FOR PERIWOUND SKIN BREAKDOWN. APPLY TO THET PERIWOUND (THE SKIN AROUND THE ACTUAL WOUND) SKIN BREAKDOWN WITH CLAUDIA BARKLEY WWET TO DRY SOLUTION TO COCCYX QSHIFT Discontinued alprazolam 0.5 mg tablet 0.5 mg PO TID PRN (Reason: Anxiety) Qty: 90 0RF Rx Instructions: AFTERNOON Did you review [place] TITLE INVESTIGATOR for ALL controlled substances?: Not Applicable Discussed opioids are addictive and Narcan is available by prescription or from pharmacy.: No Condition: Fair
[2022-11-18] MEDS: NAMENDA PO SCH (09:45)
[2022-11-18] MEDS: COREG PO SCH (09:45)
[2022-11-18] MEDS: COLACE PO SCH (09:45)
[2022-11-18] MEDS: NYSTATIN CREAM TP SCH (09:45)
[2022-11-18] MEDS: SEROQUEL PO SCH (09:47)
[2022-11-18] MEDS: NORVASC PO SCH (09:47)
[2022-11-18] MEDS: SYMBICORT 80-4.5 MCG INHALER IH SCH (09:47)
[2022-11-18] MEDS: FLORASTOR PO SCH (09:48)
[2022-11-18] MEDS: NORCO 7.5-325 PO SCH (09:50)
[2022-11-18] MEDS: LOVENOX SUBCUT SCH (09:50)
[2022-11-18] MEDS: RIVASTIGMINE TARTRATE 1.5 MG PO SCH (09:50)
[2022-11-18] MEDS: MIRALAX PO SCH (09:50)
[2022-11-18] MEDS: [UNRECOGNIZED DRUG - OTHER] TP SCH (11:13)
== END 2022-11-18 12:30 | DRG 193 ==
LOC: ED 14:07 → MEDSURG A 11-15 03:40
PROVIDERS: ADMIT Hospitalist; ATTEND Nurse Practitioner Family
DX: H25.813 Combined forms of age-related cataract, bilateral; F51.4 Sleep terrors [night terrors]; M51.37 Other intervertebral disc degeneration, lumbosacral region; Z51.81 Encounter for therapeutic drug level monitoring; J96.01 Acute respiratory failure with hypoxia; F02.818 Dementia in other diseases classified elsewhere, unspecified severity, with other behavioral disturbance; T88.7XXA Unspecified adverse effect of drug or medicament, initial encounter; Z79.899 Other long term (current) drug therapy; Z16.12 Extended spectrum beta lactamase (ESBL) resistance; Z79.01 Long term (current) use of anticoagulants; I10 Essential (primary) hypertension; Z20.822 Contact with and (suspected) exposure to COVID-19; J44.9 Chronic obstructive pulmonary disease, unspecified; F32.9 Major depressive disorder, single episode, unspecified; F41.9 Anxiety disorder, unspecified; G92.8 Other toxic encephalopathy; Z79.51 Long term (current) use of inhaled steroids; M19.90 Unspecified osteoarthritis, unspecified site; G30.9 Alzheimer's disease, unspecified; H54.8 Legal blindness, as defined in USA; K58.9 Irritable bowel syndrome, unspecified; G20 Parkinson's disease; T50.901A Poisoning by unspecified drugs, medicaments and biological substances, accidental (unintentional), initial encounter; B96.20 Unspecified Escherichia coli [E. coli] as the cause of diseases classified elsewhere; Z74.09 Other reduced mobility; I25.10 Atherosclerotic heart disease of native coronary artery without angina pectoris; Z66 Do not resuscitate; J18.9 Pneumonia, unspecified organism; I95.9 Hypotension, unspecified

== ENCOUNTER 2023-09-13 22:23 | Inpatient (IN) ==
--- NOTE | 2023-09-13 22:55 | DI ---
EXAM: CHEST ONE-VIEW History: Altered mental status FINDINGS: Normal cardiomediastinal contours. Normal pulmonary vasculature. Consolidative opacity i n the right upper lobe. Mass like opacity in the left upper lobe also seen on prior no acute chest w all abnormality. Impression: Consolidative change in the right upper lobe favoring pneumonia. Cannot exclude underlying mass. Left upper lobe mass stable from 10/28/2022
[2023-09-13 23:23] LABS: HEMATOCRIT 36.2 % (37.0-47.0); HEMOGLOBIN 10.7 g/dl (12.0-16.0); IMMATURE GRANULOCYTE # (AUTO) 0.1 (0.0-1.0); IMMATURE GRANULOCYTE % (AUTO) 0.5 % (0.0-5.0); LYMPHOCYTES # (AUTO) 0.7 K/uL (0.60-3.4); LYMPHOCYTES % (AUTO) 6.6 (10.0-50.0); MEAN CORPUSCULAR HEMOGLOBIN 29.9 pg (27.0-31.0); MEAN CORPUSCULAR HGB CONC 29.6 (31.8-35.4); MEAN CORPUSCULAR VOLUME 101.1 fl (81.0-99.0); MONOCYTES # (AUTO) 0.4 K/uL (0.4-2.0); MONOCYTES % (AUTO) 4.3 (0-10); NEUTROPHILS % (AUTO) 88.6 % (42.2-75.2); PLATELET COUNT 258 10^3/uL (140-440); RDW COEFFICIENT OF VARIATION 14.7 % (11.6-14.8); RED BLOOD COUNT 3.58 10^6/ul (4.20-5.40); WHITE BLOOD COUNT 10.19 K/ul (4.6-10.2)
[2023-09-13] MEDS: ZOSYN 3.375 GM 3.375 GM in SODIUM CHLORIDE 100ML 100 ML IV ONE (23:26)
[2023-09-13 23:36] LABS: ALANINE AMINOTRANSFERASE 16.1 U/L (0-35); ALBUMIN 2.96 g/dL (3.5-5.0); ALKALINE PHOSPHATASE 85.9 U/L (53-141); ASPARTATE AMINO TRANSFERASE 17.4 U/L (14-36); BILIRUBIN,TOTAL 0.52 mg/dL (0.2-1.3); CALCIUM 8.55 mg/dL (8.4-10.2); CHLORIDE 107.1 mmol/L (98-107); CREATININE 0.65 mg/dL (0.60-1.30); GLUCOSE 128.8 mg/dL (74-106); POTASSIUM 4.37 mmol/L (3.5-5.1); SODIUM 143.6 mmol/L (134.5-145); TOTAL PROTEIN 6.54 g/dL (6.3-8.2)
[2023-09-13 23:40] LABS: BILIRUBIN,URINE Negative (NEGATIVE); CLARITY,URINE Clear (CLEAR); COLOR,URINE Yellow (YELLOW); GLUCOSE, URINE (UA) Negative (NEGATIVE); KETONES,URINE Negative (NEGATIVE); LEUKOCYTE ESTERASE ,URINE Negative (NEGATIVE); NITRITE,URINE Positive (NEGATIVE); PH,URINE 5.5 (5-9); PROTEIN,URINE 1+ (NEGATIVE); URINE, BLOOD Negative (NEGATIVE); UROBILINOGEN,URINE 0.2 (0.2)
[2023-09-13 23:41] LABS: MOLECULAR FLU A NEGATIVE BY NAAT (NEGATIVE); MOLECULAR FLU B NEGATIVE BY NAAT (NEGATIVE); SARS COV-2 RNA RAPID NAAT NEGATIVE (NEGATIVE)
[2023-09-13 23:42] LABS: SQUAMOUS EPITHELIAL CELL,UR NOT PRESENT (0-5)
[2023-09-14] LABS: BACTERIA,URINE 1+ (NOT PRESENT)
--- NOTE | 2023-09-14 00:16 | ED.PDOC ---
General ED Provider: Dr. OPAL MURILLO DO Chief Complaint: Altered Mental Status Stated Complaint: 83-year-old female presents to the ER from local retirement with increased agitation described as altered mental status. She has a history of dementia and at baseline is combative and very vocal yelling out and what not. Apparently this has increased. The retirement has noticed this throughout the day. No reported fever, productive cough, otherwise history severely limited due to the patient's mental condition Time Seen by Provider: 09/13/23 22:30 Information Source: [facility] Primary Care Provider: MADELIN SOTELO MD Nursing and Triage Documentation Reviewed and Agree: Yes What is Opioid Naive?: *Opioid Naive implies the patient is not already taking opioids or not chronically receiving opioids on a daily basis. *PRN dosing is not "usually" associated with tolerance. *Patients are at higher risk of over-sedation and aspiration. What is Opioid Tolerant?: *Opioid Tolerance implies less than the expected response to an opioid. *Acquired tolerance is defined by the patient taking 60mg of oral morphine daily (or equianalgesic dose of another opioid) for 1 week or more. *Often associated with chronic pain. *May take more than usual dose to achieve desired pain control. 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 - Atherosclerotic heart disease of cheesh-na coronary artery without angina pectoris (ICD-10) CAD (coronary artery disease) I25.10 - Atherosclerotic heart disease of cheesh-na coronary artery without angina pectoris (ICD-10) COVID-19 U07.1 - COVID-19 (ICD-10) Dementia F03.90 - Unspecified dementia without behavioral disturbance (ICD-10) Depression F32.9 - Major depressive disorder, single episode, unspecified (ICD-10) ALBERTO (generalized anxiety disorder) F41.1 - Generalized anxiety disorder (ICD-10) Generalized weakness R53.1 - Weakness (ICD-10) GI bleed K92.2 - Gastrointestinal hemorrhage, unspecified (ICD-10) Glaucoma H40.9 - Unspecified glaucoma (ICD-10) Hx of solitary pulmonary nodule Z87.898 - Personal history of other specified conditions (ICD-10) Hypertension I10 - Essential (primary) hypertension (ICD-10) IBS (irritable bowel syndrome) K58.9 - Irritable bowel syndrome without diarrhea (ICD-10) Legally blind H54.8 - Legal blindness, as defined in [place] (ICD-10) Night terror F51.4 - Sleep terrors [night terrors] (ICD-10) Osteoarthritis M19.90 - Unspecified osteoarthritis, unspecified site (ICD-10) Pneumonia J18.9 - Pneumonia, unspecified organism (ICD-10) Reduced mobility Z74.09 - Other reduced mobility (ICD-10) UTI (urinary tract infection) N39.0 - Urinary tract infection, site not specified (ICD-10) Family History FATHER Cancer of bone BROTHER Acute CT BROTHER Hypertension Cardiac disorder SISTER Cardiac disorder Social History Smoking and tobacco status: Former smoker Alcohol intake: former Substance use type: does not use Surgical History History of appendectomy Z98.89 - Other specified postprocedural states (ICD-10) Female Reproductive History Menstrual Hx Hysterectomy: No Hx Tubal Ligation: No Physical Exam Physical Exam Appearance: Reports Well-appearing, No pain distress and Other (Vocal, apprehensive with people touching her) Eyes: Reports EOMI and Conjunctiva clear ENT: Reports Nose normal and Oropharynx normal Neck: Supple Respiratory: Reports Airway patent, Breath sounds clear and Respirations nonlabored Cardiovascular: Reports RRR and Pulses normal GI/: Reports Nontender and No masses Musculoskeletal: Reports Normal strength and ROM intact Skin: Reports Warm, Dry and Normal color Neurological: Reports Sensation intact and Motor intact Psychiatric: Reports Not Examined (Not reliably able to assess) Course Course 09/13/23 22:20 09/13/23 23:20 Orders, Labs, Meds: Lab Review 09/13/23 09/13/23 09/13/23 22:20 23:01 23:20 WBC 10.19 RBC 3.58 L Hgb 10.7 L Hct 36.2 L MCV 101.1 H MCH 29.9 MCHC 29.6 L RDW Coeff of Yosvany 14.7 Plt Count 258 Immature Gran % (Auto) 0.5 Neut % (Auto) 88.6 H Lymph % (Auto) 6.6 L [place] % (Auto) 4.3 Eos % (Auto) 0.0 Baso % (Auto) 0.0 Neut # (Auto) 9.0 H Lymph # (Auto) 0.7 [place] # (Auto) 0.4 Eos # (Auto) 0.0 Baso # (Auto) 0.0 Immature Gran # (Auto) 0.1 Sodium 143.6 Potassium 4.37 Chloride 107.1 H Carbon Dioxide 34.0 H Anion Gap 6.87 BUN 26.0 H Creatinine 0.65 Estimated GFR (MDRD) 87.00 BUN/Creatinine Ratio 40.00 Glucose 128.8 H Lactic Acid 0.91 Calcium 8.55 Total Bilirubin 0.52 AST 17.4 ALT 16.1 Alkaline Phosphatase 85.9 Total Protein 6.54 Albumin 2.96 L Globulin 3.58 Albumin/Globulin Ratio 0.82 Urine Color Urine Clarity Urine pH Ur Specific [place] Urine Protein Urine Glucose (UA) Urine Ketones Urine Blood Urine Nitrite Urine Bilirubin Urine Urobilinogen Ur Leukocyte Esterase Urine Microscopic RBC Urine Microscopic WBC Ur Squamous Epith Cells Urine Bacteria Influ A Molecular Assay Negative by naat Influ B Molecular Assay Negative by naat SARS CoV-2 RNA Rapid ELISEO Negative 09/13/23 23:26 WBC RBC Hgb Hct MCV MCH MCHC RDW Coeff of Yosvany Plt Count Immature Gran % (Auto) Neut % (Auto) Lymph % (Auto) [place] % (Auto) Eos % (Auto) Baso % (Auto) Neut # (Auto) Lymph # (Auto) [place] # (Auto) Eos # (Auto) Baso # (Auto) Immature Gran # (Auto) Sodium Potassium Chloride Carbon Dioxide Anion Gap BUN Creatinine Estimated GFR (MDRD) BUN/Creatinine Ratio Glucose Lactic Acid Calcium Total Bilirubin AST ALT Alkaline Phosphatase Total Protein Albumin Globulin Albumin/Globulin Ratio Urine Color Yellow Urine Clarity Clear Urine pH 5.5 Ur Specific [place] >=1.030 Urine Protein 1+ H Urine Glucose (UA) Negative Urine Ketones Negative Urine Blood Negative Urine Nitrite Positive H Urine Bilirubin Negative Urine Urobilinogen 0.2 Ur Leukocyte Esterase Negative Urine Microscopic RBC 2-5 Urine Microscopic WBC 5-10 Ur Squamous Epith Cells Not present Urine Bacteria 1+ Influ A Molecular Assay Influ B Molecular Assay SARS CoV-2 RNA Rapid ELISEO Orders Category Date Time Status ADMIT OBSERVATION [PLACE PATIENT OBSERVATION] .TO ADMISSION 09/14/23 00:02 Active MEDSURG (MONITORED BED) TELEMETRY MONITORING TELE CARE 09/14/23 00:02 Active Insert Alvarez [ED CATHETER INSERTION AND CARE] .ONCE EMERGENCY 09/13/23 22:30 Active BLOOD CULTURE (ED ONLY) Stat LAB 09/13/23 Ordered BMP [BASIC METABOLIC PANEL] Timed LAB 09/14/23 06:00 Ordered CBC W/ AUTO DIFF Stat LAB 09/13/23 22:20 Completed CBC W/ AUTO DIFF Timed LAB 09/14/23 06:00 Ordered CMP [COMPREHENSIVE METABOLIC PANEL] Stat LAB 09/13/23 23:20 Completed COVID [SARS COV-2 RNA RAPID ELISEO] Stat LAB 09/13/23 23:01 Completed FLU A & B MOLECULAR [FLU A/B MOLECULAR] Stat LAB 09/13/23 23:01 Completed LACTIC ACID Stat LAB 09/13/23 23:20 Completed URINALYSIS C & S IF INDICATED DAILY@0600 LAB 09/14/23 06:00 Uncollected URINALYSIS C & S IF INDICATED DAILY@0600 LAB 09/15/23 06:00 Uncollected URINALYSIS C & S IF INDICATED Stat LAB 09/13/23 23:26 Completed URINE CULTURE Stat LAB 09/13/23 23:45 Uncollected Piperacillin Sodium/Tazobactam [Zosyn 3.375 gm] 3.375 Meds 09/13/23 22:50 Discontinued gm 0.9 % Sodium Chloride [Sodium Chloride 100Ml] 100 ml IV ONCE CHEST, 1V AP ONLY Stat RADS 09/13/23 22:30 Completed CHEST, 1V AP ONLY Timed RADS 09/14/23 06:02 Ordered Medications Discontinued Medications Generic Name Dose Route Start Last Admin Trade Name Freq PRN Reason Stop Dose Admin Piperacillin Sod/Tazobactam 100 mls @ 200 mls/hr 09/13/23 22:50 09/13/23 23:26 Sod 3.375 gm/ Sodium Chloride IV 09/13/23 23:19 200 mls/hr ONCE ONE Administration Vital Signs: Temp Pulse Resp BP Pulse Ox 09/13/23 22:30 97.5 F L 65 17 115/58 L 99 Discharge Plan Discharge Patient Disposition: PLACED OBSERVATION Discharge Problem: Acute UTI, ESBL E. coli carrier Altered mental status Qualifiers: Altered mental status type: unspecified Qualified Code(s): R41.82 - Altered mental status, unspecified Pneumonia Qualifiers: Pneumonia type: due to unspecified organism Laterality: bilateral Lung location: upper lobe of lung Qualified Code(s): J18.9 - Pneumonia, unspecified organism Prescriptions: No Action alprazolam [Xanax] 0.5 mg tablet 0.5 mg PO TID PRN (Reason: anxiety) Qty: 90 2RF hydrocodone-acetaminophen 5-325 mg tablet 1 tab PO BID PRN (Reason: pain) Qty: 60 0RF Rx Instructions: 1 tab in AM and 1 tab at HS memantine [Namenda] 10 mg Tablet 10 mg PO Q12HR acetaminophen [Tylenol] 325 mg Tablet 650 mg PO Q4HR PRN (Reason: Pain) Qty: 60 5RF Rx Instructions: DO NOT TAKE MORE THAN 4000 MG IN A 24 HOUR PERIOD polyethylene glycol 3350 [Miralax] 17 gram Powder In Packet 17 g PO DAILY magnesium hydroxide [Milk of Magnesia] 400 mg/5 mL Suspension 30 ml PO DAILY PRN (Reason: Constipation) Rx Instructions: IF NO BM FOR 3 DAYS bisacodyl 10 mg Suppository 10 mg WI DAILY PRN (Reason: Constipation) quetiapine [Seroquel] 50 mg Tablet 50 mg PO QAM budesonide-formoterol [Symbicort] 80-4.5 mcg/actuation Hfa Aerosol Inhaler 2 puff inhalation BID 0RF amlodipine [Norvasc] 5 mg tablet 5 mg PO DAILY rivastigmine tartrate 1.5 mg Capsule 1.5 mg PO BID olanzapine [Zyprexa] 2.5 mg Tablet 2.5 mg PO BEDTIME albuterol sulfate 90 mcg/actuation HFA aerosol inhaler 2 puff INHALATION BID cyanocobalamin (vitamin B-12) 1,000 mcg tablet 1,000 mcg PO DAILY docusate sodium [Colace] 100 mg capsule 100 mg PO BID cyanocobalamin (vitamin B-12) 1,000 mcg/mL solution 1,000 mcg IM MONTHLY Rx Instructions: TAKES ON THE 6TH OF EACH MONTH DAKINS EXTERNAL SOLUTION 1 applic topical QSHIFT Rx Instructions: APPLY TO SACRUM/COCCYX TOPICALLY EVERY SHIFT FOR [place] HOLD R/T PERIWOUND SKIN BREAKDOWN. APPLY DAKINS WET TO DRY SOLUTION TO SACRUM WOUND QSHIFT WITH TRIAMCINOLONE 1% CREAM TO PERIWOUND WITH EACH DRESSING CHANGE. COVER WITH FOAM QSHIFT naloxone [Narcan] 4 mg/actuation spray,non-aerosol 4 mg intranasal Q2-3M PRN (Reason: OVERDOSE) Rx Instructions: spray 1 dose into ONE nostril; alternate nostrils w each dose until help arrives triamcinolone acetonide 0.1 % cream 1 applic TOPICAL QSHIFT Rx Instructions: APPLY TO SKIN AROUND COCCYX WOUND TOPICALLY EVERY SHIFT FOR PERIWOUND SKIN BREAKDOWN. APPLY TO THET PERIWOUND (THE SKIN AROUND THE ACTUAL WOUND) SKIN BREAKDOWN WITH EARH DAKINS WWET TO DRY SOLUTION TO COCCYX QSHIFT lidocaine (PF) [Xylocaine-MPF] 10 mg/mL (1 %) Solution 3.2 ml IM DAILY Qty: 20 0RF Rx Instructions: Mix with invanz for administration Did you review [place] BUSINESS OBJECTS for ALL controlled substances?: Not Applicable ED Provider: OPAL MURILLO Condition: Stable Physician Progress Note: 83-year-old female from local retirement presented with altered mental status and change in behavior. She has baseline dementia and combativeness which makes it hard to discern but her daughter is present at bedside and helps make some comparisons for us. The patient apparently has been more vocal and more combative than usual. No reported fever. She is afebrile nontoxic doubt sepsis. She does not have a significant increase in her oxygen requirement as she does wear oxygen as needed but now we are leaving it on full-time. Chest x- ray concerning for pneumonia as well as a mass that is stable on the other side. Patient is a DNR so these masses are noted but not actively treated. Patient also has a history of ESBL urine, and suspect that is again the case here today. I have given a dose of Zosyn as the prior cultures showed sensitivity to this and would also cover the pneumonia. I am unable to check a BNP however I do not feel that is the primary issue going on with her today. Sepsis labs have also been obtained. She does not have a lactic acidosis nor leukocytosis. I do not think this patient is septic but given the mild increase in her oxygen requirement from as needed to full-time, her baseline fragility, and recurrent UTI, have spoken with hospitalist service who was gracious to accept the patient for admission. []
[2023-09-14 01:55] VITALS: BMI 17.2
[2023-09-14 05:34] LABS: HEMATOCRIT 36.9 % (37.0-47.0); HEMOGLOBIN 10.5 g/dl (12.0-16.0); IMMATURE GRANULOCYTE % (AUTO) 0.4 % (0.0-5.0); LYMPHOCYTES # (AUTO) 0.7 K/uL (0.60-3.4); LYMPHOCYTES % (AUTO) 6.4 (10.0-50.0); MEAN CORPUSCULAR HEMOGLOBIN 28.7 pg (27.0-31.0); MEAN CORPUSCULAR HGB CONC 28.5 (31.8-35.4); MEAN CORPUSCULAR VOLUME 100.8 fl (81.0-99.0); MONOCYTES # (AUTO) 0.6 K/uL (0.4-2.0); MONOCYTES % (AUTO) 5.5 (0-10); NEUTROPHILS # (AUTO) 9.2 K/ul (2.0-6.9); NEUTROPHILS % (AUTO) 87.7 % (42.2-75.2); PLATELET COUNT 265 10^3/uL (140-440); RDW COEFFICIENT OF VARIATION 14.7 % (11.6-14.8); RED BLOOD COUNT 3.66 10^6/ul (4.20-5.40); WHITE BLOOD COUNT 10.51 K/ul (4.6-10.2)
[2023-09-14 05:48] LABS: BLOOD UREA NITROGEN 25.4 mg/dL (7-17); CALCIUM 8.49 mg/dL (8.4-10.2); CARBON DIOXIDE 36.8 mmol/L (22-30.0); CREATININE 0.61 mg/dL (0.60-1.30); GLUCOSE 112.6 mg/dL (74-106); POTASSIUM 4.12 mmol/L (3.5-5.1); SODIUM 143.9 mmol/L (134.5-145)
[2023-09-14 06:33] LABS: BILIRUBIN,URINE Negative (NEGATIVE); CLARITY,URINE Cloudy (CLEAR); COLOR,URINE Dark (YELLOW); GLUCOSE, URINE (UA) Negative (NEGATIVE); KETONES,URINE Negative (NEGATIVE); LEUKOCYTE ESTERASE ,URINE Negative (NEGATIVE); NITRITE,URINE Positive (NEGATIVE); PH,URINE 5.5 (5-9); PROTEIN,URINE 1+ (NEGATIVE); URINE, BLOOD Negative (NEGATIVE); UROBILINOGEN,URINE 0.2 (0.2)
[2023-09-14 06:40] LABS: BACTERIA,URINE 3+ (NOT PRESENT)
[2023-09-14] MEDS: INVANZ 1 GM in SODIUM CHLORIDE 50 ML IV SCH (10:46)
[2023-09-14] MEDS ORDERED: ZOFRAN 4 MG/2 ML IVP PRN (11:54)
--- NOTE | 2023-09-14 11:58 | PCM ---
Date of Service Date Seen by Provider: 09/14/23 Time Seen by Provider: 08:35 Admit Day/Time Admission Date: 09/14/23 Admission Time: 00:02 Reason for Admission Chief Complaint: PNEUMONIA/UTI Hospital Provider Hospital Provider: MARIELLE ASTORGA PA-C, [facility] Primary Care Physician Primary Care Physician: MADELIN SOTELO MD History of Present Illness History of Present Illness: Patient is an 83 year old female from the [place] with pmhx of ESBL UTIs, dementia, Parkinsons, COPD, DDD, who presented to the ER with AMS. She is normally very vocal and sometimes combative, however yesterday she seemed more lethargic and wasn't responding to [place] staff as usual. In the ER she was found to have UTI and possible pna on CXR. She was given zosyn. Limited ROS due to dementia. Case Discussed With Case Discussed With: Patient's case was discussed with the ER Physicians, Dr. Rivers. [facility] Medical History Reduced mobility Z74.09 - Other reduced mobility (ICD-10) 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 - Atherosclerotic heart disease of [place] coronary artery without angina pectoris (ICD-10) COVID-19 U07.1 - COVID-19 (ICD-10) Osteoarthritis M19.90 - Unspecified osteoarthritis, unspecified site (ICD-10) Glaucoma H40.9 - Unspecified glaucoma (ICD-10) UTI (urinary tract infection) N39.0 - Urinary tract infection, site not specified (ICD-10) Generalized weakness R53.1 - Weakness (ICD-10) Hx of solitary pulmonary nodule Z87.898 - Personal history of other specified conditions (ICD-10) CAD (coronary artery disease) I25.10 - Atherosclerotic heart disease of [place] coronary artery without angina pectoris (ICD-10) Depression F32.9 - Major depressive disorder, single episode, unspecified (ICD-10) GI bleed K92.2 - Gastrointestinal hemorrhage, unspecified (ICD-10) Legally blind H54.8 - Legal blindness, as defined in [place] (ICD-10) Anxiety F41.9 - Anxiety disorder, unspecified (ICD-10) Dementia F03.90 - Unspecified dementia without behavioral disturbance (ICD-10) ALBERTO (generalized anxiety disorder) F41.1 - Generalized anxiety disorder (ICD-10) IBS (irritable bowel syndrome) K58.9 - Irritable bowel syndrome without diarrhea (ICD-10) Night terror F51.4 - Sleep terrors [night terrors] (ICD-10) Hypertension I10 - Essential (primary) hypertension (ICD-10) Pneumonia J18.9 - Pneumonia, unspecified organism (ICD-10) Surgical History History of appendectomy Z98.89 - Other specified postprocedural states (ICD-10) Family History FATHER Cancer of bone BROTHER Acute MD BROTHER Hypertension Cardiac disorder SISTER Cardiac disorder Social History Smoking and tobacco status: Former smoker Alcohol intake: former Substance use type: does not use Special bari needs: No Housing: senior living Allergies Allergies Allergy/AdvReac Type Severity Reaction Status Date / Time apraclonidine [From Iopidine] AdvReac Unknown Verified 03/15/23 14:41 donepezil [From Aricept] AdvReac Unknown Verified 03/15/23 14:41 NARCOTICS AdvReac Intermediate SENSITIVE Uncoded 03/15/23 14:41 TO NARCOTICS, GETS LETHARGIC Current Medications Home Medications memantine 10 mg tablet (Namenda) 10 mg PO Q12HR 07/17/20 [History Confirmed 09/14/23 Last Taken 09/13/23 20:00 10 mg] acetaminophen 325 mg tablet (Tylenol) 650 mg (2 x 325 mg) PO Q4HR PRN Pain #60 tabs 10/11/20 [Rx Confirmed 09/14/23 Last Taken 09/12/23 10:35 650 mg] bisacodyl 10 mg rectal suppository 10 mg TX DAILY PRN Constipation 07/02/21 [History Confirmed 09/14/23 Last Taken 09/11/23 20:50 10 mg] magnesium hydroxide 400 mg/5 mL oral suspension (Milk of Magnesia) 30 ml PO DAILY PRN Constipation 07/02/21 [History Confirmed 09/14/23 Last Taken Unknown] polyethylene glycol 3350 17 gram oral powder packet (Miralax) 17 g PO DAILY 06/13 08/02 [History Confirmed 09/14/23 Last Taken 09/14/23] quetiapine 50 mg tablet (Seroquel) 50 mg PO QAM 07/02/21 [History Confirmed 09/14/23 Last Taken 09/13/23 20:00 50 mg] budesonide-formoterol HFA 80 mcg-4.5 mcg/actuation aerosol inhaler (Symbicort) 2 puff inhalation BID 10/15/21 [Rx Confirmed 09/14/23 Last Taken 09/13/23 20:00 2 puff] amlodipine 5 mg tablet (Norvasc) 5 mg PO DAILY 06/26/22 [History Confirmed 09/14/23 Last Taken 09/13/23 08:00 5 mg] olanzapine 2.5 mg tablet (Zyprexa) 2.5 mg PO BEDTIME 06/26/22 [History Confirmed 09/14/23 Last Taken Unknown] rivastigmine tartrate 1.5 mg capsule 1.5 mg PO BID 06/26/22 [History Confirmed 09/14/23 Last Taken 09/13/23 16:00 1.5 mg] albuterol sulfate 90 mcg/actuation aerosol inhaler 2 puff inhalation BID 08/16/22 [History Confirmed 09/14/23 Last Taken Unknown] cyanocobalamin (vitamin B-12) 1,000 mcg tablet 2,000 mcg PO DAILY 10/28/22 [History Confirmed 09/14/23 Last Taken 09/13/23 08:00 2,000 mcg] docusate sodium 100 mg capsule (Colace) 100 mg PO BID 10/28/22 [History Confirmed 09/14/23 Last Taken 10/28/22] DAKINS EXTERNAL SOLUTION 1 applic topical QSHIFT 11/14/22 [History Confirmed 09/14/23 Last Taken 09/14/23] cyanocobalamin (vitamin B-12) 1,000 mcg/mL injection solution 1,000 mcg IM MONTHLY 11/14/22 [History Confirmed 09/14/23 Last Taken Unknown] naloxone 4 mg/actuation nasal spray (Narcan) 4 mg intranasal Q2-3M PRN OVERDOSE 11/14/22 [History Confirmed 09/14/23 Last Taken Unknown] triamcinolone acetonide 0.1 % topical cream 1 applic topical QSHIFT 11/14/22 [History Confirmed 11/14/22 Last Taken Unknown] lidocaine (PF) 10 mg/mL (1 %) injection solution (Xylocaine-MPF) 3.2 ml IM DAILY #20 mL 11/18/22 [Rx Confirmed 09/14/23 Last Taken Unknown] alprazolam 0.5 mg tablet (Xanax) 0.5 mg PO TID PRN anxiety #90 tabs 05/19/23 [Rx Confirmed 09/14/23 Last Taken 09/13/23 09:00 0.5 mg] carvedilol 3.125 mg tablet 3.125 mg PO BID 09/14/23 [History Confirmed 09/14/23 Last Taken 09/13/23 16:00 3.125 mg] hydrocodone 5 mg-acetaminophen 325 mg tablet 1 tab PO BID pain 09/14/23 [History Confirmed 09/14/23 Last Taken 09/13/23 20:00 1 tab] mirtazapine 7.5 mg tablet 7.5 mg PO BEDTIME 09/14/23 [History Confirmed 09/14/23 Last Taken 09/13/23 20:00 7.5 mg] prednisone 10 mg tablet 10 mg PO BID 09/14/23 [History Confirmed 09/14/23 Last Taken 09/13/23 15:00 10 mg] Home Acetaminophen (Acetaminophen 325 Mg Tablet) 650 mg PO Q4H PRN PRN Reason: Mild Pain Hydrocodone Bitart/Acetaminophen (Hydrocodone Bit/Acetaminophen 5/325 Mg Tablet) 1 tab PO BID AZUCENA Alprazolam (Alprazolam 0.5 Mg Tablet) 0.5 mg PO TID PRN PRN Reason: Anxiety Last Admin: 09/14/23 14:02 Dose: 0.5 mg Budesonide/Formoterol Fumarate (Budesonide/Formoterol Fumarate 80/4.5 Mcg Hfa.Aer.Ad) 2 puff IH BID AZUCENA Carvedilol (Carvedilol 3.125 Mg Tablet) 3.125 mg PO BIDWM2 AZUCENA Enoxaparin Sodium (Enoxaparin Sodium 40 Mg/0.4 Ml Syr) 40 mg SUBCUT DAILY AZUCENA Last Admin: 09/14/23 14:02 Dose: 40 mg Ertapenem 1 gm/ Sodium (Chloride) 50 mls @ 100 mls/hr IV DAILY AZUCENA Stop: 09/17/23 08:59 Last Admin: 09/14/23 10:46 Dose: 100 mls/hr Lactated Ringer's (Lactated Ringers) 1,000 mls @ 75 mls/hr IV .[id number] AZUCENA Last Admin: 09/14/23 12:33 Dose: 75 mls/hr Memantine (Memantine Hcl 10 Mg Tablet) 10 mg PO Q12HR AZUCENA Mirtazapine (Mirtazapine 15 Mg Tablet) 7.5 mg PO BEDTIME AZUCENA Non-Formulary Medication (Rivastigmine Tartrate) 1.5 mg PO BID AZUCENA Ondansetron HCl (Ondansetron Hcl/Pf 4 Mg/2 Ml Sdv) 4 mg IVP Q6H PRN PRN Reason: Nausea / Vomiting Quetiapine Fumarate (Quetiapine Fumarate 25 Mg Tablet) 50 mg PO QAM AZUCENA Discontinued Medications Piperacillin Sod/Tazobactam (Sod 3.375 gm/ Sodium Chloride) 100 mls @ 200 mls/hr IV ONCE ONE Stop: 09/13/23 23:19 Last Admin: 09/13/23 23:26 Dose: 200 mls/hr Opioid Naive vs. Tolerant Does Patient Take Opioids?: No Is Patient Opioid Naive?: Yes What is Opioid Naive?: *Opioid Naive implies the patient is not already taking opioids or not chronically receiving opioids on a daily basis. *PRN dosing is not "usually" associated with tolerance. *Patients are at higher risk of over-sedation and aspiration. Is Patient Opioid Tolerant?: No What is Opioid Tolerant?: *Opioid Tolerance implies less than the expected response to an opioid. *Acquired tolerance is defined by the patient taking 60mg of oral morphine daily (or equianalgesic dose of another opioid) for 1 week or more. *Often associated with chronic pain. *May take more than usual dose to achieve desired pain control. Review of Systems Constitutional: Reports Fatigue and Weakness Head: Reports Normocephalic and Atraumatic Cardiovascular: Denies Chest pain Respiratory: Denies Cough or Shortness of air Physical examination Most Recent Vital Signs: Most Recent Vital Signs Temperature 97.8 F 09/14/23 10:00 Temperature Source Oral 09/14/23 10:00 Temperature Source Temporal Artery Scan 09/13/23 22:30 Pulse Rate 66 09/14/23 10:00 Respiratory Rate 20 09/14/23 10:00 Blood Pressure 107/48 L 09/14/23 10:00 Blood Pressure Mean 67 09/14/23 10:00 Blood Pressure Right Arm 130/52 09/14/23 01:17 Blood Pressure Location Left Arm 09/14/23 10:00 Blood Pressure Position Supine 09/14/23 10:00 O2 Sat by Pulse Oximetry 98 09/14/23 10:00 Oxygen Delivery Method Nasal Cannula 09/14/23 10:00 Oxygen Flow Rate 3 09/14/23 10:00 Height 5 ft 09/14/23 01:17 Weight 88 lb 09/14/23 01:17 Telemetry Type Remote Telemetry 09/14/23 01:43 Telemetry Monitoring Continues 09/14/23 01:43 Telemetry Heart Rate 66 09/14/23 01:43 EKG TX Interval 0.15 09/14/23 01:43 EKG QRS Interval 0.09 09/14/23 01:43 Telemetry Strip Reading Sinus Rhythm 09/14/23 01:43 Appearance: Positive No Apparent Distress, Thin and Other (+disoriented, confused at baseline ) Skin: Negative Rashes HEENT: Positive Normocephalic and Atraumatic; Negative Oral Mucous Moist Neck: Positive Supple and Midline Trachea Chest/Lungs: Positive Clear to Auscultation Bilaterally; Negative Rales, Rhonci or Wheezes Heart: Positive RRR GI/: Positive Soft, Nontender, Bowel Sounds Normal and No Distention Neurological: Positive Other (+generalized weakness, moves ext equally, wakes easily but does not follow basic commands, doesn't appear to understand instructions. ) Psychiatric: Negative Oriented x4 (oriented to self only ) Labs This Visit Labs This Visit: Labs This Visit 09/13/23 09/13/23 09/13/23 22:20 23:01 23:20 WBC 10.19 RBC 3.58 L Hgb 10.7 L Hct 36.2 L MCV 101.1 H MCH 29.9 MCHC 29.6 L RDW Coeff of Yosvany 14.7 Plt Count 258 Immature Gran % (Auto) 0.5 Neut % (Auto) 88.6 H Lymph % (Auto) 6.6 L [place] % (Auto) 4.3 Eos % (Auto) 0.0 Baso % (Auto) 0.0 Neut # (Auto) 9.0 H Lymph # (Auto) 0.7 Dare # (Auto) 0.4 Eos # (Auto) 0.0 Baso # (Auto) 0.0 Immature Gran # (Auto) 0.1 Sodium 143.6 Potassium 4.37 Chloride 107.1 H Carbon Dioxide 34.0 H Anion Gap 6.87 BUN 26.0 H Creatinine 0.65 Estimated GFR (MDRD) 87.00 BUN/Creatinine Ratio 40.00 Glucose 128.8 H Lactic Acid 0.91 Calcium 8.55 Total Bilirubin 0.52 AST 17.4 ALT 16.1 Alkaline Phosphatase 85.9 Total Protein 6.54 Albumin 2.96 L Globulin 3.58 Albumin/Globulin Ratio 0.82 Urine Color Urine Clarity Urine pH Ur Specific [place] Urine Protein Urine Glucose (UA) Urine Ketones Urine Blood Urine Nitrite Urine Bilirubin Urine Urobilinogen Ur Leukocyte Esterase Urine Microscopic RBC Urine Microscopic WBC Ur Squamous Epith Cells Urine Bacteria Influ A Molecular Assay Negative by naat Influ B Molecular Assay Negative by naat SARS CoV-2 RNA Rapid ELISEO Negative 09/13/23 09/14/23 09/14/23 23:26 05:27 06:00 WBC 10.51 H RBC 3.66 L Hgb 10.5 L Hct 36.9 L MCV 100.8 H MCH 28.7 MCHC 28.5 L RDW Coeff of Yosvany 14.7 Plt Count 265 Immature Gran % (Auto) 0.4 Neut % (Auto) 87.7 H Lymph % (Auto) 6.4 L [place]are % (Auto) 5.5 Eos % (Auto) 0.0 Baso % (Auto) 0.0 Neut # (Auto) 9.2 H Lymph # (Auto) 0.7 Dare # (Auto) 0.6 Eos # (Auto) 0.0 Baso # (Auto) 0.0 Immature Gran # (Auto) 0.0 Sodium 143.9 Potassium 4.12 Chloride 107.0 Carbon Dioxide 36.8 H Anion Gap 4.22 BUN 25.4 H Creatinine 0.61 Estimated GFR (MDRD) 93.00 BUN/Creatinine Ratio 41.63 Glucose 112.6 H Lactic Acid Calcium 8.49 Total Bilirubin AST ALT Alkaline Phosphatase Total Protein Albumin Globulin Albumin/Globulin Ratio Urine Color Yellow Dark Urine Clarity Clear Cloudy Urine pH 5.5 5.5 Ur Specific [place] >=1.030 >=1.030 Urine Protein 1+ H 1+ H Urine Glucose (UA) Negative Negative Urine Ketones Negative Negative Urine Blood Negative Negative Urine Nitrite Positive H Positive H Urine Bilirubin Negative Negative Urine Urobilinogen 0.2 0.2 Ur Leukocyte Esterase Negative Negative Urine Microscopic RBC 2-5 Urine Microscopic WBC 5-10 10-20 Ur Squamous Epith Cells Not present 5-10 Urine Bacteria 1+ 3+ Influ A Molecular Assay Influ B Molecular Assay SARS CoV-2 RNA Rapid ELISEO Imaging Imaging: EXAM: CHEST ONE-VIEW History: Altered mental status FINDINGS: Normal cardiomediastinal contours. Normal pulmonary vasculature. Consolidative opacity in the right upper lobe. Mass like opacity in the left upper lobe also seen on prior no acute chest wall abnormality. Impression: Consolidative change in the right upper lobe favoring pneumonia. Cannot exclude underlying mass. 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 I have reviewed all outside records that are available currently in our EMR including imaging/notes/labs from previous visits. Plan Plan: 1. Acute metabolic encephalopathy in setting of UTI and PNA - O2, invanz, await urine and blood cultures. Mentation improved today. 2. UTI - Hx of ESBL positive urines. Invanz ordered. 3. Pneumonia - Wean O2 when able. Cont abx. 4. Left upper lobe mass - Will discuss w/ family to make sure they're aware 5. Dementia - Cont home meds 6. Hypertension - Cont home meds DVT Prophylaxis: Lovenox Time Spent: Greater than 80 minutes spent with patient, 50% of the time spent with this patient was devoted to counseling and coordination of care. [facility] minutes spent discussing advance care planning. DNR Admit to: Inpatient Discussed Plan of Care with Dr. Tahir Sotelo. Medications Medication Orders: Medications Ordered Category Date Time Status Acetaminophen [Tylenol] Meds 09/14/23 11:54 Ordered 650 mg PO Q4H PRN Ertapenem Sodium [Invanz] 1 gm Meds 09/14/23 09:00 Active 0.9 % Sodium Chloride [Sodium Chloride] 50 ml IV DAILY Ondansetron HCl/Pf [Zofran 4 mg/2 ml] Meds 09/14/23 11:54 Ordered 4 mg IVP Q6H PRN
[2023-09-14] MEDS: LACTATED RINGERS 1,000 ML IV SCH (12:33)
[2023-09-14] MEDS: XANAX PO PRN (14:02)
[2023-09-14] MEDS: LOVENOX SUBCUT SCH (14:02)
[2023-09-14] MEDS: COREG PO SCH (16:58)
[2023-09-14] MEDS: SYMBICORT 80-4.5 MCG INHALER IH SCH (20:14)
[2023-09-14] MEDS: RIVASTIGMINE TARTRATE 1.5 MG PO SCH (20:22)
[2023-09-14] MEDS: NAMENDA PO SCH (20:36)
[2023-09-14] MEDS: REMERON PO SCH (20:36)
[2023-09-14] MEDS: NORCO 5-325 PO SCH (20:36)
[2023-09-15 05:31] LABS: BASOPHILS % (AUTO) 0.1 % (0.0-3.0); EOSINOPHILS % (AUTO) 0.1 % (0.0-7.0); HEMOGLOBIN 10.1 g/dl (12.0-16.0); IMMATURE GRANULOCYTE # (AUTO) 0.1 (0.0-1.0); IMMATURE GRANULOCYTE % (AUTO) 0.4 % (0.0-5.0); LYMPHOCYTES # (AUTO) 0.9 K/uL (0.60-3.4); LYMPHOCYTES % (AUTO) 6.7 (10.0-50.0); MEAN CORPUSCULAR HEMOGLOBIN 28.5 pg (27.0-31.0); MEAN CORPUSCULAR HGB CONC 28.1 (31.8-35.4); MEAN CORPUSCULAR VOLUME 101.7 fl (81.0-99.0); MONOCYTES # (AUTO) 0.8 K/uL (0.4-2.0); MONOCYTES % (AUTO) 5.7 (0-10); NEUTROPHILS # (AUTO) 11.8 K/ul (2.0-6.9); PLATELET COUNT 306 10^3/uL (140-440); RDW COEFFICIENT OF VARIATION 14.8 % (11.6-14.8); RED BLOOD COUNT 3.54 10^6/ul (4.20-5.40); WHITE BLOOD COUNT 13.51 K/ul (4.6-10.2)
[2023-09-15 05:49] LABS: ALANINE AMINOTRANSFERASE 13.8 U/L (0-35); ALBUMIN 2.83 g/dL (3.5-5.0); ALKALINE PHOSPHATASE 83.4 U/L (53-141); ASPARTATE AMINO TRANSFERASE 17.3 U/L (14-36); BILIRUBIN,TOTAL 0.57 mg/dL (0.2-1.3); BLOOD UREA NITROGEN 22.3 mg/dL (7-17); CALCIUM 8.41 mg/dL (8.4-10.2); CARBON DIOXIDE 34.1 mmol/L (22-30.0); CREATININE 0.53 mg/dL (0.60-1.30); GLUCOSE 84.4 mg/dL (74-106); SODIUM 142.9 mmol/L (134.5-145); TOTAL PROTEIN 6.32 g/dL (6.3-8.2)
[2023-09-15 05:50] LABS: CHLORIDE 106.1 mmol/L (98-107)
[2023-09-15 05:56] LABS: POTASSIUM 4.29 mmol/L (3.5-5.1)
[2023-09-15] MEDS: SEROQUEL PO SCH (08:43)
--- NOTE | 2023-09-15 09:54 | PCM.PROG ---
Date/Time Seen Date Seen by Provider: 09/15/23 Time Seen by Provider: 08:50 Provider Provider: MARIELLE ASTORGA PA-C, [facility] Chief Complaint Chief Complaint: PNEUMONIA/UTI Subjective Subjective: Patient had no events overnight. Has been hollaring out for help often. Appears to be at her baseline mentation. Doesn't want to eat or drink much. Awaiting urine culture. Objective Appearance: Positive No Apparent Distress and Other Chest/Lungs: Positive Clear to Auscultation Bilaterally; Negative Rales, Rhonci or Wheezes Heart: Positive RRR GI/: Positive Soft, Nontender, Bowel Sounds Normal and No Distention Neurological: Positive Other (+sleeping soundly this morning. ) Additional Findings: Stage III sacral decub, chronic, no significant erythema or discharge noted. Vital Signs Vital Signs: Vital Signs: Last 24 Hours 09/14/23 10:00 09/14/23 10:00 09/14/23 12:38 Temperature 97.8 F Temperature Source Oral Pulse Rate 66 Respiratory Rate 20 Blood Pressure 107/48 L Blood Pressure Mean 67 Blood Pressure Location Left Arm Blood Pressure Position Supine O2 Sat by Pulse Oximetry 97 98 Oxygen Delivery Method Nasal Cannula Nasal Cannula Oxygen Flow Rate 4 3 Height 5 ft Weight 88 lb Telemetry Type Telemetry Monitoring Telemetry Heart Rate EKG NJ Interval EKG QRS Interval Telemetry Strip Reading 09/14/23 13:00 09/14/23 13:00 09/14/23 14:00 Temperature 98.5 F Temperature Source Temporal Artery Scan Pulse Rate 93 Respiratory Rate 21 H Blood Pressure 119/85 Blood Pressure Mean 96 Blood Pressure Location Left Arm Blood Pressure Position Supine O2 Sat by Pulse Oximetry 89 L Oxygen Delivery Method Nasal Cannula Oxygen Flow Rate 3 Height Weight Telemetry Type Remote Telemetry Remote Telemetry Telemetry Monitoring Continues Continues Telemetry Heart Rate 83 76 EKG NJ Interval 0.17 0.17 EKG QRS Interval 0.10 0.1 Telemetry Strip Reading NSR 09/14/23 14:00 09/14/23 18:00 09/14/23 19:44 Temperature 98.1 F Temperature Source Temporal Artery Scan Pulse Rate 78 Respiratory Rate 16 Blood Pressure 117/56 L Blood Pressure Mean 76 Blood Pressure Location Right Arm Blood Pressure Position Supine O2 Sat by Pulse Oximetry 91 L Oxygen Delivery Method Nasal Cannula Nasal Cannula Nasal Cannula Oxygen Flow Rate 3 3 3 Height Weight Telemetry Type Telemetry Monitoring Telemetry Heart Rate EKG NJ Interval EKG QRS Interval Telemetry Strip Reading 09/14/23 20:00 09/14/23 21:47 09/15/23 01:00 Temperature 99.7 F Temperature Source Temporal Artery Scan Pulse Rate 72 Respiratory Rate 20 Blood Pressure 116/55 L Blood Pressure Mean 75 Blood Pressure Location Right Arm Blood Pressure Position Supine O2 Sat by Pulse Oximetry 96 Oxygen Delivery Method Nasal Cannula Nasal Cannula Oxygen Flow Rate 3 3 Height Weight Telemetry Type Telemetry Monitoring Telemetry Heart Rate EKG NJ Interval EKG QRS Interval Telemetry Strip Reading refuses 09/15/23 02:00 09/15/23 05:21 09/15/23 05:25 Temperature 98.4 F 97.6 F Temperature Source Temporal Artery Scan Temporal Artery Scan Pulse Rate 64 68 Respiratory Rate 18 16 Blood Pressure 140/60 150/69 H Blood Pressure Mean 86 96 Blood Pressure Location Right Arm Left Arm Blood Pressure Position Supine Supine O2 Sat by Pulse Oximetry 94 L 96 92 L Oxygen Delivery Method Nasal Cannula Nasal Cannula Nasal Cannula Oxygen Flow Rate 3 3 4 Height Weight Telemetry Type Telemetry Monitoring Telemetry Heart Rate EKG NJ Interval EKG QRS Interval Telemetry Strip Reading 09/15/23 07:00 09/15/23 07:47 09/15/23 09:52 Temperature Temperature Source Pulse Rate Respiratory Rate Blood Pressure Blood Pressure Mean Blood Pressure Location Blood Pressure Position O2 Sat by Pulse Oximetry 95 Oxygen Delivery Method Nasal Cannula Nasal Cannula Oxygen Flow Rate 3 3 Height Weight Telemetry Type Telemetry Monitoring Telemetry Heart Rate EKG NJ Interval EKG QRS Interval Telemetry Strip Reading REFUSED BY PATIENT Lab Results Lab Results: Lab Results: Last 24 Hours 09/15/23 05:25 WBC 13.51 H RBC 3.54 L Hgb 10.1 L Hct 36.0 L MCV 101.7 H MCH 28.5 MCHC 28.1 L RDW Coeff of Yosvany 14.8 Plt Count 306 Immature Gran % (Auto) 0.4 Neut % (Auto) 87.0 H Lymph % (Auto) 6.7 L [place] % (Auto) 5.7 Eos % (Auto) 0.1 Baso % (Auto) 0.1 Neut # (Auto) 11.8 H Lymph # (Auto) 0.9 [place] # (Auto) 0.8 Eos # (Auto) 0.0 Baso # (Auto) 0.0 Immature Gran # (Auto) 0.1 Sodium 142.9 Potassium 4.29 Chloride 106.1 Carbon Dioxide 34.1 H Anion Gap 6.99 BUN 22.3 H Creatinine 0.53 L Estimated GFR (MDRD) 110.00 BUN/Creatinine Ratio 42.07 Glucose 84.4 Calcium 8.41 Total Bilirubin 0.57 AST 17.3 ALT 13.8 Alkaline Phosphatase 83.4 Total Protein 6.32 Albumin 2.83 L Globulin 3.49 Albumin/Globulin Ratio 0.81 Additional Comments Additional Comments: I have independently reviewed and interpreted the labs/EKGs/imaging ordered during this hospital stay. I have reviewed outside records that are available in our EMR that pertain to medical stay including imaging/notes/labs from previous visits. Active Medications Active Medications: Medications Generic Name Dose Route Start Last Admin Trade Name Freq PRN Reason Stop Dose Admin Acetaminophen 650 mg 09/14/23 11:54 Acetaminophen 325 Mg Tablet PO Q4H PRN Mild Pain Hydrocodone Bitart/Acetaminophen 1 tab 09/14/23 21:00 09/15/23 08:45 Hydrocodone Bit/Acetaminophen 5/325 Mg Tablet PO 1 tab BID AZUCENA Administration Alprazolam 0.5 mg 09/14/23 12:53 09/14/23 18:14 Alprazolam 0.5 Mg Tablet PO 0.5 mg TID PRN Administration Anxiety Budesonide/Formoterol Fumarate 2 puff 09/14/23 21:00 09/15/23 08:52 Budesonide/Formoterol Fumarate 80/4.5 Mcg Hfa.Aer.Ad IH 2 puff BID AZUCENA Administration Carvedilol 3.125 mg 09/14/23 17:00 09/15/23 08:43 Carvedilol 3.125 Mg Tablet PO 3.125 mg BIDWM2 AZUCENA Administration Enoxaparin Sodium 40 mg 09/14/23 12:15 09/15/23 08:52 Enoxaparin Sodium 40 Mg/0.4 Ml Syr SUBCUT 40 mg DAILY AZUCENA Administration Ertapenem 1 gm/ Sodium 50 mls @ 100 mls/hr 09/14/23 09:00 09/15/23 08:54 Chloride IV 09/17/23 08:59 100 mls/hr DAILY AZUCENA Administration Lactated Ringer's 1,000 mls @ 75 mls/hr 09/14/23 12:30 09/15/23 01:10 Lactated Ringers IV 75 mls/hr .[id number] AZUCENA Administration Memantine 10 mg 09/14/23 21:00 09/15/23 08:44 Memantine Hcl 10 Mg Tablet PO 10 mg Q12HR AZUCENA Administration Mirtazapine 7.5 mg 09/14/23 21:00 09/14/23 20:36 Mirtazapine 15 Mg Tablet PO 7.5 mg BEDTIME AZUCENA Administration Non-Formulary Medication 1.5 mg 09/14/23 21:00 09/15/23 08:51 Rivastigmine Tartrate PO Not Given BID AZUCENA Ondansetron HCl 4 mg 09/14/23 11:54 Ondansetron Hcl/Pf 4 Mg/2 Ml Sdv IVP Q6H PRN Nausea / Vomiting Quetiapine Fumarate 50 mg 09/15/23 09:00 09/15/23 08:43 Quetiapine Fumarate 25 Mg Tablet PO 50 mg QAM AZUCENA Administration Plan Plan: 1. Acute metabolic encephalopathy in setting of UTI and PNA - O2, invanz, await urine and blood cultures. Mentation improved overall. 2. UTI - Hx of ESBL positive urines. Invanz ordered. 3. Pneumonia - Wean O2 when able. Cont abx. 4. Left upper lobe mass - Will discuss w/ family to make sure they're aware 5. Dementia - Cont home meds 6. Hypertension - Cont home meds 7. Stage III sacral decub, chronic, present upon admission - Cont daily dressing changes, not acutely infected. DVT Prophylaxis: Lovenox Called daughter/POA Paz with no answer. Review Statement Review Statement: I have personally discussed and reviewed the patient's visit/currently labs/imaging/decision making with Dr. Covarrubias, my supervising attending. Greater that 50 minutes spent with patient, 50% of the time spent with this patient was devoted to counseling and coordination of care.
[2023-09-15] MEDS: TYLENOL PO PRN (14:20)
[2023-09-16 05:28] LABS: BASOPHILS % (AUTO) 0.1 % (0.0-3.0); EOSINOPHILS % (AUTO) 0.4 % (0.0-7.0); HEMATOCRIT 36.6 % (37.0-47.0); HEMOGLOBIN 10.5 g/dl (12.0-16.0); IMMATURE GRANULOCYTE % (AUTO) 0.4 % (0.0-5.0); LYMPHOCYTES # (AUTO) 0.7 K/uL (0.60-3.4); LYMPHOCYTES % (AUTO) 8.5 (10.0-50.0); MEAN CORPUSCULAR HEMOGLOBIN 29.2 pg (27.0-31.0); MEAN CORPUSCULAR HGB CONC 28.7 (31.8-35.4); MEAN CORPUSCULAR VOLUME 101.9 fl (81.0-99.0); MONOCYTES # (AUTO) 0.6 K/uL (0.4-2.0); MONOCYTES % (AUTO) 6.7 (0-10); NEUTROPHILS # (AUTO) 6.9 K/ul (2.0-6.9); NEUTROPHILS % (AUTO) 83.9 % (42.2-75.2); PLATELET COUNT 294 10^3/uL (140-440); RDW COEFFICIENT OF VARIATION 14.6 % (11.6-14.8); RED BLOOD COUNT 3.59 10^6/ul (4.20-5.40); WHITE BLOOD COUNT 8.22 K/ul (4.6-10.2)
[2023-09-16 05:44] LABS: ALANINE AMINOTRANSFERASE 12.3 U/L (0-35); ALBUMIN 2.7 g/dL (3.5-5.0); ALKALINE PHOSPHATASE 79.1 U/L (53-141); ASPARTATE AMINO TRANSFERASE 19.5 U/L (14-36); BILIRUBIN,TOTAL 0.45 mg/dL (0.2-1.3); BLOOD UREA NITROGEN 21.7 mg/dL (7-17); CALCIUM 8.27 mg/dL (8.4-10.2); CARBON DIOXIDE 35.6 mmol/L (22-30.0); CREATININE 0.58 mg/dL (0.60-1.30); GLUCOSE 68.3 mg/dL (74-106); POTASSIUM 3.94 mmol/L (3.5-5.1); SODIUM 142.5 mmol/L (134.5-145); TOTAL PROTEIN 6.17 g/dL (6.3-8.2)
[2023-09-16 10:20] VITALS: RESP 20
--- NOTE | 2023-09-16 13:00 | CT ---
EXAM: CT ANGIOGRAM CHEST WITH INTRAVENOUS CONTRAST 09/16/2023. SAGITTAL AND CORONAL REFORMATTED IMAG ES OBTAINED MIP AND THREE-DIMENSIONAL RESPECT IMAGES PROVIDED HISTORY: Hypoxia COMPARISON: 11/14/2022, 09/13/2023 FINDINGS: The heart size appears at the upper limits of normal. No pericardial effusion. Enlarged m ediastinal and hilar lymph nodes are present. Right hilar lymph node on image 80 measures 2.4 x 3.4 cm diameter. Debris is present within the right aspect of the trachea suggestive of aspiration. The re is occlusion of multiple airways extending to the posterior right upper lobe with extensive right upper lobe consolidation. Multiple bilateral nodules and masses appear new or increased as compared to the prior CT. Mass-like consolidation within the anterior lateral right upper lobe on image 58 measures 3.3 x 2.9 c m diameter. Mass-like consolidation within the right middle lobe on image 113 measures 1.7 x 3.1 cm diameter. Anterior right middle lobe nodule image 168 measures 2.1 x 0.9 cm. Anterior left upper lobe nodule on image 110 measures 1.8 x 1.8 cm diameter. There is a large mass within the left upper lobe on image 72 which measures 6.1 x 4.5 cm diameter. Left lower lobe nodule on image 106 measures 1.2 x 1.2 cm diameter. Consolidation throughout the dependent aspect of both lower lobes. Interlobular septal thickening li annalise due to diffuse pulmonary edema. Small left and moderate right-sided pleural effusions. No pulmonary embolus. Limited views of the upper abdomen shows no acute abnormality. No acute osseous abnormality. IMPRESSION: 1. No pulmonary embolus. 2. Enlarged mediastinal and hilar lymph nodes with reference measurements above. 3. Multifocal bilateral pulmonary consolidation. This is most severe throughout the posterior right upper lobe as well as within the dependent aspect of both lower lobes. This may represent a combina tion of atelectasis and/or pneumonia.. 4. Debris within the trachea. Occlusion of multiple small lower lobe and posterior right upper lobe airways. Correlate for aspiration. 5. Diffuse pulmonary edema. 6. Bilateral pleural effusions. 7. Diffuse peribronchial thickening. 8. Multiple nodules and masses within both lungs which appear new or increased. Multiple reference images and measurements are provided above. This may represent a combination of pneumonia and/or malignancy. F urther workup is advised. All CT scans are performed using dose optimization techniques as appropriate to the performed exam an d include at least one of the following: Automated exposure control, adjustment of the mA and/or kV according t o size, and the use of iterative reconstruction technique.
--- NOTE | 2023-09-16 14:08 | DCSUM ---
Admission Date Admission Date: 09/14/23 Discharge Date Discharge Date: 09/16/23 Admission Diagnosis Admission Diagnosis: 1. Acute metabolic encephalopathy in setting of UTI and PNA 2. UTI 3. Pneumonia Discharge Diagnosis Discharge Diagnosis: 1. Acute metabolic encephalopathy in setting of UTI and PNA - Improved 2. UTI due to ESBL e coli 3. Pneumonia, bilateral, possible aspiration 4. Multiple lung masses/nodules 5. Dementia 6. Hypertension 7. Stage III sacral decub, chronic, present upon admission Hospital Provider Hospital Provider: MARIELLE ASTORGA PA-C, [facility] Primary Care Physician Primary Care Physician: MADELIN SOTELO MD Summary of History and Physical Summary of History and Physical: Patient is an 83 year old female from the [place] with pmhx of ESBL UTIs, dementia, Parkinsons, COPD, DDD, who presented to the ER with AMS. She is normally very vocal and sometimes combative, however yesterday she seemed more lethargic and wasn't responding to [place] staff as usual. In the ER she was found to have UTI and possible pna on CXR. She was given zosyn. Limited ROS due to dementia. Hospital Course Subjective: Patient was treated with invanz to cover UTI and pneumonia. MRSA swab negative. Patient required 2-3L O2. UC resulted ESBL+ e coli as expected, sensitive to invanz. CTA done to r/o PE due to continued need for O2 supplementation. No PE noted but patient does have significant pneumonia, concern for possible aspiration. She also has multiple masses/nodules, worrisome for malignancy. Discussed in depth with her daughter/POA Paz. She does not want to put patient through work up of the masses, but understands it could be cancerous. Discussed concern that patient has had very little intake despite our best efforts. She also will have difficulty recovering from pneumonia due to her nonambulatory status. She also has her chronic sacral wound. We discussed the option of hospice but she is not yet ready to make that decision. She is aware she can choose to consult them later at the [facility] if she wishes. Discussed patient's high readmission risk for worsening respiratory status, dehydration, etc. She is aware. Will plan to discharge back to [place] on Invanz 1 gm IM until 09/24. Kirill prn. Recommend ST to follow. Appearance: No Apparent Distress and Other (+Thin, frail) HEENT: Supple CVS: No Murmur Abdomen: Soft, Non-Tender and No Distention Respiratory: No Accessory Muscle Use Extremities: No Edema Additional Findings: Sacral decub, stage III, present upon arrival, no cellulitis or drainage noted. Vital Signs: Most Recent Vital Signs Temperature 97.5 F L 09/16/23 10:00 Temperature Source Tympanic 09/16/23 10:00 Temperature Source Temporal Artery Scan 09/13/23 22:30 Pulse Rate 72 09/16/23 10:00 Respiratory Rate 20 09/16/23 10:00 Blood Pressure 138/72 09/16/23 10:00 Blood Pressure Mean 94 09/16/23 10:00 Blood Pressure Right Arm 130/52 09/14/23 01:17 Blood Pressure Location Left Arm 09/16/23 10:00 Blood Pressure Position Supine 09/16/23 10:00 O2 Sat by Pulse Oximetry 90 L 09/16/23 10:00 Oxygen Delivery Method Nasal Cannula 09/16/23 10:00 Oxygen Flow Rate 1 09/16/23 10:00 Height 5 ft 09/14/23 12:38 Weight 88 lb 09/14/23 12:38 Telemetry Type Remote Telemetry 09/14/23 13:00 Telemetry Monitoring Continues 09/14/23 13:00 Telemetry Heart Rate 76 09/14/23 13:00 EKG MD Interval 0.17 09/14/23 13:00 EKG QRS Interval 0.1 09/14/23 13:00 Telemetry Strip Reading PT REFUSES 09/16/23 01:00 Imaging: EXAM: CHEST ONE-VIEW History: Altered mental status FINDINGS: Normal cardiomediastinal contours. Normal pulmonary vasculature. Consolidative opacity in the right upper lobe. Mass like opacity in the left upper lobe also seen on prior no acute chest wall abnormality. Impression: Consolidative change in the right upper lobe favoring pneumonia. Cannot exclude underlying mass. Left upper lobe mass stable from 10/28/2022 EXAM: CT ANGIOGRAM CHEST WITH INTRAVENOUS CONTRAST 09/16/2023. SAGITTAL AND CORONAL REFORMATTED IMAGES OBTAINED MIP AND THREE-DIMENSIONAL RESPECT IMAGES PROVIDED HISTORY: Hypoxia COMPARISON: 11/14/2022, 09/13/2023 FINDINGS: The heart size appears at the upper limits of normal. No pericardial effusion. Enlarged mediastinal and hilar lymph nodes are present. Right hilar lymph node on image 80 measures 2.4 x 3.4 cm diameter. Debris is present within the right aspect of the trachea suggestive of aspiration. There is occlusion of multiple airways extending to the posterior right upper lobe with extensive right upper lobe consolidation. Multiple bilateral nodules and masses appear new or increased as compared to the prior CT. Mass-like consolidation within the anterior lateral right upper lobe on image 58 measures 3.3 x 2.9 cm diameter. Mass-like consolidation within the right middle lobe on image 113 measures 1.7 x 3.1 cm diameter. Anterior right middle lobe nodule image 168 measures 2.1 x 0.9 cm. Anterior left upper lobe nodule on image 110 measures 1.8 x 1.8 cm diameter. There is a large mass within the left upper lobe on image 72 which measures 6.1 x 4.5 cm diameter. Left lower lobe nodule on image 106 measures 1.2 x 1.2 cm diameter. Consolidation throughout the dependent aspect of both lower lobes. Interlobular septal thickening likely due to diffuse pulmonary edema. Small left and moderate right-sided pleural effusions. No pulmonary embolus. Limited views of the upper abdomen shows no acute abnormality. No acute osseous abnormality. IMPRESSION: 1. No pulmonary embolus. 2. Enlarged mediastinal and hilar lymph nodes with reference measurements above. 3. Multifocal bilateral pulmonary consolidation. This is most severe throughout the posterior right upper lobe as well as within the dependent aspect of both lower lobes. This may represent a combination of atelectasis and/or pneumonia.. 4. Debris within the trachea. Occlusion of multiple small lower lobe and posterior right upper lobe airways. Correlate for aspiration. 5. Diffuse pulmonary edema. 6. Bilateral pleural effusions. 7. Diffuse peribronchial thickening. 8. Multiple nodules and masses within both lungs which appear new or increased. Multiple reference images and measurements are provided above. This may represent a combination of pneumonia and/or malignancy. Further workup is advised. Lab Results Last 24 Hours: 09/16/23 05:10 WBC 8.22 D RBC 3.59 L Hgb 10.5 L Hct 36.6 L MCV 101.9 H MCH 29.2 MCHC 28.7 L RDW Coeff of Yosvany 14.6 Plt Count 294 Immature Gran % (Auto) 0.4 Neut % (Auto) 83.9 H Lymph % (Auto) 8.5 L [place] % (Auto) 6.7 Eos % (Auto) 0.4 Baso % (Auto) 0.1 Neut # (Auto) 6.9 Lymph # (Auto) 0.7 [place] # (Auto) 0.6 Eos # (Auto) 0.0 Baso # (Auto) 0.0 Immature Gran # (Auto) 0.0 Sodium 142.5 Potassium 3.94 Chloride 107.0 Carbon Dioxide 35.6 H Anion Gap 3.84 BUN 21.7 H Creatinine 0.58 L Estimated GFR (MDRD) 99.00 BUN/Creatinine Ratio 37.41 Glucose 68.3 L Calcium 8.27 L Total Bilirubin 0.45 AST 19.5 ALT 12.3 Alkaline Phosphatase 79.1 Total Protein 6.17 L Albumin 2.70 L Globulin 3.47 Albumin/Globulin Ratio 0.77 Discharge Instructions Discharge Planning: Discharge Planning > [address] Tahir Sotelo. Discharge Medications: Medications at Discharge (Home Meds & RX) Discharge Plan Discharge Discharge Orders: Discharge Patient (ONCE); Ordered 09/16/23 Ordered By: MARIELLE ASTORGA Activity Restrictions/Additional Instructions: DISCHARGE TO SNF ([facility]) DX: PNEUMONIA, SUSPECT ASPIRATION, ESBL + UTI, LUNG MASSES DIET: MECHANICAL SOFT, RECOMMEND ST CONSULT ACTIVITY: TOLERATED CONSIDER HOSPICE CONSULT IN FUTURE WHEN DAUGHTER IS READY INVANZ 1 GM IM DAILY STARTING 09/16-09/24 OXYGEN 2-3 L Instructions: Ertapenem (By injection), Extended Spectrum Beta-Lactamase (GEN) Care Plan Goals: Problem: Infection Goal #1: No signs/symptoms of infection Instructions: Monitor for sign/symptoms of infection Monitor temperature Goal #2: White blood cell counts Within Normal Limits Instructions: Obtain labs per physician orders Problem: Impaired Skin Integrity Goal: Improve skin integrity Instructions: Ambulate or up to chair as tolerated Increase oral intake if indicated Diet consult if indicated Keep bedding and clothing warm/dry Apply aloe vesta cream as needed Patient Disposition: TRANSFER SNF Prescriptions: New ertapenem 1 gram recon soln 1 g IM DAILY Qty: 9 0RF Rx Instructions: Start 09/16, last dose 09/24 ipratropium-albuterol 0.5 mg-3 mg(2.5 mg base)/3 mL solution for nebulization 3 ml inhalation Q4-6H PRN (Reason: wheezing) Qty: 90 0RF Continued alprazolam [Xanax] 0.5 mg tablet 0.5 mg PO TID PRN (Reason: anxiety) Qty: 90 2RF memantine [Namenda] 10 mg Tablet 10 mg PO Q12HR acetaminophen [Tylenol] 325 mg Tablet 650 mg PO Q4HR PRN (Reason: Pain) Qty: 60 5RF Rx Instructions: DO NOT TAKE MORE THAN 4000 MG IN A 24 HOUR PERIOD polyethylene glycol 3350 [Miralax] 17 gram Powder In Packet 17 g PO DAILY bisacodyl 10 mg Suppository 10 mg MD DAILY PRN (Reason: Constipation) quetiapine [Seroquel] 50 mg Tablet 50 mg PO QAM budesonide-formoterol [Symbicort] 80-4.5 mcg/actuation Hfa Aerosol Inhaler 2 puff inhalation BID 0RF amlodipine [Norvasc] 5 mg tablet 5 mg PO DAILY rivastigmine tartrate 1.5 mg Capsule 1.5 mg PO BID cyanocobalamin (vitamin B-12) 1,000 mcg tablet 2,000 mcg PO DAILY naloxone [Narcan] 4 mg/actuation spray,non-aerosol 4 mg intranasal Q2-3M PRN (Reason: OVERDOSE) Rx Instructions: spray 1 dose into ONE nostril; alternate nostrils w each dose until help arr isidro carvedilol 3.125 mg tablet 3.125 mg PO BID mirtazapine 7.5 mg tablet 7.5 mg PO BEDTIME hydrocodone-acetaminophen 5-325 mg tablet 1 tab PO BID Rx Instructions: 1 tab in AM and 1 tab at HS Discontinued albuterol sulfate 90 mcg/actuation HFA aerosol inhaler 2 puff INHALATION BID docusate sodium [Colace] 100 mg capsule 100 mg PO BID cyanocobalamin (vitamin B-12) 1,000 mcg/mL solution 1,000 mcg IM MONTHLY Hold Instructions: Completed Prescription Rx Instructions: TAKES ON THE 6TH OF EACH MONTH DAKINS EXTERNAL SOLUTION 1 applic topical QSHIFT Rx Instructions: APPLY TO SACRUM/COCCYX TOPICALLY EVERY SHIFT FOR [place] HOLD R/T PERIWOUND SKIN BREAKDOWN. APPLY DAKINS WET TO DRY SOLUTION TO SACRUM WOUND QSHIFT WITH TRIAMCINOLONE 1% CREAM TO PERIWOUND WITH EACH DRESSING CHANGE. COVER WITH FOAM QSHIFT prednisone 10 mg tablet 10 mg PO BID Did you review [place] [facility] [place] [facility] for ALL controlled substances?: Not Applicable Discussed opioids are addictive and Narcan is available by prescription or from pharmacy.: No Condition: Stable
[2023-09-16 14:38] VITALS: BP 126/76; PULSE 66; TEMP 98.3
== END 2023-09-16 17:05 | DRG 193 ==
LOC: MEDSURG B 22:23 → ED 22:23 → MEDSURG B 09-14 01:15
PROVIDERS: ADMIT Student in an Organized Health Care Education/Training Program; ATTEND Physician Assistant
DX: B96.29 Other Escherichia coli [E. coli] as the cause of diseases classified elsewhere; Z16.12 Extended spectrum beta lactamase (ESBL) resistance; R41.82 Altered mental status, unspecified; G20.A1 Parkinson's disease without dyskinesia, without mention of fluctuations; G93.41 Metabolic encephalopathy; R91.8 Other nonspecific abnormal finding of lung field; Z20.822 Contact with and (suspected) exposure to COVID-19; L89.153 Pressure ulcer of sacral region, stage 3; Z87.440 Personal history of urinary (tract) infections; I10 Essential (primary) hypertension; N39.0 Urinary tract infection, site not specified; F03.90 Unspecified dementia, unspecified severity, without behavioral disturbance, psychotic disturbance, mood disturbance, and anxiety; J18.9 Pneumonia, unspecified organism